=== PATIENT | female | born 1935 | race Caucasian/White ===

== ENCOUNTER 2016-03-23 14:37 | Emergency (ER) | payer MEDICARE, OTHER ==
[~2016-03-23] VITALS: Ht 160 cm; Wt 63.6 kg
[~2016-03-23 14:37] MED LIST: ASCO100089 PO; ASPI-973 PO; AZITHROMYCIN PO; AZU500 PO; CALC-78 PO; CITA20TA11 PO; DOXY100T2 PO; FERR325T39 PO; FURO-129 PO; HYDR200T5 PO; LACT1CAP73 PO; LORA10CA PO; MAGN400C PO; MULT-1018 PO; OMEP40CA36 PO; POLY17PO6 PO; POTA10CA42 PO; PRE20 PO; ROSU10TA24 PO; SYMINH INHALATION; TIOT18CA3 IH; ZIT250 PO
[2016-03-23 14:58] VITALS: BP 155/56; PULSE 89; RESP 18; O2SAT 94
[2016-03-23 16:22] LABS: BASOPHILS % (AUTO) 0.3 % (0-3); EOSINOPHILS % (AUTO) 2.6 % (0-5); Mean Corpuscular Volume 101.2 fL (81-100); NEUTROPHILS % (AUTO) 67.9 % (40-74); Platelet Count 205 bil/L (150-400)
--- NOTE | 2016-03-23 16:44 | DRSVH ---
PROCEDURE: X-RAY CHEST, TWO VIEWS ([id number]) INDICATIONS: SHORTNESS OF BREATH; CHRONIC DISEASE TECHNIQUE: 2 views of the chest were acquired. COMPARISON: [facility], CT, CT CHEST WO CON, 01/27/2016, 11:13. [facility], CR, XR CHEST 1VW (PORTABLE), 01/19/2016, 17:16. FINDINGS: Surgical changes and devices: Cardiac pacer. Lungs and pleura: No pleural effusions or pneumothorax. Diffuse interstitial disease and scarring is again noted and grossly unchanged. No acute consolidation. Nodular opacity in the right midlung nupur ure 1 cm is grossly unchanged please see report from recent CT dated 01/27/16 for further characteriz ation Mediastinum: Mediastinal contours are normal. Heart size is normal. Bones and chest wall: No suspicious bony abnormalities. Soft tissues appear unremarkable. IMPRESSION: No acute consolidation. Grossly unchanged mid right lung nodular opacity as above. Chronic diffuse/in terstitial lung disease. Dictated by: Marek Bond M.D. on 03/23/2016 at 16:42 Approved by: Marek Bond M.D. on 03/23/2016 at 16:42
[2016-03-23 16:54] VITALS: BP 137/46; PULSE 79; RESP 15; O2SAT 94
[2016-03-23 17:16] LABS: TROPONIN T < 0.010 ug/L (0.0-0.011)
--- NOTE | 2016-03-23 18:11 | ED.REPORT ---
HPI-Dyspnea / Wheezing Date of Service Mar 23, 2016 ED Provider: Edgar Brito MD This patient is a 80 year old female with a history of chronic anemia, transfusions, and COPD who presents to the ED complaining of feeling fatigued for the past 1 week. Pt. admits to diarrhea, vision problems, and mild SOB but denies cough, rhinorrhea, fever, chest pain, headaches, vomiting, nausea, abdominal pain, hematuria, or hematochezia. Pt. states that she receives injections in her eyes every 6 weeks for retina issues and since 6 days ago, she has been seeing black spots. She states that the diarrhea occurred for 2 days. The pt is on 2L of oxygen normally at home. Nursing Notes Stated Complaint: SOB,BODY ACHES,WEAK Chief Complaint: Respiratory Distress Nursing Notes Reviewed: Yes Allergies: Coded Allergies: albuterol (Verified Allergy, Severe, 03/11/16) "off the wall" atorvastatin calcium (Verified Allergy, Mild, 03/11/16) pravastatin (Verified Allergy, Mild, 03/11/16) simvastatin (Verified Allergy, Unknown, 03/11/16) Uncoded Allergies: link (Allergy, Mild, 07/29/10) hayfever (Allergy, Mild, 07/29/10) perfume (Allergy, Mild, 07/29/10) sneezing with link perfume and hayfever. Scheduled ([Azithromycin]) 250 MG PO DAILY MON, WED, FRI-3 TIMES WEEKLY Ascorbic Acid (Vitamin C) 1,000 Mg Tab.chew 1,000 MG PO DAILY Aspirin (Aspirin) 81 Mg Tablet 81 MG PO DAILY Azithromycin (Zithromax) 250 Mg Tablet 250 MG PO DAILY Budesonide/Formoterol 160-4.5 mcg Inh (Symbicort 160-4.5 mcg Inh) 120 Puff Inhaler 1 PUFF INHALATION BID Calcium Carbonate/Vitamin D3 (Calcium 500 + Vit D Caplet) 1 Each Tablet 1 EACH PO BID Citalopram (Citalopram) 20 Mg Tablet 30 MG PO DAILY Doxycycline Hyclate (Doxycycline Hyclate) 100 Mg Tablet 100 MG PO BID Ferrous Sulfate (Iron) 325 Mg Tablet 324 TABLET PO BID Furosemide (Lasix) 20 Mg Tablet 20 MG PO DAILY Hydroxychloroquine Sulfate (Hydroxychloroquine Sulfate) 200 Mg Tablet 200 MG PO BID Lactobacillus Combo No.11 (Probiotic) 1 Each Cap.sprink 1 EACH PO DAILY Magnesium Oxide (Magnesium) 400 Mg Capsule 400 MG PO DAILY Multivitamin (Multi Vitamin Daily) 1 Each Tablet 1 EACH PO DAILY Omeprazole (Omeprazole) 40 Mg Capsule.dr 40 MG PO DAILY Polyethylene Glycol 3350 (Miralax) 17 Gm Powd.pack 17 GM PO BID Prednisone (PredniSONE) 20 Mg Tablet 40 MG PO DAILY Sulfasalazine (Sulfasalazine) 500 Mg Tablet 500 MG PO QID Tiotropium [place] (Spiriva) 18 Mcg Cap.w.dev 18 MCG IH AM Scheduled PRN Loratadine (Claritin) 10 Mg Capsule 10 MG PO DAILY PRN PRN allergies Potassium Chloride (Potassium Chloride) 10 Meq Capsule.er 10 MEQ PO DAILY PRN PRN HYPOKALEMIA TAKE WITH FOOD Miscellaneous Medications Rosuvastatin Calcium (Rosuvastatin Calcium) 10 Mg Tablet 10 MG PO General Time Seen by MD: 18:06 Chief Complaint Other (Fatigue) Hx Obtained From: Patient, Spouse Arrived By: Walk-in Sudden in Onset?: No Onset Occurred: 1 week ago Symptom Duration: Since onset Associated with: Denies: Chest pain, Cough, Fever, Nausea, Vomiting Pertinent Negative: Pt denies other symptoms Recent Healthcare: No recent hospitalization, Recent doctor visit Similar Sx Previous: Yes Past Medical History Past Medical History Notes: Dr. Chris Irwin (oncologist) [place] Past Medical History COPD-2 LPM Cannula aortic stenosis s/p bioprosthetic valve osteoarthritis breast cancer s/p bilat mastectomy diverticulitis sp resection GERD Depression Sleep apnea - on C-PAP Hx of GI bleed Hs of anemia, required 4 transfusions in July 2015 Reports: COPD, Hyperlipidemia Reports: Diverticulitis Past Surgical History aortic valve replacement double mastectomy bilateral cateract surgery colon resection rotator cuff surgery Hernia surgery in November of 2014 Pacemaker August 2015 Reports: Appendectomy, Hysterectomy Reports: Pacemaker insertion Smoking History Former Smoker Social History Alcohol Use: "Social" Drug Use: Denies drug use Other Social History: Good social support, , Local resident Ambulatory Status Independent Review of Systems Review of Systems Note: Black spots in vision Basic Review of Systems GI: No abdominal pain, No anorexia, No nausea, No vomiting : No dysuria Hematologic: No bleeding Neurologic: NL mental status Psychiatric: Normal thought content Constitutional: Reports: Fatigue, Denies: Fever Respiratory: Reports: Shortness of breath (Mild), Denies: Non-productive cough Cardiovascular: Denies: Chest pain Allergy / Immune: Denies: Rhinorrhea Complete sys rev & neg: except as marked. GI: Reports: Diarrhea, Denies: Abdominal pain, Hematochezia, Nausea, Vomiting Female: Denies: Dysuria, Hematuria Physical Exam Initial Vital Signs Vital Signs (First) Date Time Temp Pulse Resp B/P Pulse Ox O2 Delivery O2 Flow Rate FiO2 03/23/16 14:58 36.6 89 18 155/56 94 Nasal Cannula 2 Initial VS: Reviewed Head / Eyes: Atraumatic, Normocephalic, PERRL ENT: Mucous membranes moist, Conjunctiva normal, No scleral icterus Skin: Warm, Dry, No cyanosis Neurologic: Alert, Oriented, Nonfocal Psychiatric: Mood/affect normal, Behavior normal, Normal thought content Respiratory / Chest: Atraumatic, Breath sounds NL, Breath sounds = bilat, No respiratory distress Cardiovascular: Heart rate NL, Regular rhythm Heart Sounds / Murmur: Positive: Systolic murmur present.. (upper left sternal border) Abdomen: Atraumatic, Soft, Non-tender, BS normoactive Lower Extremity / Pelvis / MS: Atraumatic, No edema Lower extremity edema Upper Extremity / MS: Atraumatic, Full range of motion Rectum / Perineum: Atraumatic, No gross blood, No discharge Guaiac negative Interpretation & Diagnostics Lab Results Interpretation Result Diagram: 03/23/16 1600 03/23/16 1600 Test 03/23/16 16:00 03/23/16 17:32 White Blood Count 7.0th/mm3 (3.8-10.1) Red Blood Count 3.35mil/mm3 (3.90-5.20) Hemoglobin 10.4g/dL (12.0-15.6) Hematocrit 33.9% (35.0-46.0) Mean Corpuscular Volume 101.2fL (81-100) Mean Corpuscular Hemoglobin 31.0pg (27.0-35.0) Mean Corpuscular Hemoglobin Concent 30.7% (32.0-37.0) Red Cell Distribution Width 14.0% (12.3-15.4) Platelet Count 205bil/L (150-400) Neutrophils (%) (Auto) 67.9% (40-74) Lymphocytes (%) (Auto) 16.2% (14-46) Monocytes (%) (Auto) 13.0% (4-12) Eosinophils (%) (Auto) 2.6% (0-5) Basophils (%) (Auto) 0.3% (0-3) Sodium Level 138mEq/L (134-144) Potassium Level 4.7mEq/L (3.5-5.2) Chloride Level 96mEq/L (97-108) Carbon Dioxide Level 29mmol/L (18-29) Blood Urea Nitrogen 20mg/dL (8-27) Creatinine 0.82mg/dL (0.57-1.00) Estimat Glomerular Filtration Rate 96mL/min (>59) Glucose Level 100mg/dL (60-99) Calcium Level 9.2mg/dL (8.5-10.1) Total Bilirubin 0.2mg/dL (0.0-1.2) Aspartate Amino Transf (AST/SGOT) 26U/L (0-50) Alanine Aminotransferase (ALT/SGPT) 12U/L (0-32) Alkaline Phosphatase 44U/L (25-165) Troponin T < 0.010ug/L (0.0-0.011) Pro-B-Type Natriuretic Peptide 532.7pg/mL (0-738) Total Protein 6.8g/dL (6.4-8.4) Albumin 4.2g/dL (3.4-5.0) Hold Amaya Top Tube Received (Received) Hold Urine Received (Received) X-Ray Chest Interpretation Chest Xray Interpretation: IMPRESSION: No acute consolidation. Grossly unchanged mid right lung nodular opacity as above. Chronic diffuse/interstitial lung disease. Dictated by: Marek Bond M.D. on 03/23/2016 at 16:42 Approved by: Marek Bond M.D. on 03/23/2016 at 16:42 Interpretation / Wet Read by: Interpret - Radiologist Re-Eval/Medical Decision Med Decision/Clinical Course 80-year-old female history of COPD and chronic anemia on iron presenting complaining of weakness 2 weeks. She wanted to come get checked out. Denies any other symptoms. Hemoglobin is 10.4 which is up from last draw of 9. She is guaiac-negative. Her oxygen is 94-95% on 2 L which is consistent with her baseline. She is on home oxygen 2 L. She has denies any shortness of breath. Labs unremarkable except as above. Vital signs stable as above. Chest x-ray no evidence of pneumonia. No symptoms consistent with COPD exacerbation. Symptoms likely due to anemia. Recommend she increase her iron to twice daily dosing with stool softener. Follow-up with primary doctor this week. Return precautions given. Source of Hx: Old records Re-Evaluation/Progress : Time of Eval: 18:06 Patient Status: Condition improved Re-Evaluation/Progress Note: Pt. informed of the plan for discharge during the initial interview. Pt. understands and agrees with plan. All questions have been addressed at this time. Counseled Regarding: Diagnosis, Lab results, Need for follow-up, When/why to return to ED Discharge & Departure Departure Notes Impression: Primary Impression: Anemia Anemia type: iron deficiency Iron deficiency anemia type: unspecified iron deficiency Qualified Code: D50.9 - Iron deficiency anemia, unspecified Disposition: Home Discharge Condition All VS Reviewed: Yes Condition: Stable Patient Instructions: Iron Deficiency Anemia (DC) Additional Instructions: Thank you for entrusting your care with us today. Please take your iron twice a day. Your hemoglobin today was 10.4. Please return to the emergency department for blood in your stool, vomiting blood, shortness of breath, or new or concerning symptoms. Referrals: Meeta Leiva MD (PCP) Scribe Attestation Portions of this note were transcribed by Gama Yanez and Fernanda Rosa. I, Dr. Brito personally performed the history, physical exam and medical decision-making; I reviewed and confirmed the accuracy of the information in the transcribed note. Signed by: Gama Yanez and Gregory Terrell, 2015 and 1932. copies to: Meeta Leiva MD, Ben M MD Mar 23, 2016 18:11 Hien Rosa [Fernanda] Mar 23, 2016 18:30 GAMA YANEZ Mar 23, 2016 18:42
[2016-03-23 18:50] VITALS: BP 142/73; PULSE 78; RESP 18; O2SAT 96
[2016-06-15] MEDS ORDERED: CRIZ250C PO (09:39)
[2016-07-13] MEDS ORDERED: FURO-128 PO (14:57)
[2016-07-13] MEDS ORDERED: CRIZ250C PO (16:05)
[2016-07-13] MEDS ORDERED: BUPR-97 PO (16:40)
== END 2016-03-23 18:52 | disposition home or self-care (01) ==
LOC: SED 14:37
DX: D50.9 Iron deficiency anemia, unspecified (principal); R06.02 Shortness of breath; J44.9 Chronic obstructive pulmonary disease, unspecified; E78.5 Hyperlipidemia, unspecified; K21.9 Gastro-esophageal reflux disease without esophagitis; Z85.3 Personal history of malignant neoplasm of breast; Z87.891 Personal history of nicotine dependence; Z88.8 Allergy status to other drugs, medicaments and biological substances; Z79.82 Long term (current) use of aspirin; Z95.0 Presence of cardiac pacemaker

== ENCOUNTER 2016-06-26 11:25 | Emergency (ER) | payer MEDICARE, OTHER ==
[~2016-06-26] VITALS: Ht 160 cm; Wt 59.1 kg
[~2016-06-26 11:25] MED LIST changes: +CRIZ250C PO; -ZIT250 PO
[2016-06-26 11:31] VITALS: BP 144/38; PULSE 91; RESP 14; O2SAT 97
--- NOTE | 2016-06-26 11:43 | ED.REPORT ---
HPI-General Illness Date of Service Jun 26, 2016 ED Provider: Rosalee Hong MD 80 year old female with a history of COPD, breast cancer status post bilateral mastectomy, and GERD presents to the ER accompanied by her complaining of three days of shortness of breath with upper sternal chest pain. Pain is exacerbated by deep inspiration. She also complains of nausea, decreased appetite, constipation, and weight loss. Last week she was seen for a follow-up ECG after being started on CRIZOTINIB, at which time she was told to stop this medication for several days. Nursing Notes Stated Complaint: SHORTNESS OF BREATH Chief Complaint: Respiratory Complaints Nursing Notes Reviewed: Yes Allergies: Coded Allergies: albuterol (Verified Allergy, Severe, 06/26/16) "off the wall" atorvastatin calcium (Verified Allergy, Mild, 06/26/16) pravastatin (Verified Allergy, Mild, 06/26/16) simvastatin (Verified Allergy, Unknown, 06/26/16) Uncoded Allergies: link (Allergy, Mild, 07/29/10) hayfever (Allergy, Mild, 07/29/10) perfume (Allergy, Mild, 07/29/10) sneezing with link perfume and hayfever. Scheduled ([Azithromycin]) 250 MG PO DAILY MON, WED, FRI-3 TIMES WEEKLY Ascorbic Acid (Vitamin C) 1,000 Mg Tab.chew 1,000 MG PO DAILY Aspirin (Aspirin) 81 Mg Tablet 81 MG PO DAILY Budesonide/Formoterol 160-4.5 mcg Inh (Symbicort 160-4.5 mcg Inh) 120 Puff Inhaler 1 PUFF INHALATION BID Calcium Carbonate/Vitamin D3 (Calcium 500 + Vit D Caplet) 1 Each Tablet 1 EACH PO BID Citalopram (Citalopram) 20 Mg Tablet 30 MG PO DAILY Crizotinib (Xalkori) 250 Mg Capsule 250 MG PO BID Doxycycline Hyclate (Doxycycline Hyclate) 100 Mg Tablet 100 MG PO BID Ferrous Sulfate (Iron) 325 Mg Tablet 324 TABLET PO BID Furosemide (Lasix) 20 Mg Tablet 20 MG PO DAILY Hydroxychloroquine Sulfate (Hydroxychloroquine Sulfate) 200 Mg Tablet 200 MG PO BID Lactobacillus Combo No.11 (Probiotic) 1 Each Cap.sprink 1 EACH PO DAILY Magnesium Oxide (Magnesium) 400 Mg Capsule 400 MG PO DAILY Multivitamin (Multi Vitamin Daily) 1 Each Tablet 1 EACH PO DAILY Omeprazole (Omeprazole) 40 Mg Capsule.dr 40 MG PO DAILY Ondansetron ODT (Ondansetron ODT) 8 Mg Tab.rapdis 8 MG PO TID Polyethylene Glycol 3350 (Miralax) 17 Gm Powd.pack 17 GM PO BID Prednisone (PredniSONE) 20 Mg Tablet 40 MG PO DAILY Sulfasalazine (Sulfasalazine) 500 Mg Tablet 500 MG PO QID Tiotropium [place] (Spiriva) 18 Mcg Cap.w.dev 18 MCG IH AM Scheduled PRN Loratadine (Claritin) 10 Mg Capsule 10 MG PO DAILY PRN PRN allergies Potassium Chloride (Potassium Chloride) 10 Meq Capsule.er 10 MEQ PO DAILY PRN PRN HYPOKALEMIA TAKE WITH FOOD Miscellaneous Medications Rosuvastatin Calcium (Rosuvastatin Calcium) 10 Mg Tablet 10 MG PO General Time Seen by MD: 11:33 Chief Complaint Chest pain, Other (Shortness of Breath) Hx Obtained From: Patient, Spouse Arrived By: Walk-in Sudden in Onset?: No Onset Occurred: 3 days ago Symptom Duration: Since onset Location: : Chest Quality: Painful Severity: Current: Moderate Severity: Maximum: Moderate Associated with: Reports: Nausea Context Related History: Reports COPD, Reports Cancer, Reports GERD Recent Healthcare: Recent doctor visit Similar Sx Previous: No Past Medical History Past Medical History Notes: Dr. Chris Irwin (oncologist) [place] Past Medical History COPD-2 LPM Cannula aortic stenosis s/p bioprosthetic valve osteoarthritis breast cancer s/p bilat mastectomy diverticulitis sp resection GERD Depression Sleep apnea - on C-PAP GI bleed Anemia, required 4 transfusions in July [address] April 2016 indicates likely metastatic lung disease Reports: Hyperlipidemia Reports: Diverticulitis Past Surgical History aortic valve replacement double mastectomy bilateral cateract surgery colon resection rotator cuff surgery Knee Hernia surgery in November of 2014 Pacemaker August 2015 Lung needle biopsy Reports: Appendectomy, Hysterectomy, Tonsillectomy Reports: Pacemaker insertion Smoking History Former Smoker Social History Alcohol Use: "Social" Drug Use: Denies drug use Other Social History: Good social support, , Local resident Ambulatory Status Independent Review of Systems Full Review of Systems Constitutional: Reports: Recent wt loss, Denies: Chills, Fever, Weakness - generalized Respiratory: Reports: Shortness of breath Cardiovascular: Reports: Chest pain GI: Reports: Constipation, Nausea, Denies: Abdominal pain, Vomiting Neurologic: Denies: Headache Complete sys rev & neg: except as marked. Physical Exam Vital Signs Vital Signs Date Time Temp Pulse Resp B/P Pulse Ox O2 Delivery O2 Flow Rate FiO2 06/26/16 13:02 85 21 122/31 96 Nasal Cannula 2 06/26/16 11:31 36.8 91 14 144/38 97 Nasal Cannula 2 Initial VS: Reviewed Head / Eyes: Atraumatic, Normocephalic Neck: Supple, Non-tender, Full range of motion Abdomen / GI: Soft, Non-tender, No guarding, No rebound, No distention Extremities: Vascular intact, Neuro intact, No swelling, No tenderness Skin: Warm, Dry, No cyanosis Neurologic: Alert, Oriented, Nonfocal Psychiatric: Mood/affect normal, Behavior normal, Normal thought content General/Constitutional: Awake, Alert, Well developed Respiratory / Chest: Breath sounds NL, No respiratory distress, No rales, No rhonchi, No wheezing Pacemaker in place. Surgically absent breasts. Cardiovascular: Heart rate NL, Regular rhythm Heart Sounds / Murmur: Positive: Diastolic murmur present. (III/), Systolic murmur present.. (III/) Lower Ext Edema: Positive: Left 1+, Right 2+ Interpretation & Diagnostics Lab Results Interpretation Result Diagram: 06/26/16 1140 06/26/16 1228 Test 06/26/16 11:40 06/26/16 12:28 White Blood Count 8.9th/mm3 (3.8-10.1) Red Blood Count 3.10mil/mm3 (3.90-5.20) Hemoglobin 9.7g/dL (12.0-15.6) Hematocrit 32.2% (35.0-46.0) Mean Corpuscular Volume 103.9fL (81-100) Mean Corpuscular Hemoglobin 31.3pg (27.0-35.0) Mean Corpuscular Hemoglobin Concent 30.1% (32.0-37.0) Red Cell Distribution Width 13.0% (12.3-15.4) Platelet Count 207bil/L (150-400) Neutrophils (%) (Auto) 68.2% (40-74) Lymphocytes (%) (Auto) 14.5% (14-46) Monocytes (%) (Auto) 14.4% (4-12) Eosinophils (%) (Auto) 2.6% (0-5) Basophils (%) (Auto) 0.2% (0-3) Sodium Level 139mEq/L (134-144) Potassium Level 4.3mEq/L (3.5-5.2) Chloride Level 98mEq/L (97-108) Carbon Dioxide Level 30mmol/L (18-29) Blood Urea Nitrogen 19mg/dL (8-27) Creatinine 0.96mg/dL (0.57-1.00) Estimat Glomerular Filtration Rate 80mL/min (>59) Glucose Level 106mg/dL (60-99) Calcium Level 9.1mg/dL (8.5-10.1) Magnesium Level 2.5mg/dL (1.6-2.6) Total Bilirubin 0.3mg/dL (0.0-1.2) Aspartate Amino Transf (AST/SGOT) 32U/L (0-50) Alanine Aminotransferase (ALT/SGPT) 18U/L (0-32) Alkaline Phosphatase 58U/L (25-165) Troponin T < 0.010ug/L (0.0-0.011) Total Protein 6.0g/dL (6.4-8.4) Albumin 3.7g/dL (3.4-5.0) ECG Interpretation ECG Interpretation: Sinus rhythm, rate 87 Probable left atrial enlargement RBBB LVH QTc 508 compared to QTc 490 06/19/2016 Time: 12:01 Interpreted by: ED physician X-Ray Chest Interpretation Chest Xray Interpretation: IMPRESSION: 1. A nodular density in the right mid to lower lung zone, which has slightly increased in density but stable in size. 2. Increased small right pleural effusion. Dictated by: James Palacios M.D. on 06/26/2016 at 12:29 Approved by: James Palacios M.D. on 06/26/2016 at 12:31 View: Portable, 1 view Interpretation / Wet Read by: Interpret - Radiologist Re-Eval/Medical Decision Med Decision/Clinical Course Chronic anemia. Questionable increase to metastatic lung nodule size continued pleural effusion not significantly changed. Suspect that the majority of her symptoms are related to the drug itself rather than any actual progression of disease and there is no evidence of acute pneumonia or other infection. We will treat her nausea and have her follow up with oncology as previously scheduled Source of Hx: Old records Time of Eval: 14:12 Re-Evaluation/Progress Note: Discussed lab and imaging results and plan to discharge. Patient is amenable to the plan. Return precautions given. All other questions addressed. Consultation : Referral / Consult Name: Jose Bess MD Consulted With: On-call physician (Oncology) Call Returned at: 11:59 Counseled Regarding: Diagnosis, Lab results, Need for follow-up, When/why to return to ED Discharge & Departure Primary Impression: Metastatic breast cancer Additional Impressions: Dyspnea Non-cardiac chest pain Disposition: Home Discharge Condition All VS Reviewed: Yes Condition: Stable Additional Instructions: Your workup today is reassuring, I do not believe that there is any immediately dangerous cause for your symptoms at this time. There is question if the nodule in your lung has grown in size, but this is not incredibly obvious based on your x-ray. Your ECG is reassuring. Continue taking the CRIZOTINIB. Tylenol or ibuprofen as needed for pain. Take the prescribed Zofran as directed for nausea. Start with a bland diet, advance as tolerated. Try milkshakes with some added protein powder. Drink plenty of fluids, whatever you are able to tolerate. Follow-up with Dr. Resendez as planned. Return to the ER if you develop any worsening or concerning symptoms. Referrals: Meeta Leiva MD (PCP) Scribe Attestation Portions of this note were transcribed by Vance Redman. I, Dr. Hong, personally performed the history, physical exam and medical decision-making; I reviewed and confirmed the accuracy of the information in the transcribed note. Signed by: Gregory Patino, 06/26/2016 at 14:20 copies to: Meeta Leiva MD, Shawna L MD Jun 26, 2016 11:43 VANCE REDMAN Jun 26, 2016 11:50
[2016-06-26 11:58] LABS: BASOPHILS % (AUTO) 0.2 % (0-3); EOSINOPHILS % (AUTO) 2.6 % (0-5); MONOCYTES % (AUTO) 14.4 % (4-12); Mean Corpuscular Hemoglobin 31.3 pg (27.0-35.0); Mean Corpuscular Volume 103.9 fL (81-100); NEUTROPHILS % (AUTO) 68.2 % (40-74); Platelet Count 207 bil/L (150-400)
--- NOTE | 2016-06-26 12:32 | DRSVH ---
PROCEDURE: X-RAY CHEST ONE VIEW, PORTABLE ([id number]) INDICATIONS: sob, chest discomfort TECHNIQUE: One view of the chest was acquired. COMPARISON: [facility], CR, XR CHEST 1VW (PORTABLE), 01/19/2016, 17:16. FINDINGS: Surgical changes and devices: A cardiac pacemaker is present in expected position. Lungs and pleura: There is a nodular density in the right mid to lower lung zone, unchanged in size but increased in density. There is a small right effusion, which is slightly increased. No pneumothor ax. Right apical opacities are likely scarring. Mediastinum: Mediastinal contours appear normal. Heart size is normal. Bones and chest wall: No suspicious bony lesions. Overlying soft tissues appear unremarkable. IMPRESSION: 1. A nodular density in the right mid to lower lung zone, which has slightly increased in density but stable in size. 2. Increased small right pleural effusion. Dictated by: James Palacios M.D. on 06/26/2016 at 12:29 Approved by: James Palacios M.D. on 06/26/2016 at 12:31
[2016-06-26 13:02] VITALS: BP 122/31; PULSE 85; RESP 21; O2SAT 96
[2016-06-26] MEDS ORDERED: Ondansetron 2 mg/mL 2 mL Inj IVPUSH ONE (13:05)
[2016-06-26] MEDS ORDERED: 0.9% Sodium Chloride 1,000 ML IV ONE (13:05)
[2016-06-26 13:24] LABS: TROPONIN T < 0.010 ug/L (0.0-0.011)
[2016-06-26 13:33] LABS: Magnesium 2.5 mg/dL (1.6-2.6)
[2016-06-26] MEDS ORDERED: ONDA8TAB10 PO (14:35)
[2016-06-26 14:46] VITALS: BP 108/38; PULSE 82; RESP 15; O2SAT 92
[2016-06-26 15:01] VITALS: BP 108/38; PULSE 82; RESP 15; O2SAT 92
[2016-07-13] MEDS ORDERED: FURO-128 PO (14:57)
[2016-07-13] MEDS ORDERED: CRIZ250C PO (16:05)
[2016-07-13] MEDS ORDERED: BUPR-97 PO (16:40)
== END 2016-06-26 15:02 | disposition home or self-care (01) ==
LOC: SED 11:25
DX: C50.919 Malignant neoplasm of unspecified site of unspecified female breast (principal); R06.00 Dyspnea, unspecified; R07.89 Other chest pain; J44.9 Chronic obstructive pulmonary disease, unspecified; K21.9 Gastro-esophageal reflux disease without esophagitis; E78.5 Hyperlipidemia, unspecified; Z95.0 Presence of cardiac pacemaker; Z98.890 Other specified postprocedural states; Z87.891 Personal history of nicotine dependence; Z88.8 Allergy status to other drugs, medicaments and biological substances; Z79.82 Long term (current) use of aspirin; Z99.81 Dependence on supplemental oxygen; Z90.13 Acquired absence of bilateral breasts and nipples
CPT/HCPCS: 71010; 80053; 83735; 84484; 85025; 93005; 96361; 96374; 99285; J2405; J7030

== ENCOUNTER 2016-07-02 11:22 | Inpatient (IN) | payer MEDICARE, OTHER ==
[2016-07-02] VITALS (10 sets, daily range): BP systolic 114–131; BP diastolic 35–54; PULSE 83–96; RESP 18–25; O2SAT 91–99
[~2016-07-02] VITALS: Ht 160 cm; Wt 58.3 kg
[~2016-07-02 11:22] MED LIST changes: +ONDA8TAB10 PO
[2016-07-02 11:54] LABS: BASOPHILS % (AUTO) 0.3 % (0-3); EOSINOPHILS % (AUTO) 1.3 % (0-5); MONOCYTES % (AUTO) 13.3 % (4-12); Mean Corpuscular Hemoglobin 31.3 pg (27.0-35.0); Mean Corpuscular Volume 105.9 fL (81-100); NEUTROPHILS % (AUTO) 77.3 % (40-74); Platelet Count 250 bil/L (150-400)
--- NOTE | 2016-07-02 12:02 | ED.REPORT ---
HPI-General Illness Date of Service Jul 02, 2016 ED Provider: Rosalee Hong MD An 80 year old female with a history of bilateral breast cancer, metastatic to her lung, and COPD presents to the ED complaining SOB, fatigue, and and increasing exertional dyspnea despite her usual 2 L O2 at home. She reports bifrontal headache and complains of drainage that feels like it is draining into her mouth. She reports taking a prolonged nap where she went to bed in the afternoon and slept until 0800 the next day. She reports blurry vision and enough weakness and dyspnea that she is having trouble walking. Per , she has had loss of appetite, and has barely eaten since last ED visit on . She reports not being able to tolerate food going down. The patient was seen at oncology yesterday. Because of prolonged QTC, chemotherapy has been stopped. Nursing Notes Stated Complaint: SOB Chief Complaint: Trauma/Critical Care Nursing Notes Reviewed: Yes Allergies: Coded Allergies: atorvastatin calcium (Verified Allergy, Mild, 06/26/16) pravastatin (Verified Allergy, Mild, 06/26/16) simvastatin (Verified Allergy, Unknown, 06/26/16) albuterol (Verified Adverse Reaction, Severe, Restlessness, jittery, ) "off the wall" Uncoded Allergies: link (Allergy, Mild, 07/29/10) hayfever (Allergy, Mild, 07/29/10) perfume (Allergy, Mild, 07/29/10) sneezing with link perfume and hayfever. Scheduled Ascorbic Acid (Vitamin C) 1,000 Mg Tab.chew 1,000 MG PO DAILY Aspirin (Aspirin) 81 Mg Tablet 81 MG PO DAILY Azithromycin (Zithromax) 250 Mg Tablet 250 MG PO 3xweekly Budesonide/Formoterol 160-4.5 mcg Inh (Symbicort 160-4.5 mcg Inh) 120 Puff Inhaler 1 PUFF INHALATION BID Calcium Carbonate/Vitamin D3 (Calcium 500 + Vit D Caplet) 1 Each Tablet 1 EACH PO BID Citalopram (Citalopram) 20 Mg Tablet 20 MG PO DAILY Clobetasol Propionate (Clobetasol Propionate) 118 Ml Shampoo 1 APPLIC EXT 3xweekly Ferrous Sulfate (Iron) 325 Mg Tablet 324 TABLET PO BID Furosemide (Lasix) 20 Mg Tablet 20 MG PO DAILY Hydroxychloroquine Sulfate (Hydroxychloroquine Sulfate) 200 Mg Tablet 200 MG PO BID Lactobacillus Combo No.11 (Probiotic) 1 Each Cap.sprink 1 EACH PO DAILY Magnesium Oxide (Magnesium) 400 Mg Capsule 400 MG PO DAILY Multivitamin (Multi Vitamin Daily) 1 Each Tablet 1 EACH PO DAILY Omeprazole (Omeprazole) 40 Mg Capsule.dr 40 MG PO DAILY Rosuvastatin Calcium (Rosuvastatin Calcium) 10 Mg Tablet 10 MG PO DAILY Sulfasalazine (Sulfasalazine) 500 Mg Tablet 500 MG PO BID Tiotropium [place] (Spiriva) 18 Mcg Cap.w.dev 18 MCG IH QAM Scheduled PRN Acetaminophen (Acetaminophen) 325 Mg Tablet 650 MG PO Q4H PRN PRN For Pain Albuterol Neb Soln (Albuterol Neb Soln) 2.5 Mg/3 Ml Vial.neb Unknown Dose INHALATION Q4H PRN PRN For Shortness of Breath Ipratropium [place] (Ipratropium [place] Inhalant Solution) 0.2 Mg/1 Ml Solution 0.2 MG IH QID PRN PRN For Shortness of Breath Loratadine (Claritin) 10 Mg Capsule 10 MG PO DAILY PRN PRN allergies Menthol (Icy Hot) 1 Each Adh..patch 1 EACH TP DIRECTED PRN PRN For Pain Ondansetron ODT (Ondansetron ODT) 8 Mg Tab.rapdis 8 MG PO TID PRN PRN For Nausea Polyethylene Glycol 3350 (Miralax) 17 Gm Powd.pack 17 GM PO DAILY PRN PRN For Constipation General Time Seen by MD: 11:56 Chief Complaint Other (Shortness of Breath) Hx Obtained From: Patient, EMS Arrived By: Ambulance Sudden in Onset?: No Onset Occurred: 1 - 4 hours ago Symptom Duration: Since onset Severity: Current: Moderate Severity: Maximum: Moderate Recent Healthcare: Recent doctor visit Similar Sx Previous: No Past Medical History Past Medical History Notes: Dr. Kvng Resendez, oncology Past Medical History COPD-2 LPM Cannula aortic stenosis s/p bioprosthetic valve osteoarthritis breast cancer s/p bilat mastectomy metastatic lesions to Left lung- post radiation metastatic lesions to Righ lung - treament attempts currenly with oral chemo and not being well tolerated diverticulitis sp resection GERD Depression Sleep apnea - on C-PAP GI bleed Anemia, required 4 transfusions in July [address] April 2016 indicates likely metastatic lung disease Has pacemaker Was seen by oncology yesterday. Because of prolonged QTC, the chemotherapy has stopped. Visited ED on 05/26/16, was not tolerating chemotherapy. Reports: Cancer (Metastaic breast cancer to lung. ), Hyperlipidemia Reports: Diverticulitis Past Surgical History aortic valve replacement double mastectomy bilateral cateract surgery colon resection rotator cuff surgery Knee Hernia surgery in November of 2014 Pacemaker August 2015 Lung needle biopsy Reports: Appendectomy, Hysterectomy, Tonsillectomy Reports: Pacemaker insertion Smoking History Never Smoker Social History Alcohol Use: "Social" Drug Use: Denies drug use Other Social History: Good social support, , Local resident Ambulatory Status Independent Review of Systems Difficulty keeping oxygen up. Difficulty walking Drainage into mouth Loss of appetite Full Review of Systems Constitutional: Reports: Fatigue, Denies: Chills, Fever Eyes: Reports: Blurred bilateral Respiratory: Reports: Shortness of breath Neurologic: Reports: Headache Complete sys rev & neg: except as marked. Physical Exam Vital Signs Vital Signs Date Time Temp Pulse Resp B/P Pulse Ox O2 Delivery O2 Flow Rate FiO2 07/02/16 15:18 87 18 131/43 97 Nasal Cannula 4 07/02/16 14:30 86 20 130/38 92 Room Air 07/02/16 14:07 36.8 88 18 130/38 92 Nasal Cannula 4 07/02/16 11:25 36.3 96 25 127/35 99 Nasal Cannula 6 Initial VS: Reviewed General/Constitutional: Awake, Alert Patient is appropriate and is talking. Head / Eyes: Atraumatic, Normocephalic ENT: Atraumatic, Mucous membranes moist Respiratory / Chest: Atraumatic Wheezing / Retractions: Positive: Wheezing moderate (lungs have scattered wheezes) Cardiovascular: Heart rate NL, Regular rhythm Heart Sounds / Murmur: Positive: Murmur present... (3/6 systolic murmur) No edema Abdomen: Soft, No guarding, No rebound Upper Extremities Upper Extremity / MS: No edema Lower Extremity / Pelvis / MS: No edema Skin: Atraumatic, Color NL, Warm, Dry Neurologic: Oriented X3, Speech NL Neurological exam is non-focal. Interpretation & Diagnostics Lab Results Interpretation Result Diagram: 07/02/16 1120 07/02/16 1120 Test 07/02/16 11:20 07/02/16 13:00 White Blood Count 9.4th/mm3 (3.8-10.1) Red Blood Count 3.04mil/mm3 (3.90-5.20) Hemoglobin 9.5g/dL (12.0-15.6) Hematocrit 32.2% (35.0-46.0) Mean Corpuscular Volume 105.9fL (81-100) Mean Corpuscular Hemoglobin 31.3pg (27.0-35.0) Mean Corpuscular Hemoglobin Concent 29.5% (32.0-37.0) Red Cell Distribution Width 13.0% (12.3-15.4) Platelet Count 250bil/L (150-400) Neutrophils (%) (Auto) 77.3% (40-74) Lymphocytes (%) (Auto) 7.7% (14-46) Monocytes (%) (Auto) 13.3% (4-12) Eosinophils (%) (Auto) 1.3% (0-5) Basophils (%) (Auto) 0.3% (0-3) Sodium Level 140mEq/L (134-144) Potassium Level 4.5mEq/L (3.5-5.2) Chloride Level 95mEq/L (97-108) Carbon Dioxide Level 29mmol/L (18-29) Blood Urea Nitrogen 22mg/dL (8-27) Creatinine 0.89mg/dL (0.57-1.00) Estimat Glomerular Filtration Rate 87mL/min (>59) Glucose Level 122mg/dL (60-99) Calcium Level 9.0mg/dL (8.5-10.1) Total Bilirubin 0.3mg/dL (0.0-1.2) Aspartate Amino Transf (AST/SGOT) 45U/L (0-50) Alanine Aminotransferase (ALT/SGPT) 23U/L (0-32) Alkaline Phosphatase 64U/L (25-165) Troponin T 0.018ug/L (0.0-0.011) Pro-B-Type Natriuretic Peptide 1756pg/mL (0-738) Total Protein 6.3g/dL (6.4-8.4) Albumin 3.8g/dL (3.4-5.0) Urine Color Straw (YELLOW) Urine Appearance Hazy (CLEAR,HAZY) Urine pH 5.5 (5.0-8.0) Urine Specific [place] 1.020 (1.003-1.035) Urine Protein Negativemg/dL (NEG,TRACE) Urine Glucose (UA) Negativemg/dL (NEGATIVE) Urine Ketones Negativemg/dL (NEGATIVE) Urine Occult Blood Negative (NEGATIVE) Urine Nitrite Negative (NEGATIVE) Urine Bilirubin Negative (NEGATIVE) Urine Urobilinogen Normalmg/dL (NORMAL) Urine Leukocyte Esterase Negative (NEGATIVE) Urine RBC 0-2/hpf (0-2) Urine WBC 0-5/hpf (0-5) Urine Epithelial Cells Occasional/hpf (NONE-MOD) Urine Crystals None seen (NONE SEEN) Urine Bacteria Few/hpf (NONE-FEW) Urine Hyaline Casts 5/20/lpf (NONE) Urine Granular Casts Occasional (NONE SEEN) Urine Waxy Casts None seen (NONE SEEN) Urine Red Blood Cell Casts None seen (NONE SEEN) Urine White Blood Cell Casts None seen (NONE SEEN) Urine Mucus Present (None Seen) Urine Trichomonas None seen (NONE SEEN) Urine Yeast None (NONE SEEN) Urinalysis Comment None Urine Culture Reflexed Not indicated ECG Interpretation ECG Interpretation: Rate is 95. Sinus rhythm. Probably left atrial enlargement. Right bundle branch block. Similar to 06/30/16. Time: 12:12 Interpreted by: ED physician X-Ray Chest Interpretation Chest Xray Interpretation: IMPRESSION: 1. Increased small right pleural effusion and right basilar airspace opacities suspicious for pneumonia, versus atelectasis. Dictated by: Joe Whitehead M.D. on 07/02/2016 at 12:22 Approved by: Joe Whitehead M.D. on 07/02/2016 at 12:26 Interpretation / Wet Read by: Interpret - Radiologist CT Head Interpretation IMPRESSION: 1. No definite acute intracranial abnormality or discrete mass lesion. 2. Mild chronic white matter small vessel ischemic changes and cerebral volume loss redemonstrated. Dictated by: Joe Whitehead M.D. on 07/02/2016 at 12:47 Approved by: Joe Whitehead M.D. on 07/02/2016 at 12:50 Interpretation / Wet Read by: Interpret - Radiologist CT Chest Interpretation IMPRESSION: 1. Small moderate-sized right-sided pleural effusion with associated atelectasis. This has increased in the interim. 2. Mild groundglass and interstitial thickening at the right lung base may be exaggerated by atelectasis/interstitial edema. However, superimposed pneumonia is difficult to exclude. 3. Mild interval increase in size of the right pulmonary nodules and mediastinal lymph nodes. No definite new nodules are evident. 4. Severe emphysematous changes of the lungs 5. Small hiatal hernia. Dictated by: Tigre Grover M.D. on 07/02/2016 at 13:19 Re-Eval/Medical Decision Med Decision/Clinical Course Known metastatic lung disease recent visit to the emergency department with concerns about side effects from her chemotherapy. Seen in oncology clinic yesterday. Progressive dyspnea. Chest x-ray shows slightly increased right pleural effusion and probable enlargement of right lung mass. Possibility of pneumonia is entertained however her white count is not elevated and she does not complain of significantly productive cough or fever. Today her BNP is slightly elevated and her troponin is slightly elevated as well. Possibility of a non-STEMI is entertained her EKG is unchanged from previously. The QTc is down to 499. Long-term care and plans are unclear at this point. She is DO NOT RESUSCITATE. May benefit from palliative care consult. We will get a chest CT today to clarify the status of her metastatic cancer to help with discussion regarding goals of care. Will be admitted at this time with a diagnosis of non-STEMI congestive heart failure metastatic lung cancer will hold on antibiotics at this point as I do not have a clinical indication for pneumonia. 14:50 CT scan results do suggest progression of her metastatic lung disease in the interval 2 months since her last scan. Interstitial volume suggests more fluid overload. We will continue to monitor for pneumonia but again doubt that is a diagnosis currently. We will need to trend troponins. Time of Eval: 13:54 Patient Status: Condition improved Re-Evaluation/Progress Note: Rechecked patient. Shared test results and explained reasoning for ordering CT. Explained plan for possible hospital admission. Time of Eval: 15:25 Patient Status: Condition improved Re-Evaluation/Progress Note: Rechecked patient who is comftorable. Her stats are in the upper 90's on 4 liter. Discussed findings and plan for admission. Clarified code status, patient is definately DNR or DNI with aggressive treatment up to that point. Consultation : Referral / Consult Name: Nayan Resendez MD Consulted With: Hospitalist Call Returned at: 15:10 Waterworks Supervisor: Accepts admit Note: Discussed patient case with Dr. Resendez who accepts patient admit. Counseled Regarding: Diagnosis, Lab results, Need for follow-up, Need for admission Discharge & Departure Primary Impression: Metastatic breast cancer Additional Impressions: CHF (congestive heart failure) Congestive heart failure type: unspecified congestive heart failure type Congestive heart failure chronicity: unspecified congestive heart failure chronicity Qualified Code: I50.9 - Heart failure, unspecified COPD with acute exacerbation Non-STEMI (non-ST elevated myocardial infarction) Disposition: ADMITTED TO HOSPITAL Discharge Condition All VS Reviewed: Yes Condition: Stable Referrals: Meeta Leiva MD (PCP) Leeibtimothy Attestation Portions of this note were transcribed by Donato Arechiga. I, Dr. Hong personally performed the history, physical exam and medical decision-making; I reviewed and confirmed the accuracy of the information in the transcribed note. Signed by: Gregory Bautista, 07/02/2016, 1537. copies to: Meeta Leiva MD, Shawna L MD Jul 02, 2016 12:02 Donato Arechiga Jul 02, 2016 12:09
[2016-07-02 12:05] LABS: TROPONIN T 0.018 ug/L (0.0-0.011)
[2016-07-02] MEDS ORDERED: 0.9% Sodium Chloride 1,000 ML IV ONE (12:10)
--- NOTE | 2016-07-02 12:27 | DRSVH ---
PROCEDURE: X-RAY CHEST ONE VIEW, PORTABLE ([id number]) INDICATIONS: SOB TECHNIQUE: One view of the chest was acquired. COMPARISON: [facility], CR, XR CHEST 2VW, 03/23/2016, 15:50. [facility], CT, CT CHEST WO CON, 05/05/2016, 11:35. [facility], CR, XR CHEST 1VW (PORTABLE), 06/26/2016, 11:53. FINDINGS: Surgical changes and devices: Left chest wall dual-lead pacemaker appears stable in position. Lungs and pleura: There is a small right pleural effusion which appears slightly increased from the p rior study. There are also increased patchy airspace opacities in the right lung base suggestive of consolidation, versus atelectasis. A peripheral nodular opacity is also again noted. Mediastinum: Mediastinal contours appear unchanged. Heart size is normal. Bones and chest wall: No suspicious bony lesions. Overlying soft tissues appear unremarkable. IMPRESSION: 1. Increased small right pleural effusion and right basilar airspace opacities suspicious for pneumo soraya, versus atelectasis. Dictated by: Joe Whitehead M.D. on 07/02/2016 at 12:22 Approved by: Joe Whitehead M.D. on 07/02/2016 at 12:26
--- NOTE | 2016-07-02 12:52 | DRSVH ---
PROCEDURE: CT BRAIN WITHOUT CONTRAST ([id number]) INDICATIONS: known met lung CA, new headache and weakness TECHNIQUE: Noncontrast 4.5 mm thick angled axial sections acquired from the foramen magnum to the vertex, with c oronal reformats. COMPARISON: [facility], MR, MR BRAIN W&WO CON, 04/05/2015, 13:36. FINDINGS: Image quality: Excellent. CSF spaces: Basal cisterns are patent. No extra-axial fluid collections. The ventricles are symmet rach in size and shape. There is mild cerebral volume loss, with resultant ventricular and sulcal pro minence. Brain: No intracranial hemorrhage, definite mass, or mass effect. Evaluation for mass lesions is li mited in the absence of intravenous contrast. There are subcortical, periventricular and deep white m atter hypodensities consistent with mild chronic small vessel ischemic changes. There is intracrania l internal carotid artery atherosclerosis. Skull and face: Calvarium and visualized facial bones appear intact, without suspicious lesions. Sinuses: Visualized sinuses and mastoids are clear. IMPRESSION: 1. No definite acute intracranial abnormality or discrete mass lesion. 2. Mild chronic white matter small vessel ischemic changes and cerebral volume loss redemonstrated. Dictated by: Joe Whitehead M.D. on 07/02/2016 at 12:47 Approved by: Joe Whitehead M.D. on 07/02/2016 at 12:50
[2016-07-02 13:31] LABS: APPEARANCE,URINE HAZY (CLEAR,HAZY); COLOR,URINE STRAW (YELLOW); OCCULT BLOOD,URINE NEGATIVE (NEGATIVE); PH,URINE 5.5 (5.0-8.0); UROBILINOGEN,URINE NORMAL (NORMAL)
--- NOTE | 2016-07-02 14:29 | DRSVH ---
PROCEDURE: CT CHEST WITHOUT CONTRAST ([id number]) INDICATIONS: metastatic lung disease TECHNIQUE: Noncontrast 5 mm thick sections acquired from the pulmonary apices to the posterior costophrenic angl es. 7 mm thick coronal and sagittal MIP reformats were then acquired. For radiation dose reduction, the following was used: automated exposure control, adjustment of mA and/or kV according to patient size. COMPARISON: [facility], CT, CT CHEST WO CON, 05/05/2016, 11:35. [facility], CT, CT CHEST W CON, 07/10/2015, 8:43. [facility], CT, CHEST W/O CONTRAST, 03/20/2013, 12:3 6. [facility], CT, CHEST ANGIO-PE, 10/08/2011, 4:08. FINDINGS: Image quality: Diagnostic. Lungs and pleura: There is a moderate-sized right-sided pleural effusion with associated bibasilar at electasis, which has increased in the interim. A trace left-sided pleural effusion may be present. No lobar consolidation or pneumothorax is identified. Severe centrilobular emphysematous changes are identified diffusely throughout the lungs bilaterally, similar to prior studies. Mild developing gr oundglass attenuation and interstitial prominence within the right lower lobe is noted. Multiple spiculated nodules within the right lung are identified, which all have slightly increased i n size by approximately 1-2 mm in diameter since the previous study. No definite new pulmonary nodul es are present within either lung. Mediastinum: The heart is normal in size without a pericardial effusion. Calcifications of the aorti c valve are present. Coronary artery atherosclerosis is present. There is aortic atherosclerosis. The main pulmonary arterial trunk is not enlarged. There is no mediastinal mass. Multiple moderate sized mediastinal lymph nodes are identified. The largest is located within the posterior mediastinu m adjacent to the mid thoracic aorta, measuring up to approximately 2.4 x 2.1 cm (image 30, series 2) , previously measuring 2.3 x 1.6 cm. Additional right hilar lymph nodes also appear to have increase d in size; however, not well delineated on this exam given the degree of right basilar atelectasis/co nsolidation. There is a small hiatal hernia. Bones and chest wall: No suspicious bony lesions. Advanced multilevel degenerative changes of the s pine are present. No vertebral body compression fractures. No axillary or supraclavicular adenopath y by size criteria. Thyroid gland is not adequately evaluated. Abdomen: The included portions of the upper abdomen are similar to the prior study. No definite uppe r abdominal lymphadenopathy is appreciated. IMPRESSION: 1. Small moderate-sized right-sided pleural effusion with associated atelectasis. This has increase d in the interim. 2. Mild groundglass and interstitial thickening at the right lung base may be exaggerated by atelect asis/interstitial edema. However, superimposed pneumonia is difficult to exclude. 3. Mild interval increase in size of the right pulmonary nodules and mediastinal lymph nodes. No de finite new nodules are evident. 4. Severe emphysematous changes of the lungs 5. Small hiatal hernia. Dictated by: Tigre Grover M.D. on 07/02/2016 at 13:19 Approved by: Tigre Grover M.D. on 07/02/2016 at 13:28
[2016-07-02] MEDS ORDERED: MethylprednisoLONE Sodium Succinate 62.5 mg/mL 2 mL Inj IVPUSH ONE (14:55)
[2016-07-02] MEDS ORDERED: Furosemide 10 mg/mL 4 mL Inj IVPUSH ONE (14:55)
[2016-07-02] MEDS ORDERED: Ondansetron 2 mg/mL 2 mL Inj IVPUSH PRN (15:40)
[2016-07-02] MEDS ORDERED: Alum-Mag Hydrox-Simeth 30 mL Suspension PO PRN (15:40)
[2016-07-02] MEDS ORDERED: ONDA8TAB10 PO (15:52)
[2016-07-02] MEDS ORDERED: CLOB118S3 EXT (15:52)
[2016-07-02] MEDS ORDERED: ZIT250 PO (15:56)
[2016-07-02] MEDS ORDERED: POLY17PO6 PO (16:00)
[2016-07-02] MEDS ORDERED: IPRA0.2S51 IH (16:00)
[2016-07-02] MEDS ORDERED: ALBU2.5V4 INHALATION (16:07)
[2016-07-02] MEDS ORDERED: ACET325T51 PO (16:14)
[2016-07-02] MEDS ORDERED: MENT1ADH TP (16:14)
--- NOTE | 2016-07-02 16:18 | NUR ---
Admit nurse note Admission assessment mostly completed in the ER based on pt. and report. Med history obtained based on pt. list. PT. was d/c'd from [facility] today due to side effects "they think that's what is causing her problem." reports that pt. has been very poor appetite and intake since starting Xalkori. Pt. reports being usually independent. Allergies verified, sticker to be placed by primary RN. states she takes albuterol at home but has tolerated it better "when it's mixed with something. I will bring in the name from home." to bring in CPAP and advance directives as well. Report given to Valerio who will start VERO protocol and fall precautions.
--- NOTE | 2016-07-02 16:42 | PCM.HPMED ---
Subjective Date of Service Jul 02, 2016 Primary Provider: Admitting Physician: Nayan Resendez MD Primary Care Physician: Meeta Leiva MD Attending Physician: Nayan Resendez MD History of Present Illness: Chief Complaint: HISTORY was OBTAINED FROM PATIENT / MEDITECH NOTES History of present illness: 80-year-old female with metastatic lung cancer, frontal headache, vision changes, difficulting walking, mild sore throat intermittent, leg swelling right greater than left, presented to ER due to ongoing hypoxia at home. No prior thrush. no yeast infections. no [place] hx. no recent pneumonia. CHF associated leg swelling tends to be right. no regular cough, no phelgm production. no sick contacts. no blood clots before. IN ER, O2 4-6L, initially w/ NS thought to be dehydrated, then CT chest consistent w/ pl effusions, s/p 40 lasix w/ > 1L UOP. Last seen by Oncologist Dr Kvng Resendez yesterday 07/01/16 - recurrent metastatic lung cancer started Xalkori on 06/03/2016 but due to associated fatigue and loss of appetite, edema, SOB, prolonged Qt, oncologist recommended to stop Xalkori, increase lasix, w/ follow up in 1 week. Review of Systems - none of the following - F/C/ dizziness / cp / acid reflux / abdominal pain/n/v/diarrhea / bleeding/bruising change in voiding / yeast infections / rash Ambulates by self FAMILY HX: Lung cancer and breast cancer in sister. Mother with history of cirrhosis and hepatitis. SOCIAL HX:social EtOH, distant smoker MEDICATIONS: Medications Scheduled ([Azithromycin]) 250 MG PO DAILY MON, WED, FRI-3 TIMES WEEKLY Ascorbic Acid (Vitamin C) 1,000 Mg Tab.chew 1,000 MG PO DAILY Aspirin (Aspirin) 81 Mg Tablet 81 MG PO DAILY Budesonide/Formoterol 160-4.5 mcg Inh (Symbicort 160-4.5 mcg Inh) 120 Puff Inhaler 1 PUFF INHALATION BID Calcium Carbonate/Vitamin D3 (Calcium 500 + Vit D Caplet) 1 Each Tablet 1 EACH PO BID Citalopram (Citalopram) 20 Mg Tablet 30 MG PO DAILY Crizotinib (Xalkori) 250 Mg Capsule 250 MG PO BID Doxycycline Hyclate (Doxycycline Hyclate) 100 Mg Tablet 100 MG PO BID Ferrous Sulfate (Iron) 325 Mg Tablet 324 TABLET PO BID Furosemide (Lasix) 20 Mg Tablet 20 MG PO DAILY Hydroxychloroquine Sulfate (Hydroxychloroquine Sulfate) 200 Mg Tablet 200 MG PO BID Lactobacillus Combo No.11 (Probiotic) 1 Each Cap.sprink 1 EACH PO DAILY Magnesium Oxide (Magnesium) 400 Mg Capsule 400 MG PO DAILY Multivitamin (Multi Vitamin Daily) 1 Each Tablet 1 EACH PO DAILY Omeprazole (Omeprazole) 40 Mg Capsule.dr 40 MG PO DAILY Ondansetron ODT (Ondansetron ODT) 8 Mg Tab.rapdis 8 MG PO TID Polyethylene Glycol 3350 (Miralax) 17 Gm Powd.pack 17 GM PO BID Prednisone (PredniSONE) 20 Mg Tablet 40 MG PO DAILY Sulfasalazine (Sulfasalazine) 500 Mg Tablet 500 MG PO QID Tiotropium [place] (Spiriva) 18 Mcg Cap.w.dev 18 MCG IH AM Scheduled PRN Loratadine (Claritin) 10 Mg Capsule 10 MG PO DAILY PRN PRN allergies Potassium Chloride (Potassium Chloride) 10 Meq Capsule.er 10 MEQ PO DAILY PRN PRN HYPOKALEMIA TAKE WITH FOOD Rosuvastatin Calcium (Rosuvastatin Calcium) 10 Mg Tablet 10 MG PO PAST MEDICAL/SURGICAL HISTORY: pulm nodules / ROS1 translocation metastatic Recurrent right-sided lung cancer ( 2013 stage 1, moderately differentiated adenocarcinoma, immunostain CK7 positive , TTF-1 positive, and napsin 7 positive). Diagnosis clinical given the steady but slow increase in size of her multiple pulmonary nodules - not a biopsy candidate currently s/p RTX 2013, Emphysema 2L home continuous O2. Rheumatoid arthritis. Breast cancer diagnosed in 1983, status post bilateral mastectomy and 5yr adjuvant tamoxifen in 1994. HFpEF (EF 65% 06/2015), aortic valve stenosis s/p bioprosthetic valve 2012, pacer 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 s/p pill endoscopies, multiple EGDs PFTs from 05/2015: FVC of 1.29L or 52% predicted, FEV1 of 0.47L or 25% predicted, (++)sig PETAL CUTTER, RV of 201%, TLC of 128%, and DLCO of 15% predicted Diverticulitis s/p resection 1999 GERD Depression Sleep apnea - on C-PAP tonsillectomy, appendectomy, aortic valve balloon surgery, hemicolectomy, double mastectomy, various orthopedic surgeries, back pain arthritis Exam on admission: 3L NC, now changed to oximask due to O2 sat 88% while talking during exam NAD A and O x 3 mood affect WNL NC/AT / No icterus / No injected eyes / EOMI PERRL / No pharyngeal lesions/ No oral lesions / hearing intact / no thrush Supple neck CTAB equal chest rise diminished bilateral / no accessory muscle use / speaks in full sentences / no RRW RRR S1 S2 / no MRG / 2+ radial pulses Soft nt nd + BS no hepatosplenomegaly Lower extremities - No edema No cyanosis No ecchymosis No rash / No jaundice ZAMORA Symmetrical facies STUDIES: qtc SR90 RBBB-unchanged 499 trop 0.18 BNP 1758 (baseline 400-500s) LFT normal Cr 089 at baseline IMAGING: PROCEDURE: CT CHEST WITHOUT CONTRAST ([id number]) INDICATIONS: metastatic lung disease TECHNIQUE: Noncontrast 5 mm thick sections acquired from the pulmonary apices to the posterior costophrenic angles. 7 mm thick coronal and sagittal MIP reformats were then acquired. For radiation dose reduction, the following was used: automated exposure control, adjustment of mA and/or kV according to patient size. COMPARISON: [facility], CT, CT CHEST WO CON, 05/05/2016, 11:35. [facility], CT, CT CHEST W CON, 07/10/2015, 8:43. [facility], CT, CHEST W/O CONTRAST, 03/20/2013, 12:36. [facility], CT , CHEST ANGIO-PE, 10/08/2011, 4:08. FINDINGS: Image quality: Diagnostic. Lungs and pleura: There is a moderate-sized right-sided pleural effusion with associated bibasilar atelectasis, which has increased in the interim. A trace left-sided pleural effusion may be present. No lobar consolidation or pneumothorax is identified. Severe centrilobular emphysematous changes are identified diffusely throughout the lungs bilaterally, similar to prior studies. Mild developing groundglass attenuation and interstitial prominence within the right lower lobe is noted. Multiple spiculated nodules within the right lung are identified, which all have slightly increased in size by approximately 1-2 mm in diameter since the previous study. No definite new pulmonary nodules are present within either lung. Mediastinum: The heart is normal in size without a pericardial effusion. Calcifications of the aortic valve are present. Coronary artery atherosclerosis is present. There is aortic atherosclerosis. The main pulmonary arterial trunk is not enlarged. There is no mediastinal mass. Multiple moderate sized mediastinal lymph nodes are identified. The largest is located within the posterior mediastinum adjacent to the mid thoracic aorta, measuring up to approximately 2.4 x 2.1 cm (image 30, series 2), previously measuring 2.3 x 1.6 cm. Additional right hilar lymph nodes also appear to have increased in size; however, not well delineated on this exam given the degree of right basilar atelectasis/consolidation. There is a small hiatal hernia. Bones and chest wall: No suspicious bony lesions. Advanced multilevel degenerative changes of the spine are present. No vertebral body compression fractures. No axillary or supraclavicular adenopathy by size criteria. Thyroid gland is not adequately evaluated. Abdomen: The included portions of the upper abdomen are similar to the prior study. No definite upper abdominal lymphadenopathy is appreciated. IMPRESSION: 1. Small moderate-sized right-sided pleural effusion with associated atelectasis. This has increased in the interim. 2. Mild groundglass and interstitial thickening at the right lung base may be exaggerated by atelectasis/interstitial edema. However, superimposed pneumonia is difficult to exclude. 3. Mild interval increase in size of the right pulmonary nodules and mediastinal lymph nodes. No definite new nodules are evident. 4. Severe emphysematous changes of the lungs 5. Small hiatal hernia. PROCEDURE: CT BRAIN WITHOUT CONTRAST ([id number]) INDICATIONS: known met lung CA, new headache and weakness TECHNIQUE: Noncontrast 4.5 mm thick angled axial sections acquired from the foramen magnum to the vertex, with coronal reformats. COMPARISON: [facility], MR, MR BRAIN W&WO CON, 04/05/2015, 13:36. FINDINGS: Image quality: Excellent. CSF spaces: Basal cisterns are patent. No extra-axial fluid collections. The ventricles are symmetric in size and shape. There is mild cerebral volume loss , with resultant ventricular and sulcal prominence. Brain: No intracranial hemorrhage, definite mass, or mass effect. Evaluation for mass lesions is limited in the absence of intravenous contrast. There are subcortical, periventricular and deep white matter hypodensities consistent with mild chronic small vessel ischemic changes. There is intracranial internal carotid artery atherosclerosis. Skull and face: Calvarium and visualized facial bones appear intact, without suspicious lesions. Sinuses: Visualized sinuses and mastoids are clear. IMPRESSION: 1. No definite acute intracranial abnormality or discrete mass lesion. 2. Mild chronic white matter small vessel ischemic changes and cerebral volume loss redemonstrated. Active issues and reason for admission Acute on chronic hypoxic respiratory distress, contributory acute CHF exacerbation, longstanding COPD, recent medication. --levalbuterol/ipratropium s/p solumedrol in ER x 1 - no wheeze, continue inhaled home steroid, --diurese, monitor electrolyes --already on azithromycin per oncology, consider sputum cx/throat swab but no symptoms, questionable CT finding "cannot rule out pneumonia", pending UA --consider CT- PE tomorrow if ongoing hypoxia --home CPAP elevated trop --serial, likely due to CHF exacerbation trop leak --serial trop --pending echo Prolonged QtC, due to recent oncology medication, monitor --confounding azithromycin Chronic issues known prior to admission, present on admission pulm nodules / ROS1 translocation metastatic Recurrent right-sided lung cancer ( 2013 stage 1, moderately differentiated adenocarcinoma, immunostain CK7 positive , TTF-1 positive, and napsin 7 positive). Diagnosis clinical given the steady but slow increase in size of her multiple pulmonary nodules - not a biopsy candidate currently s/p RTX 2013, Emphysema 2L home continuous O2. Rheumatoid arthritis. Breast cancer diagnosed in 1983, status post bilateral mastectomy and 5yr adjuvant tamoxifen in 1994. HFpEF (EF 65% 06/2015), aortic valve stenosis s/p bioprosthetic valve 2012, pacer 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 s/p pill endoscopies, multiple EGDs GERD Depression Sleep apnea --continue all home meds/vitamines, except potassium Diet regular DVT prophylaxis lovenox scd ambulate Code DNR Assessment and plan were discussed with patient Allergies Coded Allergies: atorvastatin calcium (Verified Allergy, Mild, 06/26/16) pravastatin (Verified Allergy, Mild, 06/26/16) simvastatin (Verified Allergy, Unknown, 06/26/16) albuterol (Verified Adverse Reaction, Severe, Restlessness, jittery, ) "off the wall" Uncoded Allergies: link (Allergy, Mild, 07/29/10) hayfever (Allergy, Mild, 07/29/10) perfume (Allergy, Mild, 07/29/10) sneezing with link perfume and hayfever. PMH Social History Hx Alcohol Use: Yes Hx Substance Use: No Hx Tobacco Use: Yes (25 pack year Hx, quit 20 years ago. ) Smoking Status: Never Smoker Exam Vital Signs Vital Sign - Last Date Time Temp Pulse Resp B/P Pulse Ox O2 Delivery O2 Flow Rate FiO2 07/02/16 16:18 36.7 84 18 130/54 91 Nasal Cannula 4.00 Lab and Diagnostics Result Diagram: 07/02/16 1120 07/02/16 1120 Nayan Resendez MD Jul 02, 2016 16:37 Nayan Resendez MD Jul 02, 2016 16:37
[2016-07-02] MEDS ORDERED: Levalbuterol 1.25 mg/0.5mL Inhalation Solution NEB ONE (17:20)
--- NOTE | 2016-07-02 19:11 | NUR ---
Admit to [facility] Pt. admitted to [facility] at 1615 in stable condition. On 4 L NC. Denies chest pain, N/V, or pain. c/o mild SOB. Vitals show oxygen saturation of 87-91, so I put her on an oxy mask at 6 L. now saturating at 95%. Lung sounds decreased throughout. Pt. oriented to call light and falls policy. MD came in around 1700 to meet with pt. RT notified of 1730 neb treatment. came later with CPAP. Pt. able to ambulate with extension tubing to bathroom, with mild dyspnea. Standby assist for safety.
[2016-07-02] MEDS: Fluticasone-Salmererol 250-50 Inhaler INHALATION SCH (20:49)
[2016-07-02] MEDS: Hydroxychloroqine 200 mg Tablet PO SCH (20:51)
[2016-07-02] MEDS: Sulfasalzine 500 mg Tablet PO SCH (20:53)
[2016-07-02] MEDS: Ipratropium 0.02% 0.5 mg/2.5 mL Inhalation Solution NEB SCH (21:22)
[2016-07-03] VITALS (12 sets, daily range): BP systolic 101–117; BP diastolic 38–56; PULSE 74–92; RESP 16–20; O2SAT 90–99
[2016-07-03] MEDS: Ipratropium 0.02% 0.5 mg/2.5 mL Inhalation Solution NEB SCH ×6 (00:38→20:40)
[2016-07-03] MEDS ORDERED: LORazepam 0.5 mg Tablet PO ONE (01:05)
--- NOTE | 2016-07-03 03:30 | NUR ---
O2 Sat's on 6L oxymask sat'ing in 92-94% range, switched to cpap around 23:00 on pressure setting 5 with 2L O2 flow. Titrated up to 3.5L then 5L only desat'ing when reaching deep sleep. Notified RT, face apparatus does not appear to be leaking however patient wakes up to cpox alarm so I haven't been able to see what's happening with desaturation. Possibly position changes loosen cpap causing drop in O2. Patient's hand remain warm to touch where cpox sensor connects. Finally settled on 7L+CPAP @ 03:15, will continue to monitor and maintain O2 levels.
[2016-07-03] MEDS ORDERED: Furosemide 10 mg/mL 4 mL Inj IVPUSH SCH (08:30)
[2016-07-03] MEDS: Pantoprazole 20 mg ER24 Tablet PO SCH (09:23)
[2016-07-03] MEDS: Levalbuterol 1.25 mg/0.5mL Inhalation Solution NEB SCH (09:29)
[2016-07-03] MEDS: Fluticasone-Salmererol 250-50 Inhaler INHALATION SCH ×2 (10:36→20:55)
[2016-07-03] MEDS: Sulfasalzine 500 mg Tablet PO SCH ×2 (10:36→20:56)
[2016-07-03] MEDS: Hydroxychloroqine 200 mg Tablet PO SCH ×2 (10:37→20:56)
--- NOTE | 2016-07-03 12:40 | PCM.PNMED ---
Subjective Date of Service Jul 03, 2016 Exam Vital Signs Vital Sign - Last Date Time Temp Pulse Resp B/P Pulse Ox O2 Delivery O2 Flow Rate FiO2 07/03/16 09:55 36.4 86 16 117/43 99 OxyMask 6.00 Intake and Output 07/02/16 07/02/16 07/03/16 Cumulative From/Thru 15:00 23:00 07:00 07/02/16 15:17 - 07/03/16 06:35 Intake Total 600 ml 300 ml 900 ml Output Total 400 ml 600 ml 1000 ml Balance 200 ml -300 ml -100 ml Intake Oral 100 ml 300 ml 400 ml IV Total 500 ml 500 ml Output Urine Total 400 ml 600 ml 1000 ml # Voids 1 1 # Bowel Movements 0 0 Lab and Diagnostics o/n admission, comfortably reading news paper 7+L O2 but w/ cold finger, actual 97%O2sat w/ talking improved leg swelling right, output 1L + wt 60kg Exam on admission: 3L NC, now changed to oximask due to O2 sat 88% while talking during exam NAD A and O x 3 mood affect WNL NC/AT / No icterus / No injected eyes / EOMI PERRL / No pharyngeal lesions/ No oral lesions / hearing intact / no thrush Supple neck CTAB equal chest rise diminished bilateral / no accessory muscle use / speaks in full sentences / no RRW RRR S1 S2 / no MRG / 2+ radial pulses Soft nt nd + BS no hepatosplenomegaly Lower extremities - No edema No cyanosis No ecchymosis No rash / No jaundice ZAMORA Symmetrical facies STUDIES: qtc SR90 RBBB-unchanged 499 trop 0.18 BNP 1758 (baseline 400-500s) LFT normal Cr 089 at baseline IMAGING: PROCEDURE: CT CHEST WITHOUT CONTRAST ([id number]) INDICATIONS: metastatic lung disease TECHNIQUE: Noncontrast 5 mm thick sections acquired from the pulmonary apices to the posterior costophrenic angles. 7 mm thick coronal and sagittal MIP reformats were then acquired. For radiation dose reduction, the following was used: automated exposure control, adjustment of mA and/or kV according to patient size. COMPARISON: [facility], CT, CT CHEST WO CON, 05/05/2016, 11:35. [facility], CT, CT CHEST W CON, 07/10/2015, 8:43. [facility], CT, CHEST W/O CONTRAST, 03/20/2013, 12:36. [facility], CT , CHEST ANGIO-PE, 10/08/2011, 4:08. FINDINGS: Image quality: Diagnostic. Lungs and pleura: There is a moderate-sized right-sided pleural effusion with associated bibasilar atelectasis, which has increased in the interim. A trace left-sided pleural effusion may be present. No lobar consolidation or pneumothorax is identified. Severe centrilobular emphysematous changes are identified diffusely throughout the lungs bilaterally, similar to prior studies. Mild developing groundglass attenuation and interstitial prominence within the right lower lobe is noted. Multiple spiculated nodules within the right lung are identified, which all have slightly increased in size by approximately 1-2 mm in diameter since the previous study. No definite new pulmonary nodules are present within either lung. Mediastinum: The heart is normal in size without a pericardial effusion. Calcifications of the aortic valve are present. Coronary artery atherosclerosis is present. There is aortic atherosclerosis. The main pulmonary arterial trunk is not enlarged. There is no mediastinal mass. Multiple moderate sized mediastinal lymph nodes are identified. The largest is located within the posterior mediastinum adjacent to the mid thoracic aorta, measuring up to approximately 2.4 x 2.1 cm (image 30, series 2), previously measuring 2.3 x 1.6 cm. Additional right hilar lymph nodes also appear to have increased in size; however, not well delineated on this exam given the degree of right basilar atelectasis/consolidation. There is a small hiatal hernia. Bones and chest wall: No suspicious bony lesions. Advanced multilevel degenerative changes of the spine are present. No vertebral body compression fractures. No axillary or supraclavicular adenopathy by size criteria. Thyroid gland is not adequately evaluated. Abdomen: The included portions of the upper abdomen are similar to the prior study. No definite upper abdominal lymphadenopathy is appreciated. IMPRESSION: 1. Small moderate-sized right-sided pleural effusion with associated atelectasis. This has increased in the interim. 2. Mild groundglass and interstitial thickening at the right lung base may be exaggerated by atelectasis/interstitial edema. However, superimposed pneumonia is difficult to exclude. 3. Mild interval increase in size of the right pulmonary nodules and mediastinal lymph nodes. No definite new nodules are evident. 4. Severe emphysematous changes of the lungs 5. Small hiatal hernia. PROCEDURE: CT BRAIN WITHOUT CONTRAST ([id number]) INDICATIONS: known met lung CA, new headache and weakness TECHNIQUE: Noncontrast 4.5 mm thick angled axial sections acquired from the foramen magnum to the vertex, with coronal reformats. COMPARISON: [facility], MR, MR BRAIN W&WO CON, 04/05/2015, 13:36. FINDINGS: Image quality: Excellent. CSF spaces: Basal cisterns are patent. No extra-axial fluid collections. The ventricles are symmetric in size and shape. There is mild cerebral volume loss , with resultant ventricular and sulcal prominence. Brain: No intracranial hemorrhage, definite mass, or mass effect. Evaluation for mass lesions is limited in the absence of intravenous contrast. There are subcortical, periventricular and deep white matter hypodensities consistent with mild chronic small vessel ischemic changes. There is intracranial internal carotid artery atherosclerosis. Skull and face: Calvarium and visualized facial bones appear intact, without suspicious lesions. Sinuses: Visualized sinuses and mastoids are clear. IMPRESSION: 1. No definite acute intracranial abnormality or discrete mass lesion. 2. Mild chronic white matter small vessel ischemic changes and cerebral volume loss redemonstrated. Result Diagram: 07/02/16 1120 07/02/16 1942 Assessment & Plan Active issues and reason for admission Acute on chronic hypoxic respiratory distress, contributory acute CHF exacerbation, longstanding COPD, improving hypoxia --levalbuterol/ipratropium s/p solumedrol in ER x 1 - no wheeze, continue inhaled home steroid, --diurese, monitor electrolyes ONGOING --already on azithromycin per oncology, consider sputum cx/throat swab but no symptoms, questionable CT finding "cannot rule out pneumonia", pending UA --consider CT- PE tomorrow if ongoing hypoxia, but improving --home CPAP --cxr pending elevated trop --serial, likely due to CHF exacerbation trop leak --serial trop --pending echo Prolonged QtC, due to recent oncology medication, monitor --confounding azithromycin Chronic issues known prior to admission, present on admission pulm nodules / ROS1 translocation metastatic Recurrent right-sided lung cancer ( 2014 stage 1, moderately differentiated adenocarcinoma, immunostain CK7 positive , TTF-1 positive, and napsin 7 positive). Diagnosis clinical given the steady but slow increase in size of her multiple pulmonary nodules - not a biopsy candidate currently s/p RTX 2013, Emphysema 2L home continuous O2. Rheumatoid arthritis. Breast cancer diagnosed in 1983, status post bilateral mastectomy and 5yr adjuvant tamoxifen in 1994. HFpEF (EF 65% 06/2015), aortic valve stenosis s/p bioprosthetic valve 2012, pacer 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 s/p pill endoscopies, multiple EGDs GERD Depression Sleep apnea --continue all home meds/vitamines, except potassium Diet regular DVT prophylaxis lovenox scd ambulate Code DNR Assessment and plan were discussed with patient - home tomorrow w/ adjusted laxis dose, appt for success coach - they will call Nayan Resendez MD Jul 03, 2016 12:14
[2016-07-03 12:52] LABS: Magnesium 2.2 mg/dL (1.6-2.6)
[2016-07-03] MEDS: Polyethylene Glycol (PEG) 17 Gm Powder PO PRN (16:29)
--- NOTE | 2016-07-03 17:23 | NUR ---
Respiratory Patient continued to require O2. Currently on 6LPM oxy mask. Does use NC when eating. CPOX in use at all times. Denies cough. States that she does not feel SOB at any time frame as well. Continue frequent monitoring.
[2016-07-04] VITALS (12 sets, daily range): BP systolic 118–128; BP diastolic 44–52; PULSE 79–94; RESP 16–18; O2SAT 90–98
[2016-07-04] MEDS: Ipratropium 0.02% 0.5 mg/2.5 mL Inhalation Solution NEB SCH ×6 (01:05→20:24)
[2016-07-04 06:06] LABS: TROPONIN T 0.022 ug/L (0.0-0.011)
--- NOTE | 2016-07-04 06:15 | NUR ---
Anxiety/Respiratory Patient experiencing low level anxiety due to being in hospital and CA. Requested Tylenol at HS mainly for the anxiety and relaxation as stated by the patient. Patient was able to rest most of night. Using 4.5L with CPAP - sats at 94-96%
[2016-07-04 06:17] LABS: Magnesium 2.2 mg/dL (1.6-2.6)
[2016-07-04] MEDS: Levalbuterol 1.25 mg/0.5mL Inhalation Solution NEB SCH ×4 (07:44→20:24)
--- NOTE | 2016-07-04 08:50 | NUR ---
Pt off floor for XRay around 0850.
--- NOTE | 2016-07-04 09:23 | NUR ---
ROSSI signed ROBSON Lawrence
--- NOTE | 2016-07-04 09:25 | NUR ---
Social Work: Initial Assessment Data: Pt is an 80 y/o female admitted for CHF metastatic lung cancer, acute COPD. Pt's PCP is Dr Leiva, pt's insurance is Medicare with [employer] supp. EMR reviewed. Readmit score is 4, high. CHIP CRUSHER OPERATOR met with pt at bedside, role explained. Pt states that she lives in [place] in a single story home with her where she uses no DME and has O2 through [place]. Pt states she does not drive, has no hx of HH or SNF, no TLC or VA benefits and is not a caregiver. Pt has AD/DPOA, CHIP CRUSHER OPERATOR requested a copy for the hospital. CHIP CRUSHER OPERATOR offered HH for RN, pt declined at this time. No further d/c planning needs anticipated. CHIP CRUSHER OPERATOR will continue to follow if needs arise. Assessment: Pt who is independent at baseline. Plan: Pt will d/c home via POV when medically stable. No further d/c planning needs anticipated. CHIP CRUSHER OPERATOR will continue to follow if needs arise. ROBSON Lawrence Addendum: 07/04/16 at 0928 by FIFI SAMS Amended: Links added.
--- NOTE | 2016-07-04 09:54 | DRSVH ---
PROCEDURE: X-RAY CHEST, TWO VIEWS ([id number]) INDICATIONS: ongoing hypoxia TECHNIQUE: 2 views of the chest were acquired. COMPARISON: [facility], CR, XR CHEST 1VW (PORTABLE), 07/02/2016, 12:00. [facility], CR, XR CHEST 1VW (PORTABLE), 06/26/2016, 11:53. FINDINGS: Surgical changes and devices: Pacemaking device with dual chamber leads normal. Lungs and pleura: No pleural effusions or pneumothorax. Lungs are abnormal with pulmonary hyperexpa nsion consistent with COPD and mild interval worsening of pneumonia at the right lung base. Slight p ulmonary edema likely superimposed A small right-sided subpulmonic pleural effusion is again noted i n that area, perhaps slightly increased from 07/02/16. Mediastinum: Mediastinal contours are normal. Heart size is normal. Bones and chest wall: No suspicious bony abnormalities. Soft tissues appear unremarkable. IMPRESSION: COPD, right lower lobe pneumonia, small subpulmonic right pleural effusion. Cardiac pace making device and leads appear normal. A small degree of pulmonary edema likely superimposed on the COPD pattern. Dictated by: Abhay Milton M.D. on 07/04/2016 at 9:49 Approved by: Abhay Milton M.D. on 07/04/2016 at 9:52
[2016-07-04] MEDS: Fluticasone-Salmererol 250-50 Inhaler INHALATION SCH ×2 (10:10→20:16)
[2016-07-04] MEDS: Pantoprazole 20 mg ER24 Tablet PO SCH (10:10)
[2016-07-04] MEDS: Sulfasalzine 500 mg Tablet PO SCH ×2 (10:11→20:21)
[2016-07-04] MEDS: Hydroxychloroqine 200 mg Tablet PO SCH ×2 (10:11→20:19)
[2016-07-04] MEDS: Polyethylene Glycol (PEG) 17 Gm Powder PO PRN (12:57)
--- NOTE | 2016-07-04 15:20 | PCM.PNMED ---
Subjective Date of Service Jul 04, 2016 Exam Vital Signs Vital Sign - Last Date Time Temp Pulse Resp B/P Pulse Ox O2 Delivery O2 Flow Rate FiO2 07/04/16 13:36 36.8 94 18 123/48 91 OxyMask 3.00 Intake and Output 07/03/16 07/03/16 07/04/16 Cumulative From/Thru 15:00 23:00 07:00 07/02/16 15:17 - 07/04/16 06:48 Intake Total 900 ml 350 ml 2150 ml Output Total 700 ml 400 ml 2100 ml Balance 200 ml -50 ml 50 ml Intake Oral 900 ml 350 ml 1650 ml IV Total 0 ml 500 ml Output Urine Total 700 ml 400 ml 2100 ml # Voids 2 3 # Bowel Movements 0 0 Lab and Diagnostics Result Diagram: 07/02/16 1120 07/04/16 0510 Assessment & Plan 07/03- admission, comfortably reading news paper, 7+L O2 but w/ cold finger, actual 97%O2sat w/ talking, improved leg swelling right with lasix o/n started productive coughing, nebs are helpful for air hunger, desat w/ ambulation, had choked on food, chronic intermittent dysphagia, RLL pna on CXR output 1L + wt 59-60kg Exam on admission: 2L NC, desats w/ ambulation NAD A and O x 3 mood affect WNL NC/AT / EOMI / No pharyngeal lesions/ No oral lesions / hearing intact / no thrush Supple neck diminished breath sounds bilateral, equal chest rise diminished bilateral / no accessory muscle use / speaks in full sentences / no RRW RRR S1 S2 / no MRG / 2+ radial pulses Soft nt nd + BS no hepatosplenomegaly Lower extremities - resolved edema ZAMORA Symmetrical facies STUDIES: qtc SR90 RBBB-unchanged 499 trop 0.18 - 0.22 BNP 1758 (baseline 400-500s) Active issues and reason for admission Acute on chronic hypoxic respiratory distress, contributory acute CHF exacerbation/moderate R pl effusion, longstanding COPD, initially improving hypoxia with diuersis, then hypoxia w/ CXR consistent w/ RLL pneumonia and dysphagia hx and new productive cough . --increase levalbuterol frequency / continue ipratropium, s/p solumedrol in ER x 1 - no wheeze, continue inhaled home steroid --dc diurese, hold lasix --already on prophylactic azithromycin per oncology,pending sputum cx , neg resp viral, pending procalcitonin, SENIOR CORPORATE RECRUITER swallow eval --start doxy/rocephine, dc azithro --consider CT- PE tomorrow if ongoing hypoxia, --home CPAP elevated trop --serial, likely due to CHF exacerbation trop leak --serial trop --pending echo Prolonged QtC, due to recent oncology medication, monitor --dc zofran and azithromycin Chronic issues known prior to admission, present on admission pulm nodules / ROS1 translocation metastatic Recurrent right-sided lung cancer ( 2013 stage 1, moderately differentiated adenocarcinoma, immunostain CK7 positive , TTF-1 positive, and napsin 7 positive). Diagnosis clinical given the steady but slow increase in size of her multiple pulmonary nodules - not a biopsy candidate currently s/p RTX 2013, Emphysema 2L home continuous O2. Rheumatoid arthritis. Breast cancer diagnosed in 1983, status post bilateral mastectomy and 5yr adjuvant tamoxifen in 1994. HFpEF (EF 65% 06/2015), aortic valve stenosis s/p bioprosthetic valve 2012, pacer 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 s/p pill endoscopies, multiple EGDs GERD Depression Sleep apnea --continue all home meds/vitamines, except potassium Diet regular DVT prophylaxis lovenox scd ambulate Code DNR Assessment and plan were discussed with patient - home tomorrow w/ adjusted laxis dose, appt for bar captain - they will call patient is aware of hospice and palliative services, [employer] Mechanical Devices: Intermittant Pneumatic CD Nayan Resendez MD Jul 04, 2016 14:10
[2016-07-04] MEDS: cefTRIAXone Inj 1,000 MG in Dextrose 5% Minibag Plus 50 ML IV SCH (15:29)
[2016-07-04] MEDS: Doxycycline Inj 100 MG in Dextrose 5% Minibag Plus 100 ML IV SCH (16:12)
--- NOTE | 2016-07-04 17:52 | NUR ---
O2 Needs Pt on Oxymask with 6L O2 in AM, during night uses personal CPAP with 4.5L O2 bleed in. During day shift pt O2 was titrated down to 3L and stabilized around 92% SpO2. Pt tends to breath out of mouth, does not tolerate NC very well. Denies SOB at rest and had no SOB episodes during ambulation. Continuing to monitor SpO2 with CPOX. May need to adjust as necessary.
--- NOTE | 2016-07-04 22:16 | NUR ---
oxygen requirement cpap with 3 liter bleed. sats 88% increased to 4 liter bleed, for sats>90% patient resting quietly. no dyspnea. Addendum: 07/05/16 at 0259 by WILLA SRIVASTAVA RN tolerating her cpap well. 4 liters bleed. cont pulse ox at bedside. sats 92% no signs of dyspnea or decreased satruation.
[2016-07-05] VITALS (16 sets, daily range): BP systolic 123–154; BP diastolic 44–54; PULSE 77–100; RESP 16–20; O2SAT 89–99
[2016-07-05] MEDS: Ipratropium 0.02% 0.5 mg/2.5 mL Inhalation Solution NEB SCH ×6 (00:33→20:34)
[2016-07-05] MEDS: Levalbuterol 1.25 mg/0.5mL Inhalation Solution NEB SCH ×4 (03:52→16:05)
[2016-07-05 05:20] LABS: Mean Corpuscular Hemoglobin 30.4 pg (27.0-35.0); Mean Corpuscular Volume 106.4 fL (81-100)
[2016-07-05 06:16] LABS: Magnesium 2.2 mg/dL (1.6-2.6)
[2016-07-05 06:17] LABS: TROPONIN T 0.018 ug/L (0.0-0.011)
[2016-07-05] MEDS: Sulfasalzine 500 mg Tablet PO SCH ×2 (09:00→20:43)
[2016-07-05] MEDS: Fluticasone-Salmererol 250-50 Inhaler INHALATION SCH ×2 (09:00→20:44)
[2016-07-05] MEDS: Pantoprazole 20 mg ER24 Tablet PO SCH (09:01)
[2016-07-05] MEDS: Hydroxychloroqine 200 mg Tablet PO SCH ×2 (09:01→20:43)
--- NOTE | 2016-07-05 09:30 | PCM.PNMED ---
Subjective Date of Service Jul 05, 2016 Exam Vital Signs Vital Sign - Last Date Time Temp Pulse Resp B/P Pulse Ox O2 Delivery O2 Flow Rate FiO2 07/05/16 08:42 86 20 90 OxyMask 4.00 07/05/16 05:21 36.8 123/45 Intake and Output 07/04/16 07/04/16 07/05/16 Cumulative From/Thru 15:00 23:00 07:00 07/02/16 15:17 - 07/05/16 06:57 Intake Total 1436 ml 650 ml 4236 ml Output Total 550 ml 2650 ml Balance 886 ml 650 ml 1586 ml Intake Oral 1436 ml 650 ml 3736 ml IV Total 500 ml Output Urine Total 550 ml 2650 ml # Voids 2 5 # Bowel Movements 1 1 Lab and Diagnostics Result Diagram: 07/05/16 0455 07/05/16 0455 Assessment & Plan 07/03 o/n- admission, comfortably reading news paper, 7+L O2 but w/ cold finger, actual 97%O2sat w/ talking, improved leg swelling right with lasix 07/04 o/n- started productive coughing, nebs are helpful, desat w/ ambulation, had choked on food, chronic intermittent dysphagia, RLL pna on CXR o/n - 4L O2 cpap bleed in, PROFESSIONAL EMPLOYER CONSULTANT at bedside, still feels better than from admission, still desat w/ ambulation, no more productive cough, no difference w / neb treatment Exam on admission: wt 59-60kg 2-4L NC, desats w/ ambulation NAD A and O x 3 mood affect WNL NC/AT / EOMI / No pharyngeal lesions/ No oral lesions / hearing intact / no thrush Supple neck IMPROVING diminished breath sounds bilateral, equal chest rise diminished bilateral / no accessory muscle use / speaks in full sentences / wheeze on LEFT RRR S1 S2 / no MRG / 2+ radial pulses Soft nt nd + BS no hepatosplenomegaly Lower extremities - resolved edema ZAMORA Symmetrical facies STUDIES: qtc SR90 RBBB-unchanged 499 trop 0.18 - 0.22 BNP 1758 (baseline 400-500s) Active issues and reason for admission Acute on chronic hypoxic respiratory distress, 2L home O2/COPD/CPAP/recurrent right lung cancer, treating for acute CHF exacerbation/moderate R pl effusion/ chronic right greater than left leg edema w/ initially improving hypoxia with diuersis, then due to ongoing hypoxia, treating for RLL pneumonia/dysphagia hx/ new productive cough resolved, clinically improved. worse than baseline HYPOXIA due to CHF/PNA. POA --increased home levalbuterol frequency / continue ipratropium, s/p solumedrol in ER x 1 - mild wheeze, continue inhaled home steroid -- pending sputum cx, neg resp viral, positive procalcitonin, pending PROFESSIONAL EMPLOYER CONSULTANT swallow eval, started 07/04 doxy/rocephine, dc home prophylactic azithro --pending right leg u/s, consider CT- PE if ongoing hypoxia --s/p diurese, held for 2 days, resume home lasix wednesday elevated trop, trended downward. POA --likely due to CHF exacerbation trop leak --HFpEF-EF 65% 06/2015, aortic valve stenosis s/p bioprosthetic valve 2012, pacer Known prolonged QtC, POA --off recent oncology medication w/ GI upset per oncologist --dcd zofran and azithromycin Chronic issues known prior to admission, present on admission pulm nodules / ROS1 translocation metastatic Recurrent right-sided lung cancer ( 2013 stage 1, s/p RTX moderately differentiated adenocarcinoma, immunostain CK7 positive, TTF-1 positive, and napsin 7 positive). Diagnosis clinically given the steady but slow increase in size of her multiple pulmonary nodules - not a biopsy candidate currently per her oncologist Emphysema 2L home continuous O2. Rheumatoid arthritis. Breast cancer diagnosed in 1983, status post bilateral mastectomy and 5yr adjuvant tamoxifen in 1994. 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
[2016-07-05] MEDS: cefTRIAXone Inj 1,000 MG in Dextrose 5% Minibag Plus 50 ML IV SCH (13:41)
--- NOTE | 2016-07-05 13:58 | DRSVH ---
PROCEDURE: US VEINOUS LEG DUPLEX UNILATERAL, RIGHT INDICATIONS: R>L edema TECHNIQUE: Real-time imaging, as well as color and pulse Doppler interrogation, were performed of the lower extr emity deep veins from the inguinal ligament to the popliteal fossa. COMPARISON: None. FINDINGS: The deep veins are normally compressible, and free of intraluminal thrombus. Color and pu lse Doppler demonstrate normal phasic intraluminal flow. There is normal augmentation response to di stal compression maneuver. IMPRESSION: No evidence of deep vein thrombosis involving the right lower extremity. Dictated by: Francine Morales MD, PhD on 07/05/2016 at 13:56 Approved by: Francine Morales MD, PhD on 07/05/2016 at 13:57
[2016-07-05] MEDS: Doxycycline Inj 100 MG in Dextrose 5% Minibag Plus 100 ML IV SCH (14:53)
--- NOTE | 2016-07-05 16:19 | NUR ---
Shift Pt A&O x3, pleasant and cooperative with care. Nebs q4 hours, pt remains on 4L O2, sats 90's with desaturation with activity. Family members present and active with care plan. Pt denies pain, N/V/D. Call light at bedside.
[2016-07-05] MEDS: Levalbuterol 0.63 mg/3 mL Inhalation Solution NEB SCH (20:30)
--- NOTE | 2016-07-05 20:30 | DRSVH ---
PROCEDURE: CT ANGIO CHEST PULMONARY EMBOLISM ([id number]) INDICATIONS: hypoxia ongoing TECHNIQUE: After the administration of intravenous contrast, 2 mm thick sections acquired from the pulmonary api re to the posterior costophrenic angles. 3-dimensional maximum intensity projection (MIP) coronal a nd sagittal reformats were then acquired through the thorax. For radiation dose reduction, the follo wing was used: automated exposure control, adjustment of mA and/or kV according to patient size. COMPARISON: [facility], CR, XR CHEST 2VW, 07/04/2016, 8:23. [facility], CT, CT CHEST WO CON, 07/02/2016, 13:57. [facility], CT, CT ANGIO CHEST PE, 10/12/2015, 19:15. [facility], CT, CT CHEST W CON, 07/10/2015, 8:43. [facility], CT, CT ANGIO C HEST PE, 06/13/2015, 21:50. [facility], CT, CT ANGIO CHEST PE, 02/25/2015, 11:14. [facility], CT, CHEST W/O CONTRAST, 01/12/2014, 10:53. [facility], CT, CHEST W/O C ONTRAST, 03/20/2013, 12:36. [facility], CT, CHEST ANGIO-PE, 09/04/2012, 17:36. [facility], CT, CHEST ANGIO-PE, 10/08/2011, 4:08. FINDINGS: Image quality: Excellent. Pulmonary arteries: Pulmonary arteries are normal in size, and demonstrate no intraluminal filling d efects to suggest central pulmonary embolism. Lungs and pleura: The patchy consolidation in the right lung base is consistent with pneumonia stabl e compared to plain film radiograph obtained for slightly 04/2016. Right lower lobe nodules have incr eased in size compared to . Small right-sided pleural effusion is noted. Emphysematous granados ges noted in the lungs bilaterally. Central and peripheral airways are patent. Mediastinum: Heart size is enlarged without pericardial effusion. Heart is mildly enlarged. Atheros clerotic calcifications noted in the aorta, great vessels and the coronary vasculature. Left chest w all cardiac pacer is noted. Patient is status post aortic valve replacement. No mediastinal or hilar adenopathy. Thoracic aorta is normal in caliber and enhancement. Small hiatal hernia is noted. Bones and chest wall: No suspicious bony lesions. Ribs and thoracic spine appear intact throughout. No axillary or supraclavicular adenopathy. Abdomen: Visualized upper abdominal solid organs appear normal in the early arterial phase of enhanc ement. IMPRESSION: 1. No pulmonary embolus. 2. Patchy consolidation in the right lung base suspicious for pneumonia. Recommend followup imaging to resolution to exclude underlying neoplastic process. 3. Nodular opacities in the right lower lobe have increased in size compared to 10/02/15 are suspicio us for neoplastic process. 4. Small right-sided pleural effusion. 5. Atherosclerosis including the coronary vasculature. 6. Bilateral lung emphysematous disease. Dictated by: Francine Morales MD, PhD on 07/05/2016 at 20:19 Approved by: Francine Morales MD, PhD on 07/05/2016 at 20:29
[2016-07-06] VITALS (14 sets, daily range): BP systolic 104–132; BP diastolic 45–57; PULSE 79–97; RESP 16–21; O2SAT 88–95
[2016-07-06] MEDS: Ipratropium 0.02% 0.5 mg/2.5 mL Inhalation Solution NEB SCH ×6 (00:12→20:20)
[2016-07-06] MEDS: Levalbuterol 0.63 mg/3 mL Inhalation Solution NEB SCH ×6 (00:13→20:20)
--- NOTE | 2016-07-06 06:45 | NUR ---
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 RN observed O2 sats decrease to 82% as the lowest on 3.5 L while pt was asleep. pt reported "I am able to get to sleep and then my mouth falls open and it starts beeping again". RN requested a chin strap from RT. pt tolerated chin strap during the night, O2 sats maintained above 92% while asleep with strap in place, pt verbalized effectiveness of chin strap. using call light to make needs known, placed within reach. hourly rounding in effect.
--- NOTE | 2016-07-06 09:05 | NUR ---
ROSSI ROSSI signed
[2016-07-06 09:46] LABS: BASOPHILS % (AUTO) 0.3 % (0-3); EOSINOPHILS % (AUTO) 3.7 % (0-5); MONOCYTES % (AUTO) 17.3 % (4-12); Mean Corpuscular Volume 104.3 fL (81-100); NEUTROPHILS % (AUTO) 59.1 % (40-74); Platelet Count 237 bil/L (150-400)
[2016-07-06] MEDS: Hydroxychloroqine 200 mg Tablet PO SCH ×2 (09:47→21:17)
[2016-07-06] MEDS: Pantoprazole 20 mg ER24 Tablet PO SCH (09:48)
[2016-07-06] MEDS: Sulfasalzine 500 mg Tablet PO SCH ×2 (09:49→21:17)
[2016-07-06] MEDS: Fluticasone-Salmererol 250-50 Inhaler INHALATION SCH ×2 (09:50→21:17)
[2016-07-06] MEDS: Polyethylene Glycol (PEG) 17 Gm Powder PO PRN (09:55)
[2016-07-06 10:06] LABS: Magnesium 2.5 mg/dL (1.6-2.6)
--- NOTE | 2016-07-06 15:34 | DRSVH ---
PROCEDURE: X-RAY BARIUM SWALLOW WITH FOOD & VIDEOGRAPHY ([id number]) INDICATIONS: dysphagia TECHNIQUE: Examination was conducted in conjunction with speech pathology per standard protocol. In the lateral projection, filming was performed of the patient swallowing. AP projection filming may also be performed with patient swallowing. COMPARISON: None. FINDINGS: Function: The oral preparatory phase appears normal, with proper containment. The subsequent oral pr opulsive phase, pharyngeal phase, and esophageal phase of swallowing also appear normal with all prof fered substances. No laryngotracheal penetration or aspiration. No pathologic vallecular pooling. The attending physician was personally present in the room during the examination. Morphology: No cricopharyngeal bar is identified. No cervical esophageal webs. No Zenker's diverti culum. No strictures. Prominent cricopharyngeal depression. IMPRESSION: 1. Prominent cricopharyngeal depression otherwise no laryngeal penetration or tracheobronchial aspira tion. Dictated by: Ludin Brice [facility] Interpreted: Abhay Milton MD on 07/06/2016 at 15:33 Transcribed by: ANTHONY on 07/06/2016 at 15:34 Approved by: Abhay Milton M.D. on 07/06/2016 at 17:10
[2016-07-06] MEDS: Piperacillin-Tazo 3.375 Gm Inj 3.375 GM in Dextrose 5% Minibag Plus 50 ML IV SCH (16:56)
--- NOTE | 2016-07-06 23:24 | PCM.PNMED ---
Subjective Date of Service Jul 06, 2016 Subjective Patient remains in good spirits despite the condition that she is in. She has no new complaints. She is breathing better. She has no cough no fever no increased shortness of breath. Exam Vital Signs Vital Sign - Last Date Time Temp Pulse Resp B/P Pulse Ox O2 Delivery O2 Flow Rate FiO2 07/06/16 20:46 37.1 91 18 104/54 91 OxyMask 3.00 Intake and Output 07/05/16 07/05/16 07/06/16 Cumulative From/Thru 15:00 23:00 07:00 07/02/16 15:17 - 07/06/16 06:44 Intake Total 1160 ml 400 ml 5796 ml Output Total 375 ml 350 ml 3375 ml Balance 785 ml 50 ml 2421 ml Intake Oral 1000 ml 400 ml 5136 ml IV Total 160 ml 660 ml Output Urine Total 375 ml 350 ml 3375 ml # Voids 5 # Bowel Movements 0 1 Exam General: Patient is in no apparent distress. She is sitting up on the side of the bed. HEENT: Head is atraumatic and normocephalic. Eyes: Pupils are equally round and reactive to light and accommodation. Extraocular muscles are intact. Sclera are white, anicteric. Subconjunctival mucosa is pink. Ears and nose are unremarkable. Oropharynx: There is no mucosal lesions, there is no thrush, there is no pharyngitis. Neck: Is supple, there are no nodes, or masses or tenderness. Chest: There is decreased breath sounds bilaterally with a few bibasilar crackles right greater than left Heart: Rate, rhythm is regular. There is a grade 2/6 systolic ejection murmur heard best at the left sternal border. There is no rub or gallop. Abdomen: Good bowel sounds are present. Abdomen is soft, nontender, no organomegaly or masses were appreciated. Extremities: Are symmetrical and well perfused. There is no edema, there is no cellulitis, no rash. Neurologic: There are no focal neurological deficits. Cranial nerves II through XII are intact. There are no sensory or motor deficits. Psychiatric: Patients mood is calm and shows no sign of agitation. Patient remains in good spirits despite her current condition. Genital: Deferred Rectal: Deferred Lab and Diagnostics Result Diagram: 07/06/16 0935 07/06/16 0935 Microbiology Sputum is unremarkable Respiratory virus PCR study is negative Strep pneumoniae urinary antigen is negative. X-Rays, CTs and MRIs PROCEDURE: X-RAY BARIUM SWALLOW WITH FOOD & VIDEOGRAPHY ([id number]) INDICATIONS: dysphagia TECHNIQUE: Examination was conducted in conjunction with speech pathology per standard protocol. In the lateral projection, filming was performed of the patient swallowing. AP projection filming may also be performed with patient swallowing. COMPARISON: None. FINDINGS: Function: The oral preparatory phase appears normal, with proper containment. The subsequent oral propulsive phase, pharyngeal phase, and esophageal phase of swallowing also appear normal with all proffered substances. No laryngotracheal penetration or aspiration. No pathologic vallecular pooling. The attending physician was personally present in the room during the examination. Morphology: No cricopharyngeal bar is identified. No cervical esophageal webs. No Zenker's diverticulum. No strictures. Prominent cricopharyngeal depression. IMPRESSION: 1. Prominent cricopharyngeal depression otherwise no laryngeal penetration or tracheobronchial aspiration. Dictated by: Ludin Brice RR Interpreted: Abhay Milton MD on 07/06/2016 at 15 :33 Transcribed by: ANTHONY on 07/06/2016 at 15:34 Approved by: Abhay Milton M.D. on 07/06/2016 at 17:10 PROCEDURE: CT ANGIO CHEST PULMONARY EMBOLISM ([id number]) INDICATIONS: hypoxia ongoing TECHNIQUE: After the administration of intravenous contrast, 2 mm thick sections acquired from the pulmonary apices to the posterior costophrenic angles. 3-dimensional maximum intensity projection (MIP) coronal and sagittal reformats were then acquired through the thorax. For radiation dose reduction, the following was used: automated exposure control, adjustment of mA and/or kV according to patient size. COMPARISON: [facility], CR, XR CHEST 2VW, 07/04/2016, 8:23. [facility], CT, CT CHEST WO CON, 07/02/2016, 13:57. [facility] , CT, CT ANGIO CHEST PE, 10/12/2015, 19:15. [facility], CT, CT CHEST W CON, 07/10/2015, 8:43. [facility], CT, CT ANGIO CHEST PE, , 21:50. [facility], CT, CT ANGIO CHEST PE, 02/25/2015, 11: 14. [facility], CT, CHEST W/O CONTRAST, 01/12/2014, 10:53. [facility], CT, CHEST W/O CONTRAST, 03/20/2013, 12:36. [facility], CT, CHEST ANGIO-PE, 09/04/2012, 17:36. [facility], CT, CHEST ANGIO-PE, 10/08/2011, 4:08. FINDINGS: Image quality: Excellent. Pulmonary arteries: Pulmonary arteries are normal in size, and demonstrate no intraluminal filling defects to suggest central pulmonary embolism. Lungs and pleura: The patchy consolidation in the right lung base is consistent with pneumonia stable compared to plain film radiograph obtained for slightly 04/2016. Right lower lobe nodules have increased in size compared to . Small right-sided pleural effusion is noted. Emphysematous changes noted in the lungs bilaterally. Central and peripheral airways are patent. Mediastinum: Heart size is enlarged without pericardial effusion. Heart is mildly enlarged. Atherosclerotic calcifications noted in the aorta, great vessels and the coronary vasculature. Left chest wall cardiac pacer is noted. Patient is status post aortic valve replacement. No mediastinal or hilar adenopathy. Thoracic aorta is normal in caliber and enhancement. Small hiatal hernia is noted. Bones and chest wall: No suspicious bony lesions. Ribs and thoracic spine appear intact throughout. No axillary or supraclavicular adenopathy. Abdomen: Visualized upper abdominal solid organs appear normal in the early arterial phase of enhancement. IMPRESSION: 1. No pulmonary embolus. 2. Patchy consolidation in the right lung base suspicious for pneumonia. Recommend followup imaging to resolution to exclude underlying neoplastic process. 3. Nodular opacities in the right lower lobe have increased in size compared to 10/02/15 are suspicious for neoplastic process. 4. Small right-sided pleural effusion. 5. Atherosclerosis including the coronary vasculature. 6. Bilateral lung emphysematous disease. Dictated by: Francine Morales MD, PhD on 07/05/2016 at 20:19 Approved by: Francine Morales MD, PhD on 07/05/2016 at 20:29 Assessment & Plan An 80 year old female with a history of bilateral breast cancer, metastatic to her lung, and COPD presents to the ED complaining SOB, fatigue, and and increasing exertional dyspnea despite her usual 2 L O2 at home. She reports bifrontal headache and complains of drainage that feels like it is draining into her mouth. She reports taking a prolonged nap where she went to bed in the afternoon and slept until 0800 the next day. She reports blurry vision and enough weakness and dyspnea that she is having trouble walking. Per , she has had loss of appetite, and has barely eaten since last ED visit on . She reports not being able to tolerate food going down. The patient was seen at oncology yesterday. Because of prolonged QTC, chemotherapy has been stopped. Patient was admitted to the hospital service for further evaluation and treatment. # Acute on chronic hypoxic respiratory distress, 2L home O2/COPD/CPAP/recurrent right lung cancer, treating for acute CHF exacerbation/moderate R pl effusion/ chronic right greater than left leg edema w/ initially improving hypoxia with diuersis, then due to ongoing hypoxia, treating for RLL pneumonia/dysphagia hx/ new productive cough resolved, clinically improved. worse than baseline HYPOXIA due to CHF/PNA. POA suspect secondary to aspiration pneumonia as patient was developing difficulty swallowing and the new chemotherapy drug "Alkuri" --increased home levalbuterol frequency / continue ipratropium, s/p solumedrol in ER x 1 - mild wheeze, continue inhaled home steroid -- pending sputum cx, neg resp viral, positive procalcitonin, pending FENDER FINISHER swallow eval, started 07/04 doxy/rocephine, we will change antibiotics to Zosyn on 07/06/2016. -- The right leg u/s was negative for DVT --s/p diurese, held for 2 days, resume home lasix elevated trop, trended downward. POA --likely due to CHF exacerbation trop leak --HFpEF-EF 65% 06/2015, aortic valve stenosis s/p bioprosthetic valve 2012, pacer Known prolonged QtC, POA --off recent oncology medication w/ GI upset per oncologist --dcd zofran and azithromycin Chronic issues known prior to admission, present on admission pulm nodules / ROS1 translocation metastatic Recurrent right-sided lung cancer ( 2013 stage 1, s/p RTX moderately differentiated adenocarcinoma, immunostain CK7 positive, TTF-1 positive, and napsin 7 positive). Diagnosis clinically given the steady but slow increase in size of her multiple pulmonary nodules - not a biopsy candidate currently per her oncologist Emphysema 2L home continuous O2. Rheumatoid arthritis. Breast cancer diagnosed in 1983, status post bilateral mastectomy and 5yr adjuvant tamoxifen in 1994. 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 s/p pill endoscopies, multiple EGDs // GERD Depression Sleep apnea CPAP w/ 2L O2 bleedin --continue all home meds/vitamins Diet regular DVT prophylaxis lovenox scd ambulate Code DNR Assessment and plan were discussed with patient - home when acute hypoxia resolved, likely wednesday, pending appt for bevel polisher - they will call patient is aware of hospice and palliative services and does not want them at this time., Pain Evaluation: Adequate Pain Control GI Prophylaxis: Proton Pump Inhibitor VTE Prophylaxis: Sub-Q Enoxaparin VTE Mechanical Devices: Intermittant Pneumatic CD Resuscitation Status: DNR/DNI:Do Not Resuscitate/Intubate Bakari Chan MD Jul 06, 2016 23:23
[2016-07-07] VITALS (9 sets, daily range): BP systolic 101–148; BP diastolic 43–56; PULSE 67–98; RESP 16–18; O2SAT 90–98
[2016-07-07] MEDS: Piperacillin-Tazo 3.375 Gm Inj 3.375 GM in Dextrose 5% Minibag Plus 50 ML IV SCH ×3 (00:04→17:43)
[2016-07-07] MEDS: Levalbuterol 0.63 mg/3 mL Inhalation Solution NEB SCH ×3 (00:30→07:25)
[2016-07-07] MEDS: Ipratropium 0.02% 0.5 mg/2.5 mL Inhalation Solution NEB SCH ×6 (00:30→20:36)
--- NOTE | 2016-07-07 05:19 | NUR ---
NOC activity Pt denies chest pain. Reports mild SOB. Still running on 3LPM Nasal canula and saturating on 90's. Breathing Tx administered by RT as scheduled. Pt's o2 saturation could desaturate to 70's with activity. No nausea or abd discomfort reported. Complains of mild headache. Administered PRN Tylenol. HS meds and IV ABx administered as scheduled. Hourly rounding in effect.
[2016-07-07 06:08] LABS: BASOPHILS % (AUTO) 0.4 % (0-3); EOSINOPHILS % (AUTO) 4.3 % (0-5); MONOCYTES % (AUTO) 19.2 % (4-12); Mean Corpuscular Hemoglobin 30.9 pg (27.0-35.0); Mean Corpuscular Volume 104.2 fL (81-100); NEUTROPHILS % (AUTO) 60.8 % (40-74); Platelet Count 213 bil/L (150-400)
[2016-07-07 06:26] LABS: Magnesium 2.3 mg/dL (1.6-2.6)
[2016-07-07] MEDS: Hydroxychloroqine 200 mg Tablet PO SCH ×2 (08:16→20:57)
[2016-07-07] MEDS: Sulfasalzine 500 mg Tablet PO SCH ×2 (08:16→20:57)
[2016-07-07] MEDS: Pantoprazole 20 mg ER24 Tablet PO SCH (08:16)
[2016-07-07] MEDS: Fluticasone-Salmererol 250-50 Inhaler INHALATION SCH ×2 (08:22→20:57)
[2016-07-07] MEDS ORDERED: Levalbuterol 1.25 mg/0.5mL Inhalation Solution NEB SCH ×2 (08:30→12:30)
--- NOTE | 2016-07-07 10:28 | DRSVH ---
PROCEDURE: X-RAY CHEST, TWO VIEWS ([id number]) INDICATIONS: FOLLOW UP FOR PNEUMONIA/PULMONARY NODULES TECHNIQUE: Two views of the chest were acquired. COMPARISON: [facility], CR, XR CHEST 2VW, 07/04/2016, 8:23. [facility], CT, CT ANGIO CHEST PE, 07/05/2016, 19:58. FINDINGS: Surgical changes and devices: Stable positioning of dual chamber left cardiac pacemaker. Lungs and pleura: Small to moderate right pleural effusion with consolidation involving the right carlton ng base. Interstitium is prominent. No pneumothorax. Emphysematous changes redemonstrated. Mediastinum: Mediastinal contours are normal. Heart size is normal. Bones and chest wall: No suspicious bony abnormalities. Soft tissues appear unremarkable. IMPRESSION: 1. Small to moderate right pleural effusion and right basilar consolidation likely related to pneumon ia but neoplastic process cannot be excluded. Continued radiographic followup recommended. Dictated by: Ludin RIVERA Interpreted: Francine Morales MD on 07/07/2016 at 10:09 Transcribed by: NIRALI on 07/07/2016 at 13:27 Approved by: Francine Morales MD, PhD on 07/07/2016 at 11:28
[2016-07-07] MEDS ORDERED: Albuterol 1.25 mg/3 mL Inhalation Solution ONE (11:20)
[2016-07-07] MEDS ORDERED: Albuterol 2.5 mg/3 mL Inhalation Solution NEB SCH (12:30)
--- NOTE | 2016-07-07 14:05 | NUR ---
Social Work: Readiness for discharge Data: Pt is on day 5 of hospitalization for CHF metastic lung cancer, acute COPD. EMR reviewed. Pt discussed in morning rounds and will possibly discharge later today or tomorrow. Pt is on home O2 through Mode 2 liters at baseline. ordered PT evaluation, currently pending. Pt to discharge home via family in POV when medically ready. SW will follow PT evaluation recommendations and follow up re: discharge needs Assessment: Pt who is independent at baseline. Plan: Pt will d/c home via POV when medically stable. 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 SW will continue to follow ROBSON Storm
--- NOTE | 2016-07-07 15:39 | NUR ---
TRILOGY/PT/DISCHARGE PLANS P-Patient to receive Trilogy machine. Discharge plan needs coordination with who has medical appointment tomorrow. PT has not evaluated patient but patient able to get up and use bathroom independently. I-Antibiotic given, made aware of Trilogy and discharge concerns. E-Will continue to monitor and follow plan of care.
[2016-07-07] MEDS: Levalbuterol 1.25 mg/0.5mL Inhalation Solution NEB SCH ×2 (16:52→20:36)
--- NOTE | 2016-07-07 22:54 | PCM.PNMED ---
Subjective Date of Service Jul 07, 2016 Subjective The patient feels very tired today and a little bit worse than yesterday. She states that when she gets up to go to the bathroom she is exhausted by the time she gets back to the bed. She has no other new complaints. Exam Vital Signs Vital Sign - Last Date Time Temp Pulse Resp B/P Pulse Ox O2 Delivery O2 Flow Rate FiO2 07/07/16 20:36 86 18 93 OxyMask 3.00 07/07/16 20:29 36.9 101/43 Intake and Output 07/06/16 07/06/16 07/07/16 Cumulative From/Thru 15:00 23:00 07:00 07/02/16 15:17 - 07/07/16 06:15 Intake Total 1120 ml 1303 ml 8219 ml Output Total 650 ml 200 ml 4225 ml Balance 470 ml 1103 ml 3994 ml Intake Oral 1120 ml 1200 ml 7456 ml IV Total 103 ml 763 ml Output Urine Total 650 ml 200 ml 4225 ml # Voids 2 7 # Bowel Movements 0 1 Exam General: Patient is in no apparent distress. She is sitting up on the side of the bed. Skin: Slightly pale HEENT: Head is atraumatic and normocephalic. Eyes: Pupils are equally round and reactive to light and accommodation. Extraocular muscles are intact. Sclera are white, anicteric. Subconjunctival mucosa is pale. Ears and nose are unremarkable. Oropharynx: There is no mucosal lesions, there is no thrush, there is no pharyngitis. Neck: Is supple, there are no nodes, or masses or tenderness. Chest: There is decreased breath sounds bilaterally, right greater than left, with a few bibasilar crackles, right greater than left. Heart: Rate, rhythm is regular. There is a grade 2/6 systolic ejection murmur heard best at the left sternal border. There is no rub or gallop. Abdomen: Good bowel sounds are present. Abdomen is soft, nontender, no organomegaly or masses were appreciated. Extremities: Are symmetrical and well perfused. There is no edema, there is no cellulitis, no rash. Neurologic: There are no focal neurological deficits. Cranial nerves II through XII are intact. There are no sensory or motor deficits. Psychiatric: Patients mood is calm and shows no sign of agitation. Patient remains in good spirits despite her current condition. Genital: Deferred Rectal: Deferred Lab and Diagnostics Result Diagram: 07/07/16 0545 07/07/16544 Microbiology Sputum is unremarkable Respiratory virus PCR study is negative Strep pneumoniae urinary antigen is negative. X-Rays, CTs and MRIs PROCEDURE: X-RAY BARIUM SWALLOW WITH FOOD & VIDEOGRAPHY ([id number]) INDICATIONS: dysphagia TECHNIQUE: Examination was conducted in conjunction with speech pathology per standard protocol. In the lateral projection, filming was performed of the patient swallowing. AP projection filming may also be performed with patient swallowing. COMPARISON: None. FINDINGS: Function: The oral preparatory phase appears normal, with proper containment. The subsequent oral propulsive phase, pharyngeal phase, and esophageal phase of swallowing also appear normal with all proffered substances. No laryngotracheal penetration or aspiration. No pathologic vallecular pooling. The attending physician was personally present in the room during the examination. Morphology: No cricopharyngeal bar is identified. No cervical esophageal webs. No Zenker's diverticulum. No strictures. Prominent cricopharyngeal depression. IMPRESSION: 1. Prominent cricopharyngeal depression otherwise no laryngeal penetration or tracheobronchial aspiration. Dictated by: Ludin Brice RR Interpreted: Abhay Milton MD on 07/06/2016 at 15 :33 Transcribed by: ANTHONY on 07/06/2016 at 15:34 Approved by: Abhay Milton M.D. on 07/06/2016 at 17:10 PROCEDURE: CT ANGIO CHEST PULMONARY EMBOLISM ([id number]) INDICATIONS: hypoxia ongoing TECHNIQUE: After the administration of intravenous contrast, 2 mm thick sections acquired from the pulmonary apices to the posterior costophrenic angles. 3-dimensional maximum intensity projection (MIP) coronal and sagittal reformats were then acquired through the thorax. For radiation dose reduction, the following was used: automated exposure control, adjustment of mA and/or kV according to patient size. COMPARISON: [facility], CR, XR CHEST 2VW, 07/04/2016, 8:23. [facility], CT, CT CHEST WO CON, 07/02/2016, 13:57. [facility] , CT, CT ANGIO CHEST PE, 10/12/2015, 19:15. [facility], CT, CT CHEST W CON, 07/10/2015, 8:43. [facility], CT, CT ANGIO CHEST PE, , 21:50. [facility], CT, CT ANGIO CHEST PE, 02/25/2015, 11: 14. [facility], CT, CHEST W/O CONTRAST, 01/12/2014, 10:53. [facility], CT, CHEST W/O CONTRAST, 03/20/2013, 12:36. [facility], CT, CHEST ANGIO-PE, 09/04/2012, 17:36. [facility], CT, CHEST ANGIO-PE, 10/08/2011, 4:08. FINDINGS: Image quality: Excellent. Pulmonary arteries: Pulmonary arteries are normal in size, and demonstrate no intraluminal filling defects to suggest central pulmonary embolism. Lungs and pleura: The patchy consolidation in the right lung base is consistent with pneumonia stable compared to plain film radiograph obtained for slightly 04/2016. Right lower lobe nodules have increased in size compared to . Small right-sided pleural effusion is noted. Emphysematous changes noted in the lungs bilaterally. Central and peripheral airways are patent. Mediastinum: Heart size is enlarged without pericardial effusion. Heart is mildly enlarged. Atherosclerotic calcifications noted in the aorta, great vessels and the coronary vasculature. Left chest wall cardiac pacer is noted. Patient is status post aortic valve replacement. No mediastinal or hilar adenopathy. Thoracic aorta is normal in caliber and enhancement. Small hiatal hernia is noted. Bones and chest wall: No suspicious bony lesions. Ribs and thoracic spine appear intact throughout. No axillary or supraclavicular adenopathy. Abdomen: Visualized upper abdominal solid organs appear normal in the early arterial phase of enhancement. IMPRESSION: 1. No pulmonary embolus. 2. Patchy consolidation in the right lung base suspicious for pneumonia. Recommend followup imaging to resolution to exclude underlying neoplastic process. 3. Nodular opacities in the right lower lobe have increased in size compared to 10/02/15 are suspicious for neoplastic process. 4. Small right-sided pleural effusion. 5. Atherosclerosis including the coronary vasculature. 6. Bilateral lung emphysematous disease. Dictated by: Francine Morales MD, PhD on 07/05/2016 at 20:19 Approved by: Francine Morales MD, PhD on 07/05/2016 at 20:29 Assessment & Plan The patient is an 80 year old white female with a history of bilateral breast cancer, metastatic to her lung, and COPD who presents to the ED complaining SOB , fatigue, and and increasing exertional dyspnea despite her usual 2 L O2 at home. She reports bifrontal headache and complains of drainage that feels like it is draining into her mouth. She reports taking a prolonged nap where she went to bed in the afternoon and slept until 0800 the next day. She reports blurry vision and enough weakness and dyspnea that she is having trouble walking. Per , she has had loss of appetite, and has barely eaten since last ED visit on 06/26/16. She reports not being able to tolerate food going down. The patient was seen at oncology yesterday. Because of prolonged QTC, chemotherapy has been stopped. Patient was admitted to the hospital service for further evaluation and treatment. # Acute on chronic hypoxic respiratory failure - Patient requires nocturnal and daytime volume ventilation. BiPAP is insufficient due to severity of her condition. COPD is the primary cause of her chronic respiratory failure. - Patient is on 2L home O2/COPD/CPAP/recurrent right lung cancer. - Also treating for acute CHF exacerbation/moderate R pl effusion/chronic right greater than left leg edema w/ initially improving hypoxia with diuersis - And then due to ongoing hypoxia, treating for RLL pneumonia/dysphagia hx/new productive cough resolved, clinically improved. worse than baseline HYPOXIA due to CHF/PNA. 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 - Patient was started on 07/04 doxy/rocephine, we changed antibiotics to Zosyn on 07/06/2016. -- The right leg u/s was negative for DVT. However, there is increased swelling of the right lower extremity again today. -- Patient is s/p diurese, held for 2 days, resume home lasix # Anemia - Etiology uncertain - Patient may require blood transfusion which will help her edema/anasarca and her oxygenation. # Patient has elevated trop, trended downward. 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 Diagnosis clinically given the steady but slow increase in size of her multiple pulmonary nodules - not a biopsy candidate currently per her oncologist # Emphysema on 2L home continuous O2. # Rheumatoid arthritis. On Plaquenil # Breast cancer diagnosed in 1983, status post bilateral mastectomy and 5yr adjuvant tamoxifen in 1994. # Chronic anemia secondary to AVM s/p pill endoscopies, multiple EGDs // GERD # Depression # Sleep apnea - On CPAP w/ 2L O2 bleedin -- We will continue all home meds/vitamins Diet regular DVT prophylaxis lovenox scd ambulate Code DNR Assessment and plan were discussed with patient - home when patient more stable. Patient may require a blood transfusion patient is aware of hospice and palliative services and does not want them at this time., Pain Evaluation: Adequate Pain Control GI Prophylaxis: Proton Pump Inhibitor VTE Prophylaxis: Sub-Q Enoxaparin VTE Mechanical Devices: Intermittant Pneumatic CD Resuscitation Status: DNR/DNI:Do Not Resuscitate/Intubate Bakari Chan MD Jul 07, 2016 22:54
[2016-07-08] VITALS (15 sets, daily range): BP systolic 119–176; BP diastolic 50–56; PULSE 76–95; RESP 18–20; O2SAT 90–97
[2016-07-08] MEDS: Ipratropium 0.02% 0.5 mg/2.5 mL Inhalation Solution NEB SCH ×6 (01:02→22:18)
[2016-07-08] MEDS: Levalbuterol 1.25 mg/0.5mL Inhalation Solution NEB SCH ×5 (01:03→22:18)
[2016-07-08] MEDS: Piperacillin-Tazo 3.375 Gm Inj 3.375 GM in Dextrose 5% Minibag Plus 50 ML IV SCH ×3 (01:08→16:38)
--- NOTE | 2016-07-08 06:34 | NUR ---
respiratory SBA to the BR; gait steady and still has slight SOB with exertion. pt desated to low 80s with activity and every time she's not wearing her oxymask. Sats in low 90s on 4L O2 when resting in bed. 4L O2 bleeding into her CPAP when sleeping, maintaining sats in low to mid 90s.
[2016-07-08 06:58] LABS: BASOPHILS % (AUTO) 0.3 % (0-3); EOSINOPHILS % (AUTO) 4.9 % (0-5); MONOCYTES % (AUTO) 19.4 % (4-12); Mean Corpuscular Volume 105.2 fL (81-100); NEUTROPHILS % (AUTO) 62.1 % (40-74); Platelet Count 221 bil/L (150-400)
[2016-07-08 07:19] LABS: Magnesium 2.6 mg/dL (1.6-2.6)
[2016-07-08] MEDS ORDERED: Furosemide 10 mg/mL 2 mL Inj IV ONE ×2 (08:25)
[2016-07-08] MEDS: Fluticasone-Salmererol 250-50 Inhaler INHALATION SCH ×2 (08:58→20:25)
[2016-07-08] MEDS: Hydroxychloroqine 200 mg Tablet PO SCH ×2 (09:00→20:25)
[2016-07-08] MEDS: Sulfasalzine 500 mg Tablet PO SCH ×2 (09:00→20:25)
[2016-07-08] MEDS: Pantoprazole 20 mg ER24 Tablet PO SCH (09:00)
[2016-07-08 09:04] LABS: Unsaturated Iron Binding 228.7 ug/dL
--- NOTE | 2016-07-08 09:11 | NUR ---
xray Pt departed unit in on 6L for chest xray.
--- NOTE | 2016-07-08 09:19 | NUR ---
returned Pt returned to room. current sats 94% on 6L per respiratory. call light at bedside.
--- NOTE | 2016-07-08 10:48 | PCM.CONPAL ---
Date of Service Jul 08, 2016 Date of Hospital Admission: Jul 02, 2016 at 15:37 Date of Palliative Consult: Jul 08, 2016 Requesting Provider: Bakari Chan MD Reason Palliative Care Consult: Goals of Care Discussion Reason for Consultation Palliative Care received verbal order from Dr Chan 07/08/16 to assist with goals of care. Patient is an 80 year old woman with , metastatic to her lung, CHF and COPD. She was admitted 07/02/16 and has been receiving care for acute on chronic hypoxic respiratory failure. Patient discussed in a.m. discharge rounds , and per Dr Chan, Dr Resendez has indicated there is no further treatment to help patient. It is unclear if this has been communicated to the patient and her family. Patient lives at home with her . Adolfo Haider () [phone], Adriana (daughter) [phone] Palliative Care to follow, however, we will discuss pt with Oncologist Dr. Resendez before proceeding with goals of care discussion and planning. Hospital Unit @time of consult: Medical/Pediatric Care (room 3012) Palliative Care Recommendation Summary of palliative recommendations: -Symptom management (Pain/other): per Attending Dr. Chan -DPOA/Advanced Directives/POLST: 1. Code status: DNR/DNI 2. Family has POA for financial/estate planning, but accepted HCPOA paperwork from Dr. Landers today. We talked extensively about need for HC POA, and suggested that they choose one or both of their two adult children. 3. Discussed Hospice at length and pt and her are not ready for "either palliation of sx or for hospice yet." -Family/emotional support: excellent from , son and daughter. Patient Goals: 1. Patient wants to be told the truth about his/her illness, even if it is unpleasant. 2. Patient would like to be told prognosis when it can be predicted, to better guide treatment decisions. 3. Patient plans to re-start one pill a day of her immunotherapy (Xalkori/ crizotinib) under Dr. Resendez's direction, but not until she sees him in follow-up appt next WedJuly 15. 4. Pt and now better understand what hospice is and how they might help later on, when pt is ready for this. Palliative Care Team will now sign off case as pt's goals are clear, code status remains same and symptoms are resolving under hospitalist management. Thank you for the consult to see this delightful lady! Problems: Resuscitation Status Resuscitation Status: DNR/DNI:Do Not Resuscitate/Intubate POLST Updates/Changes Previous POLST?: No POLST Review Outcome: No Change . Advanced Care Planning Address: Durable Power of Motion Picture Photographer Symptom management: Dyspnea Pt History History of Present Illness Mrs. Haider is an 80-year-old female with recurrent metastatic lung cancer, frontal headache, vision changes, difficulty walking, mild sore throat, leg swelling right greater than left, who presented to ER due to ongoing hypoxia at home. CHF associated leg swelling tends to be right. no regular cough, no phlegm production. no sick contacts. no blood clots before. Her lung cancer is managed by oncologist Dr Kvng Resendez and she was last seen in his office on 07/01/16. She was started on Xalkori on 06/03/2016 but this was held due to associated fatigue and loss of appetite, edema, SOB, prolonged Qt, with plan to increase lasix and follow up in 1 week. Review of Systems: Uses CPAP at home. No prior thrush. no yeast infections. no FL hx. no recent pneumonia. CHF associated leg swelling tends to be right. no regular cough, no phelgm production. no sick contacts. no blood clots before. None of the following - F/C/ dizziness / cp / acid reflux / abdominal pain/n/v/ diarrhea / bleeding/bruising change in voiding / yeast infections / rash Hospital Course: admitted 07/02 for further workup and treatment of pleural effusions. Functional Baseline: Ambulates by self, does all self-care. does groceries and light cleaning and drives for her. 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 Right-sided stage I lung cancer diagnosed on May 24, 2013, from a CT- guided core needle biopsy identifying moderately differentiated adenocarcinoma, immunostain CK7 positive, TTF-1 positive, and napsin 7 positive. Clinical staging workup at that time included a CT of the chest dated March 20, 2013, reporting a right perihilar spiculated nodule measuring 21 mm. A PET-CT scan on April 07, 2013, reporting a right hilar nodule with an SUV of 3.6, and a right lower lobe consolidation with an SUV of 3. The patient underwent definitive treatment with SBRT and has been in surveillance since. However, given the steady but slow increase in size of her multiple pulmonary nodules - she is not a biopsy candidate currently s/p RTX 2013, 2. COPD and emphysema diagnosed approximately 12 years ago, on 24-hour supplemental O2. 3. Rheumatoid arthritis. 4. Breast cancer originally diagnosed in 1983, again diagnosed on the contralateral breast in 1989. She is status post bilateral mastectomy and completed five years of tamoxifen in 1994. She was never been exposed to adjuvant chemotherapy. 5. HFpEF (EF 65% 06/2015), aortic valve stenosis s/p bioprosthetic valve 2012, pacer 6. Chronic anemia secondary to AVM s/p pill endoscopies, multiple EGDs 7. 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 Diverticulitis s/p resection 1999 9. GERD 10. Depression 11.Sleep apnea - on C-PAP PAST SURGICAL HISTORY: Significant for hysterectomy in 1972; mastectomy initially in 1983, and contralateral breast in 1989; aortic valve balloon surgery, later aortic valve replacement with a bovine valve in 2012. 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 Had a remote history of tobacco use, one pack per day for 25 years, quit in 1994. Has one drink a night. 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 She has a sister diagnosed with lung cancer at age 69 and a maternal grandmother diagnosed with breast cancer at the age of 77. Mother with history of cirrhosis and hepatitis. Allergy Allergies Reviewed: Yes Medications Current Medications: Current Medications Piperacillin Sod/ Tazobactam Sod/ Dextrose/Water 50 ml @ 12.5 mls/hr Q8 IV Last administered on 07/08/16t 08:46; Admin Dose 12.5 MLS/HR; Start 07/06/16 at 16:30 Levalbuterol 1.25 mg Q4 NEB; Start 07/07/16 at 08:30; Stop 07/07/16 at 10:29; Status DC Albuterol 1.25 mg Q4 NEB; Start 07/07/16 at 12:30; Stop 07/07/16 at 12:30; Status DC Levalbuterol 1.25 mg Q4 NEB; Start 07/07/16 at 12:30; Stop 07/07/16 at 14:40; Status DC Levalbuterol 1.25 mg Q4 NEB Last administered on 07/08/16t 01:03; Admin Dose 1.25 MG; Start 07/07/16 at 16:30 Scheduled Ascorbic Acid (Vitamin C) 1,000 Mg Tab.chew 1,000 MG PO DAILY Aspirin (Aspirin) 81 Mg Tablet 81 MG PO DAILY Azithromycin (Zithromax) 250 Mg Tablet 250 MG PO 3xweekly Budesonide/Formoterol 160-4.5 mcg Inh (Symbicort 160-4.5 mcg Inh) 120 Puff Inhaler 1 PUFF INHALATION BID Calcium Carbonate/Vitamin D3 (Calcium 500 + Vit D Caplet) 1 Each Tablet 1 EACH PO BID Citalopram (Citalopram) 20 Mg Tablet 20 MG PO DAILY Clobetasol Propionate (Clobetasol Propionate) 118 Ml Shampoo 1 APPLIC EXT 3xweekly Ferrous Sulfate (Iron) 325 Mg Tablet 324 TABLET PO BID Furosemide (Lasix) 20 Mg Tablet 20 MG PO DAILY Hydroxychloroquine Sulfate (Hydroxychloroquine Sulfate) 200 Mg Tablet 200 MG PO BID Lactobacillus Combo No.11 (Probiotic) 1 Each Cap.sprink 1 EACH PO DAILY Magnesium Oxide (Magnesium) 400 Mg Capsule 400 MG PO DAILY Multivitamin (Multi Vitamin Daily) 1 Each Tablet 1 EACH PO DAILY Omeprazole (Omeprazole) 40 Mg Capsule.dr 40 MG PO DAILY Rosuvastatin Calcium (Rosuvastatin Calcium) 10 Mg Tablet 10 MG PO DAILY Sulfasalazine (Sulfasalazine) 500 Mg Tablet 500 MG PO BID Tiotropium Ophir (Spiriva) 18 Mcg Cap.w.dev 18 MCG IH QAM Scheduled PRN Acetaminophen (Acetaminophen) 325 Mg Tablet 650 MG PO Q4H PRN PRN For Pain Albuterol Neb Soln (Albuterol Neb Soln) 2.5 Mg/3 Ml Vial.neb Unknown Dose INHALATION Q4H PRN PRN For Shortness of Breath Ipratropium Ophir (Ipratropium Ophir Inhalant Solution) 0.2 Mg/1 Ml Solution 0.2 MG IH QID PRN PRN For Shortness of Breath Loratadine (Claritin) 10 Mg Capsule 10 MG PO DAILY PRN PRN allergies Menthol (Icy Hot) 1 Each Adh..patch 1 EACH TP DIRECTED PRN PRN For Pain Ondansetron ODT (Ondansetron ODT) 8 Mg Tab.rapdis 8 MG PO TID PRN PRN For Nausea Polyethylene Glycol 3350 (Miralax) 17 Gm Powd.pack 17 GM PO DAILY PRN PRN For Constipation Objective Findings Exam Vital Sign - Last Date Time Temp Pulse Resp B/P Pulse Ox O2 Delivery O2 Flow Rate FiO2 07/08/16 09:46 76 18 92 OxyMask 4.00 07/08/16 05:28 36.9 119/51 Intake and Output 07/07/16 07/07/16 07/08/16 Cumulative From/Thru 15:00 23:00 07:00 07/02/16 15:17 - 07/08/16 06:55 Intake Total 980 ml 491 ml 9690 ml Output Total 300 ml 500 ml 5025 ml Balance 680 ml -9 ml 4665 ml Intake Oral 920 ml 250 ml 8626 ml IV Total 60 ml 241 ml 1064 ml Output Urine Total 300 ml 500 ml 5025 ml # Voids 7 # Bowel Movements 1 Objective Currently on CPAP at 4LPM General: NAD A and O x 3 mood affect WNL HEENT: NC/AT / No icterus / No injected eyes / EOMI PERRL / No pharyngeal lesions/ No oral lesions / hearing intact / no thrush Neck: Supple LUNGS: CTAB equal chest rise diminished bilateral / no accessory muscle use / speaks in full sentences / no RRW Heart: RRR S1 S2 / no MRG / 2+ radial pulses Abdomen: Soft nt nd + BS no hepatosplenomegaly Extremities: Lower extremities - No edema No cyanosis No ecchymosis Skin:No rash / No jaundice Musculoskeletal: ZAMORA 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 X-Rays, CTs and MRIs PROCEDURE: X-RAY BARIUM SWALLOW WITH FOOD & VIDEOGRAPHY (07/06) INDICATIONS: dysphagia TECHNIQUE: Examination was conducted in conjunction with speech pathology per standard protocol. In the lateral projection, filming was performed of the patient swallowing. AP projection filming may also be performed with patient swallowing. FINDINGS: Function: The oral preparatory phase appears normal, with proper containment. The subsequent oral propulsive phase, pharyngeal phase, and esophageal phase of swallowing also appear normal with all proffered substances. No laryngotracheal penetration or aspiration. No pathologic vallecular pooling. The attending physician was personally present in the room during the examination. Morphology: No cricopharyngeal bar is identified. No cervical esophageal webs. No Zenker's diverticulum. No strictures. Prominent cricopharyngeal depression. IMPRESSION: 1. Prominent cricopharyngeal depression otherwise no laryngeal penetration or tracheobronchial aspiration. Dictated by: Ludin Brice RR Interpreted: Abhay Milton MD on 07/06/2016 at 15 :33 PROCEDURE: CT ANGIO CHEST PULMONARY EMBOLISM (07/05) Pulmonary arteries: Pulmonary arteries are normal in size, and demonstrate no intraluminal filling defects to suggest central pulmonary embolism. Lungs and pleura: The patchy consolidation in the right lung base is consistent with pneumonia stable compared to plain film radiograph obtained for slightly 04/2016. Right lower lobe nodules have increased in size compared to . Small right-sided pleural effusion is noted. Emphysematous changes noted in the lungs bilaterally. Central and peripheral airways are patent. Mediastinum: Heart size is enlarged without pericardial effusion. Heart is mildly enlarged. Atherosclerotic calcifications noted in the aorta, great vessels and the coronary vasculature. Left chest wall cardiac pacer is noted. Patient is status post aortic valve replacement. No mediastinal or hilar adenopathy. Thoracic aorta is normal in caliber and enhancement. Small hiatal hernia is noted. Bones and chest wall: No suspicious bony lesions. Ribs and thoracic spine appear intact throughout. No axillary or supraclavicular adenopathy. Abdomen: Visualized upper abdominal solid organs appear normal in the early arterial phase of enhancement. IMPRESSION: 1. No pulmonary embolus. 2. Patchy consolidation in the right lung base suspicious for pneumonia. Recommend followup imaging to resolution to exclude underlying neoplastic process. 3. Nodular opacities in the right lower lobe have increased in size compared to 10/02/15 are suspicious for neoplastic process. 4. Small right-sided pleural effusion. 5. Atherosclerosis including the coronary vasculature. 6. Bilateral lung emphysematous disease. Dictated by: Francine Morales MD, PhD on 07/05/2016 at 20:19 PROCEDURE: CT CHEST WITHOUT CONTRAST INDICATIONS: metastatic lung disease Lungs and pleura: There is a moderate-sized right-sided pleural effusion with associated bibasilar atelectasis, which has increased in the interim. A trace left-sided pleural effusion may be present. No lobar consolidation or pneumothorax is identified. Severe centrilobular emphysematous changes are identified diffusely throughout the lungs bilaterally, similar to prior studies. Mild developing groundglass attenuation and interstitial prominence within the right lower lobe is noted. Multiple spiculated nodules within the right lung are identified, which all have slightly increased in size by approximately 1-2 mm in diameter since the previous study. No definite new pulmonary nodules are present within either lung. Mediastinum: The heart is normal in size without a pericardial effusion. Calcifications of the aortic valve are present. Coronary artery atherosclerosis is present. There is aortic atherosclerosis. The main pulmonary arterial trunk is not enlarged. There is no mediastinal mass. Multiple moderate sized mediastinal lymph nodes are identified. The largest is located within the posterior mediastinum adjacent to the mid thoracic aorta, measuring up to approximately 2.4 x 2.1 cm (image 30, series 2), previously measuring 2.3 x 1.6 cm. Additional right hilar lymph nodes also appear to have increased in size; however, not well delineated on this exam given the degree of right basilar atelectasis/consolidation. There is a small hiatal hernia. Bones and chest wall: No suspicious bony lesions. Advanced multilevel degenerative changes of the spine are present. No vertebral body compression fractures. No axillary or supraclavicular adenopathy by size criteria. Thyroid gland is not adequately evaluated. Abdomen: The included portions of the upper abdomen are similar to the prior study. No definite upper abdominal lymphadenopathy is appreciated. IMPRESSION: 1. Small moderate-sized right-sided pleural effusion with associated atelectasis. This has increased in the interim. 2. Mild groundglass and interstitial thickening at the right lung base may be exaggerated by atelectasis/interstitial edema. However, superimposed pneumonia is difficult to exclude. 3. Mild interval increase in size of the right pulmonary nodules and mediastinal lymph nodes. No definite new nodules are evident. 4. Severe emphysematous changes of the lungs 5. Small hiatal hernia. PROCEDURE: CT BRAIN WITHOUT CONTRAST -- INDICATIONS: known met lung CA, new headache and weakness CSF spaces: Basal cisterns are patent. No extra-axial fluid collections. The ventricles are symmetric in size and shape. There is mild cerebral volume loss , with resultant ventricular and sulcal prominence. Brain: No intracranial hemorrhage, definite mass, or mass effect. Evaluation for mass lesions is limited in the absence of intravenous contrast. There are subcortical, periventricular and deep white matter hypodensities consistent with mild chronic small vessel ischemic changes. There is intracranial internal carotid artery atherosclerosis. Skull and face: Calvarium and visualized facial bones appear intact, without suspicious lesions. Sinuses: Visualized sinuses and mastoids are clear. IMPRESSION: 1. No definite acute intracranial abnormality or discrete mass lesion. 2. Mild chronic white matter small vessel ischemic changes and cerebral volume loss redemonstrated. . Lab/Diagnostics Time spent Total time 70 minutes; >50% face to face with patient and/or family, providing counselling regarding plans and recommendations, and in care coordination with his/her medical teams. I also spent an additional 30 minutes counseling for advanced care planning with the patient/the patients family/the surrogate decision maker. Kina Landers MD Jul 08, 2016 10:47
--- NOTE | 2016-07-08 12:32 | NUR ---
Palliative Care Palliative Care received verbal order from Dr Chan 07/08/16 to assist with goals of care. Patient is an 80 year old woman with hx of bilateral breast cancer, metastatic to her lung, CHF and COPD. She was admitted 07/02/16 and has been receiving care for acute on chronic hypoxic respiratory failure. Patient discussed in a.m. discharge rounds, and per Dr Chan, Dr Resendez has indicated there is no further treatment to help patient. It is unclear if this has been communicated to the patient and her family. Patient lives at home with her . Adolfo Haider () [phone], Adriana (daughter) [phone] Palliative Care to follow, however, we will discuss pt with Oncology before proceeding with goals of care discussion and planning. Mendy Cueto
--- NOTE | 2016-07-08 13:13 | DRSVH ---
PROCEDURE: X-RAY CHEST, TWO VIEWS ([id number]) INDICATIONS: Follow up fo pneumonia with right pleural effusion TECHNIQUE: 2 views of the chest were acquired. COMPARISON: [facility], CR, XR CHEST 2VW, 07/07/2016, 7:40. FINDINGS: Surgical changes and devices: Stable positioning of dual chamber left cardiac pacemaker. Lungs and pleura: Small to moderate right pleural effusion with consolidation involving the right carlton ng base redemonstrated. Interstitium is prominent. No pneumothorax. Emphysematous changes redemons trated. Mediastinum: Mediastinal contours are normal. Heart size is normal. Bones and chest wall: No suspicious bony abnormalities. Soft tissues appear unremarkable. IMPRESSION: 1. Small to moderate right pleural effusion and right basilar consolidation redemonstrated not signif icantly changed from prior examination. Follow-up is recommended to resolution. Dictated by: Ludin Brice [facility] Interpreted: Francine Morales MD on 07/08/2016 at 13:12 Transcribed by: ALFONSO on 07/08/2016 at 13:13 Approved by: Francine Morales MD, PhD on 07/08/2016 at 14:24
--- NOTE | 2016-07-08 16:58 | NUR ---
SW - Continued Discharge planning SW received note from Palliative Care re: pt requesting a list of continuing care facilities in the area. SW to follow up with pt tomorrow. ROBSON Storm
--- NOTE | 2016-07-08 18:33 | NUR ---
Shift Pt on 3L NC, with remaining de-saturation with exertion, denies SOB, denies CP, denies N/V/D. Pt calm and cooperative all shift. Was given stool softener which has resulted in multiple BM's today. BM x 6, now becoming loose/diarrhea. at bedside. Call light within reach.
--- NOTE | 2016-07-08 23:31 | PCM.PNMED ---
Subjective Date of Service Jul 08, 2016 Subjective Patient was feeling very weak this morning prior to blood transfusion. However , after her blood transfusion she was feeling a little bit better. She has no new complaints. Exam Vital Signs Vital Sign - Last Date Time Temp Pulse Resp B/P Pulse Ox O2 Delivery O2 Flow Rate FiO2 07/08/16 22:18 85 20 97 Nasal Cannula 3.00 07/08/16 20:15 36.8 176/51 Intake and Output 07/07/16 07/07/16 07/08/16 Cumulative From/Thru 15:00 23:00 07:00 07/02/16 15:17 - 07/08/16 06:55 Intake Total 980 ml 491 ml 9690 ml Output Total 300 ml 500 ml 5025 ml Balance 680 ml -9 ml 4665 ml Intake Oral 920 ml 250 ml 8626 ml IV Total 60 ml 241 ml 1064 ml Output Urine Total 300 ml 500 ml 5025 ml # Voids 7 # Bowel Movements 1 Exam General: Patient is in no apparent distress. She is sitting up on the side of the bed. Skin: Slightly pale HEENT: Head is atraumatic and normocephalic. Eyes: Pupils are equally round and reactive to light and accommodation. Extraocular muscles are intact. Sclera are white, anicteric. Subconjunctival mucosa is pale. Ears and nose are unremarkable. Oropharynx: There is no mucosal lesions, there is no thrush, there is no pharyngitis. Neck: Is supple, there are no nodes, or masses or tenderness. Chest: There is decreased breath sounds bilaterally, right greater than left, with a few bibasilar crackles, right greater than left. Heart: Rate, rhythm is regular. There is a grade 2/6 systolic ejection murmur heard best at the left sternal border. There is no rub or gallop. Abdomen: Good bowel sounds are present. Abdomen is soft, nontender, no organomegaly or masses were appreciated. Extremities: Are symmetrical and well perfused. There is edema of the right lower extremity greater than the left as before. There is no cellulitis and no rash. Neurologic: There are no focal neurological deficits. Cranial nerves II through XII are intact. There are no sensory or motor deficits. Psychiatric: Patients mood is calm and shows no sign of agitation. Patient remains in good spirits despite her current condition. Genital: Deferred Rectal: Deferred Lab and Diagnostics Result Diagram: 07/08/1661907/08/16619 Microbiology Sputum is unremarkable Respiratory virus PCR study is negative Strep pneumoniae urinary antigen is negative. X-Rays, CTs and MRIs PROCEDURE: X-RAY BARIUM SWALLOW WITH FOOD & VIDEOGRAPHY ([id number]) INDICATIONS: dysphagia TECHNIQUE: Examination was conducted in conjunction with speech pathology per standard protocol. In the lateral projection, filming was performed of the patient swallowing. AP projection filming may also be performed with patient swallowing. COMPARISON: None. FINDINGS: Function: The oral preparatory phase appears normal, with proper containment. The subsequent oral propulsive phase, pharyngeal phase, and esophageal phase of swallowing also appear normal with all proffered substances. No laryngotracheal penetration or aspiration. No pathologic vallecular pooling. The attending physician was personally present in the room during the examination. Morphology: No cricopharyngeal bar is identified. No cervical esophageal webs. No Zenker's diverticulum. No strictures. Prominent cricopharyngeal depression. IMPRESSION: 1. Prominent cricopharyngeal depression otherwise no laryngeal penetration or tracheobronchial aspiration. Dictated by: Ludin Brice RR Interpreted: Abhay Milton MD on 07/06/2016 at 15 :33 Transcribed by: ANTHONY on 07/06/2016 at 15:34 Approved by: Abhay Milton M.D. on 07/06/2016 at 17:10 PROCEDURE: CT ANGIO CHEST PULMONARY EMBOLISM ([id number]) INDICATIONS: hypoxia ongoing TECHNIQUE: After the administration of intravenous contrast, 2 mm thick sections acquired from the pulmonary apices to the posterior costophrenic angles. 3-dimensional maximum intensity projection (MIP) coronal and sagittal reformats were then acquired through the thorax. For radiation dose reduction, the following was used: automated exposure control, adjustment of mA and/or kV according to patient size. COMPARISON: [facility], CR, XR CHEST 2VW, 07/04/2016, 8:23. [facility], CT, CT CHEST WO CON, 07/02/2016, 13:57. [facility] , CT, CT ANGIO CHEST PE, 10/12/2015, 19:15. [facility], CT, CT CHEST W CON, 07/10/2015, 8:43. [facility], CT, CT ANGIO CHEST PE, , 21:50. [facility], CT, CT ANGIO CHEST PE, 02/25/2015, 11: 14. [facility], CT, CHEST W/O CONTRAST, 01/12/2014, 10:53. [facility], CT, CHEST W/O CONTRAST, 03/20/2013, 12:36. [facility], CT, CHEST ANGIO-PE, 09/04/2012, 17:36. [facility], CT, CHEST ANGIO-PE, 10/08/2011, 4:08. FINDINGS: Image quality: Excellent. Pulmonary arteries: Pulmonary arteries are normal in size, and demonstrate no intraluminal filling defects to suggest central pulmonary embolism. Lungs and pleura: The patchy consolidation in the right lung base is consistent with pneumonia stable compared to plain film radiograph obtained for slightly 04/2016. Right lower lobe nodules have increased in size compared to . Small right-sided pleural effusion is noted. Emphysematous changes noted in the lungs bilaterally. Central and peripheral airways are patent. Mediastinum: Heart size is enlarged without pericardial effusion. Heart is mildly enlarged. Atherosclerotic calcifications noted in the aorta, great vessels and the coronary vasculature. Left chest wall cardiac pacer is noted. Patient is status post aortic valve replacement. No mediastinal or hilar adenopathy. Thoracic aorta is normal in caliber and enhancement. Small hiatal hernia is noted. Bones and chest wall: No suspicious bony lesions. Ribs and thoracic spine appear intact throughout. No axillary or supraclavicular adenopathy. Abdomen: Visualized upper abdominal solid organs appear normal in the early arterial phase of enhancement. IMPRESSION: 1. No pulmonary embolus. 2. Patchy consolidation in the right lung base suspicious for pneumonia. Recommend followup imaging to resolution to exclude underlying neoplastic process. 3. Nodular opacities in the right lower lobe have increased in size compared to 10/02/15 are suspicious for neoplastic process. 4. Small right-sided pleural effusion. 5. Atherosclerosis including the coronary vasculature. 6. Bilateral lung emphysematous disease. Dictated by: Francine Morales MD, PhD on 07/05/2016 at 20:19 Approved by: Francine Morales MD, PhD on 07/05/2016 at 20:29 Assessment & Plan The patient is an 80 year old white female with a history of bilateral breast cancer, metastatic to her lung, and COPD who presents to the ED complaining SOB , fatigue, and and increasing exertional dyspnea despite her usual 2 L O2 at home. She reports bifrontal headache and complains of drainage that feels like it is draining into her mouth. She reports taking a prolonged nap where she went to bed in the afternoon and slept until 0800 the next day. She reports blurry vision and enough weakness and dyspnea that she is having trouble walking. Per , she has had loss of appetite, and has barely eaten since last ED visit on 06/26/16. She reports not being able to tolerate food going down. The patient was seen at oncology yesterday. Because of prolonged QTC, chemotherapy has been stopped. Patient was admitted to the hospital service for further evaluation and treatment. # Acute on chronic respiratory failure - Patient requires nocturnal and daytime volume ventilation. BiPAP is insufficient due to severity of her condition. COPD is the primary cause of her chronic respiratory failure. - Patient is on 2L home O2/COPD/CPAP/recurrent right lung cancer. - Also treating for acute CHF exacerbation/moderate R pl effusion/chronic right greater than left leg edema w/ initially improving hypoxia with diuersis. Will increase Lasix to 40 mg by mouth daily as suggested by Dr. Resendez who came to visit patient today. - And then due to ongoing hypoxia, treating for RLL pneumonia/dysphagia hx/new productive cough resolved, clinically improved. worse than baseline HYPOXIA due to CHF/PNA. POA suspect secondary to aspiration pneumonia as patient was developing difficulty swallowing and the new chemotherapy drug "Alkuri" -- Patient has increased home levalbuterol frequency / continue ipratropium, s/ p solumedrol in ER x 1 - mild wheeze, continue inhaled home steroid -- We have checked the following: sputum cx positive for normal evan, neg resp viral, positive procalcitonin, [employer] swallow eval indicates that there is no aspiration at present time. - Patient was started on 07/04 doxy/rocephine, we changed antibiotics to Zosyn on 07/06/2016. -- The right leg u/s was negative for DVT. However, there is increased swelling of the right lower extremity again today. Patient was given Lasix twice today once after each unit of packed red blood cells transfused and will increase Lasix to 40 mg by mouth daily starting in a.m. -- Patient is s/p diurese, held for 2 days, resume home lasix and the increased dose to 40 mg by mouth daily # Anemia - Etiology uncertain - Patient to receive 2 units of packed red blood cells today. - We will check iron and B12 folate studies also check ferritin and reticulocyte count. 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 However she has required several blood transfusions in the past for this condition. Her stools are positive for blood however she is also on iron. # Patient has elevated trop, trended downward. 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 Diagnosis clinically given the steady but slow increase in size of her multiple pulmonary nodules - not a biopsy candidate currently per her oncologist Dr. Resendez. I discussed this with Dr. Resendez again today. # Emphysema on 2L home continuous O2. # Rheumatoid arthritis. On Plaquenil # Breast cancer diagnosed in 1983, status post bilateral mastectomy and 5yr adjuvant tamoxifen in 1994. 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 patient is aware of hospice and palliative services and does not want them at this time., Palliative care was consulted and the patient and the patient's are not interested in hospice care at this time and would like to try to continue some chemotherapy as an outpatient once he see Dr. Resendez next week. Pain Evaluation: Adequate Pain Control GI Prophylaxis: Proton Pump Inhibitor VTE Prophylaxis: Sub-Q Enoxaparin VTE Mechanical Devices: Intermittant Pneumatic CD Resuscitation Status: DNR/DNI:Do Not Resuscitate/Intubate Bakari Chan MD Jul 08, 2016 23:31
[2016-07-09] VITALS (8 sets, daily range): BP systolic 144–163; BP diastolic 53–59; PULSE 74–96; RESP 18–26; O2SAT 85–95
--- NOTE | 2016-07-09 | CONS ---
[address] [address] CONSULTATION REPORT PATIENT: ALEXA CALLEJAS : 1935 MR#: [id number] ADMIT: 07/02/2016 JOB ID: [id number] DATE OF SERVICE: 07/08/2016 SUBJECTIVE: The patient is being seen today per hospital rounds. She carries a diagnosis of progressive locally advanced lung cancer with a ROS translocation. The patient was last seen in our clinic on July 01, 2016, at which time she had her front-line crizotinib at 250 mg b.i.d. started on June 03, 2016, discontinued on July 01, 2016, secondary to a prolonged QTc interval of 490. The patient was noted to have increase of shortness or breath with minimal activity and bilateral lower extremity edema. No signs of infection or chest pains were noted. At that time, it was felt that the crizotinib had resulted in increased fluid retention/edema and she was subsequently her Lasix increased from 20 to 40 mg daily with a followup in one weeks' time. Unfortunately, patient's symptoms progressed over the ensuing 24 hours to the point where she was admitted to [facility] on July 02, 2016. Vital signs on admission reporting a blood pressure 108/38, pulse of 82, respiratory rate 15, temperature 36.7, and she was satting at 92% on 2 L of O2 via nasal cannula (at baseline). Admitting laboratory data reporting an elevated white cell count of 11, hemoglobin 9.4, hematocrit 31, platelet count 242. Kidney function at 1.09, sodium 137, potassium 4.3, calcium 8.8. The patient had an admitting CT of the chest dated July 02, 2016, without contrast compared to May 05, 2016, scan. This reported increase in right pleural effusion with bibasilar atelectasis in the right lower lobe, mild developing ground-glass attenuation suggestive of an interstitial pneumonia, in the right lung multiple spiculated nodules which are increased by 1-2 mm and in the mediastinum moderate-sized lymph nodes, the target lesion in the mid thoracic increasing from a previous size of 23 x 16 mm up to 24 x 21 mm. Finally, the right hilar lymph node had also increased in size. CT of the brain on July 02, 2016, was negative for DOCK WORKER involvement. Reassuringly, the patient's nasopharyngeal culture was all negative for viral panel dated July 03, 2016. Procalcitonin at 0.12 on July 05, 2016. Troponin T was noted to be 0.018. Xbt-H-zvtzbaircbz peptide was 1756. The patient has subsequently been undergoing more aggressive diuresis over the past 24-48 hours and also started a blood transfusion on July 08, 2016, as her hemoglobin was noted to be at 7.8. Clinically, she is comfortable today on exam. She does have 4 L non-rebreather mask on and states that if she moves she does notice a drop in her SaO2, but no real change in her baseline breathing is noted. Since being in the hospital she denies any fevers, chills, productive or worsening of cough. She is in no pain. PAST MEDICAL HISTORY: Significant for: 1. Progressive right-sided lung cancer. Diagnosis based on clinical grounds given the steady but slow increased size in her multiple pulmonary nodules which were originally detected back on February 25, 2015. a. Please see my clinic note on July 01, 2016, under the [facility] for further details. 2. Right-sided stage I lung cancer diagnosed on May 24, 2013, from a core needle biopsy. Status post SBRT. 3. COPD/emphysema diagnosed over 12 years ago, on continuous supplemental O2. 4. Rheumatoid arthritis. 5. Breast cancer diagnosed in 1983, status post bilateral mastectomy. Completing five years of tamoxifen in 1994. PHYSICAL EXAMINATION: Vital signs today showing a weight of 59.9 kg, which is down 2 kg from her admitting weight of 61.9 kg. Blood pressure 131/43, temperature 36.9, pulse 82, respiratory rate is 20, and she is satting 92% on 4 L oxygen mask. She is A and O x3. In good spirits overall. Affect is appropriate. COR: RRR. Lungs: Clear to auscultation bilaterally from anterior auscultation. Abdomen: Nondistended. Lower extremities with slight edema. LABORATORY DATA: From July 08, 2016, showing a white cell count of 6.3, hemoglobin 7.8, platelet count of 221. Sodium 140, potassium 4.2, serum creatinine 0.72, magnesium 2.2. Procalcitonin 0.12. ASSESSMENT AND PLAN: The patient is a very pleasant 80-year-old female with progressive lung cancer, intolerable to standard crizotinib dosing of 250 mg b.i.d. after approximate four weeks of therapy causing a prolongation of her QTc interval. The patient presents more acutely with fluid retention and likely congestive heart failure exacerbation. The patient is currently being managed with diuresis and recently blood transfusion. Discussion with the patient regarding her lung cancer issues were reviewed with the patient. Specifically, we discussed options moving forward after the hospital stay, which would include no further treatment and moving into hospice versus resuming crizotinib but at a 250 mg daily dosing. The patient understands that there are likely associated risks with crizotinib, even at a lower dose, which could include fluid retention, as well as arrhythmias. She is not a candidate for chemotherapy given her performance status and her multiple comorbidities. The patient will continue with her current care with the hospitalist and palliative services. She has a followup with me in one weeks' time, at which point she will likely make a decision in terms of hospice versus further treatment. She had no further questions.
[2016-07-09] MEDS: Levalbuterol 1.25 mg/0.5mL Inhalation Solution NEB SCH ×6 (00:30→16:10)
[2016-07-09] MEDS: Piperacillin-Tazo 3.375 Gm Inj 3.375 GM in Dextrose 5% Minibag Plus 50 ML IV SCH ×3 (00:40→16:33)
[2016-07-09] MEDS: Ipratropium 0.02% 0.5 mg/2.5 mL Inhalation Solution NEB SCH ×5 (01:58→16:10)
[2016-07-09 05:50] LABS: BASOPHILS % (AUTO) 0.3 % (0-3); EOSINOPHILS % (AUTO) 5.5 % (0-5); MONOCYTES % (AUTO) 21.4 % (4-12); Mean Corpuscular Volume 98.9 fL (81-100); NEUTROPHILS % (AUTO) 56.1 % (40-74); Platelet Count 240 bil/L (150-400)
--- NOTE | 2016-07-09 06:19 | NUR ---
Diarrhea/O2 sat Pt stating had 6 diarrhea stools, requesting immodium. MD jordan, Immodium given per MD orders. Titrating pt's O2 to keep Oxygen sat in range 88-92%. O2 3.5 to 4.5L NC. Pt on bipap while sleeping with O2 bled in. Pt desating when up to bathroom, increased O2 to 5L when up ambulating. No c/o dyspnea this shift.
[2016-07-09 07:13] LABS: Vitamin B12 1061 pg/mL (211-946)
[2016-07-09] MEDS: Fluticasone-Salmererol 250-50 Inhaler INHALATION SCH (08:25)
[2016-07-09] MEDS: Pantoprazole 20 mg ER24 Tablet PO SCH (08:25)
[2016-07-09] MEDS: Sulfasalzine 500 mg Tablet PO SCH (08:25)
[2016-07-09] MEDS: Hydroxychloroqine 200 mg Tablet PO SCH (08:25)
--- NOTE | 2016-07-09 13:36 | NUR ---
[facility] signed
--- NOTE | 2016-07-09 13:37 | NUR ---
Social Work: Continued Discharge Planning Engineer Systems met with patient and patient's spouse at bedside to discuss discharge planning, and the patient states that she does not want HH when discharged home. Patient and patient's spouse stated that they will call the patient's PCP if the get home and decide that they want HH. SW will continue to follow. Queenie Wood, JESENIA, ACM
--- NOTE | 2016-07-09 14:13 | NUR ---
NUTRITION ASSESSMENT: ASSESS: 80YO F admit with acute on chronic respiratory failure on home oxygen. Palliative consulted re metastatic lung CA, with pt electing to pursue chemo therapy, refuses hospice. PMHX: COPD,CHF,anemia, breast CA s/p bilateral mastectomy, diverticulitis, GERD,sleep apnea DIET: General. PO 50-100% LABS: Alb 3.8 MEDS: Reviewed GI:1 BM 07/09, c/o diarrhea 07/08 WEIGHT: 58.3kg, Admit wt:60.0kg BMI: 22.8 EST.NEEDS: CANCER/COPD (30-35kcal/kg;1.2-1.5g/kg pro) Kcal: 3729-0476 Pro: 70-90g NUTRITION DIAGNOSIS: (1) Increased energy/protein needs related to increased demand for nutrients as evidenced by COPD/Cancer. INTERVENTION: (1) No intervention at this time, pt eating well. MONITOR/EVALUATE: PO intake, diet tolerance. F/U per low risk.
--- NOTE | 2016-07-09 16:44 | PCM.DIMED ---
Discharge Instructions Date of Service Jul 09, 2016 Dates of Hospitalization Jul 02, 2016 at 15:37 Discharge Diagnosis Discharge Diagnosis Lung Cancer with Pneumonia Diet Heart Healthy Activity No restrictions (The patient may return to usual activities gradually as tolerated.) Call your provider Fever or Chills, Shortness of breath, Bleeding, Chest pain, Vomitting, Excessive diarrhea, Weakness (unilateral) Patient Instructions Follow-up Provider: Meeta Leiva MD Follow-up with PCP in: 2 weeks Provider: Obdulio Resendez DO Follow-up in: 1 week (WednesdayJuly 13 at 10:30am) Mid-level Provider (F9): Mary Florentino MD Follow-up with Mid-level in: 1 week (As scheduled) Bakari Chan MD Jul 09, 2016 16:44
[2016-07-09] MEDS ORDERED: AMOX-363 PO (16:48)
[2016-07-09] MEDS ORDERED: LEVA1.2523 NEB (16:48)
--- NOTE | 2016-07-09 18:09 | NUR ---
Discharge Patient discharge done by executive director of nursing with the supervision of RN. Patient given discharge orders. Patient given medication list with written times when next dose is due. Patient given informational packet on new medications and disease process. Patient IV removed fully intact and asymptomatic. Follow up information given and discussed. Patient in room at time of discharge. Patient assisted to main entrance by executive director of nursing.
--- NOTE | 2016-07-10 01:09 | PCM.DC.MED ---
Discharge Summary Date of Service Jul 09, 2016 Dates of Hospitalization Date of Hospital Admission Jul 02, 2016 at 15:37 Date of Discharge: Jul 10, 2016 Providers: Admitting Physician: Nayan Resendez MD Primary Care Physician: Meeta Leiva MD Attending Physician: Nayan Resendez MD Diagnosis at Time of Discharge Diagnosis at Time of Discharge Lung Cancer with Pneumonia Procedures XRay, CTs & MRIs PROCEDURE: X-RAY BARIUM SWALLOW WITH FOOD & VIDEOGRAPHY ([id number]) INDICATIONS: dysphagia TECHNIQUE: Examination was conducted in conjunction with speech pathology per standard protocol. In the lateral projection, filming was performed of the patient swallowing. AP projection filming may also be performed with patient swallowing. COMPARISON: None. FINDINGS: Function: The oral preparatory phase appears normal, with proper containment. The subsequent oral propulsive phase, pharyngeal phase, and esophageal phase of swallowing also appear normal with all proffered substances. No laryngotracheal penetration or aspiration. No pathologic vallecular pooling. The attending physician was personally present in the room during the examination. Morphology: No cricopharyngeal bar is identified. No cervical esophageal webs. No Zenker's diverticulum. No strictures. Prominent cricopharyngeal depression. IMPRESSION: 1. Prominent cricopharyngeal depression otherwise no laryngeal penetration or tracheobronchial aspiration. Dictated by: Ludin Brice [facility] Interpreted: Abhay Milton MD on 07/06/2016 at 15 :33 Transcribed by: ANTHONY on 07/06/2016 at 15:34 Approved by: Abhay Milton M.D. on 07/06/2016 at 17:10 PROCEDURE: CT ANGIO CHEST PULMONARY EMBOLISM ([id number]) INDICATIONS: hypoxia ongoing TECHNIQUE: After the administration of intravenous contrast, 2 mm thick sections acquired from the pulmonary apices to the posterior costophrenic angles. 3-dimensional maximum intensity projection (MIP) coronal and sagittal reformats were then acquired through the thorax. For radiation dose reduction, the following was used: automated exposure control, adjustment of mA and/or kV according to patient size. COMPARISON: [facility], CR, XR CHEST 2VW, 07/04/2016, 8:23. [facility], CT, CT CHEST WO CON, 07/02/2016, 13:57. [facility] , CT, CT ANGIO CHEST PE, 10/12/2015, 19:15. [facility], CT, CT CHEST W CON, 07/10/2015, 8:43. [facility], CT, CT ANGIO CHEST PE, , 21:50. [facility], CT, CT ANGIO CHEST PE, 02/25/2015, 11: 14. [facility], CT, CHEST W/O CONTRAST, 01/12/2014, 10:53. [facility], CT, CHEST W/O CONTRAST, 03/20/2013, 12:36. [facility], CT, CHEST ANGIO-PE, 09/04/2012, 17:36. [facility], CT, CHEST ANGIO-PE, 10/08/2011, 4:08. FINDINGS: Image quality: Excellent. Pulmonary arteries: Pulmonary arteries are normal in size, and demonstrate no intraluminal filling defects to suggest central pulmonary embolism. Lungs and pleura: The patchy consolidation in the right lung base is consistent with pneumonia stable compared to plain film radiograph obtained for slightly 04/2016. Right lower lobe nodules have increased in size compared to . Small right-sided pleural effusion is noted. Emphysematous changes noted in the lungs bilaterally. Central and peripheral airways are patent. Mediastinum: Heart size is enlarged without pericardial effusion. Heart is mildly enlarged. Atherosclerotic calcifications noted in the aorta, great vessels and the coronary vasculature. Left chest wall cardiac pacer is noted. Patient is status post aortic valve replacement. No mediastinal or hilar adenopathy. Thoracic aorta is normal in caliber and enhancement. Small hiatal hernia is noted. Bones and chest wall: No suspicious bony lesions. Ribs and thoracic spine appear intact throughout. No axillary or supraclavicular adenopathy. Abdomen: Visualized upper abdominal solid organs appear normal in the early arterial phase of enhancement. IMPRESSION: 1. No pulmonary embolus. 2. Patchy consolidation in the right lung base suspicious for pneumonia. Recommend followup imaging to resolution to exclude underlying neoplastic process. 3. Nodular opacities in the right lower lobe have increased in size compared to 10/02/15 are suspicious for neoplastic process. 4. Small right-sided pleural effusion. 5. Atherosclerosis including the coronary vasculature. 6. Bilateral lung emphysematous disease. Dictated by: Francine Morales MD, PhD on 07/05/2016 at 20:19 Approved by: Francine Morales MD, PhD on 07/05/2016 at 20:29 Brief History Mrs. Haider is an 80-year-old female with recurrent metastatic lung cancer, frontal headache, vision changes, difficulty walking, mild sore throat, leg swelling right greater than left, who presented to ER due to ongoing hypoxia at home. CHF associated leg swelling tends to be right. no regular cough, no phlegm production. no sick contacts. no blood clots before. Her lung cancer is managed by oncologist Dr Kvng Resendez and she was last seen in his office on 07/01/16. She was started on Xalkori on 06/03/2016 but this was held due to associated fatigue and loss of appetite, edema, SOB, prolonged Qt, with plan to increase lasix and follow up in 1 week. Review of Systems: Uses CPAP at home. No prior thrush. no yeast infections. no VT hx. no recent pneumonia. CHF associated leg swelling tends to be right. no regular cough, no phelgm production. no sick contacts. no blood clots before. None of the following - F/C/ dizziness / cp / acid reflux / abdominal pain/n/v/ diarrhea / bleeding/bruising change in voiding / yeast infections / rash Hospital Course: admitted 07/02 for further workup and treatment of pleural effusions. Functional Baseline: Ambulates by self, does all self-care. does groceries and light cleaning and drives for her. 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 She reports bifrontal headache and complains of drainage that feels like it is draining into her mouth. She reports taking a prolonged nap where she went to bed in the afternoon and slept until 0800 the next day. She reports blurry vision and enough weakness and dyspnea that she is having trouble walking. Per , she has had loss of appetite, and has barely eaten since last ED visit on 06/26/16. She reports not being able to tolerate food going down. The patient was seen at oncology yesterday. Because of prolonged QTC, chemotherapy has been stopped. Patient was admitted to the hospital service for further evaluation and treatment. # Acute on chronic respiratory failure - Patient requires nocturnal and daytime volume ventilation. BiPAP is insufficient due to severity of her condition. COPD is the primary cause of her chronic respiratory failure. - Patient is on 2L home O2/COPD/CPAP/recurrent right lung cancer. - Also treating for acute CHF exacerbation/moderate R pl effusion/chronic right greater than left leg edema w/ initially improving hypoxia with diuersis. Will increase Lasix to 40 mg by mouth daily as suggested by Dr. Resendez who came to visit patient today. - And then due to ongoing hypoxia, treating for RLL pneumonia/dysphagia hx/new productive cough resolved, clinically improved. worse than baseline HYPOXIA due to CHF/PNA. POA suspect secondary to aspiration pneumonia as patient was developing difficulty swallowing and the new chemotherapy drug "Alkuri" -- Patient has increased home levalbuterol frequency / continue ipratropium, s/ p solumedrol in ER x 1 - mild wheeze, continue inhaled home steroid -- We have checked the following: sputum cx positive for normal evan, neg resp viral, positive procalcitonin, DELIVERY CONSULTANT swallow eval indicates that there is no aspiration at present time. - Patient was started on 07/04 doxy/rocephine, we changed antibiotics to Zosyn on 07/06/2016. -- The right leg u/s was negative for DVT. However, there is increased swelling of the right lower extremity again today. Patient was given Lasix twice today once after each unit of packed red blood cells transfused and will increase Lasix to 40 mg by mouth daily starting in a.m. -- Patient is s/p diurese, held for 2 days, resume home lasix and the increased dose to 40 mg by mouth daily # Anemia - Etiology uncertain - Patient to receive 2 units of packed red blood cells today. - We will check iron and B12 folate studies also check ferritin and reticulocyte count. 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 However she has required several blood transfusions in the past for this condition. Her stools are positive for blood however she is also on iron. # Patient has elevated trop, trended downward. 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 Diagnosis clinically given the steady but slow increase in size of her multiple pulmonary nodules - not a biopsy candidate currently per her oncologist Dr. Resendez. I discussed this with Dr. Resendez again today. # Emphysema on 2L home continuous O2. # Rheumatoid arthritis. On Plaquenil # Breast cancer diagnosed in 1983, status post bilateral mastectomy and 5yr adjuvant tamoxifen in 1994. 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 patient is aware of hospice and palliative services and does not want them at this time., Palliative care was consulted and the patient and the patient's are not interested in hospice care at this time and would like to try to continue some chemotherapy as an outpatient once he see Dr. Resendez next week. Exam Vital Signs (Last) Date Time Temp Pulse Resp B/P Pulse Ox O2 Delivery O2 Flow Rate FiO2 07/09/16 16:40 Supplement Oxygen CPAP/BIPAP 07/09/16 16:31 36.9 74 20 144/55 92 4.00 Exam General: Patient is in no apparent distress. She is sitting up on the side of the bed. HEENT: Head is atraumatic and normocephalic. Eyes: Pupils are equally round and reactive to light and accommodation. Extraocular muscles are intact. Sclera are white, anicteric. Subconjunctival mucosa is pale. Ears and nose are unremarkable. Oropharynx: There is no mucosal lesions, there is no thrush, there is no pharyngitis. Neck: Is supple, there are no nodes, or masses or tenderness. Chest: The breath sounds are much clearer today. There is still overall diminished breath sounds due to COPD. Heart: Rate, rhythm is regular. There is a grade 2/6 systolic ejection murmur heard best at the left sternal border. There is no rub or gallop. Abdomen: Good bowel sounds are present. Abdomen is soft, nontender, no organomegaly or masses were appreciated. Extremities: Are symmetrical and well perfused. There is decreased edema which is still greater on the right lower extremity than it is on the left lower extremity. There is no cellulitis, no rash. Neurologic: There are no focal neurological deficits. Cranial nerves II through XII are intact. There are no sensory or motor deficits. Psychiatric: Patients mood is calm and shows no sign of agitation. Patient remains in good spirits despite her current condition. Genital: Deferred Rectal: Deferred Test 07/02/16 11:20 07/02/16 13:00 07/05/16 04:55 07/08/16 06:20 Pro-B-Type Natriuretic Peptide 1756pg/mL (0-738) Urine Color Straw (YELLOW) Urine Appearance Hazy (CLEAR,HAZY) Urine pH 5.5 (5.0-8.0) Urine Specific Lucas 1.020 (1.003-1.035) Urine Protein Negativemg/dL (NEG,TRACE) Urine Glucose (UA) Negativemg/dL (NEGATIVE) Urine Ketones Negativemg/dL (NEGATIVE) Urine Occult Blood Negative (NEGATIVE) Urine Nitrite Negative (NEGATIVE) Urine Bilirubin Negative (NEGATIVE) Urine Urobilinogen Normalmg/dL (NORMAL) Urine Leukocyte Esterase Negative (NEGATIVE) Urine RBC 0-2/hpf (0-2) Urine WBC 0-5/hpf (0-5) Urine Epithelial Cells Occasional/hpf (NONE-MOD) Urine Crystals None seen (NONE SEEN) Urine Bacteria Few/hpf (NONE-FEW) Urine Hyaline Casts 5/20/lpf (NONE) Urine Granular Casts Occasional (NONE SEEN) Urine Waxy Casts None seen (NONE SEEN) Urine Red Blood Cell Casts None seen (NONE SEEN) Urine White Blood Cell Casts None seen (NONE SEEN) Urine Mucus Present (None Seen) Urine Trichomonas None seen (NONE SEEN) Urine Yeast None (NONE SEEN) Urinalysis Comment None Urine Culture Reflexed Not indicated Troponin T 0.018ug/L (0.0-0.011) Procalcitonin 0.12ng/mL (0.00-0.08) Reticulocyte Count,Calculated 3.4% (0.6-2.6) Magnesium Level 2.6mg/dL (1.6-2.6) Iron Level 22ug/dL (35-150) Total Iron Binding Capacity 251ug/dL (250-450) Percent Iron Saturation 9%sat (15-50) Unsaturated Iron Binding 228.7ug/dL Ferritin 37ng/mL (13-150) Vitamin B12 Level 1061pg/mL (211-946) Folate > 19.9ng/mL (>3.0) Test 07/09/16 05:35 White Blood Count 6.5th/mm3 (3.8-10.1) Red Blood Count 3.52mil/mm3 (3.90-5.20) Hemoglobin 10.9g/dL (12.0-15.6) Hematocrit 34.8% (35.0-46.0) Mean Corpuscular Volume 98.9fL (81-100) Mean Corpuscular Hemoglobin 31.0pg (27.0-35.0) Mean Corpuscular Hemoglobin Concent 31.3% (32.0-37.0) Red Cell Distribution Width 15.0% (12.3-15.4) Platelet Count 240bil/L (150-400) Neutrophils (%) (Auto) 56.1% (40-74) Lymphocytes (%) (Auto) 16.4% (14-46) Monocytes (%) (Auto) 21.4% (4-12) Eosinophils (%) (Auto) 5.5% (0-5) Basophils (%) (Auto) 0.3% (0-3) Sodium Level 139mEq/L (134-144) Potassium Level 4.0mEq/L (3.5-5.2) Chloride Level 95mEq/L (97-108) Carbon Dioxide Level 31mmol/L (18-29) Blood Urea Nitrogen 13mg/dL (8-27) Creatinine 0.87mg/dL (0.57-1.00) Estimat Glomerular Filtration Rate 89mL/min (>59) Glucose Level 90mg/dL (60-99) Calcium Level 8.9mg/dL (8.5-10.1) Total Bilirubin 0.4mg/dL (0.0-1.2) Aspartate Amino Transf (AST/SGOT) 40U/L (0-50) Alanine Aminotransferase (ALT/SGPT) 23U/L (0-32) Alkaline Phosphatase 56U/L (25-165) Total Protein 5.7g/dL (6.4-8.4) Albumin 3.8g/dL (3.4-5.0) Microbiology Results Sputum is unremarkable Respiratory virus PCR study is negative Strep pneumoniae urinary antigen is negative. Discharge Medications Discharge Medications Amoxicillin/Clav K 500-125 mg (Augmentin 500-125 mg) 1 Each Tablet 1 TABLET PO BID Prescribed by: TANYA CHAN MD Ascorbic Acid (Vitamin C) 1,000 Mg Tab.chew 1,000 MG PO DAILY (Reported) Aspirin (Aspirin) 81 Mg Tablet 81 MG PO DAILY (Reported) Azithromycin (Zithromax) 250 Mg Tablet 250 MG PO 3xweekly (Reported) Budesonide/Formoterol 160-4.5 mcg Inh (Symbicort 160-4.5 mcg Inh) 120 Puff Inhaler 1 PUFF INHALATION BID (Reported) Calcium Carbonate/Vitamin D3 (Calcium 500 + Vit D Caplet) 1 Each Tablet 1 EACH PO BID (Reported) Citalopram (Citalopram) 20 Mg Tablet 20 MG PO DAILY (Reported) Clobetasol Propionate (Clobetasol Propionate) 118 Ml Shampoo 1 APPLIC EXT 3xweekly (Reported) Ferrous Sulfate (Iron) 325 Mg Tablet 324 TABLET PO BID (Reported) Furosemide (Lasix) 20 Mg Tablet 20 MG PO DAILY (Reported) Hydroxychloroquine Sulfate (Hydroxychloroquine Sulfate) 200 Mg Tablet 200 MG PO BID (Reported) Lactobacillus Combo No.11 (Probiotic) 1 Each Cap.sprink 1 EACH PO DAILY ( Reported) Levalbuterol HCl (Xopenex Concentrate) 1.25 Mg/0.5 Ml Vial.neb 1.25 MG NEB Q4 Prescribed by: TANYA CHAN MD Magnesium Oxide (Magnesium) 400 Mg Capsule 400 MG PO DAILY (Reported) Multivitamin (Multi Vitamin Daily) 1 Each Tablet 1 EACH PO DAILY (Reported) Omeprazole (Omeprazole) 40 Mg Capsule.dr 40 MG PO DAILY (Reported) Rosuvastatin Calcium (Rosuvastatin Calcium) 10 Mg Tablet 10 MG PO DAILY ( Reported) Sulfasalazine (Sulfasalazine) 500 Mg Tablet 500 MG PO BID (Reported) Tiotropium [place] (Spiriva) 18 Mcg Cap.w.dev 18 MCG IH QAM (Reported) As needed Acetaminophen (Acetaminophen) 325 Mg Tablet 650 MG PO Q4H PRN PRN For Pain ( Reported) Albuterol Neb Soln (Albuterol Neb Soln) 2.5 Mg/3 Ml Vial.neb Unknown Dose INHALATION Q4H PRN PRN For Shortness of Breath (Reported) Ipratropium [place] (Ipratropium [place] Inhalant Solution) 0.2 Mg/1 Ml Solution 0.2 MG IH QID PRN PRN For Shortness of Breath (Reported) Loratadine (Claritin) 10 Mg Capsule 10 MG PO DAILY PRN PRN allergies (Reported) Menthol (Icy Hot) 1 Each Adh..patch 1 EACH TP DIRECTED PRN PRN For Pain ( Reported) Ondansetron ODT (Ondansetron ODT) 8 Mg Tab.rapdis 8 MG PO TID PRN PRN For Nausea (Reported) Polyethylene Glycol 3350 (Miralax) 17 Gm Powd.pack 17 GM PO DAILY PRN PRN For Constipation (Reported) Followup Plan Disposition: Patient is being discharged home with her . Discharge Diet: Heart Healthy Discharge Activity: No restrictions (The patient may return to usual activities gradually as tolerated.) Follow-up Provider: Meeta Leiva MD Follow-up with PCP in: 2 weeks Provider: Obdulio Resendez DO Follow-up in: 1 week (WednesdayJuly 13 at 10:30am) Mid-level Provider: Mary Florentino MD Follow-up with Mid-level in: 1 week (As scheduled) Time spent Time spent on discharging this patient was greater than 35 minutes, over half of which was involved in counseling and coordination of care. Bakari Chan MD Jul 10, 2016 01:09
[2016-07-13] MEDS ORDERED: FURO-128 PO (14:57)
[2016-07-13] MEDS ORDERED: CRIZ250C PO (16:05)
[2016-07-13] MEDS ORDERED: BUPR-97 PO (16:40)
--- NOTE | 2016-07-20 08:42 | NUR ---
Palliative care note D/A: PC to conduct follow up phone call for PC consult on previous admit. Pt had dc'ed home without services as she had declined HH services. Pt currently admitted for respiratory failure and is currently using Trilogy. P: No further need for PC follow post end of June 2016 consult. Machelle SHAH, CCM
== END 2016-07-09 18:08 | disposition home or self-care (01) | DRG 291 ==
LOC: SED 11:22 → EDBD 11:22 → MPC 15:37
PROVIDERS: ADMIT Urology; ATTEND Urology
PROC: 5A09557 Assistance with Respiratory Ventilation, Greater than 96 Consecutive Hours, Continuous Positive Airway Pressure (ICD-10-PCS; principal; 2016-07-03)
PROC: 30233N1 Transfusion of Nonautologous Red Blood Cells into Peripheral Vein, Percutaneous Approach (ICD-10-PCS; 2016-07-08)
DX: I50.33 Acute on chronic diastolic (congestive) heart failure (principal); J69.0 Pneumonitis due to inhalation of food and vomit; J96.21 Acute and chronic respiratory failure with hypoxia; C78.00 Secondary malignant neoplasm of unspecified lung; M19.90 Unspecified osteoarthritis, unspecified site; K21.9 Gastro-esophageal reflux disease without esophagitis; M06.9 Rheumatoid arthritis, unspecified; E78.5 Hyperlipidemia, unspecified; G47.33 Obstructive sleep apnea (adult) (pediatric); M46.90 Unspecified inflammatory spondylopathy, site unspecified; D63.8 Anemia in other chronic diseases classified elsewhere; Z66 Do not resuscitate; J43.9 Emphysema, unspecified; Z95.0 Presence of cardiac pacemaker; Z99.81 Dependence on supplemental oxygen; Z79.82 Long term (current) use of aspirin; Z79.51 Long term (current) use of inhaled steroids; Z85.3 Personal history of malignant neoplasm of breast; Z95.2 Presence of prosthetic heart valve

== ENCOUNTER 2016-07-18 09:49 | Inpatient (IN) | payer MEDICARE, OTHER ==
[~2016-07-18] VITALS: Ht 160 cm; Wt 54.3 kg
[2016-07-18] VITALS (9 sets, daily range): BP systolic 127–158; BP diastolic 35–64; PULSE 82–108; RESP 17–21; O2SAT 87–97
[~2016-07-18 09:49] MED LIST changes: +ACET325T51 PO; +ALBU2.5V4 INHALATION; -AZITHROMYCIN PO; +BUPR-97 PO; -CITA20TA11 PO; +CLOB118S3 EXT; -DOXY100T2 PO; +FURO-128 PO; -FURO-129 PO; +IPRA0.2S51 IH; +LEVA1.2523 NEB; +MENT1ADH TP; -POTA10CA42 PO; -PRE20 PO; -SYMINH INHALATION
--- NOTE | 2016-07-18 10:04 | ED.REPORT ---
HPI-Dyspnea / Wheezing Date of Service July 18, 2016 ED Provider: Trell Diego DO Pt is an 80 y.o. 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 Pt is typically on 2L of home O2 and states he had to turn it up to 3L in the middle of the night because her O2 sat' s were dropping into the 70's. Upon awakening this morning the pt was complaining of SOB and they could not increase her O2 sats through their own intervention. Pt reports clear productive cough. She denies chest pain and recent weight gain. Pt was recently admitted (07/02-07/10) for pneumonia and CHF exacerbation. Pt recently (07/10) had her Lasix increased to 40. Nursing Notes Stated Complaint: SHORTNESS OF BREATH Chief Complaint: Respiratory Complaints Nursing Notes Reviewed: Yes Allergies: Coded Allergies: atorvastatin calcium (Verified Allergy, Mild, 06/26/16) pravastatin (Verified Allergy, Mild, 06/26/16) simvastatin (Verified Allergy, Unknown, 06/26/16) albuterol (Verified Adverse Reaction, Severe, Restlessness, jittery, ) "off the wall" Uncoded Allergies: diaz (Allergy, Mild, 07/29/10) hayfever (Allergy, Mild, 07/29/10) perfume (Allergy, Mild, 07/29/10) sneezing with diaz perfume and hayfever. Scheduled Ascorbic Acid (Vitamin C) 1,000 Mg Tab.chew 1,000 MG PO DAILY Aspirin (Aspirin) 81 Mg Tablet 81 MG PO DAILY Budesonide/Formoterol 160-4.5 mcg Inh (Symbicort 160-4.5 mcg Inh) 120 Puff Inhaler 1 PUFF INHALATION BID Calcium Carbonate/Vitamin D3 (Calcium 500 + Vit D Caplet) 1 Each Tablet 1 EACH PO BID Clobetasol Propionate (Clobetasol Propionate) 118 Ml Shampoo 1 APPLIC EXT 3xweekly Crizotinib (Xalkori) 250 Mg Capsule 250 MG PO BID Furosemide (Lasix) 40 Mg Tablet 40 MG PO DAILY Furosemide (Furosemide) 40 Mg Tablet 40 MG PO BID Hydroxychloroquine Sulfate (Hydroxychloroquine Sulfate) 200 Mg Tablet 200 MG PO BID Lactobacillus Combo No.11 (Probiotic) 1 Each Cap.sprink 1 EACH PO DAILY Levalbuterol HCl (Xopenex) 1.25 Mg/3 Ml Vial.neb 1.25 MG IH BID Magnesium Oxide (Magnesium) 400 Mg Capsule 400 MG PO DAILY Multivitamin (Multi Vitamin Daily) 1 Each Tablet 1 EACH PO DAILY Omeprazole (Omeprazole) 40 Mg Capsule.dr 40 MG PO DAILY Rosuvastatin Calcium (Rosuvastatin Calcium) 10 Mg Tablet 10 MG PO DAILY Sulfasalazine (Sulfasalazine) 500 Mg Tablet 500 MG PO BID Tiotropium Auberry (Spiriva) 18 Mcg Cap.w.dev 18 MCG IH QAM Scheduled PRN Acetaminophen (Acetaminophen) 325 Mg Tablet 650 MG PO Q4H PRN PRN For Pain Ipratropium Auberry (Ipratropium Auberry Inhalant Solution) 0.2 Mg/1 Ml Solution 0.2 MG IH QID PRN PRN For Shortness of Breath Loratadine (Claritin) 10 Mg Capsule 10 MG PO DAILY PRN PRN allergies Menthol (Icy Hot) 1 Each Adh..patch 1 EACH TP DIRECTED PRN PRN For Pain Polyethylene Glycol 3350 (Miralax) 17 Gm Powd.pack 17 GM PO DAILY PRN PRN For Constipation General Time Seen by MD: 09:55 Chief Complaint Shortness of breath Hx Obtained From: Patient Arrived By: Ambulance Sudden in Onset?: Yes Past Medical History Past Medical History Notes: Dr. Kvng Resendez, oncology Past Medical History COPD-2 LPM Cannula aortic stenosis s/p bioprosthetic valve osteoarthritis breast cancer s/p bilat mastectomy metastatic lesions to Left lung- post radiation metastatic lesions to Righ lung - treament attempts currenly with oral chemo and not being well tolerated diverticulitis sp resection GERD Depression Sleep apnea - on C-PAP GI bleed Anemia, required 4 transfusions in July [address] April 2016 indicates likely metastatic lung disease Has pacemaker Was seen by oncology yesterday. Because of prolonged QTC, the chemotherapy has stopped. Visited ED on 05/26/16, was not tolerating chemotherapy. Reports: Cancer, Hyperlipidemia Reports: Diverticulitis Past Surgical History aortic valve replacement double mastectomy bilateral cateract surgery colon resection rotator cuff surgery Knee Hernia surgery in November of 2014 Pacemaker August 2015 Lung needle biopsy Reports: Appendectomy, Hysterectomy, Tonsillectomy Reports: Pacemaker insertion Smoking History Never Smoker Social History Alcohol Use: "Social" Drug Use: Denies drug use Other Social History: Good social support, , Local resident Ambulatory Status Independent Review of Systems Constitutional: Denies: Chills, Fever Respiratory: Reports: Prod cough, clear, Shortness of breath Cardiovascular: Denies: Chest pain Complete sys rev & neg: except as marked. Endocrine: Denies: Weight gain Physical Exam Initial Vital Signs Vital Signs (First) Date Time Temp Pulse Resp B/P Pulse Ox O2 Delivery O2 Flow Rate FiO2 07/18/16 10:05 36.9 100 17 158/37 94 Nasal Cannula 4 Initial VS: Reviewed Head / Eyes: Atraumatic, Normocephalic Extremities: Vascular intact, Neuro intact Skin: Warm, Dry, No cyanosis Neurologic: Alert, Oriented, Nonfocal Psychiatric: Mood/affect normal, Behavior normal, Normal thought content General/Constitutional: Awake, Alert, Well appearing, Well developed, Well hydrated, Well nourished, Not toxic appearing Neck: Atraumatic Diminished Breath Sounds: Positive: Decreased bilateral Rales / Rhonchi: Positive: Rales bilateral bases Tightness of chest Cardiovascular: Heart rate NL, Regular rhythm, Heart sounds NL, Peripheral circulation NL Heart Rate / Rhythm: Positive: Tachycardia (borderline) No lower extremity edema Abdomen: Atraumatic, Soft, Non-tender, No distention Interpretation & Diagnostics Lab Results Interpretation Result Diagram: 07/19/16 0625 07/19/16 0625 Test 07/18/16 10:05 07/18/16 11:34 Prothrombin Time 10.1sec (8.1-12.5) Prothromb Time International Ratio 0.95ratio D-Dimer 3.15mg/L FEU (<0.50) Troponin T 0.010ug/L (0.0-0.011) Pro-B-Type Natriuretic Peptide 680.3pg/mL (0-738) Urine Color Yellow (YELLOW) Urine Appearance Clear (CLEAR,HAZY) Urine pH 5.0 (5.0-8.0) Urine Specific Wyatt 1.026 (1.003-1.035) Urine Protein Tracemg/dL (NEG,TRACE) Urine Glucose (UA) Negativemg/dL (NEGATIVE) Urine Ketones 15mg/dL (NEGATIVE) Urine Occult Blood Negative (NEGATIVE) Urine Nitrite Negative (NEGATIVE) Urine Bilirubin Negative (NEGATIVE) Urine Urobilinogen Normalmg/dL (NORMAL) Urine Leukocyte Esterase Trace (NEGATIVE) Urine RBC 0-2/hpf (0-2) Urine WBC 6-10/hpf (0-5) Urine Epithelial Cells Moderate/hpf (NONE-MOD) Urine Crystals None seen (NONE SEEN) Urine Bacteria None/hpf (NONE-FEW) Urine Hyaline Casts None/lpf (NONE) Urine Granular Casts Rare (NONE SEEN) Urine Waxy Casts None seen (NONE SEEN) Urine Red Blood Cell Casts None seen (NONE SEEN) Urine White Blood Cell Casts None seen (NONE SEEN) Urine Mucus None seen (None Seen) Urine Trichomonas None seen (NONE SEEN) Urine Yeast None (NONE SEEN) Urinalysis Comment None Urine Culture Reflexed Indicated Urine Legionella pneumophilia Ag Negative (Negative) ECG Interpretation ECG Interpretation: Left atrial enlargement RBBB Left AV block Unchanged from 07/02/16 Time: 10:17 Interpreted by: ED physician Normal ECG Interpretation: Normal rate (97), Normal sinus rhythm, No change from prior ECGs X-Ray Chest Interpretation Chest Xray Interpretation: IMPRESSION: 1. Patchy right basilar radiopacities and probable pleural effusion versus pulmonary pleural scarring. Given the chronicity of these findings (not present in March,), these findings likely represent pulmonary infection and effusion. However, underlying neoplasm cannot be excluded and continued surveillance is recommended. Dictated by: Carola Guzmán M.D. on 07/18/2016 at 10:43 Approved by: Carola Guzmán M.D. on 07/18/2016 at 10:46 Re-Eval/Medical Decision Med Decision/Clinical Course 80-year-old female with a history of lung cancer, CHF, and oxygen-dependent COPD presents with worsening hypoxia and shortness of breath. She was recently admitted for the same and treated with antibiotics. She was also treated for CHF and had her Lasix increased from 20 mg to 40 mg daily. Today there is evidence of a recurrent pneumonia based off the x-ray findings, and elevated pro -calcitonin. I treated her for hospital associated pneumonia with vancomycin, Levaquin, and Zosyn in the ER. I also considered pulmonary embolus as a cause for her shortness of breath and hypoxia and ordered a d-dimer which returned elevated. I reviewed her hospitalization records from the last visit and found that she did receive a CT angiogram of the chest for pulmonary embolus chest 2 weeks ago which was negative. Given her complex pulmonary history, recurrent hospitalizations and failing health I discussed with her and her that it would be helpful to get palliative care and/or hospice involved and they agreed. She is admitted for further workup and treatment of her respiratory failure Source of Hx: Old records Re-Evaluation/Progress : Time of Eval: 11:55 Re-Evaluation/Progress Note: Pt rechecked. Pt feels improved after breathing treatment. Discussed lab results and need for admit. Consultation : Referral / Consult Name: Lo Melton MD Consulted With: Hospitalist Call Returned at: 12:31 Communications Tower Technician: Accepts admit Note: Discussed pt conditon. Dr. Melton accepts admit. Counseled Regarding: Diagnosis, Lab results, Need for admission Discharge & Departure Impression: Primary Impression: Acute on chronic respiratory failure with hypoxia Additional Impression: Hospital-acquired pneumonia Disposition: ADMITTED TO HOSPITAL Discharge Condition All VS Reviewed: Yes Condition: Improved Referrals: Meeta Leiva MD (PCP) Sc[employer] Attestation Portions of this note were transcribed by Eric Diaz. I, Dr. Diego personally performed the history, physical exam and medical decision-making; I reviewed and confirmed the accuracy of the information in the transcribed note. Signed by: Gregory Garay, 07/18/16 and 1304 copies to: Meeta Leiva MD, Gary R DO July 18, 2016 10:04 ERIC DIAZ July 18, 2016 10:41 None/hpf (NONE-FEW) Urine Hyaline Casts None/lpf (NONE) Urine Granular Casts Rare (NONE SEEN) Urine Waxy Casts None seen (NONE SEEN) Urine Red Blood Cell Casts None seen (NONE SEEN) Urine White Blood Cell Casts None seen (NONE SEEN) Urine Mucus None seen (None Seen) Urine Trichomonas None seen (NONE SEEN) Urine Yeast None (NONE SEEN) Urinalysis Comment None Urine Culture Reflexed Indicated ECG Interpretation ECG Interpretation: Left atrial enlargement RBBB Left AV block Unchanged from 07/02/16 Time: 10:17 Interpreted by: ED physician Normal ECG Interpretation: Normal rate (97), Normal sinus rhythm, No change from prior ECGs X-Ray Chest Interpretation Chest Xray Interpretation: IMPRESSION: 1. Patchy right basilar radiopacities and probable pleural effusion versus pulmonary pleural scarring. Given the chronicity of these findings (not present in March,), these findings likely represent pulmonary infection and effusion. However, underlying neoplasm cannot be excluded and continued surveillance is recommended. Dictated by: Carola Guzmán M.D. on 07/18/2016 at 10:43 Approved by: Carola Guzmán M.D. on 07/18/2016 at 10:46 Re-Eval/Medical Decision Source of Hx: Old records Re-Evaluation/Progress : Time of Eval: 11:55 Re-Evaluation/Progress Note: Pt rechecked. Pt feels improved after breathing treatment. Discussed lab results and need for admit. Consultation : Referral / Consult Name: Lo Melton MD Consulted With: Hospitalist Call Returned at: 12:31 Communications Tower Technician: Accepts admit Note: Discussed pt conditon. Dr. Melton accepts admit. Counseled Regarding: Diagnosis, Lab results, Need for admission Discharge & Departure Impression: Primary Impression: Acute on chronic respiratory failure with hypoxia Additional Impression: Hospital-acquired pneumonia Disposition: ADMITTED TO HOSPITAL Discharge Condition All VS Reviewed: Yes Condition: Improved Referrals: Meeta Leiva MD (PCP) Leeibtimothy Attestation Portions of this note were transcribed by Eric Diaz. I, Dr. Diego personally performed the history, physical exam and medical decision-making; I reviewed and confirmed the accuracy of the information in the transcribed note. Signed by: Gregory Garay, 07/18/16 and 1304 copies to: Meeta Leiva MD, Gary R DO July 18, 2016 10:04 ERIC DIAZ July 18, 2016 10:41
[2016-07-18 10:16] LABS: EOSINOPHILS % (AUTO) 2.8 % (0-5); MONOCYTES % (AUTO) 14.5 % (4-12); Mean Corpuscular Hemoglobin 31.1 pg (27.0-35.0); NEUTROPHILS % (AUTO) 68.8 % (40-74); Platelet Count 247 bil/L (150-400)
[2016-07-18] MEDS ORDERED: Levalbuterol 1.25 mg/0.5mL Inhalation Solution NEB ONE (10:25)
[2016-07-18 10:30] LABS: D-Dimer 3.15 mg/L FEU (<0.50); INR 0.95 ratio
[2016-07-18 10:44] LABS: TROPONIN T 0.01 ug/L (0.0-0.011)
--- NOTE | 2016-07-18 10:47 | DRSVH ---
PROCEDURE: X-RAY CHEST, TWO VIEWS ([id number]) INDICATIONS: SHORTNESS OF BREATH TECHNIQUE: 2 views of the chest were acquired. COMPARISON: [facility], CR, XR CHEST 2VW, 03/23/2016, 15:50. [facility], CR, XR CHEST 1VW (PORTABLE), 07/02/2016, 12:00. [facility], CR, XR CHEST 1VW (PORTABLE), 08/2015, 17:16. [facility], CR, XR CHEST 2VW, 07/08/2016, 9:13. FINDINGS: Surgical changes and devices: Dual-lead cardiac pacer is unchanged. Lungs and pleura: Patchy pulmonary opacities are redemonstrated at the right lung base similar in ext ent to the study dated 07/08/16. As before, there is a small right pleural effusion versus pleural sca rring. Emphysematous changes are present throughout both lungs. Mediastinum: Mediastinal contours are normal. Heart size is normal. Patient is status post valvular replacement. Bones and chest wall: No suspicious bony abnormalities. Soft tissues appear unremarkable. IMPRESSION: 1. Patchy right basilar radiopacities and probable pleural effusion versus pulmonary pleural scarring . Given the chronicity of these findings (not present in March,), these findings likely repres ent pulmonary infection and effusion. However, underlying neoplasm cannot be excluded and continued s urveillance is recommended. Dictated by: Caroal Guzmán M.D. on 07/18/2016 at 10:43 Approved by: Carola Guzmán M.D. on 07/18/2016 at 10:46
[2016-07-18 10:55] LABS: Magnesium 2.2 mg/dL (1.6-2.6)
[2016-07-18] MEDS ORDERED: levoFLOXacin Inj 750 MG in IV Premix 1 EACH IV ONE (12:20)
[2016-07-18] MEDS ORDERED: Piperacillin-Tazo 3.375 Gm Inj 3.375 GM in Dextrose 5% Minibag Plus 50 ML IV ONE (12:20)
[2016-07-18] MEDS ORDERED: Vancomycin Inj 1,000 MG in IV Premix 1 EACH IV ONE (12:30)
[2016-07-18] MEDS ORDERED: Ondansetron 2 mg/mL 2 mL Inj IVPUSH PRN (12:30)
[2016-07-18] MEDS ORDERED: 0.9% Sodium Chloride 100 ML ONE (12:43)
[2016-07-18 12:44] LABS: APPEARANCE,URINE CLEAR (CLEAR,HAZY); COLOR,URINE YELLOW (YELLOW); OCCULT BLOOD,URINE NEGATIVE (NEGATIVE); UROBILINOGEN,URINE NORMAL (NORMAL)
--- NOTE | 2016-07-18 12:48 | PCM.HPMED ---
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 Pt was recently hospitalized 07/02-, with recurrent respiratory failure, found to have new right pleural effusion, pt was treated diuretics, abx for possible PNA. COPD exacerabation. There was discussion about hospice with palliative care, pt/ family was not interested in hospice but remained code status DNR/DNI. Patient was followed by on 07/15, 3days prior to adm, plan was to continue Triology, possible thoracentesis, based on repeat Xray although it wouldnt likely change the managment per (though t effusion was more from ADHF). pt stated that she started taking Crizotinib daily, rather than bid for past 5days per [facility] recommendation. pt didn't feel particularly different until last night, pt felt more SOB with minimal exertion, chest pressure. pt had more white, large amount of white sputum starting yesterday, more cough. denied fever , chills. This AM, when pt went to bathroom, SpO2 dropped low 70%s, pt was severely dyspneic, decided to come to hospital. Of note, pt was d/aurora on Triology from last hospitalization using on and off as various masks didn't fit in, pt also tried to use it last night but very uncomfortable. Pt didn't increase use of Xopnex or other inhalers, used Symbicort regularly bid. compliant to increased dose of lasix from 20 to 40mg since last hospitalization , feels her wt is down, dry. RLE swelling is gone. denied diarrhea, burning urine, runny nose, sore throat, sick contacts, ED VS 158/37, 100, 17, 94% on 4liters NC.When seen in ED, pt noted to have thick yellowish sputum with intermittent coughing spells, didn't look toxic, no labored breathing, no accessory muscle use. labs showed unremarkable WBC, baseline renal function, PCT0.11, UA-large epithelial cells, D-Dimer3.15. CXR showed persistent patch infiltrate, Rt pleural effusion in similar size from previous hospitalization. had lenghty discussion with patient and family, would like to continue current tx, confirmed DNR/DNI, was consulted Review of Systems: Pertinent positives as noted in history of present illness. All other systems were reviewed and are negative Allergies Coded Allergies: atorvastatin calcium (Verified Allergy, Mild, 06/26/16) pravastatin (Verified Allergy, Mild, 06/26/16) simvastatin (Verified Allergy, Unknown, 06/26/16) albuterol (Verified Adverse Reaction, Severe, Restlessness, jittery, ) "off the wall" Uncoded Allergies: link (Allergy, Mild, 07/29/10) hayfever (Allergy, Mild, 07/29/10) perfume (Allergy, Mild, 07/29/10) sneezing with link perfume and hayfever. Home Medications Eleni Haider. [id number] 1935 07/15/2016 03:00 PM Page: 03/19 MEDICATIONS Medication Dose Sig Description Comments aspirin, buffered 81 mg tablet 81 mg take 1 tablet daily . citalopram 20 mg tablet 20 mg take 1 tablet (20MG) by oral route every day for mood ' Claritin 10 mg tablet 10 mg take 1 tablet (10MG) by oral route every day as needed . clobetasol 0.05 % shampoo 0.05 % apply by topical route every day a thin layer to dry scalp Leave in place 15 min. then lather and rinse. Crestor 10 mg tablet 10 mg take 1 tablet by ORAL route every day in the evening Culturelle 10 billion cell capsule 10 billion cell unsure of dosage 1 tablet daily ferrous gluconate 324 mg (38 mg iron) tablet 324 mg (38 mg iron) take 1 tablet by oral route once daily Lasix Oral Tablet 20 MG 20 mg TAKE 1 TABLET BY MOUTH ONCE DAILY -MAY TAKE EXTRA TABLET IF WEIGHT IS 3LBS ABOVE BASELINE 142 . Vitamin C 1000 Mg 1 tablet by mouth daily . hydroxychloroquine 200 mg tablet 200 mg TAKE ONE TABLET BY MOUTH IN THE MORNING & EVENING lorazepam 0.5 mg tablet 0.5 mg take 0.5 tablet (0.25MG) by ORAL route once daily as needed magnesium 200 mg tablet 200 mg 400mg daily Miralax 17 gr am/dose oral powder 17 gram/dose take (17G) by oral route every day mixed with 8 oz. water, juice, soda, coffee or tea multivitamin capsule 1 tablet daily omeprazole 40 mg capsule,delayed release 40 mg TAKE ONE CAPSULE BY MOUTH ONE TIME DAILY BEFORE A MEAL for acid reflux. . Os-David 500 + D3 500 mg (1,250 mg)-600 unit tablet 500 mg calcium (1,250 mg)-600 unit take 1 tablet by ORAL route twice everyday . Oxygen 2 lit er Nasal 2 liter -everyday Spiriva with HandiHaler 18 mcg & inhalation Caps 18 mcg inhale 1 capsule (18MCG ) by INHALATION route every day sulfasalazine 500 mg tablet 500 mg Take 1 tablet 2 times daily Symbicort 160 mcg-4.5 mcg/actuation HFA aerosol inhaler 160 mcg-4.5 mcg/ actuation inhale 2 puff by inhalation route 2 times every day in the morning and evening Xalkori 250 mg capsule 250 mg take 1 capsule by oral route 2 times every day Xopenex HFA 45 mcg/actuation aerosol inhaler 45 mcg/actuation inhale 2 puff ( 90MCG) by INHALATION route every 6 hours as needed PMH PAST MEDICAL/SURGICAL HISTORY: pulm nodules / ROS1 translocation metastatic Recurrent right-sided lung cancer ( 2014 stage 1, moderately differentiated adenocarcinoma, immunostain CK7 positive , TTF-1 positive, and napsin 7 positive). Diagnosis clinical given the steady but slow increase in size of her multiple pulmonary nodules - not a biopsy candidate currently s/p RTX 2013, Emphysema 2L home continuous O2. Rheumatoid arthritis. Breast cancer diagnosed in 1983, status post bilateral mastectomy and 5yr adjuvant tamoxifen in 1994. 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 Mother with history of cirrhosis and hepatitis. SOCIAL HX:social EtOH, distant smoker Social History Hx Alcohol Use: Yes (1/day) Hx Substance Use: No Hx Tobacco Use: Yes (25 pack year Hx, quit 20 years ago. ) Smoking Status: Never Smoker Exam Vital Signs Vital Sign - Last Date Time Temp Pulse Resp B/P Pulse Ox O2 Delivery O2 Flow Rate FiO2 07/18/16 10:49 97 20 97 Nasal Cannula 3 07/18/16 10:05 36.9 158/37 Exam Early female, pleasant, mildly distressed due to cough, no labored breathing/ accessory muscle use NAD, comfortably laying down on the bed no JVD, MMM, no LAD RRR, nl s1, s2 no mrg decreased BS on RLF up to mid half, coarse crackles, no wheezing. CTA on Lt lung field except base S,ND,NT,normoactive BS+ warm, no edema, pulses 2/2 Lab and Diagnostics Result Diagram: 07/18/16 1005 07/18/16 1005 X-Rays, CTs and MRIs PROCEDURE: X-RAY CHEST, TWO VIEWS ([id number]) INDICATIONS: SHORTNESS OF BREATH TECHNIQUE: 2 views of the chest were acquired. COMPARISON: [facility], CR, XR CHEST 2VW, 03/23/2016, 15:50. [facility], CR, XR CHEST 1VW (PORTABLE), 07/02/2016, 12:00. [facility], CR, XR CHEST 1VW (PORTABLE), 01/19/2016, 17:16. [facility], CR, XR CHEST 2VW, 07/08/2016, 9:13. FINDINGS: Surgical changes and devices: Dual-lead cardiac pacer is unchanged. Lungs and pleura: Patchy pulmonary opacities are redemonstrated at the right lung base similar in extent to the study dated 07/08/16. As before, there is a small right pleural effusion versus pleural scarring. Emphysematous changes are present throughout both lungs. Mediastinum: Mediastinal contours are normal. Heart size is normal. Patient is status post valvular replacement. Bones and chest wall: No suspicious bony abnormalities. Soft tissues appear unremarkable. IMPRESSION: 1. Patchy right basilar radiopacities and probable pleural effusion versus pulmonary pleural scarring. Given the chronicity of these findings (not present in March,), these findings likely represent pulmonary infection and effusion. However, underlying neoplasm cannot be excluded and continued surveillance is recommended. Dictated by: Carola Guzmán M.D. on 07/18/2016 at 10:43 Approved by: Carola Guzmán M.D. on 07/18/2016 at 10:46 Assessment & Plan acute, active acute on chronic respiratory failure, hypoxia, POA, probable worsening advanced COPD, HCAP, worsening Rt pleural effusion, likely malignant or parapneumonic, possible PE given cancer,hospitalization, unlikely fluid overload based on exam , pt has been compliant to diuretics. -appreciate input, possible thoracentesis, pt is amenable to, risks /benefits briefly discussed. -O2 supplement goal 88-92%, -awaits sputum CX. resp PCR, -high risks of MRSA, resistant strep pneumo, pseudomonas, will start vancomycin , zosyn, -continue Symbicort, Xopenex/atrovent q6h prn, Spiriva stopped given possible interaction with cirotinib per , defer to reuse Oncology, Pulmonary descretion. 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 Diagnosis clinically given the steady but slow increase in size of her multiple pulmonary nodules - not a biopsy candidate currently per her oncologist Dr. Resendez. -pleural cytology could potentially help dx as well, -appreciate oncology input -hold Kalkori for now #advanced COPD FEV1 15%, on home O2 2liters, titrate O2 as above, continue home neb tx as above, hold off on steroid. chronic, stable #chronic HFpEF EF 65% 06/2015, aortic valve stenosis s/p bioprosthetic valve 2012 , pacer, will continue home diuretics, pt seems euvolemic # Anemia, Etiology uncertain, s/p 2units transfusion in last hospitalization, continue iron. #hx of prolonged QtC,get baseline EKG, avoid QT prolonging drugs-quinolone, zofran. # Rheumatoid arthritis. On Plaquenil # Breast cancer diagnosed in 1983, status post bilateralmastectomy and 5yr adjuvant tamoxifen in 1994. # Chronic anemia secondary to AVM s/p pill endoscopies, multiple EGDs // GERD # Depression # Sleep apnea, continue CPAP as needed dispo:Patient will be admitted with inpatient status with expectation of inpatient therapy for more than 2 midnights diet:regular dvt ppx:HSQ DNR/DNI confirmed with patient/family. pt stated that if her condition becomes worse to the point that she cannot survive with Ventilators/CPR, she wouldn't want heroic measures. Explained that given her advanced airway dz, if that happens, more likely long-term ventilating tx, which pt cleared stated that she doesn't want. patient wishes to continue her tx including her lung CA, doesn't want to loose her care from various specialists. Time spent 65 minutes Lo Melton MD July 18, 2016 12:48
[2016-07-18] MEDS ORDERED: SYMINH INHALATION (13:08)
[2016-07-18] MEDS ORDERED: LEVA1.253 IH (13:08)
[2016-07-18] MEDS: Piperacillin-Tazo 3.375 Gm Inj 3.375 GM in Dextrose 5% Minibag Plus 50 ML IV SCH ×2 (13:50→18:38)
[2016-07-18] MEDS: Vancomycin Dose per Pharmacist XX SCH (13:50)
[2016-07-18] MEDS ORDERED: FURO40TA4 PO (13:52)
--- NOTE | 2016-07-18 14:06 | NUR ---
Admission [place] [facility] [place] No complains of pain, or chest discomfrt/pressure. Pt reports is feeling very SOB, 5 L O2 via NC, very dry, somewhat non productive cough. A/Ox3, cooperative with care, spouse at bedside. Oriented to , call light, and visiting hours. Call light with in reach, will continue to monitor.
[2016-07-18] MEDS ORDERED: Polyethylene Glycol (PEG) 17 Gm Powder PO PRN (14:10)
[2016-07-18] MEDS ORDERED: MENTHOL TP PRN (14:10)
--- NOTE | 2016-07-18 15:43 | PCM.PHAPRO ---
Progress SOB Patient receiving vancomycin per pharmacy. Based on patient characteristic patient will receive 750 q 24 hour. Next trough on 07/21 @1100 Pharmacy will continue to follow. Kurt Stuart Pharm.D July 18, 2016 15:43
[2016-07-18] MEDS: Levalbuterol 1.25 mg/0.5mL Inhalation Solution NEB PRN (16:33)
[2016-07-18] MEDS: Ipratropium 0.02% 0.5 mg/2.5 mL Inhalation Solution NEB PRN (16:34)
--- NOTE | 2016-07-18 19:59 | CONS ---
[address] [address] CONSULTATION REPORT PATIENT: ALEXA CALLEJAS : 1935 MR#: [id number] ADMIT: 07/18/2016 JOB ID: [id number] PULMONARY CONSULTATION: DATE OF SERVICE: 07/18/2016 REQUESTING PHYSICIAN: Lo Melton MD REASON FOR CONSULTATION: Pleural effusion. HISTORY OF PRESENT ILLNESS: The patient is an 80-year-old, female with a very complicated medical history excellently summarized by Dr. Melton's admitting note. Her pulmonary history dates back a number of years. She has had severe COPD. Initially wore CPAP. Recently switched to a Trilogy unit. However, she has had tremendous problems with the unit and wears it minimally if at all. Did quite well with the CPAP setup. She gets very little time on the Trilogy due to intolerance with the mask leaking too much and feeling somewhat claustrophobic. Over the past two or three days, she has noticed increasing shortness of breath and increasing cough and sputum production. Sputum initially whitish now being a little bit green. No headache. No fever, chills or sweats. No pleuritic pain. Having some slight chest tightness but only when she coughs. No sore throat. No diarrhea, rash or arthralgias. Because of the increasing shortness of breath, which reached somewhat of a crescendo this morning, she presented to the hospital. She was here just last week being admitted on July 02, discharged on July 09 for lung cancer complicated by pneumonia. She was discharged on Augmentin for pneumonia. The patient also has severe COPD. Has been taking various medications but due to interactions the situation has changed somewhat. She is unable to tolerate albuterol due to tremor and tachyarrhythmias. Does quite well on levalbuterol. Was on Spiriva but that was stopped due to interactions with her Xalkori. Currently for her pulmonary status, she is taking Symbicort, Xopenex HFA 45 mcg via MDI, and supplemental oxygen 2 L a minute. However, her exercise tolerance is quite poor. She even notes dyspnea while eating and therefore her caloric intake has been marginal due to the dyspnea provoked by eating. Smoking history: The patient smoked one pack a day for 25 years, quitting about 20 years ago. 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 PAST MEDICAL HISTORY: 1. Breast cancer in 1983, status post bilateral mastectomy. 2. Multiple pulmonary nodules in 2013 diagnosed as moderately differentiated adenocarcinoma, though increasing size is of great concern but not a biopsy candidate. She did receive radiation therapy in 2014. 3. Rheumatoid arthritis. 4. Status post aortic valve replacement via transthoracic approach in 2012. Subsequently pacemaker placed for syncopal episodes. Also suffers from chronic anemia and has had blood transfusions in the past. Past PFTs showed an FEV1 of 0.47 L which is 25% of predicted and a DLCO of 15% of predicted. Total lung capacity mildly elevated 128% of predicted and residual volume markedly increased at 201% of predicted. Hobbies currently none that expose her to dust, fumes, or solvents. Did have some exposures in the past. Spends her time for the most part, at home with her . ALLERGIES: Intolerance to ALBUTEROL. Also other allergies include: 1. ATORVASTATIN. 2. PRAVASTATIN. 3. SIMVASTATIN. Multiple environmental allergens which often cause significant rhinitis. MEDICATIONS: Home medications noted including: Aspirin, citalopram, Claritin, Crestor, Culturelle, ferrous gluconate, Lasix, vitamin C, hydroxychloroquine, lorazepam, magnesium, MiraLAX, multivitamin, omeprazole, Os-David 500 with vitamin D, Spiriva though that has been held recently, sulfasalazine, Symbicort, Xalkori, and Xopenex inhaler. REVIEW OF SYSTEMS: No particular problems with headaches. No sore throat. Poor appetite. No abdominal pain. No nausea, vomiting, diarrhea, constipation, black stool or blood in her stool. Did have one episode of difficulty initiating urine stream but that has only happened on one occasion. No dysuria. No blood in the urine. Has had swelling of her right lower extremity intermittently; never of both lower extremities. OBJECTIVE: Temperature 36.8. Pulse 82. Respiratory rate 18. Blood pressure 138/61. O2 sat on Oxymask is running in the low 90s. General appearance: Thin, vibrant, female sitting upright in bed in no acute distress. Carrying on a conversation easily. However, she does get dyspneic utilizing pursed lip breathing with conversations or laughing. Eyes: Conjunctivae pink and moist. No scleral icterus. Pupils about 3-4 mm and reactive. Nose: Unable to visualize. Throat: Good oral hygiene. Uvula jerry in the midline. Oropharynx was normal in appearance. Lymph nodes are not palpable. Thyroid not palpable. Chest: Hyper-resonant to percussion. Some dullness at the right base. Diminished breath sounds at the right base. Slightly diminished at the left base. Overall a slight diminution of breath sounds with slight bronchial quality. Amaro sign positive. Heart: Regular rhythm. Heart tones normal. Rate 2-3/6 systolic murmur along the right sternal border consistent with aortic valve replacement. Abdomen soft. Nondistended. Nontender. No masses palpable. Bowel tones present. Extremities: No clubbing, cyanosis. No pretibial edema. DIAGNOSTIC STUDIES: Chest x-ray of July 18, 2016, shows patchy pulmonary opacities especially in the right lower lung field. Small right pleural effusion possibly with a component of pleural scarring. Emphysematous changes in both lungs with hyperinflation and flattening of the diaphragms. The radio-opacities were not present in March 2016, and although neoplasm cannot be excluded the findings more likely represent an inflammatory process. LABORATORY DATA: White count of 9600 with 68 polymorphonuclears, 12 lymphs, 14 monocytes, 3 eosinophils. Hemoglobin 11. Platelet count 247,000. Sodium 141, potassium 4.2, chloride 96, CO2 is 31, BUN 23, creatinine 0.7. Calcium 9.4 with albumin of 3.9, magnesium 2.2. Total bilirubin normal at 0.3. Transaminases and alkaline phosphatase normal. Troponin T is 0.01. ProBNP is 680. INR is 0.95. ASSESSMENT: 1. Pleural effusion. The extent of pleural effusion is small to moderate at worse. It has not changed in a month since last film of June 2016. I think at this point we need to evaluate risk versus benefit. She has severe obstructive airways disease. Effusion may be complicated by previous radiation therapy and has some degree of loculation as well as some representation that this is scarring. Will get an ultrasound study to see how easy it will be to tap and what her risk for thoracentesis is. Combined with benefit will make a decision regarding whether to proceed or not. May not be able to get the ultrasound until Wednesday but that is I think okay as it will give us time to talk to her Pulmonary and Oncology providers and help with the decision making aspect. 2. Intolerance to Trilogy. Will have the bring in the Trilogy unit. It sounds like part of it is an ill-fitting mask. I will have Respiratory Therapy evaluate the situation and see if we can improve her tolerance of the Trilogy. She has a CPAP backup that she has used up until recently. Might employ that unit. Alternatively she is doing reasonably well with the Oxymask given that her exertion is virtually nil. 3. Chronic obstructive pulmonary disease, severe. Will continue her medications as she is taking them. Will have to discuss her chemotherapy in the face of Spiriva interdiction and decide where we need to go with that. In addition, she is having difficulty eating because of the dyspnea and she might benefit from small frequent meals. 4. Possible infection. This sounds more like an exacerbation of chronic obstructive pulmonary disease with increased phlegm and increased purulence and increasing shortness of breath. She has recently used Augmentin and been hospitalized. Would like to stay away from the beta lactams maybe utilizing Levaquin. Will have to watch her QT interval to make sure we do not run into problems with her panoply and numerous interactions. I think it would be warranted to come up with a better plan than just empiric antibiotics for these folks as she has so many comorbidities and drug interactions that everything becomes a bit more complicated. Therefore will obtain urine studies, sputum studies and viral PCR panel for respiratory viruses. PLAN: 1. Small frequent meals. 2. to bring in the Trilogy and will have RT work with the patient vis-a-vis Trilogy CPAP. 3. Ultrasound to evaluate tap ability of pleural effusion and that evaluation of the risk benefit ratio for thoracentesis if it is felt it could be accomplished. 4. Sputum for Gram stain, C and S. 5. Nasopharyngeal swab for respiratory viral panel by PCR. 6. Urine for Legionella and pneumococcal antigen. Thank you so much, Dr. Melton, for asking to see this most delightful but ill individual. Will follow her respiratory status closely along with you and evaluate for the risk benefit ratio for thoracentesis.
[2016-07-18] MEDS: Hydroxychloroqine 200 mg Tablet PO SCH (20:06)
[2016-07-18] MEDS: Fluticasone-Salmererol 250-50 Inhaler INHALATION SCH (20:06)
[2016-07-18] MEDS: Sulfasalzine 500 mg Tablet PO SCH (20:06)
[2016-07-18] MEDS: Calcium Carbonate (Oyster Shell) 500 mg Tablet PO SCH (20:06)
[2016-07-19] VITALS (11 sets, daily range): BP systolic 114–148; BP diastolic 47–64; PULSE 82–94; RESP 17–20; O2SAT 86–98
[2016-07-19] MEDS: Piperacillin-Tazo 3.375 Gm Inj 3.375 GM in Dextrose 5% Minibag Plus 50 ML IV SCH ×3 (00:50→17:20)
[2016-07-19] MEDS: Pantoprazole 40 mg ER24 Tablet PO SCH (06:36)
[2016-07-19 06:52] LABS: BASOPHILS % (AUTO) 0.4 % (0-3); EOSINOPHILS % (AUTO) 3.2 % (0-5); MONOCYTES % (AUTO) 17.7 % (4-12); Mean Corpuscular Hemoglobin 30.8 pg (27.0-35.0); Mean Corpuscular Volume 103.1 fL (81-100); NEUTROPHILS % (AUTO) 64.7 % (40-74); Platelet Count 219 bil/L (150-400)
[2016-07-19 07:13] LABS: Magnesium 2.4 mg/dL (1.6-2.6); Phosphorus 4.3 mg/dL (2.5-4.9)
[2016-07-19] MEDS: Ipratropium 0.02% 0.5 mg/2.5 mL Inhalation Solution NEB PRN ×2 (08:10→14:39)
[2016-07-19] MEDS: Levalbuterol 1.25 mg/0.5mL Inhalation Solution NEB PRN ×2 (08:10→14:39)
[2016-07-19] MEDS: Vancomycin Dose per Pharmacist XX SCH (08:30)
[2016-07-19] MEDS ORDERED: Vancomycin Dose per Pharmacist XX SCH (08:30)
[2016-07-19] MEDS: Fluticasone-Salmererol 250-50 Inhaler INHALATION SCH ×2 (08:41→20:22)
[2016-07-19] MEDS: Sulfasalzine 500 mg Tablet PO SCH ×2 (08:42→20:22)
[2016-07-19] MEDS: Multivit-Miner-Folic Acid-Iron Tablet PO SCH (08:43)
[2016-07-19] MEDS: Calcium Carbonate (Oyster Shell) 500 mg Tablet PO SCH ×2 (08:44→20:22)
[2016-07-19] MEDS: Ascorbic Acid 500 mg Tablet PO SCH (08:44)
[2016-07-19] MEDS: Hydroxychloroqine 200 mg Tablet PO SCH ×2 (08:45→20:22)
--- NOTE | 2016-07-19 10:12 | NUR ---
Evaluation completed/discharge to nsg Please go to "Notes" then click on "Assessments and Notes" (bottom left corner of screen). Then select appropriate discipline tab on top of screen. approp to be up with nsg with SBA; no further PT
--- NOTE | 2016-07-19 11:15 | NUR ---
[facility] Transfer/Droplet Precaution Received patient via wheelchair, accompanied by Carolina RUBIO from [facility], patient appears to be comfortable. Denies any SOB or any discomfort on arrival. On continues O2 therapy via NC. Patient oriented to room and unit. On 1 Person standby assist for safety. IVF patent and infusing well. Laboratory staff relayed result that patient was positive for Human Metapneumovirus, patient placed on "Droplet Precaution". Patient and made aware, will continue monitor.
--- NOTE | 2016-07-19 11:18 | NUR ---
Transfer Pt transferred to [facility] rm 250, No complains of increased pain or SOB. 2.5 L O2 via NC. A/Ox3, spouse at bedside. Report called to Mylene RUBIO Medications hand carried and transferred to on coming RN.
[2016-07-19] MEDS: Vancomycin Inj 750 MG in 0.9% Sodium Chloride 250 ML IV SCH (12:18)
--- NOTE | 2016-07-19 14:16 | DRSVH ---
PROCEDURE: US CHEST/PLEURAL SONOGRAM INDICATIONS: Pleural effusion. Pls eval for thoracentesis risk COMPARISON: None. FINDINGS: A small right pleural effusion is present. No left pleural effusion. IMPRESSION: Small right pleural effusion. Dictated by: Reji Torres M.D. on 07/19/2016 at 14:14 Approved by: Reji Torres M.D. on 07/19/2016 at 14:14
--- NOTE | 2016-07-19 15:18 | PCM.PNMED ---
Subjective Date of Service July 19, 2016 Subjective pt feels unchanged, mildly better, still coughing, Exam Vital Signs Vital Sign - Last Date Time Temp Pulse Resp B/P Pulse Ox O2 Delivery O2 Flow Rate FiO2 07/19/16 14:44 86 18 98 OxyMask 3.00 07/19/16 13:30 36.6 147/54 Intake and Output 07/18/16 07/18/16 07/19/16 Cumulative From/Thru 15:00 23:00 07:00 07/18/16 10:05 - 07/19/16 06:04 Intake Total 200 ml 300 ml 500 ml Output Total 550 ml 550 ml Balance 200 ml -250 ml -50 ml Intake Oral 300 ml 300 ml IV Total 200 ml 200 ml Output Urine Total 550 ml 550 ml Exam Early female, pleasant, mildly distressed due to cough, no labored breathing/ accessory muscle use NAD, comfortably laying down on the bed no JVD, MMM, no LAD RRR, nl s1, s2 no mrg decreased BS on RLF up to mid half, coarse crackles, no wheezing. CTA on Lt lung field except base S,ND,NT,normoactive BS+ warm, no edema, pulses 2/2 IVs and Medications Medications Reviewed: Medications were reviewed in detail Lab and Diagnostics Result Diagram: 07/19/1662407/19/16624 X-Rays, CTs and MRIs PROCEDURE: X-RAY CHEST, TWO VIEWS ([id number]) INDICATIONS: SHORTNESS OF BREATH TECHNIQUE: 2 views of the chest were acquired. COMPARISON: [facility], CR, XR CHEST 2VW, 03/23/2016, 15:50. [facility], CR, XR CHEST 1VW (PORTABLE), 07/02/2016, 12:00. [facility], CR, XR CHEST 1VW (PORTABLE), 01/19/2016, 17:16. [facility], CR, XR CHEST 2VW, 07/08/2016, 9:13. FINDINGS: Surgical changes and devices: Dual-lead cardiac pacer is unchanged. Lungs and pleura: Patchy pulmonary opacities are redemonstrated at the right lung base similar in extent to the study dated 07/08/16. As before, there is a small right pleural effusion versus pleural scarring. Emphysematous changes are present throughout both lungs. Mediastinum: Mediastinal contours are normal. Heart size is normal. Patient is status post valvular replacement. Bones and chest wall: No suspicious bony abnormalities. Soft tissues appear unremarkable. IMPRESSION: 1. Patchy right basilar radiopacities and probable pleural effusion versus pulmonary pleural scarring. Given the chronicity of these findings (not present in March,), these findings likely represent pulmonary infection and effusion. However, underlying neoplasm cannot be excluded and continued surveillance is recommended. Dictated by: Carola Guzmán M.D. on 07/18/2016 at 10:43 Approved by: Carola Guzmán M.D. on 07/18/2016 at 10:46 Assessment & Plan acute, active acute on chronic respiratory failure, hypoxia, POA, probable worsening advanced COPD with viral PNA-hMPV+, HCAP, worsening Rt pleural effusion, likely malignant or parapneumonic, possible PE given cancer,hospitalization, unlikely fluid overload based on exam, pt has been compliant to diuretics. -appreciate input, possible thoracentesis, pt is amenable to, risks /benefits briefly discussed. -O2 supplement goal 88-92%, -awaits sputum CX -high risks of MRSA, resistant strep pneumo, pseudomonas, continue vancomycin, zosyn, -continue Symbicort, Xopenex/atrovent q6h prn, Spiriva stopped given possible interaction with cirotinib per , defer to reuse Oncology, Pulmonary descretion. 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 Diagnosis clinically given the steady but slow increase in size of her multiple pulmonary nodules - not a biopsy candidate currently per her oncologist Dr. Resendez. -appreciate Oncology input -pleural cytology could potentially help dx as well, -appreciate oncology input -hold Kalkori for now #advanced COPD FEV1 15%, on home O2 2liters, titrate O2 as above, continue home neb tx as above, hold off on steroid. chronic, stable #chronic HFpEF EF 65% 06/2015, aortic valve stenosis s/p bioprosthetic valve 2012 , pacer, will continue home diuretics, pt seems euvolemic # Anemia, Etiology uncertain, s/p 2units transfusion in last hospitalization, continue iron. #hx of prolonged QtC,get baseline EKG, avoid QT prolonging drugs-quinolone, zofran. # Rheumatoid arthritis. On Plaquenil # Breast cancer diagnosed in 1983, status post bilateralmastectomy and 5yr adjuvant tamoxifen in 1994. # Chronic anemia secondary to AVM s/p pill endoscopies, multiple EGDs // GERD # Depression # Sleep apnea, continue CPAP as needed dispo:likely 2-3more days, home diet:regular dvt ppx:HSQ DNR/DNI confirmed with patient/family. details in adm h/p Time spent 35min Lo Melton MD July 19, 2016 15:18
--- NOTE | 2016-07-19 19:11 | PROG NOTE ---
[address] [address] PROGRESS NOTE PATIENT: ALEXA CALLEJAS : 1935 MR#: [id number] ADMIT: 07/18/2016 JOB ID: [id number] DATE: 07/19/2016 PROBLEMS: 1. Right pleural effusion. 2. COPD, severe. 3. Status post breast cancer. 4. Multiple pulmonary nodules diagnosed as moderately differentiated carcinoma of the lung. 5. Status post aortic valve replacement. 6. Status post pacemaker placement. 7. Chronic anemia. SUBJECTIVE: Breathing reasonably well. Not having much problem. Minimal cough. Essentially no phlegm though she feels there is phlegm down there. I had a difficult time with masks. For CPAP machine, she wears pillows but unable to utilize a nasal or orofacial mask. She requires a chin strap with the nasal mask and is claustrophobic with the orofacial mask with the trilogy. Worked with the trilogy a little bit. Problems encountered. PHYSICAL EXAMINATION: Temp 36.6. The pulse high 80s. Respiratory rate 18 to 20. Blood pressure 147/54. O2 sat on 3 L of oxygen by OxyMask is 97% to 98%. General appearance: No acute distress. Wearing OxyMask. Sitting upright in bed. Doing a little better with the appetite with small frequent meals consisting of crackers, some fruit, applesauce. Awake, alert, speaking easily. Chest: Fairly good breath sounds on the left. Maybe somewhat diminished. Moderately diminished breath sounds on the right with rather leathery pulmonary adventitial sounds on the right. Breath sounds are more diminished at the right base. Heart: Regular rhythm. Heart tones normal. Abdomen is soft and nontender. LABORATORY STUDIES: White cell count is 5400 with a normal differential. Hemoglobin 9.8, platelet count 219,000. Sodium 144, potassium 4.7, chloride 102, CO2 is 34, BUN 24, creatinine 0.7. Calcium is 9.2 with an albumin of 3.5. Phosphorus normal at 4.3, magnesium normal at 2.4, total bilirubin, transaminases and alkaline phos normal. Procalcitonin essentially normal at 0.12 and stable. Urine for Legionella antigen is negative. Sputum Gram stain shows no polys, a few mixed evan. Respiratory viral panel via PCR positive for metapneumovirus. Ultrasound of chest shows a small right pleural effusion. ASSESSMENT: 1. Trilogy going rather poorly. She is oxygenating quite well with the OxyMask. Will ascertain the reason for the trilogy. May need to change her to pillows to see if we can ventilate her that way. Otherwise, she is oxygenating reasonably well. 2. Small right pleural effusion. Not sure it is able to be tapped safely. Will discuss with Radiology. Also discussed the entire case with her crime scene photographer and her oncologist. 3. Lung cancer. Chemotherapeutic agent being held as apparently not on formulary. Will need to discuss this with Oncology. PLAN: 1. Review ultrasound with Radiology. 2. Discuss problems with her various caretakers. 3. Continue work on trilogy and determine what this patient's needs are and what works best for her.
[2016-07-20] VITALS (8 sets, daily range): BP systolic 136–158; BP diastolic 51–71; PULSE 75–95; RESP 17–20; O2SAT 92–98
[2016-07-20] MEDS: Piperacillin-Tazo 3.375 Gm Inj 3.375 GM in Dextrose 5% Minibag Plus 50 ML IV SCH ×3 (00:23→19:50)
[2016-07-20] MEDS: Pantoprazole 40 mg ER24 Tablet PO SCH (05:35)
--- NOTE | 2016-07-20 05:52 | NUR ---
Shift Note assumed pt care at 1900, pt used trilogy machine for total of 7hrs tonight, alternate with facemask at 4l.min, sats stable at 98-94%, qhrly checks done throughout night.
[2016-07-20 07:00] LABS: BASOPHILS % (AUTO) 0.6 % (0-3); EOSINOPHILS % (AUTO) 3.5 % (0-5); Mean Corpuscular Hemoglobin 30.4 pg (27.0-35.0); NEUTROPHILS % (AUTO) 65.5 % (40-74); Platelet Count 204 bil/L (150-400)
[2016-07-20 07:37] LABS: Magnesium 2.1 mg/dL (1.6-2.6); Phosphorus 4.2 mg/dL (2.5-4.9)
[2016-07-20] MEDS: Fluticasone-Salmererol 250-50 Inhaler INHALATION SCH ×2 (08:57→19:50)
[2016-07-20] MEDS: Multivit-Miner-Folic Acid-Iron Tablet PO SCH (08:59)
[2016-07-20] MEDS: Calcium Carbonate (Oyster Shell) 500 mg Tablet PO SCH ×2 (08:59→19:54)
[2016-07-20] MEDS: Ascorbic Acid 500 mg Tablet PO SCH (09:00)
[2016-07-20] MEDS: Sulfasalzine 500 mg Tablet PO SCH ×2 (09:01→19:50)
[2016-07-20] MEDS: Hydroxychloroqine 200 mg Tablet PO SCH ×2 (09:01→19:50)
--- NOTE | 2016-07-20 11:09 | NUR ---
Social Work: Initial Assessment Data & Assessment: EMR reviewed. See Initial Assessment. Patient is a 80 y/o female that admitted for acute chronic respiratory failure and pneumonia per H&P. SW met with patient and patient's spouse at bedside to discuss discharge planning needs, SW role reviewed and discharge planning discussed. Patient has Medicare and [employer] insurance. Patient's PCP is Dr. Meeta Leiva. Patient has no LTC or VA benefits. Patient HERMINIO is her spouse Adolfo [phone]. Patient reports having an Advance Directive/DPOA and provided SW with a draft that has not been notarized. SW placed un-notarized helicopter mechanic on patient's chart. SW requested a copy of the final Advance Directive/DPOA. Patient has a re-admit score of 4 high risk. Patient lives at home with her spouse in a single story home where she is independent at baseline. Patient does not drive and depends on her spouse for transportation. Patient has O2 at home from [facility] and patient is independent with ambulation, but has a walker if it is needed. Patient has no HH or SNF history. Patient and patient's spouse requested to meet with Palliative. SW notified patient's attending physician and it will be ordered. SW wrote contact information an the patient's white board. SW will continue to follow patient for discharge planning needs. Plan: Patient and patient's spouse will speak with Palliative and discuss goals of care. SW will continue to follow and assist patient with discharge planning needs. Loc Wood LMSW, [place] Addendum: 07/20/16 at 1124 by LOC SAMS Amended: Links added.
[2016-07-20] MEDS: guaiFENesin 600 mg ER12 Tablet PO SCH ×2 (12:50→19:54)
--- NOTE | 2016-07-20 12:50 | NUR ---
Palliative Care Palliative Care received order from Dr Sawant 07/20/16 to assist with goals of care. Patient is an 80 year old woman with severe COPD, chronic respiratory failure with hypoxia, severe aortic stenosis and recurrent adenocarcinoma of the right lung. She was readmitted 07/18/16. Patient was just at [facility] 07/02-07/09/16 and was seen by Palliative Care during that admission. Patient lives at home with . Adolfo Haider () [phone], Adriana (daughter) [phone] Palliative Care to follow. Mendy Cueto
[2016-07-20] MEDS: Clobetasol Prop 0.05% 15 Gm Ointment TOPICAL SCH (14:16)
--- NOTE | 2016-07-20 14:34 | NUR ---
Palliative Care Informational Visit 07/20/16 13:30 This travel writer went to see pt. and her , Adolfo, who had requested information about outpatient Palliative Care services. Pt. and expressed they are 'exploring our options' for ongoing care support needs related to pt.'s multiple medical issues. Pt. and live in their own home, which they describe as 'too big for us, but it's a nice place.' Adolfo and pt. both expressed interest in moving to an Assisted Living facility at some point as they like the idea of having care support available as their needs change. Pt. and were told that a Palliative Care provider could likely see them for outpatient palliative care support, with the goal of addressing ongoing symptom management issues. Pt. and understand they would need to come to these appts and that Palliative Care services are not provided at their home. This travel writer talked with them about options for in-home care support such as private pay Home Health services or the possibility of Hospice care if pt.'s prognosis met hospice eligibility. This travel writer suggested that pt. and visit some of the local [facility] to learn more about the amenities of each facility and they agreed they want to explore this more in the coming weeks. Per Adolfo, selling their home seems like it would be a good idea if pt.'s care needs continue to increase, or if his own needs change. This travel writer also talked with pt. and about accepting offers of support from their friends. They are involved with a local restorationist as well as a [employer] group and shared that friends from these communities have offered to help but they have been reluctant to 'burden them'. This travel writer encouraged them to accept offers of support as often times friends really do want to be involved with care needs. Pt. and agree this is true and told this travel writer they would 'try to let them (friends) help more.' Philoemna Cason, [place], [facility] Palliative Care Services
[2016-07-20] MEDS: Vancomycin Inj 750 MG in 0.9% Sodium Chloride 250 ML IV SCH (15:23)
--- NOTE | 2016-07-20 15:55 | NUR ---
NUTRITION CONSULT: ASSESS: 80YO F admit with pleural effusion,acute on chronic respiratory failure, consult received re evaluation for small frequent meals. Pt seen at bedside with Oxymask, struggling to maintain adequate kcal intake with breathing issues/early fatigue with eating. PMHX: Lung CA,chemo therapy, aortic valve preplacement, pacemaker,COPD,rheumatoid arthritis DIET: General. PO 25-100% LABS: Alb 3.3, BUn 18 MEDS: Reviewed GI: No BM WEIGHT: 54.3kg BMI: 21.2 SKIN: 19 EST.NEEDS: Cancer/COPD (30-35kcal/kg;1.2-1.5g/kg pro) Kcal: 4212-2897 Pro: 65-81g NUTRITION DIAGNOSIS: (1) Inadequate oral intake related to fatigue with eating/COPD as evidenced by po bites, consult per MD (2) Increased energy/protein needs related to increased demand for nutrients as evidenced by COPD/ Cancer. INTERVENTION: (1) Spoke with pt at length at bedside to discuss maximizing kcal intake with small high kcal/protein meals. Pt willing to try magic cup jose j, does not like glucerna or ice cream. (2) Magic cup added on meal tray. Small portions. MONITOR/EVALUATE: PO intake, diet tolerance, labs. F/U per moderate risk.
--- NOTE | 2016-07-20 18:36 | PROG NOTE ---
[address] [address] PROGRESS NOTE PATIENT: ALEXA CALLEJAS : 1935 MR#: [id number] ADMIT: 07/18/2016 JOB ID: [id number] DATE: 07/20/2016 The patient is being seen today per hospital rounds. She carries a diagnosis of progressive [id number] lung cancer with ROS-1 translocation. Events over the past 48 hours are noted. The patient was last seen in our clinic on July 14, 2016 at which time she started her crizotinib at 250 mg daily. Her Lasix was also maintained at a 40 mg daily dose and her weight was watched on a daily basis as she has a history of fluid retention on this medication. The patient states that she was doing well until approximately July 18, 2016 four days later when she started to develop shortness of breath with minimal activity including eating. In addition, she developed a deep cough with difficulty getting up sputum. She was subsequently seen at the ER at [facility] on July 18, 2016. Baseline vital signs reporting a weight of 54.55 (on July 13, 2016 weight was 58.2). Admitting temperature is 36.9, pulse 100, respiratory rate 17, blood pressure 158/37, she is satting at 94% on 4 L of supplemental oxygen. LABORATORY DATA: On admission, showing a white cell count of 9.6, hemoglobin 11, platelet count of 247. Sodium 141, potassium 4.2, serum creatinine 0.79, AST 41, ALT 25, alk phos 61. Beta natriuretic peptide was normal at 680. Procalcitonin was at 0.11. Chest x-ray dated July 18, 2016 reporting a small right pleural effusion versus pleural scarring, emphysematous changes through both lungs, patchy pulmonary opacities similar compared to July 08, 2016. The patient was subsequently admitted for a potential of hypoxia secondary to pneumonia. Nasopharyngeal viral panel was positive for metapneumovirus on July 19, 2016. The remainder of the viral panel was negative. She has had also MRSA from nasal swab negative by PCR. The patient was subsequently started on an empiric Levofloxacin, piperacillin and vancomycin. Clinically, since being in the hospital, she has seen some improvement in her symptoms, specifically she is now able to cough up some of the sputum. states that her breathing has been slightly improved. She denies any new symptoms such as fevers or chills. She is in no significant pain. PAST MEDICAL HISTORY: Significant for: 1. Metastatic progressive, cib-[id number] lung cancer, positive for ROS-1 translocation. Initial diagnosis of her lung cancer made in February 25, 2015/ details are outlined in my clinic note dated July 01, 2016 under the [facility]. The patient had been on a trial of first-line therapy with crizotinib at 250 mg b.i.d. between the periods of June 03, 2016 through June 15, 2016. This resulted in fluid retention with weight increasing by approximately 1 kg between June 03 through July 01, 2016 with visible lower extremity edema and increasing shortness of breath. The patient did require hospital stay during this period of time. Her pro beta natriuretic peptide dated July 02, 2016 was markedly elevated at 1756. The patient was subsequently diuresed aggressively in the hospital and discharged without complications. The patient resumed crizotinib on July 14, 2015, but at 250 mg daily, with an increase in her daily Lasix of 40 mg from 20 mg baseline. Up to her hospital admission on July 18, 2016 she had no increase in her weight. 2. COPD, emphysema diagnosed 12 years ago. 3. Rheumatoid arthritis. 4. Breast cancer diagnosed in 1983. PHYSICAL EXAMINATION: Vital signs today showing a blood pressure of 158/53, temperature 36, pulse 94, respiratory rate 20. She is saturating at 95% on 3 L. Of note, she has had no temperature spikes since her admission. She is A and O x3. In good spirits overall. Sitting up in bed, conversant, does not appear septic. LABORATORY DATA: Laboratory data from July 20, 2016 showing a white cell count of 5.2, hemoglobin 9.2, platelet count of 204. Sodium 141, potassium 4.2, serum creatinine 0.73, calcium 8.9, AST 37, ALT 21, alk phos 53. Pro calcitonin level at 0.11. Additional imaging studies include an ultrasound of the chest dated July 19, 2016 which reports "a small right pleural effusion." ASSESSMENT/PLAN: The patient is a very pleasant, 80-year-old female admitted to [facility] on July 18, 2016 for increasing shortness of breath and cough. Recent workup is consistent with a viral pneumonia with human metapneumovirus detected on PCR from a nasopharyngeal swab dated July 19, 2016 as part of her viral PCR panel. The patient is clinically stable to slowly improving. Her shortness of breath and cough are unlikely due to fluid retention or congestive heart failure given the stable weight, small pleural effusion which was unchanged compared to June and the normal beta natriuretic peptide. Recommendations regardless are to stay off of her crizotinib until she completely recovers from her metapneumovirus pneumonia. Follow up in our clinic should be in two weeks' time at which point consideration of resuming her crizotinib at 250 mg daily will be decided upon. Finally, the patient was interested in palliative care outpatient services which would be appropriate. She is not interested in hospice at this time.
--- NOTE | 2016-07-20 19:33 | PCM.PNMED ---
Subjective Date of Service July 20, 2016 Subjective Patient was seen and examined at bedside today. Patient denies any chest pain, nausea, vomiting, diarrhea. Patient complains of chest pain and cough Overnight events: None known Exam Vital Signs Vital Sign - Last Date Time Temp Pulse Resp B/P Pulse Ox O2 Delivery O2 Flow Rate FiO2 07/20/16 15:29 36.9 94 20 158/53 95 OxyMask 3.00 Intake and Output 07/19/16 07/19/16 07/20/16 Cumulative From/Thru 15:00 23:00 07:00 07/18/16 10:05 - 07/20/16 05:09 Intake Total 1030 ml 460 ml 1990 ml Output Total 650 ml 480 ml 1680 ml Balance 380 ml -20 ml 310 ml Intake Oral 470 ml 400 ml 1170 ml IV Total 560 ml 60 ml 820 ml Output Urine Total 650 ml 480 ml 1680 ml Exam Physical Exam: GEN: Patient was awake, alert, responding appropriately to questions HEENT: Pupils equal round and reactive to light, extraocular eye muscles intact , Neck soft supple, trachea midline, nomocephalic/atraumatic CV: +S1/S2, regular rate and rhythm, systolic murmurs auscultated Respiratory: Decreased breath sounds, positive rhonchi GI: +bowel sounds x4, soft, compressible, nontender to palpation EXT: no clubbing, cyanosis, edema Neuro: Cranial nerves II-XII grossly intact Psych: mood and affect were appropriate IVs and Medications Medications Reviewed: Medications were reviewed in detail Lab and Diagnostics Result Diagram: 07/20/1662407/20/16 06 X-Rays, CTs and MRIs PROCEDURE: X-RAY CHEST, TWO VIEWS ([id number]) INDICATIONS: SHORTNESS OF BREATH TECHNIQUE: 2 views of the chest were acquired. COMPARISON: [facility], CR, XR CHEST 2VW, 03/23/2016, 15:50. [facility], CR, XR CHEST 1VW (PORTABLE), 07/02/2016, 12:00. [facility], CR, XR CHEST 1VW (PORTABLE), 01/19/2016, 17:16. [facility], CR, XR CHEST 2VW, 07/08/2016, 9:13. FINDINGS: Surgical changes and devices: Dual-lead cardiac pacer is unchanged. Lungs and pleura: Patchy pulmonary opacities are redemonstrated at the right lung base similar in extent to the study dated 07/08/16. As before, there is a small right pleural effusion versus pleural scarring. Emphysematous changes are present throughout both lungs. Mediastinum: Mediastinal contours are normal. Heart size is normal. Patient is status post valvular replacement. Bones and chest wall: No suspicious bony abnormalities. Soft tissues appear unremarkable. IMPRESSION: 1. Patchy right basilar radiopacities and probable pleural effusion versus pulmonary pleural scarring. Given the chronicity of these findings (not present in March,), these findings likely represent pulmonary infection and effusion. However, underlying neoplasm cannot be excluded and continued surveillance is recommended. Dictated by: Carola Guzmán M.D. on 07/18/2016 at 10:43 Approved by: Carola uGzmán M.D. on 07/18/2016 at 10:46 Assessment & Plan 80-year-old female with acute on chronic respiratory failure Acute on chronic respiratory failure, hypoxia secondary to advanced COPD -Positive viral pneumonia -Positive Human metapneumovirus -Worsening pleural effusion -Possible PE secondary to cancer -Follow up with Dr. Oro in as the patient may need to have a possible thoracentesis -High risk of strep pneumo, pseudomonas, continue vancomycin and Zosyn -Continue Symbicort, Xopenex/Atrovent every 6 when necessary -Spiriva has been discontinued by Dr. Resendez (oncology) due to interaction with cirotinib Recurrent adenocarcinoma of the lung with ROS 1 mutation on Crizotinib.(2013 stage 1, s/p RTX moderately differentiated adenocarcinoma, immunostain CK7 positive, TTF-1 positive, and napsin 7 positive) -Not a biopsy candidate per Dr. Resendez -Appreciate oncology input Advanced COPD FEV1 15%, -Continue home O2 2liters, titrate O2 90% or above -Continue home nebulizer treatments -Hold on steroids at this time chronic, stable #chronic HFpEF EF 65% 06/2015, aortic valve stenosis s/p bioprosthetic valve 2012 , pacer, will continue home diuretics, pt seems euvolemic # Anemia, Etiology uncertain, s/p 2units transfusion in last hospitalization, continue iron. #hx of prolonged QtC,get baseline EKG, avoid QT prolonging drugs-quinolone, zofran. # Rheumatoid arthritis. On Plaquenil # Breast cancer diagnosed in 1983, status post bilateralmastectomy and 5yr adjuvant tamoxifen in 1994. # Chronic anemia secondary to AVM s/p pill endoscopies, multiple EGDs // GERD # Depression # Sleep apnea, continue CPAP as needed diet:regular dvt ppx:HSQ DNR/DNI confirmed with patient/family. details in adm h/p Disposition: Patient is currently progressing well at this time still questionable as to whether or not the patient is going to have a thoracentesis. The patient seems to be progressing well and may not need it at this time. Patient has been diagnosed with human metapneumovirus. [employer] Mechanical Devices: Intermittant Pneumatic CD Mayra Sawant DO July 20, 2016 19:33
[2016-07-20] MEDS: Ipratropium 0.02% 0.5 mg/2.5 mL Inhalation Solution NEB PRN (20:01)
[2016-07-21] VITALS (11 sets, daily range): BP systolic 138–159; BP diastolic 45–69; PULSE 83–103; RESP 18–22; O2SAT 90–94
[2016-07-21] MEDS: Piperacillin-Tazo 3.375 Gm Inj 3.375 GM in Dextrose 5% Minibag Plus 50 ML IV SCH ×3 (01:15→17:16)
[2016-07-21] MEDS: Pantoprazole 40 mg ER24 Tablet PO SCH (06:14)
--- NOTE | 2016-07-21 06:33 | NUR ---
Activity Pt used trilogy and oxymask at 3L throughout the night. sats 91-94. Pt states "still getting used to the trilogy." Pt denied any SOB even with some ambulation to BSC.
--- NOTE | 2016-07-21 06:39 | PCM.PHAPRO ---
Progress Date of Service: July 21, 2016 SOB Vancomycin Management per Pharmacy: Vancomycin discontinued due to MRSA neg nasal screen, pt afebrile, BP/HR stable. Ok per Dr. Au and will communicate with day team. Thank You, Lexi Doshi, Pharm D. Lexi Doshi July 21, 2016 06:39
[2016-07-21 06:52] LABS: Mean Corpuscular Hemoglobin 30.2 pg (27.0-35.0); Mean Corpuscular Volume 103.1 fL (81-100)
[2016-07-21] MEDS: Fluticasone-Salmererol 250-50 Inhaler INHALATION SCH ×2 (08:24→20:02)
[2016-07-21] MEDS: Ascorbic Acid 500 mg Tablet PO SCH (08:24)
[2016-07-21] MEDS: Sulfasalzine 500 mg Tablet PO SCH ×2 (08:25→20:04)
[2016-07-21] MEDS: Calcium Carbonate (Oyster Shell) 500 mg Tablet PO SCH ×2 (08:27→20:04)
[2016-07-21] MEDS: Hydroxychloroqine 200 mg Tablet PO SCH ×2 (08:27→20:04)
[2016-07-21] MEDS: Multivit-Miner-Folic Acid-Iron Tablet PO SCH (08:28)
[2016-07-21] MEDS: guaiFENesin 600 mg ER12 Tablet PO SCH ×2 (08:28→20:04)
[2016-07-21] MEDS ORDERED: Vancomycin Serum Trough XX ONE (10:00)
[2016-07-21] MEDS: Ipratropium 0.02% 0.5 mg/2.5 mL Inhalation Solution NEB PRN ×3 (10:13→20:44)
[2016-07-21] MEDS: Levalbuterol 1.25 mg/0.5mL Inhalation Solution NEB PRN ×2 (10:13→17:46)
--- NOTE | 2016-07-21 10:43 | NUR ---
Palliative Care Order received from Dr Sawant 07/20/16. Dr Landers discussed case with Dr Sawant today. It was decided that it is not necessary for a Palliative Care MD to see patient during this admission. Patient may be followed by Outpatient Palliative Care instead. Mendy Cueto
--- NOTE | 2016-07-21 11:27 | NUR ---
Social Work-readiness for discharge: data:EMR Reviewed. Pt is on day 3 of hospitalization for acute chronic resp failure per H&P. Pt is not medically stable anticipate 1-2 more days. PT has seen pt and cleared pt for home no needs. Pt uses home O2 through [place] at baseline. 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 Pt and to follow up with palliative care and do outpt services. R/O HH services. SW will continue to follow. Assessment:Pt who is has supportive spouse. Plan:Anticipate pt to discharge home when medically stable. PT has cleared pt for home and resources have been provided for caregiving and OSITO for future planning. R/O HH services. SW will continue to follow. ROBSON Becerra
--- NOTE | 2016-07-21 12:48 | NUR ---
Palliative Care [employer]OCOA BEAN ROASTER HELPER Note07/21/1710:30AM This web content writer met with pt. and to provide them with contact information for outpatient Palliative Care services. Pt. shared she is hoping to DC home tomorrow. Pt. and both express interest in having support from Palliative Care to assist with symptom management needs related to pt.'s cancer and other health issues. Pt. and told this web content writer that Dr. Resendez will use a new chemotherapy treatment in the coming weeks and they are optimistic that this treatment will help prevent the cancer from progressing. Pt. and noted that they understand pt.'s cancer cannot be cured, but they want to pursue treatment that will help slow the progression of her disease. This web content writer also gave pt. and the Senior Resources guidebook as they are exploring both in-home support options and Assisted Living facilities. This web content writer let pt. and know that Palliative Care will reach out to her other care providers to coordinate the referral to outpatient Palliative Care services. Philomena Cason, COCOA BEAN ROASTER HELPER, [facility] Palliative Care Services
--- NOTE | 2016-07-21 14:43 | NUR ---
O2/Pain The pt has been between the oxymask at 3L and NC at 4L throughout the day - keeping sats in the low 90's. The pt is not reporting SOB at rest, but does report mild SOB with exertion. The pt is reporting back pain secondary to the bed - tylenol effective for management.
--- NOTE | 2016-07-21 17:55 | PCM.PNMED ---
Subjective Date of Service July 21, 2016 Subjective Patient was seen and examined at bedside today. Patient denies any chest pain, shortness of breath, nausea, vomiting, diarrhea. Overnight events: None Exam Vital Signs Vital Sign - Last Date Time Temp Pulse Resp B/P Pulse Ox O2 Delivery O2 Flow Rate FiO2 07/21/16 17:19 36.8 98 20 139/69 91 OxyMask 3.00 Intake and Output 07/20/16 07/20/16 07/21/16 Cumulative From/Thru 15:00 23:00 07:00 07/18/16 10:05 - 07/21/16 06:26 Intake Total 1464 ml 494 ml 3948 ml Output Total 1500 ml 375 ml 3555 ml Balance -36 ml 119 ml 393 ml Intake Oral 1126 ml 350 ml 2646 ml IV Total 338 ml 144 ml 1302 ml Output Urine Total 1500 ml 375 ml 3555 ml # Bowel Movements 1 0 1 Exam Physical Exam: GEN: Patient was awake, alert, responding appropriately to questions HEENT: Pupils equal round and reactive to light, extraocular eye muscles intact , Neck soft supple, trachea midline, nomocephalic/atraumatic CV: +S1/S2, regular rate and rhythm, no murmurs auscultated Respiratory: CTAB, no wheezes, rales, rhonchi GI: +bowel sounds x4, soft, compressible, nontender to palpation EXT: no clubbing, cyanosis, edema Neuro: Cranial nerves II-XII grossly intact Psych: mood and affect were appropriate IVs and Medications Medications Reviewed: Medications were reviewed in detail Lab and Diagnostics Result Diagram: 07/21/1633 07/21/16 0633 X-Rays, CTs and MRIs PROCEDURE: X-RAY CHEST, TWO VIEWS ([id number]) INDICATIONS: SHORTNESS OF BREATH TECHNIQUE: 2 views of the chest were acquired. COMPARISON: [facility], CR, XR CHEST 2VW, 03/23/2016, 15:50. [facility], CR, XR CHEST 1VW (PORTABLE), 07/02/2016, 12:00. [facility], CR, XR CHEST 1VW (PORTABLE), 01/19/2016, 17:16. [facility], CR, XR CHEST 2VW, 07/08/2016, 9:13. FINDINGS: Surgical changes and devices: Dual-lead cardiac pacer is unchanged. Lungs and pleura: Patchy pulmonary opacities are redemonstrated at the right lung base similar in extent to the study dated 07/08/16. As before, there is a small right pleural effusion versus pleural scarring. Emphysematous changes are present throughout both lungs. Mediastinum: Mediastinal contours are normal. Heart size is normal. Patient is status post valvular replacement. Bones and chest wall: No suspicious bony abnormalities. Soft tissues appear unremarkable. IMPRESSION: 1. Patchy right basilar radiopacities and probable pleural effusion versus pulmonary pleural scarring. Given the chronicity of these findings (not present in March,), these findings likely represent pulmonary infection and effusion. However, underlying neoplasm cannot be excluded and continued surveillance is recommended. Dictated by: Carola Guzmán M.D. on 07/18/2016 at 10:43 Approved by: Carola Guzmán M.D. on 07/18/2016 at 10:46 Assessment & Plan 80-year-old female with acute on chronic respiratory failure Acute on chronic respiratory failure, hypoxia secondary to advanced COPD -Positive viral pneumonia -Positive Human metapneumovirus -Worsening pleural effusion -Possible PE secondary to cancer -Follow up with Dr. Oro in as the patient may need to have a possible thoracentesis -High risk of strep pneumo, pseudomonas, continue vancomycin and Zosyn -Continue Symbicort, Xopenex/Atrovent every 6 when necessary -Spiriva has been discontinued by Dr. 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 Resendez -Appreciate oncology input Advanced COPD FEV1 15%, -Continue home O2 2liters, titrate O2 90% or above -Continue home nebulizer treatments -Hold on steroids at this time chronic, stable #chronic HFpEF EF 65% 06/2015, aortic valve stenosis s/p bioprosthetic valve 2012 , pacer, will continue home diuretics, pt seems euvolemic # Anemia, Etiology uncertain, s/p 2units transfusion in last hospitalization, continue iron. #hx of prolonged QtC,get baseline EKG, avoid QT prolonging drugs-quinolone, zofran. # Rheumatoid arthritis. On Plaquenil # Breast cancer diagnosed in 1983, status post bilateralmastectomy and 5yr adjuvant tamoxifen in 1994. # Chronic anemia secondary to AVM s/p pill endoscopies, multiple EGDs // GERD # Depression # Sleep apnea, continue CPAP as needed diet:regular dvt ppx:HSQ DNR/DNI confirmed with patient/family. details in adm h/p Disposition: The patient seems to be progressing well at this time. The patient has recently spoke with Dr. Vega and feels that the patient will not need a thoracentesis at this time and I agree with this assessment. We will obtain a chest x-ray and reevaluate the patient for further fluid assessment. If the patient continues to do well she should be able to be discharged home in the next 1 or 2 days. [employer] Mechanical Devices: Intermittant Pneumatic CD Mayra Sawant DO July 21, 2016 17:55
[2016-07-22] VITALS (7 sets, daily range): BP systolic 139–154; BP diastolic 45–57; PULSE 86–104; RESP 16–21; O2SAT 90–93
[2016-07-22] MEDS: Piperacillin-Tazo 3.375 Gm Inj 3.375 GM in Dextrose 5% Minibag Plus 50 ML IV SCH ×2 (01:01→09:54)
--- NOTE | 2016-07-22 02:00 | NUR ---
Trilogy Pt complaining of how the of Trilogy mask fits. Pt has opted for oxymask at 4L due to patient becoming anxious with trilogy. RT called to come by when available to adjust mask for patient.
[2016-07-22] MEDS: Pantoprazole 40 mg ER24 Tablet PO SCH (05:36)
[2016-07-22 07:32] LABS: Mean Corpuscular Hemoglobin 30.5 pg (27.0-35.0); Mean Corpuscular Volume 103.3 fL (81-100)
--- NOTE | 2016-07-22 08:38 | DRSVH ---
PROCEDURE: X-RAY CHEST ONE VIEW ([id number]) INDICATIONS: sob TECHNIQUE: One view of the chest was acquired. COMPARISON: [facility], US, US CHEST PLEURAL, 07/19/2016, 12:52. [facility], CR, XR CHEST 2VW, 07/18/2016, 10:16. [facility], CR, XR CHEST 1VW, 12/04/2014, 5:45. FINDINGS: Surgical changes and devices: Stable positioning of dual chamber left cardiac pacemaker. Lungs and pleura: No pleural effusions or pneumothorax. Persistent small right pleural effusion and mid/basilar air space opacity not significantly changed. Mediastinum: Mediastinal contours appear normal. Heart size is normal. Bones and chest wall: No suspicious bony lesions. Overlying soft tissues appear unremarkable. IMPRESSION: Small right pleural effusion and mid/basilar patchy air space opacity consistent with com pressive atelectasis versus a pneumonia or neoplasm. Continued radiographic surveillance to resolutio n is recommended. Dictated by: Ludin RIVERA Interpreted: Maryjo De Leon MD on 07/22/2016 at 8:35 Transcribed by: SEFERINO on 07/22/2016 at 8:37 Approved by: Maryjo De Leon M.D. on 07/22/2016 at 17:41
[2016-07-22] MEDS: Ipratropium 0.02% 0.5 mg/2.5 mL Inhalation Solution NEB PRN (09:01)
[2016-07-22] MEDS: Fluticasone-Salmererol 250-50 Inhaler INHALATION SCH (09:53)
[2016-07-22] MEDS: Ascorbic Acid 500 mg Tablet PO SCH (09:54)
[2016-07-22] MEDS: guaiFENesin 600 mg ER12 Tablet PO SCH (09:55)
[2016-07-22] MEDS: Sulfasalzine 500 mg Tablet PO SCH (09:56)
[2016-07-22] MEDS: Calcium Carbonate (Oyster Shell) 500 mg Tablet PO SCH (09:56)
[2016-07-22] MEDS: Hydroxychloroqine 200 mg Tablet PO SCH (09:58)
[2016-07-22] MEDS: Multivit-Miner-Folic Acid-Iron Tablet PO SCH (09:58)
--- NOTE | 2016-07-22 11:28 | NUR ---
Social Work-readiness for discharge: Data:EMR reviewed. Pt is on day 4 of hospitalization for acute on chronic Resp failure per H&P. Pt is not medically stable anticipate 1-2 more days. PT has seen pt and cleared pt for home. SW met with pt and at bedside to discuss discharge planning, SW role explained. SW discussed HH services, pt is homebound. Pt and both agreeable, HH choice list provided. Pt and have no agency preference. SW referred to rotating calendar and made referral to [facility] for RN and PT, access given. SW also discussed terminal worker planning, private pay caregivers and assisted living, senior resource guidebook has been provided. F2F in folder. SW will continue to follow. Assessment:Pt who would benefit from HH. Plan:Pt to discharge home when medically stable via POV. Referral made to [facility] for RN and PT. Senior Resource guidebook has been given. F2F in folder. SW will continue to follow. ROBSON Becerra
--- NOTE | 2016-07-22 11:30 | NUR ---
choice list provided. ROBSON Becerra
[2016-07-22] MEDS ORDERED: AMOX-366 PO (13:41)
[2016-07-22] MEDS ORDERED: GUAI600T86 PO (13:41)
--- NOTE | 2016-07-22 13:45 | PCM.DIMED ---
Discharge Instructions Date of Service July 22, 2016 Dates of Hospitalization July 18, 2016 at 13:21 Discharge Diagnosis Discharge Diagnosis Acute on chronic respiratory failure with hypoxia secondary to advanced COPD and Human Metapneumovirus Recurrent adenocarcinoma of the lungs Diet No restrictions Activity No restrictions Call your provider Fever or Chills, Shortness of breath, Vomitting, Weakness (unilateral) Patient Instructions Please follow-up with your primary care physician to have a repeat chest x-ray in the next 1-2 weeks to follow-up to ensure that the pleural effusion has resolved and not worsened Follow-up plan #1 follow-up with primary care #2 follow-up with palliative care Follow-up Provider: Meeta Leiva MD Follow-up with PCP in: 1 week (if an appointment has not been able to call to schedule an appointment) Provider: Diane Sabillon MD Follow-up in: 2 weeks (if an appointment has not been made please call to schedule an appointment for outpatient palliative care consult) Mayra Sawant DO July 22, 2016 13:45
[2016-07-22] MEDS ORDERED: AZIT500T PO (13:47)
--- NOTE | 2016-07-22 13:50 | PCM.DC.MED ---
Discharge Summary Date of Service July 22, 2016 Dates of Hospitalization Date of Hospital Admission July 18, 2016 at 13:21 Date of Discharge: July 22, 2016 Providers: Admitting Physician: Lo Melton MD Primary Care Physician: Meeta Leiva MD Attending Physician: Lo Melton MD Diagnosis at Time of Discharge Diagnosis at Time of Discharge Acute on chronic respiratory failure with hypoxia secondary to advanced COPD and Human Metapneumovirus Recurrent adenocarcinoma of the lungs Procedures XRay, CTs & MRIs PROCEDURE: X-RAY CHEST, TWO VIEWS ([id number]) INDICATIONS: SHORTNESS OF BREATH TECHNIQUE: 2 views of the chest were acquired. COMPARISON: [facility], CR, XR CHEST 2VW, 03/23/2016, 15:50. [facility], CR, XR CHEST 1VW (PORTABLE), 07/02/2016, 12:00. [facility], CR, XR CHEST 1VW (PORTABLE), 01/19/2016, 17:16. [facility], CR, XR CHEST 2VW, 07/08/2016, 9:13. FINDINGS: Surgical changes and devices: Dual-lead cardiac pacer is unchanged. Lungs and pleura: Patchy pulmonary opacities are redemonstrated at the right lung base similar in extent to the study dated 07/08/16. As before, there is a small right pleural effusion versus pleural scarring. Emphysematous changes are present throughout both lungs. Mediastinum: Mediastinal contours are normal. Heart size is normal. Patient is status post valvular replacement. Bones and chest wall: No suspicious bony abnormalities. Soft tissues appear unremarkable. IMPRESSION: 1. Patchy right basilar radiopacities and probable pleural effusion versus pulmonary pleural scarring. Given the chronicity of these findings (not present in March,), these findings likely represent pulmonary infection and effusion. However, underlying neoplasm cannot be excluded and continued surveillance is recommended. Dictated by: Carola Guzmán M.D. on 07/18/2016 at 10:43 Approved by: Carola Guzmán M.D. 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 Pt was recently hospitalized 07/02-, with recurrent respiratory failure, found to have new right pleural effusion, pt was treated diuretics, abx for possible PNA. COPD exacerabation. There was discussion about hospice with palliative care, pt/ family was not interested in hospice but remained code status DNR/DNI. Patient was followed by on 07/15, 3days prior to adm, plan was to continue Triology, possible thoracentesis, based on repeat Xray although it wouldnt likely change the managment per (though t effusion was more from ADHF). pt stated that she started taking Crizotinib daily, rather than bid for past 5days per [facility] recommendation. pt didn't feel particularly different until last night, pt felt more SOB with minimal exertion, chest pressure. pt had more white, large amount of white sputum starting yesterday, more cough. denied fever , chills. This AM, when pt went to bathroom, SpO2 dropped low 70%s, pt was severely dyspneic, decided to come to hospital. Of note, pt was d/aurora on Triology from last hospitalization using on and off as various masks didn't fit in, pt also tried to use it last night but very uncomfortable. Pt didn't increase use of Xopnex or other inhalers, used Symbicort regularly bid. compliant to increased dose of lasix from 20 to 40mg since last hospitalization , feels her wt is down, dry. RLE swelling is gone. denied diarrhea, burning urine, runny nose, sore throat, sick contacts, ED VS 158/37, 100, 17, 94% on 4liters NC.When seen in ED, pt noted to have thick yellowish sputum with intermittent coughing spells, didn't look toxic, no labored breathing, no accessory muscle use. labs showed unremarkable WBC, baseline renal function, PCT0.11, UA-large epithelial cells, D-Dimer3.15. CXR showed persistent patch infiltrate, Rt pleural effusion in similar size from previous hospitalization. had lenghty discussion with patient and family, would like to continue current tx, confirmed DNR/DNI, was consulted Hospital Course 80-year-old female with acute on chronic respiratory failure Patient was admitted for acute on chronic respiratory failure with hypoxia. When patient was admitted it seemed to be secondary to a pleural effusion however the pleural effusion has remained stable and the patient has improved significantly. This, the patient was positive for human metapneumovirus and this is most likely the cause of the patient's acute on chronic respiratory failure. The patient has been instructed to follow-up with her PCP for follow- up chest x-ray within the next 1-2 weeks to ensure the pleural effusion has not worsened. While admitted the patient stated that she wanted to have a palliative care consult. Palliative care has been by to see the patient and scheduled an outpatient consultation. Patient is being discharged home in stable condition with a 5 day course of azithromycin to help with inflammation of the lungs. See below for full hospital course: Acute on chronic respiratory failure, hypoxia secondary to advanced COPD -Positive viral pneumonia -Positive Human metapneumovirus -Worsening pleural effusion -Possible PE secondary to cancer -Follow up with Dr. Oro in as the patient may need to have a possible thoracentesis -High risk of strep pneumo, pseudomonas, continue vancomycin and Zosyn -Continue Symbicort, Xopenex/Atrovent every 6 when necessary -Spiriva has been discontinued by Dr. Resendez (oncology) due to interaction with cirotinib -Chest x-ray Recurrent adenocarcinoma of the lung with ROS 1 mutation on Crizotinib.(2013 stage 1, s/p RTX moderately differentiated adenocarcinoma, immunostain CK7 positive, TTF-1 positive, and napsin 7 positive) -Not a biopsy candidate per Dr. Resendez -Appreciate oncology input Advanced COPD FEV1 15%, -Continue home O2 2liters, titrate O2 90% or above -Continue home nebulizer treatments -Hold on steroids at this time chronic, stable #chronic HFpEF EF 65% 06/2015, aortic valve stenosis s/p bioprosthetic valve 2012 , pacer, will continue home diuretics, pt seems euvolemic # Anemia, Etiology uncertain, s/p 2units transfusion in last hospitalization, continue iron. #hx of prolonged QtC,get baseline EKG, avoid QT prolonging drugs-quinolone, zofran. # Rheumatoid arthritis. On Plaquenil # Breast cancer diagnosed in 1983, status post bilateralmastectomy and 5yr adjuvant tamoxifen in 1994. # Chronic anemia secondary to AVM s/p pill endoscopies, multiple EGDs // GERD # Depression # Sleep apnea, continue CPAP as needed diet:regular dvt ppx:HSQ DNR/DNI confirmed with patient/family. details in adm h/p Disposition: The patient seems to be progressing well at this time. The patient has recently spoke with Dr. Vega and feels that the patient will not need a thoracentesis at this time and I agree with this assessment. We will obtain a chest x-ray and reevaluate the patient for further fluid assessment. If the patient continues to do well she should be able to be discharged home in the next 1 or 2 days. Exam Vital Signs (Last) Date Time Temp Pulse Resp B/P Pulse Ox O2 Delivery O2 Flow Rate FiO2 07/22/16 13:42 36.7 104 17 144/51 90 OxyMask 4.00 Exam Physical Exam: GEN: Patient was awake, alert, responding appropriately to questions HEENT: Pupils equal round and reactive to light, extraocular eye muscles intact , Neck soft supple, trachea midline, nomocephalic/atraumatic CV: +S1/S2, regular rate and rhythm, systolic murmur auscultated Respiratory: CTAB, no wheezes, rales, rhonchi GI: +bowel sounds x4, soft, compressible, nontender to palpation EXT: no clubbing, cyanosis, edema Neuro: Cranial nerves II-XII grossly intact Psych: mood and affect were appropriate Test 07/18/16 10:05 07/18/16 11:34 07/20/16 06:25 07/21/16 06:33 Prothrombin Time 10.1sec (8.1-12.5) Prothromb Time International Ratio 0.95ratio D-Dimer 3.15mg/L FEU (<0.50) Troponin T 0.010ug/L (0.0-0.011) Pro-B-Type Natriuretic Peptide 680.3pg/mL (0-738) Urine Color Yellow (YELLOW) Urine Appearance Clear (CLEAR,HAZY) Urine pH 5.0 (5.0-8.0) Urine Specific [place] 1.026 (1.003-1.035) Urine Protein Tracemg/dL (NEG,TRACE) Urine Glucose (UA) Negativemg/dL (NEGATIVE) Urine Ketones 15mg/dL (NEGATIVE) Urine Occult Blood Negative (NEGATIVE) Urine Nitrite Negative (NEGATIVE) Urine Bilirubin Negative (NEGATIVE) Urine Urobilinogen Normalmg/dL (NORMAL) Urine Leukocyte Esterase Trace (NEGATIVE) Urine RBC 0-2/hpf (0-2) Urine WBC 6-10/hpf (0-5) Urine Epithelial Cells Moderate/hpf (NONE-MOD) Urine Crystals None seen (NONE SEEN) Urine Bacteria None/hpf (NONE-FEW) Urine Hyaline Casts None/lpf (NONE) Urine Granular Casts Rare (NONE SEEN) Urine Waxy Casts None seen (NONE SEEN) Urine Red Blood Cell Casts None seen (NONE SEEN) Urine White Blood Cell Casts None seen (NONE SEEN) Urine Mucus None seen (None Seen) Urine Trichomonas None seen (NONE SEEN) Urine Yeast None (NONE SEEN) Urinalysis Comment None Urine Culture Reflexed Indicated Urine Legionella pneumophilia Ag Negative (Negative) Neutrophils (%) (Auto) 65.5% (40-74) Lymphocytes (%) (Auto) 13.2% (14-46) Monocytes (%) (Auto) 17.0% (4-12) Eosinophils (%) (Auto) 3.5% (0-5) Basophils (%) (Auto) 0.6% (0-3) Phosphorus Level 4.2mg/dL (2.5-4.9) Magnesium Level 2.1mg/dL (1.6-2.6) Total Bilirubin 0.3mg/dL (0.0-1.2) Aspartate Amino Transf (AST/SGOT) 35U/L (0-50) Alanine Aminotransferase (ALT/SGPT) 20U/L (0-32) Alkaline Phosphatase 55U/L (25-165) Total Protein 5.7g/dL (6.4-8.4) Albumin 3.4g/dL (3.4-5.0) Test 07/22/16 07:15 White Blood Count 5.6th/mm3 (3.8-10.1) Red Blood Count 2.72mil/mm3 (3.90-5.20) Hemoglobin 8.3g/dL (12.0-15.6) Hematocrit 28.1% (35.0-46.0) Mean Corpuscular Volume 103.3fL (81-100) Mean Corpuscular Hemoglobin 30.5pg (27.0-35.0) Mean Corpuscular Hemoglobin Concent 29.5% (32.0-37.0) Red Cell Distribution Width 13.5% (12.3-15.4) Platelet Count 213bil/L (150-400) Sodium Level 143mEq/L (134-144) Potassium Level 3.9mEq/L (3.5-5.2) Chloride Level 96mEq/L (97-108) Carbon Dioxide Level 41mmol/L (18-29) Blood Urea Nitrogen 17mg/dL (8-27) Creatinine 0.78mg/dL (0.57-1.00) Estimat Glomerular Filtration Rate 101mL/min (>59) Glucose Level 103mg/dL (60-99) Calcium Level 9.0mg/dL (8.5-10.1) Procalcitonin 0.14ng/mL (0.00-0.08) Discharge Medications Discharge Medications Ascorbic Acid (Vitamin C) 1,000 Mg Tab.chew 1,000 MG PO DAILY (Reported) Aspirin (Aspirin) 81 Mg Tablet 81 MG PO DAILY (Reported) Azithromycin (Zithromax) 500 Mg Tablet 500 MG PO DAILY Prescribed by: AMY JONES DO Budesonide/Formoterol 160-4.5 mcg Inh (Symbicort 160-4.5 mcg Inh) 120 Puff Inhaler 1 PUFF INHALATION BID (Reported) Calcium Carbonate/Vitamin D3 (Calcium 500 + Vit D Caplet) 1 Each Tablet 1 EACH PO BID (Reported) Clobetasol Propionate (Clobetasol Propionate) 118 Ml Shampoo 1 APPLIC EXT 3xweekly (Reported) Crizotinib (Xalkori) 250 Mg Capsule 250 MG PO BID (Reported) Furosemide (Lasix) 40 Mg Tablet 40 MG PO DAILY (Reported) Furosemide (Furosemide) 40 Mg Tablet 40 MG PO BID (Reported) Hydroxychloroquine Sulfate (Hydroxychloroquine Sulfate) 200 Mg Tablet 200 MG PO BID (Reported) Lactobacillus Combo No.11 (Probiotic) 1 Each Cap.sprink 1 EACH PO DAILY ( Reported) Levalbuterol HCl (Xopenex) 1.25 Mg/3 Ml Vial.neb 1.25 MG IH BID (Reported) Magnesium Oxide (Magnesium) 400 Mg Capsule 400 MG PO DAILY (Reported) Multivitamin (Multi Vitamin Daily) 1 Each Tablet 1 EACH PO DAILY (Reported) Omeprazole (Omeprazole) 40 Mg Capsule.dr 40 MG PO DAILY (Reported) Rosuvastatin Calcium (Rosuvastatin Calcium) 10 Mg Tablet 10 MG PO DAILY ( Reported) Sulfasalazine (Sulfasalazine) 500 Mg Tablet 500 MG PO BID (Reported) Tiotropium [place] (Spiriva) 18 Mcg Cap.w.dev 18 MCG IH QAM (Reported) As needed Acetaminophen (Acetaminophen) 325 Mg Tablet 650 MG PO Q4H PRN PRN For Pain ( Reported) Guaifenesin (Guaifenesin ER) 600 Mg Tab.er.12h 1,200 MG PO Q12 PRN PRN For Congestion Prescribed by: AMY JONES DO Ipratropium [place] (Ipratropium [place] Inhalant Solution) 0.2 Mg/1 Ml Solution 0.2 MG IH QID PRN PRN For Shortness of Breath (Reported) Loratadine (Claritin) 10 Mg Capsule 10 MG PO DAILY PRN PRN allergies (Reported) Menthol (Icy Hot) 1 Each Adh..patch 1 EACH TP DIRECTED PRN PRN For Pain ( Reported) Polyethylene Glycol 3350 (Miralax) 17 Gm Powd.pack 17 GM PO DAILY PRN PRN For Constipation (Reported) Followup Plan Follow-up plan #1 follow-up with primary care #2 follow-up with palliative care Discharge Diet: No restrictions Discharge Activity: No restrictions Patient Instructions Please follow-up with your primary care physician to have a repeat chest x-ray in the next 1-2 weeks to follow-up to ensure that the pleural effusion has resolved and not worsened Follow-up Provider: Meeta Leiva MD Follow-up with PCP in: 1 week (if an appointment has not been able to call to schedule an appointment) Provider: Diane Sabillon MD Follow-up in: 2 weeks (if an appointment has not been made please call to schedule an appointment for outpatient palliative care consult) Time spent Greater than 35 minutes copies to: Meeta Leiva MD, Precious L DO July 22, 2016 13:50
--- NOTE | 2016-07-22 14:05 | NUR ---
Social Work-discharge: Data:EMR Reviewed. Pt is on day 4 of hospitalization for acute on chronic resp failure per H&P. Pt is medically stable for discharge. PT has cleared pt for home. [facility] care planning has been discussed and resources have been provided. MARYCARMEN informed Madhu Evangelista Chin with [facility] for discharge and provided him with F2F and orders for RN,Pt, and [employer]. Pt and updated and agreeable to plan. Pt to continue on home o2. All updated and agreeable to plan. Assessment:Pt who would benefit from HH. Plan:Pt to discharge home today via POV. F2F and orders provided to Madhu with [facility] for RN,PT, and [employer].All updated and agreeable to plan. ROBSON Becerra
[2016-07-22] MEDS: Clobetasol Prop 0.05% 15 Gm Ointment TOPICAL SCH (14:16)
--- NOTE | 2016-07-22 15:58 | NUR ---
STUDENT NURSE NOTE - PATIENT DISCHARGE Patient was given discharge paperwork and instructions regarding new medications and follow-up appointment at 1530. Paperwork and instructions were discussed with patient and her , and they were given the opportunity to ask any questions about information. Patient's IV was removed intact, and she was removed from cardiac monitoring as well. Patient had all personal affects and property upon leaving the hospital. She was still receiving 4L O2 per nasal cannula. Pt was taken to private vehicle in a wheelchair, and went home with her and daughter.
== END 2016-07-22 15:45 | disposition home health service (06) | DRG 189 ==
LOC: SED 09:49 → EDBD 09:49 → MPC 13:21 → MOC 07-19 11:16
PROVIDERS: ADMIT Internal Medicine; ATTEND Internal Medicine
DX: J96.21 Acute and chronic respiratory failure with hypoxia (principal); J12.3 Human metapneumovirus pneumonia; C78.01 Secondary malignant neoplasm of right lung; J90 Pleural effusion, not elsewhere classified; J44.9 Chronic obstructive pulmonary disease, unspecified; Z99.81 Dependence on supplemental oxygen; Z85.3 Personal history of malignant neoplasm of breast; K21.9 Gastro-esophageal reflux disease without esophagitis; G47.33 Obstructive sleep apnea (adult) (pediatric); D64.9 Anemia, unspecified

== ENCOUNTER 2016-08-11 14:07 | Inpatient (IN) | payer MEDICARE, OTHER ==
[2016-08-11] VITALS (10 sets, daily range): BP systolic 121–147; BP diastolic 33–61; PULSE 75–104; RESP 18–24; O2SAT 75–97
[~2016-08-11] VITALS: Ht 160 cm; Wt 54.2 kg
[~2016-08-11 14:07] MED LIST changes: -ALBU2.5V4 INHALATION; +AZIT500T PO; -BUPR-97 PO; -FERR325T39 PO; +GUAI600T86 PO; -LEVA1.2523 NEB; +LEVA1.253 IH; -ONDA8TAB10 PO; +SYMINH INHALATION
[2016-08-11] MEDS ORDERED: MethylprednisoLONE Sodium Succinate 62.5 mg/mL 2 mL Inj IVPUSH ONE (14:35)
[2016-08-11] MEDS ORDERED: Levalbuterol 1.25 mg/0.5mL Inhalation Solution NEB ONE ×2 (14:35→16:20)
--- NOTE | 2016-08-11 15:10 | ED.REPORT ---
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 The pt reports using Xopenex en route which seemed to mildly improve her sx. She is on 3L nasal cannula at home. She denies fever, chest pain and productive cough. The pt was seen at the ED 4 weeks ago and was admitted for pneumonia. At the time she had severe productive cough and raspy voice which has not completely resolved. She also complains of back pain since her admission , worsening for a week. She associates her SOB with the back pain as taking a deep breath exacerbates the pain. She has been using icy hot and Tylenol for pain with little relief. She was prescribed Methadone but states she started acting "wacko" and was slurring her words while on it for a day. She stopped taking it a week ago.She is able to tolerate Oxycodone. The pt also states that "all this started when I started to take those cancer pills. I couldn't tolerate it." The pt states an X-ray of her back was taken approximately a week ago and no metastatic disease was found. The pt takes Aspirin. As previously, the patient is DNR/DNI Nursing Notes Stated Complaint: SHORTNESS OF BREATH Chief Complaint: Respiratory Distress Nursing Notes Reviewed: Yes Allergies: Coded Allergies: atorvastatin calcium (Verified Allergy, Mild, 06/26/16) pravastatin (Verified Allergy, Mild, 06/26/16) simvastatin (Verified Allergy, Unknown, 06/26/16) albuterol (Verified Adverse Reaction, Severe, Restlessness, jittery, ) "off the wall" Uncoded Allergies: link (Allergy, Mild, 07/29/10) hayfever (Allergy, Mild, 07/29/10) perfume (Allergy, Mild, 07/29/10) sneezing with link perfume and hayfever. Scheduled Ascorbic Acid (Vitamin C) 1,000 Mg Tab.chew 1,000 MG PO QAM Aspirin (Aspirin) 81 Mg Tablet 81 MG PO QAM Azithromycin (Zithromax) 250 Mg Tablet 250 MG PO THREE TIMES WEEKLY Budesonide/Formoterol 160-4.5 mcg Inh (Symbicort 160-4.5 mcg Inh) 120 Puff Inhaler 1 PUFF INHALATION BID Calcium Carbonate/Vitamin D3 (Calcium 500 + Vit D Caplet) 1 Each Tablet 1 EACH PO BIDWM Citalopram (Citalopram) 20 Mg Tablet 20 MG PO QAM Clobetasol Propionate (Clobetasol Propionate) 118 Ml Shampoo 1 APPLIC EXT 3xweekly Crizotinib (Xalkori) 250 Mg Capsule 250 MG PO BID NOT TAKING Ferrous Gluconate (Ferrous Gluconate) 324 Mg Tablet 324 MG PO BIDWM Furosemide (Lasix) 40 Mg Tablet 20 MG PO BIDWM Hydroxychloroquine Sulfate (Hydroxychloroquine Sulfate) 200 Mg Tablet 200 MG PO BID Lactobacillus Combo No.11 (Probiotic) 1 Each Cap.sprink 1 EACH PO QAM Levalbuterol HCl (Xopenex) 1.25 Mg/3 Ml Vial.neb 1.25 MG IH BID Magnesium Oxide (Magnesium) 400 Mg Capsule 400 MG PO DAILY Multivitamin (Multi Vitamin Daily) 1 Each Tablet 1 EACH PO DAILY Omeprazole (Omeprazole) 40 Mg Capsule.dr 40 MG PO QAM Rosuvastatin Calcium (Rosuvastatin Calcium) 10 Mg Tablet 10 MG PO HS Sulfasalazine (Sulfasalazine) 500 Mg Tablet 500 MG PO BID Tiotropium Fisher (Spiriva) 18 Mcg Cap.w.dev 18 MCG IH QAM Scheduled PRN Acetaminophen (Acetaminophen) 325 Mg Tablet 650 MG PO Q4H PRN PRN For Pain Guaifenesin (Guaifenesin ER) 600 Mg Tab.er.12h 1,200 MG PO Q12 PRN PRN For Congestion Ipratropium Fisher (Ipratropium Fisher Inhalant Solution) 0.2 Mg/1 Ml Solution 0.2 MG IH QID PRN PRN For Shortness of Breath Loratadine (Claritin) 10 Mg Capsule 10 MG PO DAILY PRN PRN allergies Menthol (Icy Hot) 1 Each Adh..patch 1 EACH TP DIRECTED PRN PRN For Pain Polyethylene Glycol 3350 (Miralax) 17 Gm Powd.pack 17 GM PO DAILY PRN PRN For Constipation General Time Seen by MD: 15:01 Chief Complaint Shortness of breath Hx Obtained From: Patient Arrived By: Ambulance Sudden in Onset?: No Onset Occurred: 1 week ago Symptom Duration: Since onset Quality: Painful Radiation: : Does not radiate Severity: Current: Moderate Severity: Maximum: Moderate Recent Healthcare: Recent doctor visit, Recent hospitalization Similar Sx Previous: Yes Past Medical History Past Medical History Notes: Dr. Kvng Resendez, oncology PCP is Dr. Leiva Past Medical History COPD-2 LPM Cannula aortic stenosis s/p bioprosthetic valve osteoarthritis breast cancer s/p bilat mastectomy metastatic lesions to Left lung- post radiation metastatic lesions to Righ lung - treament attempts currenly with oral chemo and not being well tolerated diverticulitis sp resection GERD Depression Sleep apnea - on C-PAP GI bleed Anemia, required 4 transfusions in July [address] April 2016 indicates likely metastatic lung disease Has pacemaker Visited ED on 05/26/16, was not tolerating chemotherapy. Reports: Cancer, Hyperlipidemia Reports: Diverticulitis Past Surgical History aortic valve replacement double mastectomy bilateral cateract surgery colon resection rotator cuff surgery Knee Hernia surgery in November of 2014 Pacemaker August 2015 Lung needle biopsy Reports: Appendectomy, Hysterectomy, Tonsillectomy Reports: Pacemaker insertion Smoking History Never Smoker Social History Alcohol Use: "Social" Drug Use: Denies drug use Other Social History: Good social support, , Local resident Ambulatory Status Independent Review of Systems Constitutional: Denies: Fever Respiratory: Reports: Shortness of breath, Denies: Prod cough, clear, Prod cough, yellow Cardiovascular: Denies: Chest pain Musculoskeletal: Reports: Back pain Complete sys rev & neg: except as marked. Physical Exam Initial Vital Signs Vital Signs (First) Date Time Temp Pulse Resp B/P Pulse Ox O2 Delivery O2 Flow Rate FiO2 08/11/16 14:24 36.8 75 18 147/33 75 Nasal Cannula 3 Initial VS: Reviewed Head / Eyes: Atraumatic, Normocephalic Extremities: Vascular intact, Neuro intact, No swelling, No tenderness Skin: Warm, Dry, No cyanosis Neurologic: Alert, Oriented, Nonfocal General/Constitutional: Awake, Alert, Cooperative Neck: Atraumatic, Full range of motion Respiratory / Chest: Breath sounds = bilat, No wheezing Poor air movement. Scattered crackles. Cardiovascular: Heart rate NL, Regular rhythm Heart Sounds / Murmur: Positive: Murmur present... (III/, lower right sternal border) Pacemaker implant Back: Atraumatic Lower to midthoracic spine tenderness. Interpretation & Diagnostics Lab Results Interpretation Result Diagram: 08/11/16 1540 08/11/16 1540 Test 08/11/16 15:40 08/11/16 15:43 White Blood Count 6.3th/mm3 (3.8-10.1) Red Blood Count 2.79mil/mm3 (3.90-5.20) Hemoglobin 8.7g/dL (12.0-15.6) Hematocrit 29.6% (35.0-46.0) Mean Corpuscular Volume 106.1fL (81-100) Mean Corpuscular Hemoglobin 31.2pg (27.0-35.0) Mean Corpuscular Hemoglobin Concent 29.4% (32.0-37.0) Red Cell Distribution Width 14.8% (12.3-15.4) Platelet Count 194bil/L (150-400) Neutrophils (%) (Auto) 70.0% (40-74) Lymphocytes (%) (Auto) 11.5% (14-46) Monocytes (%) (Auto) 16.3% (4-12) Eosinophils (%) (Auto) 1.7% (0-5) Basophils (%) (Auto) 0.3% (0-3) Sodium Level 139mEq/L (134-144) Potassium Level 4.5mEq/L (3.5-5.2) Chloride Level 94mEq/L (97-108) Carbon Dioxide Level 34mmol/L (18-29) Blood Urea Nitrogen 21mg/dL (8-27) Creatinine 0.71mg/dL (0.57-1.00) Estimat Glomerular Filtration Rate 113mL/min (>59) Glucose Level 101mg/dL (60-99) Calcium Level 9.1mg/dL (8.5-10.1) Total Bilirubin 0.2mg/dL (0.0-1.2) Aspartate Amino Transf (AST/SGOT) 60U/L (0-50) Alanine Aminotransferase (ALT/SGPT) 43U/L (0-32) Alkaline Phosphatase 98U/L (25-165) Troponin T 0.038ug/L (0.0-0.011) Pro-B-Type Natriuretic Peptide 4308pg/mL (0-738) Total Protein 6.3g/dL (6.4-8.4) Albumin 3.4g/dL (3.4-5.0) Hold Amaya Top Tube Received (Received) Urine Color Yellow (YELLOW) Urine Appearance Clear (CLEAR,HAZY) Urine pH 6.0 (5.0-8.0) Urine Specific [place] 1.010 (1.003-1.035) Urine Protein Negativemg/dL (NEG,TRACE) Urine Glucose (UA) Negativemg/dL (NEGATIVE) Urine Ketones Negativemg/dL (NEGATIVE) Urine Occult Blood Negative (NEGATIVE) Urine Nitrite Negative (NEGATIVE) Urine Bilirubin Negative (NEGATIVE) Urine Urobilinogen Normalmg/dL (NORMAL) Urine Leukocyte Esterase Negative (NEGATIVE) Urine RBC 0-2/hpf (0-2) Urine WBC 0-5/hpf (0-5) Urine Epithelial Cells Few/hpf (NONE-MOD) Urine Crystals None seen (NONE SEEN) Urine Bacteria Few/hpf (NONE-FEW) Urine Hyaline Casts None/lpf (NONE) Urine Granular Casts None seen (NONE SEEN) Urine Waxy Casts None seen (NONE SEEN) Urine Red Blood Cell Casts None seen (NONE SEEN) Urine White Blood Cell Casts None seen (NONE SEEN) Urine Mucus None seen (None Seen) Urine Trichomonas None seen (NONE SEEN) Urine Yeast None (NONE SEEN) Urinalysis Comment None Urine Culture Reflexed Not indicated Lab Results Interpretation: Troponin = 0.038. The pt has normal troponin earlier this month, 07/18/16. Pro-BNP in june was 1700 ECG Interpretation ECG Interpretation: Normal sinus rhtyhm. Rate 85. Probable left atrial enlargement. Nonspecific IVCD with LAD Age indeterminate anterolateral infarct. Time: 14:43 Interpreted by: ED physician X-Ray Chest Interpretation Chest Xray Interpretation: IMPRESSION: With reference to prior plain film imaging from 07/27/16 there has been interval worsening of bibasilar pneumonia greater on the right than the left with an increased degree of subpulmonic right pleural effusion. However, this is unchanged from recent CT scanning. Dictated by: Abhay Milton M.D. on 08/11/2016 at 16:29 Approved by: Abhay Milton M.D. on 08/11/2016 at 16:31 View: Portable, 1 view Interpretation / Wet Read by: Interpret - Radiologist Re-Eval/Medical Decision Med Decision/Clinical Course 78-year-old female with a complex medical history and severe lung disease. Presents with dyspnea and worsening hypoxemia. She does not have a primary complaint of chest pain but does endorse some tightness. There is very little air movement and this did not seem to change of bronchodilators. She had been given Xopenex and Atrovent. She also appeared to be quite dyspneic and complained considerably of her back pain which she said made it hurt to breathe. There are no acute changes on her ECG however she had an elevated troponin and I note that earlier this month her troponin was normal. It was difficult initially to keep her oxygen saturations above the mid 80s on a nasal cannula. Placement of a facemask and treatment of her pain with oxycodone 5 mg seem to improve the situation greatly. She had been on methadone 2.5 mg at bedtime but did not tolerate it. I discussed goals of care given her significant irreversible disease; the patient is interested in hospitalization for further evaluation and management of potential heart disease. She will be admitted to the hospitalist service. Pain-free and with much less dyspnea on admission. Source of Hx: Old records Re-Evaluation/Progress #1: Time of Eval: 16:10 Patient Status: Mild relief Re-Evaluation/Progress Note: Rechecked pt. She states the breathing treatment has not helped significantly. Re-Evaluation/Progress #2: Time of Eval: 17:10 Patient Status: Condition improved Re-Evaluation/Progress Note: Rechecked pt. The pt reports she feels better after the painkiller. She also reports improvement in breathing. Discussed lab results, diagnosis and plan to admit. The pt understands and agrees with the plan. All questions answered. Consultation : Referral / Consult Name: Anthony Koch MD Consulted With: Hospitalist Call Returned at: 19:12 Supervisor [employer]: Will see patient, Agrees with eval, Agrees with plan, Accepts admit Counseled Regarding: Diagnosis, Lab results, Need for admission Discharge & Departure Impression: Primary Impression: Non-ST elevated myocardial infarction Disposition: ADMITTED TO HOSPITAL Discharge Condition All VS Reviewed: Yes Referrals: Meeta Leiva MD (PCP) Scribe Attestation Portions of this note were transcribed by Kervin Carrasco. I, , personally performed the history, physical exam and medical decision-making;I reviewed and confirmed the accuracy of the information in the transcribed note. Signed by Gregory Langley. 08/11/16 19:12 copies to: Meeta Leiva MD, Donald L MD August 11, 2016 15:10 Kervin Carrasco August 11, 2016 15:26
[2016-08-11] MEDS ORDERED: Ipratropium 0.02% 0.5 mg/2.5 mL Inhalation Solution NEB ONE ×2 (15:25→16:20)
[2016-08-11 15:51] LABS: BASOPHILS % (AUTO) 0.3 % (0-3); EOSINOPHILS % (AUTO) 1.7 % (0-5); MONOCYTES % (AUTO) 16.3 % (4-12); Mean Corpuscular Hemoglobin 31.2 pg (27.0-35.0); Mean Corpuscular Volume 106.1 fL (81-100); Platelet Count 194 bil/L (150-400)
[2016-08-11 16:10] LABS: APPEARANCE,URINE CLEAR (CLEAR,HAZY); COLOR,URINE YELLOW (YELLOW); OCCULT BLOOD,URINE NEGATIVE (NEGATIVE); UROBILINOGEN,URINE NORMAL (NORMAL)
[2016-08-11] MEDS ORDERED: oxyCODONE-Acetamin 5-325 mg Tablet PO ONE (16:20)
--- NOTE | 2016-08-11 16:33 | DRSVH ---
PROCEDURE: X-RAY CHEST ONE VIEW, PORTABLE ([id number]) INDICATIONS: HYPOXIA TECHNIQUE: One view of the chest was acquired. COMPARISON: [facility], CT, CT CHEST WO CON, 08/05/2016, 15:28. [facility], CR, XR CHEST 2VW, 07/27/2016, 17:41. [facility], CR, XR CHEST 1VW, 07/21/2016, 18:10. FINDINGS: Surgical changes and devices: Pacemaking device and leads appear normal. Lungs and pleura: No pleural effusions or pneumothorax. Lungs are abnormal with a bibasilar pneumon ia pattern greater on the right than the left, with associated mild to moderate subpulmonic right eff usion. Mediastinum: Mediastinal contours appear normal. Heart size is normal. Bones and chest wall: No suspicious bony lesions. Overlying soft tissues appear unremarkable. IMPRESSION: With reference to prior plain film imaging from 07/27/16 there has been interval worsening of bibasilar pneumonia greater on the right than the left with an increased degree of subpulmonic ri ght pleural effusion. However, this is unchanged from recent CT scanning. Dictated by: Abhay Milton M.D. on 08/11/2016 at 16:29 Approved by: Abhay Milton M.D. on 08/11/2016 at 16:31
[2016-08-11 16:42] LABS: TROPONIN T 0.038 ug/L (0.0-0.011)
[2016-08-11] MEDS ORDERED: ZIT250 PO (18:16)
[2016-08-11] MEDS ORDERED: CITA20TA11 PO (18:23)
[2016-08-11] MEDS ORDERED: FERR324T5 PO (18:23)
[2016-08-11] MEDS ORDERED: Ondansetron 2 mg/mL 2 mL Inj IVPUSH PRN (19:30)
[2016-08-11] MEDS ORDERED: Alum-Mag Hydrox-Simeth 30 mL Suspension PO PRN (19:30)
[2016-08-11] MEDS ORDERED: Polyethylene Glycol (PEG) 17 Gm Powder PO PRN (19:30)
--- NOTE | 2016-08-11 19:39 | PCM.HPMED ---
Subjective Date of Service August 11, 2016 Primary Provider: Admitting Physician: Anthony Koch MD Primary Care Physician: Meeta Leiva MD Attending Physician: Anthony Kohc MD Chief Complaint: Shortness of breath History of Present Illness: Mrs. 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 She has had 2 recent hospital admissions the first from 07/02/2016 to 07/10/2016 when she was admitted for SOB, fatigue and increasing exertional dypsnea. During this hospital stay she required nocturnal and daytime volume ventilation as BiPAP was insufficient. She was discharged with Trilogy. The second recent admission from to 07/22/2016 again for acute on chronic respiratory failure. She was found to be positive for human metapneumovirus which was deemed to be the cause of her chronic respiratory failure. During this time she had a productive cough which gradually decreased in severity after discharge and while she still reports a cough she states has not been productive 2 weeks. She presents to the ED today secondary to the shortness of breath 4 days. She states that at night she will use her Trilogy machine with good effect sleeping through the night without incidence, however upon waking she will become short of breath with increased exertional dyspnea, and generalized fatigue even while on supplemental O2 at home until about mid morning when her shortness of breath will mostly resolved. She states she has not had much of an appetite and has not been wanting to drink water over the last week. Of note over the last 2-3 days a home health nurse instructed her to significantly increase the amount of water she is been consuming which has coincided with her increased shortness of breath. She denies fevers, chest pain, productive cough but states she does have chronic back pain which has worsened over the last month. She was recently prescribed methadone but her who also is present during the time of interview states that she became "wacko" was slurring her words acting as if she was inebriated thus she discontinued this medication. She is able to tolerate oxycodone which seems to alleviate her back pain for the most part. A comprehensive review of systems was conducted with the patient and found to be negative except as above in the history of present illness. In ED CXR showed been interval worsening of bibasilar pneumonia greater on the right than the left with an increased degree of subpulmonic right pleural effusion. However, this is unchanged from recent CT scanning. Lab work was remarkable for H&H 8.7/29.6, elevated troponin at 0.038, and saturation levels in the mid 90s on 6 L oxygen mask. Pt was given nebulizer treatment and IV steroids with effect. Review of Systems: Pertinent positives as noted in HPI. All other systems were reviewed and are negative Allergies Coded Allergies: atorvastatin calcium (Verified Allergy, Mild, 06/26/16) pravastatin (Verified Allergy, Mild, 06/26/16) simvastatin (Verified Allergy, Unknown, 06/26/16) albuterol (Verified Adverse Reaction, Severe, Restlessness, jittery, ) "off the wall" Uncoded Allergies: link (Allergy, Mild, 07/29/10) hayfever (Allergy, Mild, 07/29/10) perfume (Allergy, Mild, 07/29/10) sneezing with link perfume and hayfever. Home Medications . Ascorbic Acid (Vitamin C) 1,000 Mg Tab.chew 1,000 MG PO QAM Aspirin (Aspirin) 81 Mg Tablet 81 MG PO QAM Azithromycin (Zithromax) 250 Mg Tablet 250 MG PO THREE TIMES WEEKLY Budesonide/Formoterol 160-4.5 mcg Inh (Symbicort 160-4.5 mcg Inh) 120 Puff Inhaler 1 PUFF INHALATION BID Calcium Carbonate/Vitamin D3 (Calcium 500 + Vit D Caplet) 1 Each Tablet 1 EACH PO BIDWM Citalopram (Citalopram) 20 Mg Tablet 20 MG PO QAM Clobetasol Propionate (Clobetasol Propionate) 118 Ml Shampoo 1 APPLIC EXT 3xweekly Crizotinib (Xalkori) 250 Mg Capsule 250 MG PO BID NOT TAKING Ferrous Gluconate (Ferrous Gluconate) 324 Mg Tablet 324 MG PO BIDWM Furosemide (Lasix) 40 Mg Tablet 20 MG PO BIDWM Hydroxychloroquine Sulfate (Hydroxychloroquine Sulfate) 200 Mg Tablet 200 MG PO BID Lactobacillus Combo No.11 (Probiotic) 1 Each Cap.sprink 1 EACH PO QAM Levalbuterol HCl (Xopenex) 1.25 Mg/3 Ml Vial.neb 1.25 MG IH BID Magnesium Oxide (Magnesium) 400 Mg Capsule 400 MG PO DAILY Multivitamin (Multi Vitamin Daily) 1 Each Tablet 1 EACH PO DAILY Omeprazole (Omeprazole) 40 Mg Capsule.dr 40 MG PO QAM Rosuvastatin Calcium (Rosuvastatin Calcium) 10 Mg Tablet 10 MG PO HS Sulfasalazine (Sulfasalazine) 500 Mg Tablet 500 MG PO BID Tiotropium [place] (Spiriva) 18 Mcg Cap.w.dev 18 MCG IH QAM PMH . COPD-2 LPM Cannula aortic stenosis s/p bioprosthetic valve osteoarthritis breast cancer s/p bilat mastectomy metastatic lesions to Left lung- post radiation metastatic lesions to Righ lung - treament attempts currenly with oral chemo and not being well tolerated diverticulitis sp resection GERD Depression Sleep apnea - on C-PAP GI bleed Anemia, required 4 transfusions in July [address] April 2016 indicates likely metastatic lung disease Has pacemaker Visited ED on 05/26/16, was not tolerating chemotherapy. Reports: Cancer, Hyperlipidemia Reports: Diverticulitis Surgical History . aortic valve replacement double mastectomy bilateral cateract surgery colon resection rotator cuff surgery Knee Hernia surgery in November of 2014 Pacemaker August 2015 Lung needle biopsy Reports: Appendectomy, Hysterectomy, Tonsillectomy Reports: Pacemaker insertion Family History Lung cancer and breast cancer in sister. Mother with history of cirrhosis and hepatitis. Social History Hx Alcohol Use: Yes (1/day) Hx Substance Use: No Hx Tobacco Use: Yes (25 pack year Hx, quit 20 years ago. ) Smoking Status: Never Smoker Exam Vital Signs Vital Sign - Last Date Time Temp Pulse Resp B/P Pulse Ox O2 Delivery O2 Flow Rate FiO2 08/11/16 18:24 92 22 121/36 93 Venturi Mask 6 08/11/16 14:24 36.8 Exam General: Sitting up in hospital bed, in no acute distress, well-developed, well- nourished, appropriately interactive HEENT: Normocephalic, atraumatic. External ears without defect. Pupils equal, round, and reactive to light and accommodation. Anicteric sclerae, moist conjunctivae, and no lid lag. Oropharynx free of erythema and cobble stoning with moist mucosa. Neck: Supple with full range of motion. No jugular venous distension. No bruits. No lymphadenopathy or thyromegaly. Cardiovascular: Regular rate and rhythm with a blowing systolic murmur, no rubs , or gallops appreciated. Pacemaker implant in place left anterior chest wall Pulmonary: Clear to auscultation bilaterally with no crackles, wheezes, or rhonchi. Normal respiratory effort, poor air movement with no use of accessory muscles. Abdomen: Soft nontender palpation 4 quadrants, Bowel tones present, nondistended. Extremities: No clubbing, cyanosis, edema, or lymphadenopathy appreciated. Skin: Normal temperature, turgor, and texture; no rash, ulcers, or subcutaneous nodules appreciated. Neurological: Cranial nerves grossly intact. Psychiatric: Normal mood and affect. Alert and oriented to person, place, and time. Lab and Diagnostics Result Diagram: 08/11/16 1540 08/11/16 1540 X-Rays, CTs and MRIs . X-RAY CHEST ONE VIEW, PORTABLE IMPRESSION: With reference to prior plain film imaging from 07/27/16 there has been interval worsening of bibasilar pneumonia greater on the right than the left with an increased degree of subpulmonic right pleural effusion. However, this is unchanged from recent CT scanning. Dictated by: Abhay Milton M.D. on 08/11/2016 at 16:29 Assessment & Plan Mrs. 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 Acute on Chronic respiratory failure, in the setting of lung cancer, present on admission. Ongoing - Possible he secondary to COPD exacerbation, pneumonia, CHF exacerbation - Patient saturating high 90s on 6 L oxygen mask, decreased to 4 L with saturations maintained in the low 90s - Steroids given in ED - Recent history of viral pneumonia - CXR shows worsening bibasilar pneumonia with increased degree of subpulmonic right pleural effusion, unchanged from recent CT scan - Utilize home Trilogy while at Hospital - Respiratory therapy following patient - Respiratory PCR pending - Pro calcitonin pending - Consider ABGs if mentation declines Elevated troponin. Present on admission. Ongoing - EKG showed Normal sinus rhtyhm. Rate 85. Probable left atrial enlargement. Nonspecific IVCD with LAD Age indeterminate anterolateral infarct. No significant changes from EKG done 07/18/2016 - No clinical signs of OK - Patient and unsure if they would desire a cardiac catheterization if necessary - Initial trop 0.038, Continue to monitor - Telemetry COPD, chronic, present on admission. Ongoing - FEV1 15% - Continue supplemental O2 maintaining saturations 88-92% - Continue home Trilogy overnight - Continue nebulizer treatments when necessary - Held home Azithro three times weekly, day team to restart as unsure of last dose. Congestive heart failure, Diastolic dysfunction. Present on admission. Ongoing - Continue home furosemide - Monitor I's and O's Rheumatoid arthritis. Chronic. Present on admission. Ongoing - Continue sulfasalazine - Continue hydroxychloroquine Anemia. Chronic Present on admission. Ongoing - H&H on admit 8.7/29.6 - Required 2 units transfusion previous hospital admission - History of GI bleed secondary to AVM - Stool guaiac pending - Continue home ferrous gluconate - Repeat CBC pending Elevated liver enzymes. Acute. Present on admission. Ongoing - Hold home rosuvastatin - Hold home Tylenol - Continue to monitor Chronic back pain - Continue oxycodone - Old home Tylenol secondary to elevated liver enzymes GERD. Present on admission. Ongoing - Continue home omeprazole Depression. Present on admission. Ongoing - Continue home citalopram Sleep apnea. Present on admission. 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 Resendez - Not tolerating chemotherapy - Followed by oncology Breast cancer, diagnosed 1983. Present admission. Stable -Status post bilateral mastectomy Hyperlipidemia - Hold home rosuvastatin Patient Status: Patient was admitted under inpatient status with expected length of stay greater than two midnights due to severity of presenting symptoms , risk of adverse event, and complexity of treatment plan. GI prophylaxis: Continue home omeprazole DVT prophylaxis: SCDs secondary to anemia of unknown origin CODE STATUS: DNR/DNI, confirmed with patient GI Prophylaxis: Proton Pump Inhibitor VTE Prophylaxis: SCDs Resuscitation Status: DNR/DNI:Do Not Resuscitate/Intubate Attending Statement The patient was seen and examined together with Dr. Garcia on 08/11 and I agree with the history, exam and plan as outlined in the note above. JACKLYN GARCIA DO August 11, 2016 19:39 Anthony Koch MD August 11, 2016 22:22
[2016-08-11] MEDS ORDERED: Tiotropium 18mcg/Cap 5 Capsule Inhaler Kit INHALATION PRN (21:10)
[2016-08-11 21:44] LABS: Mean Corpuscular Hemoglobin 31.2 pg (27.0-35.0); Mean Corpuscular Volume 106.1 fL (81-100)
[2016-08-11] MEDS: Hydroxychloroqine 200 mg Tablet PO SCH (22:02)
[2016-08-11] MEDS: Levalbuterol 1.25 mg/0.5mL Inhalation Solution NEB SCH (22:15)
[2016-08-11 22:37] LABS: Magnesium 2.1 mg/dL (1.6-2.6); TROPONIN T 0.028 ug/L (0.0-0.011)
[2016-08-12] VITALS (9 sets, daily range): BP systolic 121–141; BP diastolic 40–49; PULSE 50–98; RESP 18–20; O2SAT 84–98
[2016-08-12] MEDS: Pantoprazole 40 mg ER24 Tablet PO SCH (06:11)
[2016-08-12 06:18] LABS: BASOPHILS % (AUTO) 0 % (0-3); EOSINOPHILS % (AUTO) 0 % (0-5); MONOCYTES % (AUTO) 18.7 % (4-12); Mean Corpuscular Hemoglobin 31.1 pg (27.0-35.0); Mean Corpuscular Volume 105.7 fL (81-100); NEUTROPHILS % (AUTO) 74.8 % (40-74); Platelet Count 191 bil/L (150-400)
[2016-08-12 06:40] LABS: TROPONIN T 0.028 ug/L (0.0-0.011)
[2016-08-12 06:51] LABS: Magnesium 2.2 mg/dL (1.6-2.6)
[2016-08-12] MEDS: Levalbuterol 1.25 mg/0.5mL Inhalation Solution NEB SCH ×2 (07:35→19:31)
[2016-08-12] MEDS: Ipratropium 0.02% 0.5 mg/2.5 mL Inhalation Solution NEB PRN (07:35)
[2016-08-12] MEDS: Fluticasone-Salmererol 250-50 Inhaler INHALATION SCH ×2 (08:52→20:34)
[2016-08-12] MEDS: Hydroxychloroqine 200 mg Tablet PO SCH ×2 (08:54→20:34)
[2016-08-12] MEDS: Sulfasalzine 500 mg Tablet PO SCH ×2 (08:54→16:41)
--- NOTE | 2016-08-12 13:08 | PCM.CONPAL ---
Date of Service August 12, 2016 Date of Hospital Admission: August 11, 2016 at 19:18 Date of Palliative Consult: August 12, 2016 Requesting Provider: Mitchell Delgado Reason Palliative Care Consult: Pain, Other Symptoms, Goals of Care Discussion Hospital Unit @time of consult: Medical/Pediatric Care Palliative Care Recommendation Summary of palliative recommendations: -Symptom management (Pain/other) Dyspnea- multicomponent. On chronic home O2 and now on Tilogy at home. Adjustments by RT underway Pain- etiology unclear. Will try tid oxycodone and PRN Q3 Hr PRN CHF diastolic. Chronic anemia- gradually progressing. Consider transfusion if get worse Lung CA- await Dr. Resendez's input COPD and VERO- RT to manipulate it -DPOA/Advanced Directives/POLST--completed DNR/DNI last admit -Family/emotional support-very devoted and competent and help from their children Dr. Resendez's office notified of admit. oxycodone 5 mg TID and Q 3 H PRN will give 40 mg of furosemide this afternoon then resume the 40 mg daily Reassess with above. Additional Medical Diagnoses with primary management by Hospitalist team include : Problems: Resuscitation Status Resuscitation Status: DNR/DNI:Do Not Resuscitate/Intubate POLST Updates/Changes Previous POLST?: Yes Artificially Admin Nutrition: No Artifical Nutrition by Tube POLST Discussed with: Health Care Agent (DPOA[facility]) POLST Review Outcome: No Change . Pain: Moderate Symptom management: Depression, Anxiety, Pain Pt History History of Present Illness Mrs. 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 She has had 2 recent hospital admissions the first from 07/02/2016 to 07/10/2016 when she was admitted for SOB, fatigue and increasing exertional dypsnea. During this hospital stay she required nocturnal and daytime volume ventilation as BiPAP was insufficient. She was discharged with Trilogy. The second recent admission from to 07/22/2016 again for acute on chronic respiratory failure. She was found to be positive for human metapneumovirus which was deemed to be the cause of her chronic respiratory failure. During this time she had a productive cough which gradually decreased in severity after discharge and while she still reports a cough she states has not been productive 2 weeks. She presents to the ED today secondary to the shortness of breath 4 days. She states that at night she will use her Trilogy machine with good effect sleeping through the night without incidence, however upon waking she will become short of breath with increased exertional dyspnea, and generalized fatigue even while on supplemental O2 at home until about mid morning when her shortness of breath will mostly resolved. She states she has not had much of an appetite and has not been wanting to drink water over the last week. Of note over the last 2-3 days a home health nurse instructed her to significantly increase the amount of water she is been consuming which has coincided with her increased shortness of breath. She denies fevers, chest pain, productive cough but states she does have chronic back pain which has worsened over the last month. She was recently prescribed methadone but her who also is present during the time of interview states that she became "wacko" was slurring her words acting as if she was inebriated thus she discontinued this medication. She is able to tolerate oxycodone which seems to alleviate her back pain for the most part. A comprehensive review of systems was conducted with the patient and found to be negative except as above in the history of present illness. In ED CXR showed been interval worsening of bibasilar pneumonia greater on the right than the left with an increased degree of subpulmonic right pleural effusion. However, this is unchanged from recent CT scanning. Lab work was remarkable for H&H 8.7/29.6, elevated troponin at 0.038, and saturation levels in the mid 90s on 6 L oxygen mask. Pt was given nebulizer treatment and IV steroids with effect. PALLIATIVE CONSULTATION ONCOLOGIST DR. Kvng RESENDEZ [employer] CONSULTANT DR. ARMENTA REQUESTING PROVIDER- DR. DELGADO PCP Dr. Leiva 80 yo exsmoking ( d/[place] 1994) female with hx of nonsmall cell carcinoma of her R lung first dx 2013 with increasing ds with increasing nodule size. She has a long hx of very severe COPD/emphysema and known ASVD, hx TAVR and a distant hx of breast CA rafat. She has hx CHF with preserved EF.. She was recently hospitalized for respiratory failure due to viral process. She has been back home with [employer] but had progressive deterioration at home. She had increasing SOB as above-having to sit and rest after walking 10-20 ft. She is trying to tolerate her Trilogy but finds it difficult -it is relatively new. She finds she awakens from sleep in the AM after using it and she feels exhausted for at least 1 hour. She is taking minimal PO intake with anorexia and fatigue.She has lost >20# over the last 6 months. She has gained about 6 # over the last 2 weeks. She thought she was getting to be more anemic but was too weak to come in for her blood draw so her brought her to the ER. She has developed diffuse thoracic back pain that she blames on her recent attempt at chemotx with Dr. Resendez. She tried Crizotinib and was hospitalized in a few weeks, tried 1/2 the dose and again hospitalized. She is convinced the medication was the cause. she has not restarted it. She has an appt with Dr. Resendez next wednesday. Trial of methadone 2.5 mg at HS caused slurred speech and rumminess but she slept well that night. She never took another tab. She was given oxycodone 5 mg last gianluca in ER and she thinks that helped significantly in her pain. She has hx of chronic LBP but since starting the chemo/or the recurrence of her malignancy - she has developed diffuse thoracic pain. This has some pleuritic component.It is helped with use of Icy-hot.She has been having urinary urgency and frequency but not much volume. She has significant orthopnea and some edema. Past Medical History Significant PMH Noted: Past Medical History COPD-2 LPM Cannula aortic stenosis s/p bioprosthetic valve osteoarthritis breast cancer s/p bilat mastectomy in and metastatic lesions to Left lung- post radiation metastatic lesions to Right lung - diverticulitis sp resection GERD Depression Sleep apnea - on Trilogy GI bleed Anemia, required 4 transfusions in July 2015 Visited ED on 05/26/16, was not tolerating chemotherapy. 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 Social Support: son Dipti and daughter Adriana Living Situation: lives with her of 62 yrs--Adolfo Palliative Performance Scale PPS Ambulation: Reduced PPS Activity: Unable to do any work PPS Self-Care: Occasional assistance necessary PPS Intake: Normal or reduced PPS Conscious Level: Full Performance Scale: 70% Allergy Allergies Reviewed: Yes Medications Current Medications: Current Medications Al Hydrox/Mg Hydrox/Simethicone 30 ml Q6H PRN PO; Start 08/11/16 at 19:30 Ondansetron HCl 4 to 8 mg Q4H PRN IVPUSH; Start 08/11/16 at 19:30; Stop at 22:09; Status DC Senna 17.2 mg BID PRN PO; Start 08/11/16 at 19:30; Stop 08/12/16 at 12:45; Status DC Polyethylene Glycol 17 gm DAILY PRN PO; Start 08/11/16 at 19:30 Salmeterol Xinafoate/ Fluticasone 1 puff BID INHALATION Last administered on 08:52; Admin Dose 1 PUFF; Start 08/12/16 at 08:30 Citalopram Hydrobromide 20 mg DAILY PO Last administered on 08/12/16 08:54; Admin Dose 20 MG; Start 08/12/16 at 08:30 Furosemide 20 mg BIDWM PO Last administered on 08/12/16 08:54; Admin Dose 20 MG ; Start 08/12/16 at 08:00 Hydroxychloroquine Sulfate 200 mg BID PO Last administered on 08/12/16 08:54; Admin Dose 200 MG; Start 08/11/16 at 22:02 Ipratropium [place] 0.2 mg QID PRN NEB Last administered on 08/12/16 07:35; Admin Dose 0.2 MG; Start 08/11/16 at 21:10 Sulfasalazine 500 mg BIDWM PO Last administered on 08/12/16 08:54; Admin Dose 500 MG; Start 08/12/16 at 08:00 Tiotropium [place] 18 mcg DAILY PRN INHALATION; Start 08/11/16 at 21:10 Ferrous Gluconate 324 mg BIDWM PO Last administered on 08/12/16 08:53; Admin Dose 324 MG; Start 08/12/16 at 08:00 Levalbuterol 1.25 mg BID NEB Last administered on 08/12/16 07:35; Admin Dose 1.25 MG; Start 08/11/16 at 22:15 Pantoprazole 40 mg 0630 PO Last administered on 08/12/16 06:11; Admin Dose 40 MG; Start 08/12/16 at 06:30 Oxycodone HCl 5 mg Q4H PRN PO; Start 08/11/16 at 21:25; Stop 08/12/16 at 14:00 Oxycodone HCl 5 mg Q8 PO; Start 08/12/16 at 14:00; Status UNV Senna 17.2 mg BID PO; Start 08/12/16 at 20:30; Status UNV Oxycodone HCl 5 mg Q3H PRN PO; Start 08/12/16 at 12:40; Status UNV Scheduled Ascorbic Acid (Vitamin C) 1,000 Mg Tab.chew 1,000 MG PO QAM Aspirin (Aspirin) 81 Mg Tablet 81 MG PO QAM Azithromycin (Zithromax) 250 Mg Tablet 250 MG PO THREE TIMES WEEKLY Budesonide/Formoterol 160-4.5 mcg Inh (Symbicort 160-4.5 mcg Inh) 120 Puff Inhaler 1 PUFF INHALATION BID Calcium Carbonate/Vitamin D3 (Calcium 500 + Vit D Caplet) 1 Each Tablet 1 EACH PO BIDWM Citalopram (Citalopram) 20 Mg Tablet 20 MG PO QAM Clobetasol Propionate (Clobetasol Propionate) 118 Ml Shampoo 1 APPLIC EXT 3xweekly Crizotinib (Xalkori) 250 Mg Capsule 250 MG PO BID NOT TAKING Ferrous Gluconate (Ferrous Gluconate) 324 Mg Tablet 324 MG PO BIDWM Furosemide (Lasix) 40 Mg Tablet 20 MG PO BIDWM Hydroxychloroquine Sulfate (Hydroxychloroquine Sulfate) 200 Mg Tablet 200 MG PO BID Lactobacillus Combo No.11 (Probiotic) 1 Each Cap.sprink 1 EACH PO QAM Levalbuterol HCl (Xopenex) 1.25 Mg/3 Ml Vial.neb 1.25 MG IH BID Magnesium Oxide (Magnesium) 400 Mg Capsule 400 MG PO DAILY Multivitamin (Multi Vitamin Daily) 1 Each Tablet 1 EACH PO DAILY Omeprazole (Omeprazole) 40 Mg Capsule.dr 40 MG PO QAM Rosuvastatin Calcium (Rosuvastatin Calcium) 10 Mg Tablet 10 MG PO HS Sulfasalazine (Sulfasalazine) 500 Mg Tablet 500 MG PO BID Tiotropium [place] (Spiriva) 18 Mcg Cap.w.dev 18 MCG IH QAM Scheduled PRN Acetaminophen (Acetaminophen) 325 Mg Tablet 650 MG PO Q4H PRN PRN For Pain Guaifenesin (Guaifenesin ER) 600 Mg Tab.er.12h 1,200 MG PO Q12 PRN PRN For Congestion Ipratropium [place] (Ipratropium [place] Inhalant Solution) 0.2 Mg/1 Ml Solution 0.2 MG IH QID PRN PRN For Shortness of Breath Loratadine (Claritin) 10 Mg Capsule 10 MG PO DAILY PRN PRN allergies Menthol (Icy Hot) 1 Each Adh..patch 1 EACH TP DIRECTED PRN PRN For Pain Polyethylene Glycol 3350 (Miralax) 17 Gm Powd.pack 17 GM PO DAILY PRN PRN For Constipation Objective Findings Exam Vital Sign - Last Date Time Temp Pulse Resp B/P Pulse Ox O2 Delivery O2 Flow Rate FiO2 08/12/16 09:25 94 08/12/16 09:24 36.6 18 129/42 95 OxyMask 4.00 Intake and Output 08/11/16 08/11/16 08/12/16 Cumulative From/Thru 15:00 23:00 07:00 08/11/16 14:24 - 08/12/16 05:39 # Voids 1 1 Objective on O2 by mask- was at 4L now 2L General: Alert/Oriented x3 HEENT: PERRLA, EOMI, Scleral Anicteric, Mucous Membr Moist/[place] Heart: Regular Rate/Rhythm Lungs: Diminished Neuro: Speech (speaks in short sentences due to dyspnea), Cranial Nerve 3-12 Intact Extremities: Edema (1+) Lab/Diagnostics Lab and Imaging results reviewed in detail in EMR. normal WBC, Hgb 8.2 CT reviewed with pt and - some interval increase in size of nodules and effusion and rafat infiltrates Patient/Family Conference Members Present Family Members Present at bedside Medical Team Members Present? [facility] [place]Goals of Care Discussion FAMILY UNDERSTANDING OF DISEASE: Reviewed severity of ds- lung ds, cardiac with evidence of CHF with increased BNP>4000 and now lung CA Cannot r/o increasing obstructive process in lungs. Unclear as to cause of back pain- ? referred from pulm process vs osteoporosis/OA vs pneumonia. Doubt it is cardiac in cause based on it's duration and constancy Reviewed potential for further progression of ds. has sense docs seem to be indicating that his is dying. Reviewed the above but also that we need Dr. Resendez's input as to her potential for response to treatment. DISEASE PROGRESSION/EVIDENCE OF DECLINE: Now up for hours in AM feeling can barely breath, unable to tolerate minimal activity etc SYMPTOM BURDEN: significant. She and her identify that how she is now is not QOL so unless improvement--will consider hospice. GOALS: improvement to be able to eat and read paper/ books and work on computer. Time spent Total time [ ] minutes; >50% face to face with patient and/or family, providing counselling regarding plans and recommendations, and in care coordination with his/her medical teams. I also spent an additional [ ] minutes counseling for advanced care planning with the patient/the patients family/the surrogate decision maker. Diane Sabillon MD August 12, 2016 13:08
--- NOTE | 2016-08-12 16:43 | PCM.PNMED ---
Subjective Date of Service August 12, 2016 Subjective Says SOB still not any better than yesterday. Denies any other new issues/ complaints Exam Vital Signs Vital Sign - Last Date Time Temp Pulse Resp B/P Pulse Ox O2 Delivery O2 Flow Rate FiO2 08/12/16 13:55 36.7 90 18 122/40 96 OxyMask 4.00 Intake and Output 08/11/16 08/11/16 08/12/16 Cumulative From/Thru 15:00 23:00 07:00 08/11/16 14:24 - 08/12/16 05:39 # Voids 1 1 General: Alert, Oriented X3, Cooperative, No Acute Distress Eyes: PERRLA, EOMI, Scleral Anicteric Nose: Mucous Membr Moist/[place] Mouth: Mucous Membr Moist/[place] Neck: Supple Chest & Lungs: Chest Wall Normal, Clear to auscultation & percussion Cardiovascular: Regular Rate/Rhythm Abdomen: Non-tender, Non-distended, Normoactive bowel tones, Soft Extremities: No cyanosis/clubbing/edma bilat Neurological: Grossly Neurologically Intact, Normal Speech IVs and Medications Medications Reviewed: Medications were reviewed in detail Lab and Diagnostics Result Diagram: 08/12/16 0600 08/12/16 0600 X-Rays, CTs and MRIs . X-RAY CHEST ONE VIEW, PORTABLE IMPRESSION: With reference to prior plain film imaging from 07/27/16 there has been interval worsening of bibasilar pneumonia greater on the right than the left with an increased degree of subpulmonic right pleural effusion. However, this is unchanged from recent CT scanning. Dictated by: Abhay Milton M.D. 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 # Acute on chronic hypoxic respiratory failure, in the setting of lung cancer, present on admission. Ongoing - Possible secondary to COPD exacerbation, pneumonia, CHF exacerbation - Steroids given in ED - CXR shows worsening bibasilar pneumonia with increased degree of subpulmonic right pleural effusion, unchanged from recent CT scan - Utilize home Trilogy while at Hospital - Respiratory therapy following patient - Respiratory PCR negative - Pro calcitonin negative - No Abx for now unless spike fever or increased WBC # Elevated troponin. Present on admission. improving - EKG showed Normal sinus rhythm. - No chest pain - Patient and unsure if they would desire a cardiac catheterization if necessary - Telemetry - Consider Echo pending further clarification of goals of care # COPD, chronic, present on admission. Ongoing - Continue supplemental O2 maintaining saturations 88-92% - Continue home Trilogy overnight - Continue nebulizer treatments when necessary - Continue home Azithro three times weekly # Chronic congestive heart failure, Diastolic dysfunction. Present on admission. Ongoing - Continue home furosemide - Monitor I's and O's # Rheumatoid arthritis. Chronic. Present on admission. Ongoing - Continue sulfasalazine - Continue hydroxychloroquine # Anemia. Chronic Present on admission. Ongoing - Required 2 units transfusion previous hospital admission - History of GI bleed secondary to AVM - Continue home ferrous gluconate - Repeat CBC # Elevated liver enzymes. Acute. Present on admission. Improved - Hold home Rosuvastatin - Continue to monitor # Chronic back pain - Continue oxycodone - IV Morphine prn # GERD. Present on admission. Ongoing - Continue home omeprazole # Depression. Present on admission. Ongoing - Continue home citalopram # Sleep apnea. Present on admission. 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 Resendez) in the past # Breast cancer, diagnosed 1983. Present admission. Stable -Status post bilateral mastectomy # Hyperlipidemia - Hold home rosuvastatin for now # Goals of care - Palliative care consulted. Will followup with recommendations Dispo: 1-2 days GI Prophylaxis: Proton Pump Inhibitor VTE Prophylaxis: SCDs Resuscitation Status: DNR/DNI:Do Not Resuscitate/Intubate Mitchell Strickland August 12, 2016 16:43 Resuscitation Status: DNR/DNI:Do Not Resuscitate/Intubate Mitchell Strickland August 12, 2016 16:43
--- NOTE | 2016-08-12 19:59 | PCM.ADCARE ---
Advance Care Planning Note Purpose of Encounter: goals of care Parties in Attendance: patient and her Decisional Capacity: decisional Subjective: continued SOB Objective: General: Alert, Oriented X3, Cooperative, No Acute Distress Eyes: PERRLA, EOMI, Scleral Anicteric Nose: Mucous Membr Moist/[place] Mouth: Mucous Membr Moist/[place] Neck: Supple Chest & Lungs: Chest Wall Normal, Clear to auscultation & percussion Cardiovascular: Regular Rate/Rhythm Abdomen: Non-tender, Non-distended, Normoactive bowel tones, Soft Extremities: No cyanosis/clubbing/edma bilat Neurological: Grossly Neurologically Intact, Normal Speech Goals of Care Determinations: patient hopes to be able to go back to her home and says still continues to enjoy life even thought she knows her prognosis is guarded. She [place] to avoid [place] [facility] if possible. Plan: Continue with current care with hope of improving symptoms so can go back home CODE STATUS: DNR/DNI Time Spent Adv.Care Plannin min Mitchell Strickland August 12, 2016 19:59
[2016-08-13] VITALS (10 sets, daily range): BP systolic 91–144; BP diastolic 38–56; PULSE 82–129; RESP 20; O2SAT 88–97
[2016-08-13 06:35] LABS: BASOPHILS % (AUTO) 0.3 % (0-3); EOSINOPHILS % (AUTO) 1.3 % (0-5); MONOCYTES % (AUTO) 18.6 % (4-12); Mean Corpuscular Hemoglobin 30.6 pg (27.0-35.0); Mean Corpuscular Volume 106.8 fL (81-100); NEUTROPHILS % (AUTO) 69.8 % (40-74); Platelet Count 216 bil/L (150-400)
[2016-08-13 06:48] LABS: INR 0.97 ratio
[2016-08-13] MEDS: Levalbuterol 1.25 mg/0.5mL Inhalation Solution NEB SCH (07:39)
[2016-08-13] MEDS: Ipratropium 0.02% 0.5 mg/2.5 mL Inhalation Solution NEB PRN (07:40)
[2016-08-13] MEDS: Fluticasone-Salmererol 250-50 Inhaler INHALATION SCH ×2 (08:17→20:07)
[2016-08-13] MEDS: Sulfasalzine 500 mg Tablet PO SCH ×2 (08:18→16:46)
[2016-08-13] MEDS: Pantoprazole 40 mg ER24 Tablet PO SCH (08:18)
[2016-08-13] MEDS: Hydroxychloroqine 200 mg Tablet PO SCH ×2 (08:18→20:11)
[2016-08-13] MEDS: Lidocaine Topical 5% Patch TOPICAL SCH ×2 (11:01→11:04)
[2016-08-13] MEDS: Tiotropium 18mcg/Cap 5 Capsule Inhaler Kit INHALATION SCH (11:01)
--- NOTE | 2016-08-13 17:07 | PCM.PNMED ---
Subjective Date of Service Aug 13, 2016 Subjective Patient feels still very weak breathing is improving but not up to baseline. No chest pain, no nausea or vomiting. Exam Vital Signs Vital Sign - Last Date Time Temp Pulse Resp B/P Pulse Ox O2 Delivery O2 Flow Rate FiO2 08/13/16 14:07 36.7 124 20 91/38 94 trilogy 3.00 Intake and Output 08/12/16 08/12/16 08/13/16 Cumulative From/Thru 15:00 23:00 07:00 08/11/16 14:24 - 08/13/16 05:38 Intake Total 100 ml 1336 ml 200 ml 1636 ml Output Total 120 ml 750 ml 550 ml 1420 ml Balance -20 ml 586 ml -350 ml 216 ml Intake Oral 100 ml 1336 ml 200 ml 1636 ml Output Urine Total 120 ml 750 ml 550 ml 1420 ml # Voids 1 2 # Bowel Movements 0 0 Exam Gen.- A+ O 3 no apparent distress. Frail elderly female sitting up in bed using her Trilogy BiPAP mask and switching to oxygen Eyes- open conjunctiva clear, pupils equal nonicteric ENT- ears normal, nose normal Neck- supple/trach midline CVS- RRR no murmur or gallop Lungs CTA, not really moving much air GI- NABS/NT soft Musc- moving 4 no obvious deformity Neuro- cranial nerves II through XII intact to gross examination, nonfocal Skin- warm and dry, no rashes/lesions/wounds noted Psych- pleasant and appropriate, Lab and Diagnostics Result Diagram: 08/13/16 0615 08/13/16 0615 X-Rays, CTs and MRIs . X-RAY CHEST ONE VIEW, PORTABLE IMPRESSION: With reference to prior plain film imaging from 07/27/16 there has been interval worsening of bibasilar pneumonia greater on the right than the left with an increased degree of subpulmonic right pleural effusion. However, this is unchanged from recent CT scanning. Dictated by: Abhay iMlton M.D. 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 She is found to be a poor candidate for chemotherapy and has not tolerated crizotinib at 250 mg daily which was a lesser dose of the last option line chemotherapy. This point in time there are no other options and palliative care should be the goal. 08/13 on admit this medically complex patient for the first time. I am going to try and optimize her from a cardiopulmonary standpoint as per Dr. Resendez's direction. To that end I am going to treat pneumonia/COPD exacerbation with Levaquin/Solu-Medrol and bronchodilators and continue to gently diurese her as CHF is a known side effect of the chemotherapeutic agent that she was started on. Goal is to try and optimize her overall condition and recommend palliative/ hospice care I have discussed that with Dr. Resendez on the phone today 08/13. If there is a significant enough pleural effusion to tap there is no contraindication to this. # Acute on chronic hypoxic respiratory failure, in the setting of lung cancer, present on admission. Ongoing - Possible secondary to COPD exacerbation, pneumonia, CHF exacerbation - CXR shows worsening bibasilar pneumonia with increased degree of subpulmonic right pleural effusion, unchanged from recent CT scan - Utilize home Trilogy while at Hospital - Respiratory therapy following patient - Respiratory PCR negative - Pro calcitonin negative #COPD/pneumonia-- Starting Levaquin/Solu-Medrol/bronchodilators while she is awake. 08/13 -Mucinex and Acapella valve 08/13 - Continue supplemental O2 maintaining saturations 88-92% - Continue home Trilogy overnight - Continue nebulizer treatments when necessary - Continue home Azithro three times weekly # Chronic congestive heart failure, Diastolic dysfunction. Present on admission. Ongoing - Continue home furosemide - Monitor I's and O's # Elevated troponin. Present on admission. improving, continue to be 0.28 slightly positive range I am not going to continue to follow these given the overall clinical picture of end-of-life/comfort care. - EKG showed Normal sinus rhythm. - No chest pain - Patient and unsure if they would desire a cardiac catheterization if necessary - Telemetry - Consider Echo pending further clarification of goals of care # Rheumatoid arthritis. Chronic. Present on admission. Ongoing - Continue sulfasalazine - Continue hydroxychloroquine # Anemia. Chronic Present on admission. Ongoing - Required 2 units transfusion previous hospital admission - History of GI bleed secondary to AVM - Continue home ferrous gluconate - Repeat CBC # Elevated liver enzymes. Acute. Present on admission. Improved - Hold home Rosuvastatin - Continue to monitor # Chronic back pain - Continue oxycodone - IV Morphine prn # GERD. Present on admission. Ongoing - Continue home omeprazole # Depression. Present on admission. Ongoing - Continue home citalopram # Sleep apnea. Present on admission. 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 Resendez) in the past # Breast cancer, diagnosed 1983. Present admission. Stable -Status post bilateral mastectomy # Hyperlipidemia - Hold home rosuvastatin for now # Goals of care - Palliative care consulted. Will followup with recommendations Dispo: 1-2 days GI Prophylaxis: Proton Pump Inhibitor VTE Prophylaxis: SCDs Resuscitation Status: DNR/DNI:Do Not Resuscitate/Intubate Dakota Choi MD Aug 13, 2016 17:07
[2016-08-13] MEDS: MethylprednisoLONE Sodium Succinate 40 mg/mL Inj IVPUSH SCH ×2 (17:30→18:43)
[2016-08-13] MEDS: levoFLOXacin 750 mg Tablet PO SCH (18:44)
[2016-08-13] MEDS ORDERED: Levalbuterol 1.25 mg/0.5mL Inhalation Solution NEB PRN (20:00)
[2016-08-13] MEDS: guaiFENesin 600 mg ER12 Tablet PO SCH (20:08)
[2016-08-13] MEDS ORDERED: Albuterol 2.5 mg/3 mL Inhalation Solution NEB SCH (20:30)
[2016-08-13] MEDS ORDERED: Levalbuterol 1.25 mg/0.5mL Inhalation Solution NEB SCH (20:30)
--- NOTE | 2016-08-13 22:43 | PCM.PALLBR ---
Palliative Care Recommendation Summary of palliative recommendations: 08/13/16 Dyspnea-Severe lung ds now with addn of lung CA. Pt hopes she can get home in time to see Dr. Resendez OP next wednesday to decide if txmt possible. Pt and define this is not QOL and hope for some improvement. Left msg with Dr. Florentino re challenges with Trilogy. Pain-finds oxycodone quite helpful and lasts for some time. Will try lidoderm patch. Etiology of pain remains unclear. She does have significant kyphosis. -Symptom management (Pain/other) Dyspnea- multicomponent. On chronic home O2 and now on Tilogy at home. Adjustments by RT underway Pain- etiology unclear. Will try tid oxycodone and PRN Q3 Hr PRN CHF diastolic. Chronic anemia- gradually progressing. Consider transfusion if get worse Lung CA- await Dr. Resendez's input COPD and VERO- RT to manipulate it -DPOA/Advanced Directives/POLST--completed DNR/DNI last admit -Family/emotional support-very devoted and competent and help from their children Dr. Resendez's office notified of admit. oxycodone 5 mg TID and Q 3 H PRN will give 40 mg of furosemide this afternoon then resume the 40 mg daily Reassess with above. Additional Medical Diagnoses with primary management by Hospitalist team include : Problems: End of Life Preferences DNR/DNI Goals of Care considering hospice if QOL not improving. Disposition home when medically stable Resuscitation Status Resuscitation Status: DNR/DNI:Do Not Resuscitate/Intubate POLST Updates/Changes Previous POLST?: Yes Artificially Admin Nutrition: No Artifical Nutrition by Tube POLST Discussed with: Health Care Agent ([facility]) POLST Review Outcome: No Change . Symptom management: Dyspnea Total time 30 minutes; >50% face to face with patient and/or family, providing counselling regarding plans and recommendations, and in care coordination with his/her medical teams. I also spent an additional [ ] minutes counseling for advanced care planning with the patient/the patients family/the surrogate decision maker. copies to: Obdulio Resendez DO; Mary Florentino MD Palliative Brief Note Date of Service Aug 13, 2016 . Pt seen with her at bedside. She identifies poor sleep last night and unable to use Trilogy. Her was able to get it on her and fit this AM so she could rest. They both feel frustrated with the Trilogy. She had tolerated the CPAP fine but is struggling with the Trilogy--She tends to push it off or dislodge it enough shortly into sleep that it then awakens her. She acknowledges she urinated a lot in the past 24 hours. She is feeling better and weight down about 1+ Kg O: sats on mask 4L 89% run of VT-called by design technician pt without sx, engaged in conversation Mg 2.2 Diane Sabillon MD Aug 13, 2016 22:43
[2016-08-14 01:02] VITALS: BP 135/51; PULSE 91; RESP 20; O2SAT 96
[2016-08-14 05:30] VITALS: PULSE 78
[2016-08-14 05:55] VITALS: BP 137/41; PULSE 86; RESP 18; O2SAT 93
[2016-08-14] MEDS: Pantoprazole 40 mg ER24 Tablet PO SCH (06:04)
[2016-08-14 08:00] VITALS: PULSE 82; PULSE 94; RESP 20; O2SAT 89
[2016-08-14] MEDS: Ipratropium 0.02% 0.5 mg/2.5 mL Inhalation Solution NEB PRN (08:10)
[2016-08-14] MEDS: levoFLOXacin 750 mg Tablet PO SCH (09:25)
[2016-08-14] MEDS: MethylprednisoLONE Sodium Succinate 40 mg/mL Inj IVPUSH SCH (09:26)
[2016-08-14] MEDS: Sulfasalzine 500 mg Tablet PO SCH (09:26)
[2016-08-14] MEDS: Hydroxychloroqine 200 mg Tablet PO SCH (09:26)
[2016-08-14] MEDS: guaiFENesin 600 mg ER12 Tablet PO SCH (09:27)
[2016-08-14] MEDS: Tiotropium 18mcg/Cap 5 Capsule Inhaler Kit INHALATION SCH (09:27)
[2016-08-14] MEDS: Fluticasone-Salmererol 250-50 Inhaler INHALATION SCH (09:28)
--- NOTE | 2016-08-14 09:29 | PCM.PALLBR ---
Palliative Care Recommendation Summary of palliative recommendations: 08/14/16 Dyspnea - improved, needs to have Rx oxycodone for home use to control dyspnea/ pain. 08/13/16 Dyspnea-Severe lung ds now with addn of lung CA. Pt hopes she can get home in time to see Dr. Resendez OP next wednesday to decide if txmt possible. Pt and define this is not QOL and hope for some improvement. Left msg with Dr. Florentino re challenges with Trilogy. Pain-finds oxycodone quite helpful and lasts for some time. Will try lidoderm patch. Etiology of pain remains unclear. She does have significant kyphosis. -Symptom management (Pain/other) Dyspnea- multicomponent. On chronic home O2 and now on Tilogy at home. Adjustments by RT underway Pain- etiology unclear. Will try tid oxycodone and PRN Q3 Hr PRN CHF diastolic. Chronic anemia- gradually progressing. Consider transfusion if get worse Lung CA- await Dr. Resendez's input COPD and VERO- RT to manipulate it -DPOA/Advanced Directives/POLST--completed DNR/DNI last admit -Family/emotional support-very devoted and competent and help from their children Dr. Resendez's office notified of admit by Dr Sabillon on 08/12 Problems: End of Life Preferences DNR/DNI Goals of Care considering hospice if QOL not improving. Disposition home when medically stable Resuscitation Status Resuscitation Status: DNR/DNI:Do Not Resuscitate/Intubate POLST Updates/Changes Previous POLST?: Yes Artificially Admin Nutrition: No Artifical Nutrition by Tube POLST Discussed with: Health Care Agent ([facility]) POLST Review Outcome: No Change Total time 25 minutes; >50% face to face with patient and/or family, providing counselling regarding plans and recommendations, and in care coordination with his/her medical teams. Palliative Brief Note Date of Service Aug 14, 2016 . . Pt seen with her at bedside. She is alert, cheerful, reports good dyspnea control with oxycodone and pleased that it doesn't sedate her (as methadone did, and she didn't like that). Feels better and wants to go home. O: sats on 3L 89% No vtach since early yesterday a.m. pt without sx, engaged in conversation Kina Landers MD Aug 14, 2016 09:29
[2016-08-14] MEDS ORDERED: Lidocaine Topical 5% Patch TOPICAL SCH (10:42)
--- NOTE | 2016-08-14 11:48 | PCM.DIMED ---
Discharge Instructions Date of Service Aug 14, 2016 Dates of Hospitalization August 11, 2016 at 19:18 Discharge Diagnosis Discharge Diagnosis Progressive metastatic lung cancer, COPD/pneumonia, acute/chronic CHF, acute/ chronic respiratory failure Diet Discharge Diet: Low fat, Low Sodium, Other (low-sodium) Activity Discharge Activity: No restrictions Call your provider Call your provider for: Shortness of breath Patient Instructions Patient Instructions Finish the antibiotics and we will have the slowest taper of steroids it would be best to get off the steroids if possible but if breathing worsens without them than continuing steroids will be fine. Follow-up plan Dr. Resendez, oncology then palliative care and home health and primary care provider. Follow-up Provider: Meeta Leiva MD Follow-up with PCP in: Other (calling coordinate) Provider: Obdulio Resendez DO Follow-up in: Other (as previously scheduled 08/17) Dakota Choi MD Aug 14, 2016 11:48
[2016-08-14] MEDS ORDERED: ZIT250 PO (12:01)
[2016-08-14] MEDS ORDERED: LEVA1.253 IH (12:01)
[2016-08-14] MEDS ORDERED: FURO-128 PO (12:01)
[2016-08-14] MEDS ORDERED: LEVO750T9 PO (12:02)
[2016-08-14] MEDS ORDERED: LEVA1.2523 NEB ×2 (12:02→12:45)
[2016-08-14] MEDS ORDERED: PRE20 PO (12:02)
[2016-08-14] MEDS ORDERED: LIDO700A6 TOPICAL (12:02)
[2016-08-14] MEDS ORDERED: OXYC5TAB72 PO ×2 (12:02)
[2016-08-14] MEDS ORDERED: [UNRECOGNIZED DRUG - REMARK] XX (12:02)
[2016-08-14 12:24] VITALS: BP 137/41; PULSE 89; RESP 18; O2SAT 92
[2016-08-14 13:32] VITALS: PULSE 88; RESP 20; O2SAT 90
[2016-08-14] MEDS ORDERED: Levalbuterol 1.25 mg/0.5mL Inhalation Solution NEB PRN (14:00)
--- NOTE | 2016-08-14 16:20 | PCM.DC.MED ---
Discharge Summary Date of Service Aug 14, 2016 Dates of Hospitalization Date of Hospital Admission August 11, 2016 at 19:18 Date of Discharge: Aug 14, 2016 Providers: Admitting Physician: Anthony Koch MD Primary Care Physician: Meeta Leiva MD Attending Physician: Anthony Koch MD Diagnosis at Time of Discharge Diagnosis at Time of Discharge Progressive metastatic lung cancer, COPD/pneumonia, acute/chronic CHF, acute/ chronic respiratory failure Consultations Palliative care doctor's [place] Procedures XRay, CTs & MRIs . X-RAY CHEST ONE VIEW, PORTABLE IMPRESSION: With reference to prior plain film imaging from 07/27/16 there has been interval worsening of bibasilar pneumonia greater on the right than the left with an increased degree of subpulmonic right pleural effusion. However, this is unchanged from recent CT scanning. Dictated by: Abhay Milton M.D. on 08/11/2016 at 16:29 ECG 12 Lead EKG personally reviewed by al 08/11 on 08/13 Steph The QTc is read out as 500 this is grossly exaggerated by the computer read Sinus rhythm with a rate of 85, possible left atrial enlargement Comment nonspecific IVCD with LAD Anterolateral infarct age indeterminate Cardiac Echo Impression Echocardiogram Report: Roberto Haider on 06/28/2015 Left ventricular systolic function is normal without focal wall motion abnormalities with the ejection fraction estimated to be 65-70%. The left ventricle is normal in size and left ventricular wall thickness is at the upper limits of normal. The E/A ratio is reversed with an elevated E/E', suggesting impaired early relaxation of the left ventricle with possible increased filling pressures but there has been no significant change since the previous study. The right ventricle is normal in size and function and is unchanged compared to the previous study. The right ventricular systolic pressure is estimated at 48 mmHg assuming a right atrial pressure of 3 mm Hg, and is unchanged compared to the previous study. The left atrium is severely dilated and the right atrium is borderline dilated and has mildly increased in size since the prior echo exam. There is mild mitral regurgitation that is unchanged compared to the previous study. There is mild to moderate tricuspid regurgitation that is more prominent compared to the previous study. The prosthetic aortic valve is not well visualized but appears to be well- seated and grossly appears to open well. The gradients through the prosthetic aortic valve are within the normal range for this type of valve and are essentially unchanged compared to the previous study. There is mild-moderate to moderate aortic regurgitation with a possible perivalvular leak but appears unchanged compared to the previous study. Reading Physician:03:32 PM Brief History Mrs. 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 She has had 2 recent hospital admissions the first from 07/02/2016 to 07/10/2016 when she was admitted for SOB, fatigue and increasing exertional dypsnea. During this hospital stay she required nocturnal and daytime volume ventilation as BiPAP was insufficient. She was discharged with Trilogy. The second recent admission from to 07/22/2016 again for acute on chronic respiratory failure. She was found to be positive for human metapneumovirus which was deemed to be the cause of her chronic respiratory failure. During this time she had a productive cough which gradually decreased in severity after discharge and while she still reports a cough she states has not been productive 2 weeks. She presents to the ED 08/11 secondary to the shortness of breath 4 days. She states that at night she will use her Trilogy machine with good effect sleeping through the night without incidence, however upon waking she will become short of breath with increased exertional dyspnea, and generalized fatigue even while on supplemental O2 at home until about mid morning when her shortness of breath will mostly resolved. She states she has not had much of an appetite and has not been wanting to drink water over the last week. Of note over the last 2-3 days a home health nurse instructed her to significantly increase the amount of water she is been consuming which has coincided with her increased shortness of breath. She denies fevers, chest pain, productive cough but states she does have chronic back pain which has worsened over the last month. She was recently prescribed methadone but her who also is present during the time of interview states that she became "wacko" was slurring her words acting as if she was inebriated thus she discontinued this medication. She is able to tolerate oxycodone which seems to alleviate her back pain for the most part. A comprehensive review of systems was conducted with the patient and found to be negative except as above in the history of present illness. 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 She is found to be a poor candidate for chemotherapy and has not tolerated crizotinib at 250 mg daily which was a lesser dose of the last option line chemotherapy. This point in time there are no other options and palliative care should be the goal. 08/13 on admit this medically complex patient for the first time. I am going to try and optimize her from a cardiopulmonary standpoint as per Dr. Resendez's direction. To that end I am going to treat pneumonia/COPD exacerbation with Levaquin/Solu-Medrol and bronchodilators and continue to gently diurese her as CHF is a known side effect of the chemotherapeutic agent that she was started on. Goal is to try and optimize her overall condition and recommend palliative/ hospice care I have discussed that with Dr. Resendez on the phone today 08/13. If there is a significant enough pleural effusion to tap there is no contraindication to this. 08/14 patient looked clinically much better today better rested. We discussed the fact that she had not been tolerating crizotinib, she and her seemed already know this. We discussed switching the focus of care to more comfort and they can follow up with Dr. Resendez in the office Thursday 08/17 and determine whether there are any other treatment options. In the meantime keeping her aggressively diuresed and optimizing her lungs with antibiotics and steroids with goal being comfort and quality of life is the plan. # Acute on chronic hypoxic respiratory failure, in the setting of lung cancer, present on admission. Ongoing - Possible secondary to COPD exacerbation, pneumonia, CHF exacerbation - CXR shows worsening bibasilar pneumonia with increased degree of subpulmonic right pleural effusion, unchanged from recent CT scan - Utilize home Trilogy while at Hospital - Respiratory therapy following patient - Respiratory PCR negative - Pro calcitonin negative #COPD/pneumonia-- Starting Levaquin/Solu-Medrol/bronchodilators while she is awake. 08/13 -Mucinex and Acapella valve 08/13 - Continue supplemental O2 maintaining saturations 88-92% - Continue home Trilogy overnight - Continue nebulizer treatments when necessary - Continue home Azithro three times weekly # Chronic congestive heart failure, Diastolic dysfunction. Present on admission. Ongoing - Continue home furosemide - Monitor I's and O's # Elevated troponin. Present on admission. improving, continue to be 0.28 slightly positive range I am not going to continue to follow these given the overall clinical picture of end-of-life/comfort care. - EKG showed Normal sinus rhythm. - No chest pain - Patient and unsure if they would desire a cardiac catheterization if necessary - Telemetry - Consider Echo pending further clarification of goals of care # Rheumatoid arthritis. Chronic. Present on admission. Ongoing - Continue sulfasalazine - Continue hydroxychloroquine # Anemia. Chronic Present on admission. Ongoing - Required 2 units transfusion previous hospital admission - History of GI bleed secondary to AVM - Continue home ferrous gluconate - Repeat CBC # Elevated liver enzymes. Acute. Present on admission. Improved - Hold home Rosuvastatin - Continue to monitor # Chronic back pain - Continue oxycodone - IV Morphine prn # GERD. Present on admission. Ongoing - Continue home omeprazole # Depression. Present on admission. Ongoing - Continue home citalopram # Sleep apnea. Present on admission. 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 Resendez) in the past # Breast cancer, diagnosed 1983. Present admission. Stable -Status post bilateral mastectomy # Hyperlipidemia - Hold home rosuvastatin for now # Goals of care - Palliative care consulted. Will followup with recommendations Dispo: 1-2 days Exam Vital Signs (Last) Date Time Temp Pulse Resp B/P Pulse Ox O2 Delivery O2 Flow Rate FiO2 08/14/16 13:32 88 20 90 Nasal Cannula 3.00 08/14/16 12:24 36.4 137/41 Exam Gen.- A+ O 3 no apparent distress. Frail elderly female sitting up in bed he looks much more awake and comfortable this morning yesterday. Eyes- open conjunctiva clear, pupils equal nonicteric ENT- ears normal, nose normal Neck- supple/trach midline CVS- RRR no murmur or gallop Lungs CTA, not really moving much air GI- NABS/NT soft Musc- moving 4 no obvious deformity Neuro- cranial nerves II through XII intact to gross examination, nonfocal Skin- warm and dry, no rashes/lesions/wounds noted Psych- pleasant and appropriate, Test 08/11/16 15:40 08/11/16 15:43 08/11/16 21:39 08/12/16 06:00 Pro-B-Type Natriuretic Peptide 4308pg/mL (0-738) Hold Amaya Top Tube Received (Received) Urine Color Yellow (YELLOW) Urine Appearance Clear (CLEAR,HAZY) Urine pH 6.0 (5.0-8.0) Urine Specific [place]comb 1.010 (1.003-1.035) Urine Protein Negativemg/dL (NEG,TRACE) Urine Glucose (UA) Negativemg/dL (NEGATIVE) Urine Ketones Negativemg/dL (NEGATIVE) Urine Occult Blood Negative (NEGATIVE) Urine Nitrite Negative (NEGATIVE) Urine Bilirubin Negative (NEGATIVE) Urine Urobilinogen Normalmg/dL (NORMAL) Urine Leukocyte Esterase Negative (NEGATIVE) Urine RBC 0-2/hpf (0-2) Urine WBC 0-5/hpf (0-5) Urine Epithelial Cells Few/hpf (NONE-MOD) Urine Crystals None seen (NONE SEEN) Urine Bacteria Few/hpf (NONE-FEW) Urine Hyaline Casts None/lpf (NONE) Urine Granular Casts None seen (NONE SEEN) Urine Waxy Casts None seen (NONE SEEN) Urine Red Blood Cell Casts None seen (NONE SEEN) Urine White Blood Cell Casts None seen (NONE SEEN) Urine Mucus None seen (None Seen) Urine Trichomonas None seen (NONE SEEN) Urine Yeast None (NONE SEEN) Urinalysis Comment None Urine Culture Reflexed Not indicated Procalcitonin 0.08ng/mL (0.00-0.08) Magnesium Level 2.2mg/dL (1.6-2.6) Troponin T 0.028ug/L (0.0-0.011) Test 08/13/16 06:15 White Blood Count 6.8th/mm3 (3.8-10.1) Red Blood Count 2.78mil/mm3 (3.90-5.20) Hemoglobin 8.5g/dL (12.0-15.6) Hematocrit 29.7% (35.0-46.0) Mean Corpuscular Volume 106.8fL (81-100) Mean Corpuscular Hemoglobin 30.6pg (27.0-35.0) Mean Corpuscular Hemoglobin Concent 28.6% (32.0-37.0) Red Cell Distribution Width 14.9% (12.3-15.4) Platelet Count 216bil/L (150-400) Neutrophils (%) (Auto) 69.8% (40-74) Lymphocytes (%) (Auto) 9.9% (14-46) Monocytes (%) (Auto) 18.6% (4-12) Eosinophils (%) (Auto) 1.3% (0-5) Basophils (%) (Auto) 0.3% (0-3) Prothrombin Time 10.4sec (8.1-12.5) Prothromb Time International Ratio 0.97ratio Activated Partial Thromboplast Time 25.7sec (22.8-33.0) Sodium Level 143mEq/L (134-144) Potassium Level 4.0mEq/L (3.5-5.2) Chloride Level 96mEq/L (97-108) Carbon Dioxide Level 38mmol/L (18-29) Blood Urea Nitrogen 21mg/dL (8-27) Creatinine 0.72mg/dL (0.57-1.00) Estimat Glomerular Filtration Rate 111mL/min (>59) Glucose Level 91mg/dL (60-99) Calcium Level 9.0mg/dL (8.5-10.1) Total Bilirubin 0.2mg/dL (0.0-1.2) Aspartate Amino Transf (AST/SGOT) 37U/L (0-50) Alanine Aminotransferase (ALT/SGPT) 30U/L (0-32) Alkaline Phosphatase 77U/L (25-165) Total Protein 5.3g/dL (6.4-8.4) Albumin 3.1g/dL (3.4-5.0) Microbiology Results Nasopharyngeal PCR for viruses all negative from 08/11 Discharge Medications Discharge Medications ([Xnon-Formulary Med Or Device]) EA 1 XX Q24H Prescribed by: DAKOTA CHOI MD Ascorbic Acid (Vitamin C) 1,000 Mg Tab.chew 1,000 MG PO QAM (Reported) Aspirin (Aspirin) 81 Mg Tablet 81 MG PO QAM (Reported) Azithromycin (Zithromax) 250 Mg Tablet 250 MG PO THREE TIMES WEEKLY Prescribed by: DAKOTA CHOI MD Budesonide/Formoterol 160-4.5 mcg Inh (Symbicort 160-4.5 mcg Inh) 120 Puff Inhaler 1 PUFF INHALATION BID (Reported) Calcium Carbonate/Vitamin D3 (Calcium 500 + Vit D Caplet) 1 Each Tablet 1 EACH PO BIDWM (Reported) Citalopram (Citalopram) 20 Mg Tablet 20 MG PO QAM (Reported) Clobetasol Propionate (Clobetasol Propionate) 118 Ml Shampoo 1 APPLIC EXT 3xweekly (Reported) Ferrous Gluconate (Ferrous Gluconate) 324 Mg Tablet 324 MG PO BIDWM (Reported) Furosemide (Lasix) 40 Mg Tablet 20 MG PO BIDWM Prescribed by: DAKOTA CHOI MD Hydroxychloroquine Sulfate (Hydroxychloroquine Sulfate) 200 Mg Tablet 200 MG PO BID (Reported) Lactobacillus Combo No.11 (Probiotic) 1 Each Cap.sprink 1 EACH PO QAM (Reported ) Levofloxacin (Levaquin) 750 Mg Tablet 750 MG PO DAILYAC Prescribed by: DAKOTA CHOI MD Lidocaine (Lidoderm) 700 Mg Adh..patch 1 PATCH TOPICAL DAILY Prescribed by: DAKOTA CHOI MD Magnesium Oxide (Magnesium) 400 Mg Capsule 400 MG PO DAILY (Reported) Multivitamin (Multi Vitamin Daily) 1 Each Tablet 1 EACH PO DAILY (Reported) Omeprazole (Omeprazole) 40 Mg Capsule.dr 40 MG PO QAM (Reported) Prednisone (PredniSONE) 20 Mg Tablet 20 MG PO DAILY Prescribed by: DAKOTA CHOI MD Rosuvastatin Calcium (Rosuvastatin Calcium) 10 Mg Tablet 10 MG PO HS (Reported) Sulfasalazine (Sulfasalazine) 500 Mg Tablet 500 MG PO BID (Reported) Tiotropium [place] (Spiriva) 18 Mcg Cap.w.dev 18 MCG IH QAM (Reported) oxyCODONE (oxyCODONE) 5 Mg Tablet 5 MG PO Q8 Prescribed by: DAKOTA CHOI MD As needed Acetaminophen (Acetaminophen) 325 Mg Tablet 650 MG PO Q4H PRN PRN For Pain ( Reported) Guaifenesin (Guaifenesin ER) 600 Mg Tab.er.12h 1,200 MG PO Q12 PRN PRN For Congestion Prescribed by: AMY JONES DO Levalbuterol HCl (Xopenex) 1.25 Mg/3 Ml Vial.neb 1.25 MG IH q2 PRN PRN For Shortness of Breath Prescribed by: DAKOTA CHOI MD Levalbuterol HCl (Xopenex Concentrate) 1.25 Mg/0.5 Ml Vial.neb 1.25 MG NEB Q2H PRN PRN FOR SHORTNESS OF BREATH/WHEEZE Prescribed by: DAKOTA CHOI MD Loratadine (Claritin) 10 Mg Capsule 10 MG PO DAILY PRN PRN allergies (Reported) Menthol (Icy Hot) 1 Each Adh..patch 1 EACH TP DIRECTED PRN PRN For Pain ( Reported) Polyethylene Glycol 3350 (Miralax) 17 Gm Powd.pack 17 GM PO DAILY PRN PRN For Constipation (Reported) oxyCODONE (oxyCODONE) 5 Mg Tablet 5 MG PO Q3H PRN PRN For Moderate Pain Prescribed by: DAKOTA CHOI MD Followup Plan Disposition: Patient going home and resuming eating home health as previously, much to my surprise the Trilogy folks came out and we are giving it another try with another nasal-type attachment that maybe she will tolerate better. Follow-up plan Dr. Resendez, oncology then palliative care and home health and primary care provider. Discharge Diet: Low fat, Low Sodium, Other (low-sodium) Discharge Activity: No restrictions Patient Instructions Finish the antibiotics and we will have the slowest taper of steroids it would be best to get off the steroids if possible but if breathing worsens without them than continuing steroids will be fine. Follow-up Provider: Meeta Leiva MD Follow-up with PCP in: Other (calling coordinate) Provider: Obdulio Resendez DO Follow-up in: Other (as previously scheduled 08/17) Time spent Greater than 30 minutes Attending Statement Patient shifting more towards a comfort care path. To that end I prescribed for her a 5 day course of Levaquin 750 mg and a slow prednisone taper from 60 mg 5 days a piece down to none by 10 mg increments. She is optimized on the broncho dilator regimen. I would keep her on Mucinex ER and a flutter valve. Tapping the pleural effusion if it would be to her benefit is not contraindicated. I think there was some confusion regarding the biopsy as positive results would not change the treatment course as the patient is not tolerating even the oral chemotherapy regimen at half dose. copies to: Meeta Leiva MD, Andris E MD Aug 14, 2016 16:20 tolerating even the oral chemotherapy regimen at half dose. Dakota Choi MD Aug 14, 2016 16:20
[2016-08-14] MEDS ORDERED: Levalbuterol 1.25 mg/0.5mL Inhalation Solution NEB SCH (16:30)
== END 2016-08-14 15:18 | disposition home health service (06) | DRG 193 ==
LOC: EDBD 14:07 → SED 14:07 → MPC 19:18
PROVIDERS: ADMIT Hospitalist; ATTEND Hospitalist
DX: J18.9 Pneumonia, unspecified organism (principal); J96.21 Acute and chronic respiratory failure with hypoxia; C78.02 Secondary malignant neoplasm of left lung; C78.01 Secondary malignant neoplasm of right lung; J90 Pleural effusion, not elsewhere classified; J44.1 Chronic obstructive pulmonary disease with (acute) exacerbation; I50.32 Chronic diastolic (congestive) heart failure; M06.9 Rheumatoid arthritis, unspecified; D64.9 Anemia, unspecified; K21.9 Gastro-esophageal reflux disease without esophagitis; E78.5 Hyperlipidemia, unspecified; Z85.3 Personal history of malignant neoplasm of breast; Z87.891 Personal history of nicotine dependence; G89.29 Other chronic pain; Z66 Do not resuscitate; Z51.5 Encounter for palliative care

== ENCOUNTER 2016-09-16 15:33 | Emergency (ER) | payer MEDICARE, OTHER ==
[~2016-09-16] VITALS: Ht 160 cm; Wt 53.2 kg
[~2016-09-16 15:33] MED LIST changes: -AZIT500T PO; +CITA20TA11 PO; -CRIZ250C PO; +FERR324T5 PO; -IPRA0.2S51 IH; +LEVA1.2523 NEB; +LEVO750T9 PO; +LIDO700A6 TOPICAL; +OXYC5TAB72 PO; +PRE20 PO; +ZIT250 PO; +[UNRECOGNIZED DRUG - REMARK] XX
[2016-09-16 15:46] VITALS: BP 118/36; PULSE 98; RESP 15; O2SAT 92
--- NOTE | 2016-09-16 16:12 | ED.REPORT ---
HPI-Dyspnea / Wheezing Date of Service Sep 16, 2016 ED Provider: Edgar Brito MD The patient is an 80 year old female with history of COPD on 2L at home, chronic hypoxic respiratory failure, CHF, aortic stenosis s/p bioprosthetic valve, metastatic non-small cell lung cancer, breast cancer s/p bilateral mastectomy, anemia, and s/p pacemaker, who was brought to the emergency department by EMS. The patient has recently needed to increased her home oxygen from 2 L to 3-4 L due to her shortness of breath. Today she was getting ready to leave to have an outpatient CT for severe right lower back pain, when she suddenly became very short of breath. During this episode she also experienced nausea. The pain does not radiate anywhere else. The patient states she is mostly here for the back pain. She denies upper back pain, chest pain, dysuria, numbness, weakness, incontinence, hemoptysis, fevers or vomiting. Nursing Notes Stated Complaint: SOB Chief Complaint: Respiratory Complaints Nursing Notes Reviewed: Yes Allergies: Coded Allergies: atorvastatin calcium (Verified Allergy, Mild, 09/16/16) pravastatin (Verified Allergy, Mild, 09/16/16) simvastatin (Verified Allergy, Unknown, 09/16/16) albuterol (Verified Adverse Reaction, Severe, Restlessness, jittery, ) "off the wall" Uncoded Allergies: link (Allergy, Mild, 07/29/10) hayfever (Allergy, Mild, 07/29/10) perfume (Allergy, Mild, 07/29/10) sneezing with link perfume and hayfever. Scheduled ([Xnon-Formulary Med Or Device]) EA 1 XX Q24H Ascorbic Acid (Vitamin C) 1,000 Mg Tab.chew 1,000 MG PO QAM Aspirin (Aspirin) 81 Mg Tablet 81 MG PO QAM Azithromycin (Zithromax) 250 Mg Tablet 250 MG PO THREE TIMES WEEKLY Budesonide/Formoterol 160-4.5 mcg Inh (Symbicort 160-4.5 mcg Inh) 120 Puff Inhaler 1 PUFF INHALATION BID Calcium Carbonate/Vitamin D3 (Calcium 500 + Vit D Caplet) 1 Each Tablet 1 EACH PO BIDWM Citalopram (Citalopram) 20 Mg Tablet 20 MG PO QAM Clobetasol Propionate (Clobetasol Propionate) 118 Ml Shampoo 1 APPLIC EXT 3xweekly Ferrous Gluconate (Ferrous Gluconate) 324 Mg Tablet 324 MG PO BIDWM Furosemide (Lasix) 40 Mg Tablet 20 MG PO BIDWM Hydroxychloroquine Sulfate (Hydroxychloroquine Sulfate) 200 Mg Tablet 200 MG PO BID Lactobacillus Combo No.11 (Probiotic) 1 Each Cap.sprink 1 EACH PO QAM Levofloxacin (Levaquin) 750 Mg Tablet 750 MG PO DAILYAC Lidocaine (Lidoderm) 700 Mg Adh..patch 1 PATCH TOPICAL DAILY Magnesium Oxide (Magnesium) 400 Mg Capsule 400 MG PO DAILY Multivitamin (Multi Vitamin Daily) 1 Each Tablet 1 EACH PO DAILY Omeprazole (Omeprazole) 40 Mg Capsule.dr 40 MG PO QAM Prednisone (PredniSONE) 20 Mg Tablet 20 MG PO DAILY Rosuvastatin Calcium (Rosuvastatin Calcium) 10 Mg Tablet 10 MG PO HS Sulfasalazine (Sulfasalazine) 500 Mg Tablet 500 MG PO BID Tiotropium [place] (Spiriva) 18 Mcg Cap.w.dev 18 MCG IH QAM oxyCODONE (oxyCODONE) 5 Mg Tablet 5 MG PO Q8 Scheduled PRN Acetaminophen (Acetaminophen) 325 Mg Tablet 650 MG PO Q4H PRN PRN For Pain Guaifenesin (Guaifenesin ER) 600 Mg Tab.er.12h 1,200 MG PO Q12 PRN PRN For Congestion Levalbuterol HCl (Xopenex) 1.25 Mg/3 Ml Vial.neb 1.25 MG IH q2 PRN PRN For Shortness of Breath Levalbuterol HCl (Xopenex Concentrate) 1.25 Mg/0.5 Ml Vial.neb 1.25 MG NEB Q2H PRN PRN FOR SHORTNESS OF BREATH/WHEEZE Loratadine (Claritin) 10 Mg Capsule 10 MG PO DAILY PRN PRN allergies Menthol (Icy Hot) 1 Each Adh..patch 1 EACH TP DIRECTED PRN PRN For Pain Polyethylene Glycol 3350 (Miralax) 17 Gm Powd.pack 17 GM PO DAILY PRN PRN For Constipation oxyCODONE (oxyCODONE) 5 Mg Tablet 5 MG PO Q3H PRN PRN For Moderate Pain General Time Seen by MD: 15:43 Chief Complaint Shortness of breath, Other (back pain) Hx Obtained From: Patient, Spouse, EMS Arrived By: Ambulance Sudden in Onset?: Yes Onset Occurred: 1 - 4 hours ago Symptom Duration: Since onset Location: : Back Quality: Painful Severity: Current: Moderate Severity: Maximum: Severe Recent Healthcare: No recent hospitalization, Recent doctor visit Similar Sx Previous: Yes Past Medical History Past Medical History Notes: Oncology: Dr. Kvng Resendez PCP: Dr. Leiva Senior Business Analyst: Dr. Florentino Past Medical History COPD-2 LPM Cannula Aortic stenosis s/p bioprosthetic valve Osteoarthritis Metastatic non-small cell lung cancer Breast cancer s/p bilat mastectomy Metastatic lesions to Left lung- post radiation Metastatic lesions to Righ lung - treament attempts currenly with oral chemo and not being well tolerated Diverticulitis sp resection GERD Depression Sleep apnea - on C-PAP GI bleed Anemia, required 4 transfusions in July [address] April 2016 indicates likely metastatic lung disease Has pacemaker Reports: Hyperlipidemia Reports: Diverticulitis Past Surgical History aortic valve replacement double mastectomy bilateral cateract surgery colon resection rotator cuff surgery Knee Hernia surgery in November of 2014 Pacemaker August 2015 Lung needle biopsy Reports: Appendectomy, Hysterectomy, Tonsillectomy Family History Noncontributory Smoking History Never Smoker Social History Alcohol Use: "Social" Drug Use: Denies drug use Other Social History: Good social support, , Local resident Ambulatory Status Independent Review of Systems Constitutional: Denies: Chills, Fever Respiratory: Reports: Shortness of breath, Denies: Hemoptysis Cardiovascular: Denies: Chest pain Musculoskeletal: Reports: Back pain, Denies: Extremity pain Complete sys rev & neg: except as marked. GI: Reports: Nausea, Denies: Vomiting Female: Denies: Dysuria, Incontinence Neurologic: Denies: Bladder dysfunction, Bowel dysfunction, Numbness, Weakness Physical Exam Initial Vital Signs Vital Signs (First) Date Time Temp Pulse Resp B/P Pulse Ox O2 Delivery O2 Flow Rate FiO2 09/16/16 15:46 98 15 118/36 92 Nasal Cannula 4 09/16/16 18:20 36.6 Initial VS: Reviewed Head / Eyes: Atraumatic, Normocephalic, PERRL ENT: Mucous membranes moist, Conjunctiva normal, No scleral icterus Abdomen / GI: Soft, Non-tender, No guarding, No rebound, No distention Lymphatic: No lymphadenopathy Skin: Warm, Dry, No cyanosis Neurologic: Alert, Oriented, Nonfocal Psychiatric: Mood/affect normal, Behavior normal, Normal thought content General/Constitutional: Awake, Alert, Cooperative Neck: Atraumatic, Supple, No meningismus, Full range of motion, No swelling, Non-tender, No masses Respiratory / Chest: Breath sounds = bilat, No respiratory distress, No rhonchi , No wheezing, No stridor, No chest tenderness, No chest wall deformity Rales / Rhonchi: Positive: Rales bilateral bases (faint) Cardiovascular: Heart rate NL, Cap refill not delayed, Pulses = bilaterally Clicking aortic valve. Harsh holosystolic murmur. Back: No midline vertebral tend Right lower back tenderness. Interpretation & Diagnostics PROCEDURE: CT KUB IMPRESSION: 1. Large right pleural effusion with compression of the visualized portions of the right lung. This may be the etiology of the patient's flank pain. 2. No hydronephrosis, nephrolithiasis, hydroureter, or ureterolithiasis. Dictated by: Carola Guzmán M.D. on 09/16/2016 at 17:04 Lab Results Interpretation Result Diagram: 09/16/16 1555 09/16/16 1555 Test 09/16/16 15:55 09/16/16 18:13 White Blood Count 10.5th/mm3 (3.8-10.1) Red Blood Count 3.11mil/mm3 (3.90-5.20) Hemoglobin 9.1g/dL (12.0-15.6) Hematocrit 32.4% (35.0-46.0) Mean Corpuscular Volume 104.2fL (81-100) Mean Corpuscular Hemoglobin 29.3pg (27.0-35.0) Mean Corpuscular Hemoglobin Concent 28.1% (32.0-37.0) Red Cell Distribution Width 15.3% (12.3-15.4) Platelet Count 299bil/L (150-400) Neutrophils (%) (Auto) 82.5% (40-74) Lymphocytes (%) (Auto) 7.3% (14-46) Monocytes (%) (Auto) 9.4% (4-12) Eosinophils (%) (Auto) 0.5% (0-5) Basophils (%) (Auto) 0.1% (0-3) Prothrombin Time 9.7sec (8.1-12.5) Prothromb Time International Ratio 0.91ratio D-Dimer 7.82mg/L FEU (<0.50) Sodium Level 140mEq/L (134-144) Potassium Level 4.3mEq/L (3.5-5.2) Chloride Level 89mEq/L (97-108) Carbon Dioxide Level 36mmol/L (18-29) Blood Urea Nitrogen 29mg/dL (8-27) Creatinine 0.89mg/dL (0.57-1.00) Estimat Glomerular Filtration Rate 87mL/min (>59) Glucose Level 150mg/dL (60-99) Calcium Level 9.4mg/dL (8.5-10.1) Total Bilirubin 0.2mg/dL (0.0-1.2) Aspartate Amino Transf (AST/SGOT) 37U/L (0-50) Alanine Aminotransferase (ALT/SGPT) 18U/L (0-32) Alkaline Phosphatase 67U/L (25-165) Troponin T 0.034ug/L (0.0-0.011) Pro-B-Type Natriuretic Peptide 3397pg/mL (0-738) Total Protein 6.8g/dL (6.4-8.4) Albumin 3.7g/dL (3.4-5.0) Urine Color Yellow (YELLOW) Urine Appearance Clear (CLEAR,HAZY) Urine pH 5.5 (5.0-8.0) Urine Specific [place] 1.015 (1.003-1.035) Urine Protein Negativemg/dL (NEG,TRACE) Urine Glucose (UA) Negativemg/dL (NEGATIVE) Urine Ketones Negativemg/dL (NEGATIVE) Urine Occult Blood Negative (NEGATIVE) Urine Nitrite Negative (NEGATIVE) Urine Bilirubin Negative (NEGATIVE) Urine Urobilinogen Normalmg/dL (NORMAL) Urine Leukocyte Esterase Negative (NEGATIVE) Urine RBC 0-2/hpf (0-2) Urine WBC 0-5/hpf (0-5) Urine Epithelial Cells Few/hpf (NONE-MOD) Urine Crystals None seen (NONE SEEN) Urine Bacteria Few/hpf (NONE-FEW) Urine Hyaline Casts None/lpf (NONE) Urine Granular Casts None seen (NONE SEEN) Urine Waxy Casts None seen (NONE SEEN) Urine Red Blood Cell Casts None seen (NONE SEEN) Urine White Blood Cell Casts None seen (NONE SEEN) Urine Mucus Present (None Seen) Urine Trichomonas None seen (NONE SEEN) Urine Yeast None (NONE SEEN) Urinalysis Comment None Urine Culture Reflexed Not indicated Re-Eval/Medical Decision Med Decision/Clinical Course 80-year-old female history of non-small cell lung cancer on palliative care presenting with dyspnea and right lower back pain. Preliminary labs were ordered. Patient then reported she was on palliative care and did not want her shortness of breath worked up. She is following up with her podiatry professor tomorrow for possible thoracentesis for a right pleural effusion. However labs are been ordered which showed elevated troponins, elevated d-dimer, other lab abnormalities but patient was very clear that she did not want any of her shortness of breath or heart conditions or any of her other additions treated. The only condition she wanted treated was her right lower back pain. She had been on the way to get a CT scan of her right lower back for [address] showed right pleural effusion no other clear cause for her right flank pain. Her urine was negative for infection. This is possibly due to her right pleural effusion. She understands this. Much better after pain medications and will follow up with her podiatry professor tomorrow. She understands that she is on palliative care and requests this does not want any further interventions for her life threatening situation. Source of Hx: Old records, EMS, Family Summary of Info: OUTPATIENT CXR IMPRESSION: Increased size of large right pleural effusion with adjacent atelectasis since 08/11/16. Diffuse scarring. by: Marek Bond M.D. on 09/14/2016 at 13:50 Re-Evaluation/Progress #1: Time of Eval: 16:29 Re-Evaluation/Progress Note: Discussed options for workup and treatment with the patient and her . They would really only like the CT of her back. They do not want a big cardiac/dyspnea workup. They will followup with her doctors with the results. She has an appointment with Dr. Florentino tomorrow. Re-Evaluation/Progress #2: Re-Evaluation/Progress Note: Rechecked the patient. Discussed results, diagnosis, and plan for disposition. All questions were addressed. Counseled Regarding: Diagnosis, Lab results, Need for follow-up, When/why to return to ED Discharge & Departure Impression: Primary Impression: Lumbar pain Chronicity: acute Back pain laterality: right Sciatica presence: without sciatica Qualified Code: M54.5 - Low back pain Additional Impressions: Dyspnea Dyspnea type: shortness of breath Qualified Code: R06.02 - Shortness of breath Pleural effusion Disposition: Home Discharge Condition All VS Reviewed: Yes Condition: Stable Patient Instructions: Acute Low Back Pain (ED), Pleural Effusion (ED) Additional Instructions: Thank you for entrusting us with your care today. Your CT shows fluid in the right chest which may be the cause of your pain and shortness of breath. You have decided not to be admitted to the hospital or to further address the shortness of breath but prefer to followup with your podiatry professor tomorrow in clinic for a possible thoracentesis. Keep your followup appointment with Dr. Florentino tomorrow. We have sent her a copy of your visit notes today. Return to the emergency department for any new or concerning symptoms, or if you want any more emergent care. Referrals: Meeta Leiva MD (PCP) Obdulio Resendez Soumya MD Scribe Attestation Portions of this note were transcribed by Heide Goldberg. I, Dr. Brito personally performed the history, physical exam and medical decision-making; I reviewed and confirmed the accuracy of the information in the transcribed note. Signed by: Gregory Pierce, 09/16/2016 at 1800. copies to: Obdulio Resendez DO; Mary Florentino MD; Meeta Leiva MD, Ben M MD Sep 16, 2016 16:12 Heide Goldberg Sep 16, 2016 16:18
[2016-09-16 16:28] LABS: BASOPHILS % (AUTO) 0.1 % (0-3); EOSINOPHILS % (AUTO) 0.5 % (0-5); MONOCYTES % (AUTO) 9.4 % (4-12); Mean Corpuscular Hemoglobin 29.3 pg (27.0-35.0); Mean Corpuscular Volume 104.2 fL (81-100); NEUTROPHILS % (AUTO) 82.5 % (40-74); Platelet Count 299 bil/L (150-400)
[2016-09-16 16:36] LABS: INR 0.91 ratio
[2016-09-16 16:43] LABS: D-Dimer 7.82 mg/L FEU (<0.50)
[2016-09-16 16:44] LABS: TROPONIN T 0.034 ug/L (0.0-0.011)
--- NOTE | 2016-09-16 17:13 | DRSVH ---
PROCEDURE: CT KUB ([id number]) INDICATIONS: Right flank tenderness TECHNIQUE: Noncontrast 5 mm thick sections acquired from the diaphragms to the symphysis. 5 mm thick coronal an d sagittal reformats were then performed. For radiation dose reduction, the following was used: aut omated exposure control, adjustment of mA and/or kV according to patient size. COMPARISON: [facility], CT, CT CHEST WO CON, 08/05/2016, 15:28. [facility], CR, XR CHEST 2VW, 07/18/2016, 10:16. None. FINDINGS: Image quality: Excellent. Lung bases: There is a large low-density right pleural effusion and collapse of the visualized portio ns of the right lung. Mild patchy opacities are present at the left lung base. The heart is enlarged. Pacer wires and in aortic valve are visualized. Urinary system: Both kidneys are normal in size. No kidney stones. No hydronephrosis. There is mil d bilateral perinephric fat stranding. Both ureters appear non-dilated throughout their expected cour ses. Bladder wall thickness is normal; no calcified bladder stones. Other solid organs: Liver and spleen are normal in size. Gallbladder is unremarkable. Pancreas is normal in contours. No adrenal nodules. Peritoneum and bowel: Unenhanced bowel loops demonstrate normal wall thickness and caliber. No free fluid or air. Nodes and vessels: No retroperitoneal or mesenteric adenopathy by size criteria. Aorta and inferior vena cava are normal in caliber. There are scattered atheromatous calcifications throughout the aor ta and iliac arteries bilaterally. Abdominal wall: No ventral hernias. Pelvis: No free pelvic fluid. No inguinal hernias or adenopathy. Bones: No suspicious bony lesions. Severe degenerative changes are present throughout the thoracolum bar spine. No vertebral body compression fractures. IMPRESSION: 1. Large right pleural effusion with compression of the visualized portions of the right lung. This m ay be the etiology of the patient's flank pain. 2. No hydronephrosis, nephrolithiasis, hydroureter, or ureterolithiasis. Dictated by: Carola Guzmán M.D. on 09/16/2016 at 17:04 Approved by: Carola Guzmán M.D. on 09/16/2016 at 17:12
[2016-09-16 18:20] VITALS: PULSE 91; RESP 16; O2SAT 90
[2016-09-16 18:27] LABS: APPEARANCE,URINE CLEAR (CLEAR,HAZY); COLOR,URINE YELLOW (YELLOW); OCCULT BLOOD,URINE NEGATIVE (NEGATIVE); PH,URINE 5.5 (5.0-8.0); UROBILINOGEN,URINE NORMAL (NORMAL)
[2016-09-16 18:39] VITALS: BP 118/36; PULSE 91; RESP 16; O2SAT 90
== END 2016-09-16 18:42 | disposition home or self-care (01) ==
LOC: SED 15:33 → EDBD 15:33 → EDUNIT# 15:33 → SED 18:42
DX: M54.5 Low back pain (principal); J90 Pleural effusion, not elsewhere classified; R11.0 Nausea; K21.9 Gastro-esophageal reflux disease without esophagitis; E78.5 Hyperlipidemia, unspecified; J44.9 Chronic obstructive pulmonary disease, unspecified; Z88.8 Allergy status to other drugs, medicaments and biological substances; Z79.82 Long term (current) use of aspirin; Z95.0 Presence of cardiac pacemaker; Z99.81 Dependence on supplemental oxygen

== ENCOUNTER 2016-09-26 15:16 | Inpatient (IN) | payer MEDICARE, OTHER ==
[~2016-09-26] VITALS: Ht 160 cm; Wt 68.0 kg
[2016-09-26 15:25] VITALS: BP 123/41; PULSE 105; RESP 24; O2SAT 95
--- NOTE | 2016-09-26 15:45 | ED.REPORT ---
HPI-General Illness Date of Service Sep 26, 2016 ED Provider: Kareem Quiroz MD 80 y/o female with a hx of degenerative disc disease, bilateral lungs cancer and COPD (on 3L home O2) presents to the ED via EMS complaining of worsening non-radiating right lower back pain, onset a month ago. She describes it as a sharp pain and rates it 10/10 in severity.The pt has an appointment with her PCP coming up but she came to the ED because her pain was unbearable today. Her pain medications have not been helping. Associated sx include shortness of breath due to the pain. As per the , she is also experiencing fatigue, lack of appetite and weight loss. Nursing Notes Stated Complaint: SOB Chief Complaint: Back Pain or Injury Nursing Notes Reviewed: Yes Allergies: Coded Allergies: atorvastatin calcium (Verified Allergy, Mild, 09/26/16) pravastatin (Verified Allergy, Mild, 09/26/16) simvastatin (Verified Allergy, Unknown, 09/26/16) albuterol (Verified Adverse Reaction, Severe, Restlessness, jittery, ) "off the wall" Uncoded Allergies: link (Allergy, Mild, 07/29/10) hayfever (Allergy, Mild, 07/29/10) perfume (Allergy, Mild, 07/29/10) sneezing with link perfume and hayfever. Scheduled ([Xnon-Formulary Med Or Device]) EA 1 XX Q24H Ascorbic Acid (Vitamin C) 1,000 Mg Tab.chew 1,000 MG PO QAM Aspirin (Aspirin) 81 Mg Tablet 81 MG PO QAM Azithromycin (Zithromax) 250 Mg Tablet 250 MG PO THREE TIMES WEEKLY Budesonide/Formoterol 160-4.5 mcg Inh (Symbicort 160-4.5 mcg Inh) 120 Puff Inhaler 1 PUFF INHALATION BID Calcium Carbonate/Vitamin D3 (Calcium 500 + Vit D Caplet) 1 Each Tablet 1 EACH PO BIDWM Citalopram (Citalopram) 20 Mg Tablet 20 MG PO QAM Clobetasol Propionate (Clobetasol Propionate) 118 Ml Shampoo 1 APPLIC EXT 3xweekly Ferrous Gluconate (Ferrous Gluconate) 324 Mg Tablet 324 MG PO BIDWM Furosemide (Lasix) 40 Mg Tablet 20 MG PO BIDWM Hydroxychloroquine Sulfate (Hydroxychloroquine Sulfate) 200 Mg Tablet 200 MG PO BID Lactobacillus Combo No.11 (Probiotic) 1 Each Cap.sprink 1 EACH PO QAM Levofloxacin (Levaquin) 750 Mg Tablet 750 MG PO DAILYAC Lidocaine (Lidoderm) 700 Mg Adh..patch 1 PATCH TOPICAL DAILY Magnesium Oxide (Magnesium) 400 Mg Capsule 400 MG PO DAILY Multivitamin (Multi Vitamin Daily) 1 Each Tablet 1 EACH PO DAILY Omeprazole (Omeprazole) 40 Mg Capsule.dr 40 MG PO QAM Prednisone (PredniSONE) 20 Mg Tablet 20 MG PO DAILY Rosuvastatin Calcium (Rosuvastatin Calcium) 10 Mg Tablet 10 MG PO HS Sulfasalazine (Sulfasalazine) 500 Mg Tablet 500 MG PO BID Tiotropium [place] (Spiriva) 18 Mcg Cap.w.dev 18 MCG IH QAM oxyCODONE (oxyCODONE) 5 Mg Tablet 5 MG PO Q8 Scheduled PRN Acetaminophen (Acetaminophen) 325 Mg Tablet 650 MG PO Q4H PRN PRN For Pain Guaifenesin (Guaifenesin ER) 600 Mg Tab.er.12h 1,200 MG PO Q12 PRN PRN For Congestion Levalbuterol HCl (Xopenex) 1.25 Mg/3 Ml Vial.neb 1.25 MG IH q2 PRN PRN For Shortness of Breath Levalbuterol HCl (Xopenex Concentrate) 1.25 Mg/0.5 Ml Vial.neb 1.25 MG NEB Q2H PRN PRN FOR SHORTNESS OF BREATH/WHEEZE Loratadine (Claritin) 10 Mg Capsule 10 MG PO DAILY PRN PRN allergies Menthol (Icy Hot) 1 Each Adh..patch 1 EACH TP DIRECTED PRN PRN For Pain Polyethylene Glycol 3350 (Miralax) 17 Gm Powd.pack 17 GM PO DAILY PRN PRN For Constipation oxyCODONE (oxyCODONE) 5 Mg Tablet 5 MG PO Q3H PRN PRN For Moderate Pain General Time Seen by MD: 15:27 Chief Complaint Other (right lower back pain) Hx Obtained From: Patient Arrived By: Ambulance Sudden in Onset?: No Onset Occurred: More than a week ago... (2 months) Symptom Duration: Since onset Location: : Back Quality: Sharp Radiation: : Does not radiate Severity: Current: Pain level 10 out of 10 Severity: Maximum: Pain level 10 out of 10 Recent Healthcare: Recent doctor visit Similar Sx Previous: Yes Past Medical History Past Medical History Notes: Oncology: Dr. Kvng Resendez PCP: Dr. Leiva [employer] Supervisor: Dr. Florentino Past Medical History COPD-2 LPM Cannula Aortic stenosis s/p bioprosthetic valve Osteoarthritis Metastatic non-small cell lung cancer Breast cancer s/p bilat mastectomy Metastatic lesions to Left lung- post radiation Metastatic lesions to Righ lung - treament attempts currenly with oral chemo and not being well tolerated Diverticulitis sp resection GERD Depression Sleep apnea - on C-PAP GI bleed Anemia, required 4 transfusions in July [address] April 2016 indicates likely metastatic lung disease Has pacemaker Reports: Hyperlipidemia Reports: Diverticulitis Past Surgical History aortic valve replacement double mastectomy bilateral cateract surgery colon resection rotator cuff surgery Knee Hernia surgery in November of 2014 Pacemaker August 2015 Lung needle biopsy Reports: Appendectomy, Hysterectomy, Tonsillectomy Family History Noncontributory Smoking History Never Smoker Social History On palliative care Alcohol Use: "Social" Drug Use: Denies drug use Other Social History: Good social support, , Local resident Ambulatory Status Independent Review of Systems Reports: lack of appetite Reports: weightloss Full Review of Systems Constitutional: Reports: Fatigue Respiratory: Reports: Shortness of breath Musculoskeletal: Reports: Back pain Complete sys rev & neg: except as marked. Physical Exam Nursing note and vitals reviewed. Constitutional: Cachectic and ill appearing. Not diaphoretic. Head: Normocephalic and atraumatic. Mouth/Throat: Oropharynx is clear. Dry mucous membranes. No oropharyngeal exudate. Eyes: EOM are normal. Pupils are 4mm, equal, round, and reactive to light. Neck: Supple, no tracheal deviation. Cardiovascular: Tachycardic, regular rhythm. Equal and intact distal pulses throughout. Pulmonary/Chest: Effort normal. Shallow breath sounds. Abdominal: Soft. No distension. There is no tenderness, rebound, or guarding. Bowel sounds present. Musculoskeletal: Range of motion grossly intact, moving all extremities. No edema or tenderness appreciated. Neurological: AOx3. Grossly nonfocal exam. Strength and sensation intact and equal to bilateral upper and lower extremities. Skin: Warm and dry, no rashes or pallor appreciated. Psychiatric: Appropriate mood and affect. Behavior appears normal. Vital Signs Vital Signs Date Time Temp Pulse Resp B/P Pulse Ox O2 Delivery O2 Flow Rate FiO2 09/26/16 20:10 37.5 111 18 115/47 92 Simple Mask 4.5 09/26/16 15:25 105 24 123/41 95 Simple Mask 4 Interpretation & Diagnostics Lab Results Interpretation Result Diagram: 09/26/16 1540 09/26/16 1540 Test 09/26/16 15:40 09/26/16 18:15 White Blood Count 13.1th/mm3 (3.8-10.1) Red Blood Count 2.76mil/mm3 (3.90-5.20) Hemoglobin 8.0g/dL (12.0-15.6) Hematocrit 29.1% (35.0-46.0) Mean Corpuscular Volume 105.4fL (81-100) Mean Corpuscular Hemoglobin 29.0pg (27.0-35.0) Mean Corpuscular Hemoglobin Concent 27.5% (32.0-37.0) Red Cell Distribution Width 15.7% (12.3-15.4) Platelet Count 304bil/L (150-400) Neutrophils (%) (Auto) 79.4% (40-74) Lymphocytes (%) (Auto) 7.8% (14-46) Monocytes (%) (Auto) 11.6% (4-12) Eosinophils (%) (Auto) 0.7% (0-5) Basophils (%) (Auto) 0.2% (0-3) Prothrombin Time 9.6sec (8.1-12.5) Prothromb Time International Ratio 0.90ratio Sodium Level 140mEq/L (134-144) Potassium Level 4.5mEq/L (3.5-5.2) Chloride Level 90mEq/L (97-108) Carbon Dioxide Level 36mmol/L (18-29) Blood Urea Nitrogen 26mg/dL (8-27) Creatinine 0.75mg/dL (0.57-1.00) Estimat Glomerular Filtration Rate 106mL/min (>59) Glucose Level 114mg/dL (60-99) Calcium Level 9.4mg/dL (8.5-10.1) Magnesium Level 2.4mg/dL (1.6-2.6) Total Bilirubin 0.2mg/dL (0.0-1.2) Aspartate Amino Transf (AST/SGOT) 39U/L (0-50) Alanine Aminotransferase (ALT/SGPT) 25U/L (0-32) Alkaline Phosphatase 77U/L (25-165) Troponin T 0.043ug/L (0.0-0.011) Total Protein 6.5g/dL (6.4-8.4) Albumin 3.5g/dL (3.4-5.0) Lipase 19U/L (13-60) Procalcitonin 0.07ng/mL (0.00-0.08) Lactic Acid Level 0.8mmol/L (0.4-2.0) ECG Interpretation ECG Interpretation: Sinus tachycardia. Rate 104. Probable left atrial enlargement. RBBB and LAFB Left ventricular hypertrophy. Anterolateral infarct, age indeterminate. No significant change from previous ECG on 09/16/16 Time: 16:25 Interpreted by: ED physician X-Ray Chest Interpretation Chest Xray Interpretation: IMPRESSION: Decreasing aeration compared to film of 09/18/16. Probable large right effusion and developing left lower lobe pneumonia. Dictated by: Ezio Morales M.D. on 09/26/2016 at 18:12 Approved by: Ezio Morales M.D. on 09/26/2016 at 18:13 View: Portable, 1 view Interpretation / Wet Read by: Interpret - Radiologist Re-Eval/Medical Decision Med Decision/Clinical Course In summary, 80-year-old female presenting to the ED for evaluation of worsening pain in the setting of known cancer. Upon arrival to the ED, she is having severe pain and difficulty moving. Requiring IV narcotics. She is currently comfort care/palliative, however does not yet have full home hospice care. Her is concerned that he can no longer care for her pain at this time with oral medications. Her chest x-ray demonstrates a large pleural effusion and pneumonia. Patient was started on IV antibiotics here in the emergency department. Pulmonary embolus considered, however given the fact that she is not having shortness of breath independent of her pain, and we have an alternative etiology - her pain is the same as previous and the only reason she said she came in today. Laboratory studies reviewed, notable for a white blood cell count of 13.1 from 10.5 previously, hemoglobin of 8 from 9.1, and an elevated troponin of 0.043. She is not having any chest pain at this time. I suspect that this is a demand NSTEMI. Given the above, plan admission for further evaluation and management. Family and patient agree with the plan as stated, no further questions. Source of Hx: Old records Time of Eval: 18:02 Re-Evaluation/Progress Note: Discussed diagnosis and plan to admit with the pt and her . They understand and agree with the plan. All questions answered. Consultation : Referral / Consult Name: Lindy Santiago MD Call Returned at: 19:06 Senior Information Security Engineer: Will see patient, Agrees with eval, Agrees with plan, Accepts admit Counseled Regarding: Diagnosis, Lab results, Need for admission Discharge & Departure Primary Impression: NSTEMI (non-ST elevated myocardial infarction) Additional Impressions: Acute respiratory failure with hypoxia Pneumonia Pneumonia type: due to unspecified organism Laterality: bilateral Lung location: lower lobe of lung Qualified Code: J18.9 - Pneumonia, unspecified organism Disposition: ADMITTED TO HOSPITAL Discharge Condition All VS Reviewed: Yes Referrals: Meeta Leiva MD (PCP) Scribe Attestation Portions of this note were transcribed by Kervin Carrasco. I,, personally performed the history, physical exam and medical decision-making;I reviewed and confirmed the accuracy of the information in the transcribed note. Signed by Gregory Langley. 09/26/16 22:00 copies to: Meeta Leiva MD, William B MD Sep 26, 2016 15:45 Kervin Carrasco Sep 26, 2016 16:40
[2016-09-26] MEDS ORDERED: HYDROmorphone 1 mg/mL Inj IVPUSH PRN (16:30)
[2016-09-26 16:32] LABS: BASOPHILS % (AUTO) 0.2 % (0-3); EOSINOPHILS % (AUTO) 0.7 % (0-5); MONOCYTES % (AUTO) 11.6 % (4-12); Mean Corpuscular Volume 105.4 fL (81-100); NEUTROPHILS % (AUTO) 79.4 % (40-74); Platelet Count 304 bil/L (150-400)
[2016-09-26] MEDS ORDERED: Ondansetron 2 mg/mL 2 mL Inj IVPUSH PRN (16:35)
[2016-09-26 17:06] LABS: Magnesium 2.4 mg/dL (1.6-2.6)
[2016-09-26 17:07] LABS: TROPONIN T 0.043 ug/L (0.0-0.011)
[2016-09-26 17:25] LABS: INR 0.9 ratio
--- NOTE | 2016-09-26 18:16 | DRSVH ---
PROCEDURE: X-RAY CHEST ONE VIEW, PORTABLE ([id number]) INDICATIONS: pain TECHNIQUE: One view of the chest was acquired. COMPARISON: [facility], CR, XR CHEST 1VW, 09/18/2016, 15:24. FINDINGS: Surgical changes and devices: Newly pacemaker from the left. Aortic valve in place. Lungs and pleura: The loss of aeration in the right lung since previous x-ray this suggests increasin g fluid. Increased patchy density about to be present at the left base suggestive of pneumonia. Mediastinum: Mediastinal contours appear normal. Heart size is normal. Bones and chest wall: No suspicious bony lesions. Overlying soft tissues appear unremarkable. IMPRESSION: Decreasing aeration compared to film of 09/18/16. Probable large right effusion and develop ing left lower lobe pneumonia. Dictated by: Ezio Morales M.D. on 09/26/2016 at 18:12 Approved by: Ezio Morales M.D. on 09/26/2016 at 18:13
[2016-09-26] MEDS ORDERED: Vancomycin Dose per Pharmacist XX ONE (18:40)
[2016-09-26] MEDS ORDERED: levoFLOXacin Inj 750 MG in IV Premix 1 EACH IV ONE (18:40)
[2016-09-26] MEDS ORDERED: Cefepime Inj 2,000 MG in Dextrose 5% Minibag Plus 100 ML IV ONE (18:40)
[2016-09-26] MEDS ORDERED: Vancomycin Inj 1,000 MG in IV Premix 1 EACH IV ONE (19:00)
[2016-09-26] MEDS ORDERED: Polyethylene Glycol (PEG) 17 Gm Powder PO PRN (20:00)
[2016-09-26] MEDS ORDERED: Alum-Mag Hydrox-Simeth 30 mL Suspension PO PRN (20:00)
[2016-09-26 20:10] VITALS: BP 115/47; PULSE 111; RESP 18; O2SAT 92
[2016-09-26 20:25] VITALS: BP 104/41; PULSE 117; RESP 22; O2SAT 89
[2016-09-26] MEDS ORDERED: Levalbuterol 1.25 mg/0.5mL Inhalation Solution NEB PRN (20:55)
[2016-09-26] MEDS ORDERED: Ipratropium 0.02% 0.5 mg/2.5 mL Inhalation Solution NEB PRN (21:28)
[2016-09-26 21:33] VITALS: PULSE 126; RESP 22; O2SAT 92
[2016-09-26] MEDS: HYDROmorphone 0.5 mg/0.5 mL iSecure Syringe IVPUSH PRN (22:09)
[2016-09-26 22:34] VITALS: BP 105/55; PULSE 111; RESP 20; O2SAT 93
[2016-09-26 23:00] VITALS: RESP 20; O2SAT 93
--- NOTE | 2016-09-26 23:00 | NUR ---
Transfer to 2004 Pt was transferred to room 2004 in a bed and was then transferred from that bed into the CCU bed in the room using the transfer board. Pt came to the room on 6L oxymask and was then put onto the BiPAP with FiO2 50% and hooked up to a continuous pulse ox. Pt's breathing was labored and tachypneic with resp rate >24 BPM. Pt jerks and twitches at times and the pt's says that this is something that has been going on for only a few weeks now. Pt has 10/10 pain in her lower back. Pt has an open wound in the coccyx area and a mepilex was placed on the wound. Part of the pt's admit was done by the previous RN.
--- NOTE | 2016-09-26 23:09 | NUR ---
Admit note/Transfer: Pt admitted from the ER. Pt on 4.5L oxymask upon arrival to the floor, with total assist with moving bed to bed, sats were 83%. Oxygen increased to 6L 94%, then decreased to 5L on the CPOX maintaining sats at rest at 90-91%. Pt's breathing labored with pursed lip breathing. Pt sleepy, arousable to voice. Able to state name/birthday and that she is in the hospital. Questioning the pt for admission was minimal due to respiratory status. Spouse answered admission questions on paper, pt required transfer as written below, admission papers handed over to the PCC RN. to room shortly after arrival. ABGs ordered. As a result of the ABGs, pt required to be transferred to [facility] for the BiPap. Belongings sent with pt, Adolfo took the Trilogy machine to his car as it is no longer needed at this time.
[2016-09-27 00:45] VITALS: RESP 16; O2SAT 95
--- NOTE | 2016-09-27 01:26 | PCM.HPMED ---
Subjective Date of Service Sep 26, 2016 Primary Provider: Admitting Physician: Primary Care Physician: Meeta Leiva MD Attending Physician: Admit Status: From the Emergency Department Chief Complaint: Back pain and shortness of breath History of Present Illness: Mrs. Haider is a 80 year old woman with a history of degenerative disc disease , metastatic lung cancer, large R pleural effusion, CHF, COPD on 3L home oxygen , pacemaker insertion, aortic stenosis s/p bioprosthetic valve, anemia, and multiple admissions in the last few months for acute on chronic respiratory failure. She presented to the emergency department with the complaint of intractable back pain and shortness of breath for the last 1-2months. She describes the pain as severe (9/10) and sharp but states that it does not radiate. Patient is accompanied by her who is able to provide most of the history. He states that the patient is DNR/DNI and is followed by Dr. Sabillon with Palliative Care. He reports a meeting with Hospice later this week but due to increased work of breathing and intractable pain he brought her to the hospital. He states that he is not able to meet his 's needs by himself and no longer responding to her home dose of oxycodone. The patient states that she feels her breathing is at baseline and that her pain is her main concern. However, her feels her breathing is much worse and that she is quite confused. Of note, she uses a Trilogy machine at home at night with good effect. The patient's states that they recently went up on her home oxygen but this has not seemed to help much. He notes increased fatigue, poor appetite, weight loss and severe back pain that is refractory to home pain medication (oxycodone 5mg q3-8h). Patient reports decreased appetite, constipation and fatigue. Denies productive cough, fevers, chills, chest pain, nausea, vomiting, diaphoresis, neck or jaw pain. Per chart review, patient was seen by Palliative Care on 09/22/16 and recommendations at that time as follows: lidoderm patch for back pain, arrange for possible physical therapy or injections, consider additional imaging and start the mirtazapine 15 mg in the evening. In the emergency department vitals stable: temp 37.5, BP 123/41, pulse 105, RR 24, SpO2 on 4L oxymask 95%. Labs: WBC 13.1, Hb 8.0/Hct 29.1, plts 304, sodium 140, potassium 4.5, chloride 90, bicarb 36, BUN 26, creatinine 0.75, glucose 114 , lactic acid 0.8, troponin 0.043. ECG showed sinus tachycardia with rate of 104, probable left atrial enlargement, RBBB, LAFB, and left ventricular hypertrophy with no significant change from previous ECG. Chest xray showed probable large right effusion and developing left lower lobe pneumonia. Review of Systems: A comprehensive review of systems was conducted with the patient and found to be negative except as above in the History of Present Illness. Allergies Coded Allergies: atorvastatin calcium (Verified Allergy, Mild, 09/26/16) pravastatin (Verified Allergy, Mild, 09/26/16) simvastatin (Verified Allergy, Unknown, 09/26/16) albuterol (Verified Adverse Reaction, Severe, Restlessness, jittery, ) "off the wall" Uncoded Allergies: link (Allergy, Mild, 07/29/10) hayfever (Allergy, Mild, 07/29/10) perfume (Allergy, Mild, 07/29/10) sneezing with link perfume and hayfever. Home Medications Scheduled ([Xnon-Formulary Med Or Device]) EA 1 XX Q24H Ascorbic Acid (Vitamin C) 1,000 Mg Tab.chew 1,000 MG PO QAM Aspirin (Aspirin) 81 Mg Tablet 81 MG PO QAM Azithromycin (Zithromax) 250 Mg Tablet 250 MG PO THREE TIMES WEEKLY Budesonide/Formoterol 160-4.5 mcg Inh (Symbicort 160-4.5 mcg Inh) 120 Puff Inhaler 1 PUFF INHALATION BID Calcium Carbonate/Vitamin D3 (Calcium 500 + Vit D Caplet) 1 Each Tablet 1 EACH PO BIDWM Citalopram (Citalopram) 20 Mg Tablet 20 MG PO QAM Clobetasol Propionate (Clobetasol Propionate) 118 Ml Shampoo 1 APPLIC EXT 3xweekly Ferrous Gluconate (Ferrous Gluconate) 324 Mg Tablet 324 MG PO BIDWM Furosemide (Lasix) 40 Mg Tablet 20 MG PO BIDWM Hydroxychloroquine Sulfate (Hydroxychloroquine Sulfate) 200 Mg Tablet 200 MG PO BID Lactobacillus Combo No.11 (Probiotic) 1 Each Cap.sprink 1 EACH PO QAM Levofloxacin (Levaquin) 750 Mg Tablet 750 MG PO DAILYAC Lidocaine (Lidoderm) 700 Mg Adh..patch 1 PATCH TOPICAL DAILY Magnesium Oxide (Magnesium) 400 Mg Capsule 400 MG PO DAILY Multivitamin (Multi Vitamin Daily) 1 Each Tablet 1 EACH PO DAILY Omeprazole (Omeprazole) 40 Mg Capsule.dr 40 MG PO QAM Prednisone (PredniSONE) 20 Mg Tablet 20 MG PO DAILY Rosuvastatin Calcium (Rosuvastatin Calcium) 10 Mg Tablet 10 MG PO HS Sulfasalazine (Sulfasalazine) 500 Mg Tablet 500 MG PO BID Tiotropium [place] (Spiriva) 18 Mcg Cap.w.dev 18 MCG IH QAM oxyCODONE (oxyCODONE) 5 Mg Tablet 5 MG PO Q8 Acetaminophen (Acetaminophen) 325 Mg Tablet 650 MG PO Q4H PRN PRN For Pain Guaifenesin (Guaifenesin ER) 600 Mg Tab.er.12h 1,200 MG PO Q12 PRN PRN For Congestion Levalbuterol HCl (Xopenex) 1.25 Mg/3 Ml Vial.neb 1.25 MG IH q2 PRN PRN For Shortness of Breath Levalbuterol HCl (Xopenex Concentrate) 1.25 Mg/0.5 Ml Vial.neb 1.25 MG NEB Q2H PRN PRN FOR SHORTNESS OF BREATH/WHEEZE Loratadine (Claritin) 10 Mg Capsule 10 MG PO DAILY PRN PRN allergies Menthol (Icy Hot) 1 Each Adh..patch 1 EACH TP DIRECTED PRN PRN For Pain Polyethylene Glycol 3350 (Miralax) 17 Gm Powd.pack 17 GM PO DAILY PRN PRN For Constipation oxyCODONE (oxyCODONE) 5 Mg Tablet 5 MG PO Q3H PRN PRN For Moderate Pain PMH COPD on 3L home oxygen Aortic stenosis s/p bioprosthetic valve Osteoarthritis Breast cancer s/p bilateral mastectomy Metastatic lesions to Left lung- post radiation Metastatic lesions to Right lung - treatment attempts currently with oral chemo and not being well tolerated Diverticulitis s/p resection GERD Depression Sleep apnea - on C-PAP GI bleed Anemia, required 4 transfusions in July [address] April 2016 indicates likely metastatic lung disease Visited ED on 05/26/16, was not tolerating chemotherapy. Hyperlipidemia Surgical History Pacemaker placement August 2015 Aortic valve replacement Double mastectomy Bilateral cataract surgery Colon resection Rotator cuff surgery Knee replacement Hernia surgery Lung needle biopsy Appendectomy Hysterectomy Tonsillectomy . Family History Lung cancer and breast cancer in sister. Mother with history of cirrhosis and hepatitis. Social History Hx Alcohol Use: Yes (1/day) Hx Substance Use: No Hx Tobacco Use: Yes (25 pack year Hx, quit 20 years ago. ) Smoking Status: Former Smoker (25 pack year Hx, quit 20 years ago) Living Arrangement: with Family Additional Information Patient followed by Palliative Care. Exam Vital Signs Vital Sign - Last Date Time Temp Pulse Resp B/P Pulse Ox O2 Delivery O2 Flow Rate FiO2 09/26/16 15:25 105 24 123/41 95 Simple Mask 4 Exam General: Chronically ill appearing elderly female in moderate respiratory distress on 4L oxymask, appropriately interactive, speaking in full sentences. HEENT: Normocephalic, atraumatic. Pupils equal, round, and reactive to light and accommodation. Anicteric sclerae, pale/moist conjunctivae, and no lid lag. Moist mucosa. Neck: Supple with full range of motion. No jugular venous distension. Cardiovascular: Regular rate and rhythm with no murmurs, rubs, or gallops appreciated Pulmonary: Symmetric chest rise with shallow breathing through pursed lips, coarse lung sounds throughout and decreased at right lower lobe, expiratory wheezing. No use of accessory muscles. Abdomen: Bowel tones present. Soft, non-tender, non-distended. No masses appreciated. Extremities: No clubbing, cyanosis, or edema. Skin: Pale, warm and dry, no rashes or ulcerations. Sacral skin irritation noted , skin intact. Neurological: Cranial nerves grossly intact. Normal muscle strength, tone, and bulk. No known gait impairment. Psychiatric: Normal mood and affect. Alert and oriented to person, place, and time. Lab and Diagnostics Labs Laboratory Tests Test 09/26/16 15:40 09/26/16 18:15 White Blood Count 13.1th/mm3 (3.8-10.1) Red Blood Count 2.76mil/mm3 (3.90-5.20) Hemoglobin 8.0g/dL (12.0-15.6) Hematocrit 29.1% (35.0-46.0) Mean Corpuscular Volume 105.4fL (81-100) Mean Corpuscular Hemoglobin 29.0pg (27.0-35.0) Mean Corpuscular Hemoglobin Concent 27.5% (32.0-37.0) Red Cell Distribution Width 15.7% (12.3-15.4) Platelet Count 304bil/L (150-400) Neutrophils (%) (Auto) 79.4% (40-74) Lymphocytes (%) (Auto) 7.8% (14-46) Monocytes (%) (Auto) 11.6% (4-12) Eosinophils (%) (Auto) 0.7% (0-5) Basophils (%) (Auto) 0.2% (0-3) Prothrombin Time 9.6sec (8.1-12.5) Prothromb Time International Ratio 0.90ratio Sodium Level 140mEq/L (134-144) Potassium Level 4.5mEq/L (3.5-5.2) Chloride Level 90mEq/L (97-108) Carbon Dioxide Level 36mmol/L (18-29) Blood Urea Nitrogen 26mg/dL (8-27) Creatinine 0.75mg/dL (0.57-1.00) Estimat Glomerular Filtration Rate 106mL/min (>59) Glucose Level 114mg/dL (60-99) Calcium Level 9.4mg/dL (8.5-10.1) Magnesium Level 2.4mg/dL (1.6-2.6) Total Bilirubin 0.2mg/dL (0.0-1.2) Aspartate Amino Transf (AST/SGOT) 39U/L (0-50) Alanine Aminotransferase (ALT/SGPT) 25U/L (0-32) Alkaline Phosphatase 77U/L (25-165) Troponin T 0.043ug/L (0.0-0.011) Total Protein 6.5g/dL (6.4-8.4) Albumin 3.5g/dL (3.4-5.0) Lipase 19U/L (13-60) Lactic Acid Level 0.8mmol/L (0.4-2.0) Result Diagram: 09/26/16 1540 09/26/16 1540 X-Rays, CTs and MRIs (09/27/16) X-RAY CHEST ONE VIEW, PORTABLE IMPRESSION: Decreasing aeration compared to film of 09/18/16. Probable large right effusion and developing left lower lobe pneumonia. Dictated and approved by: Ezio Morales M.D. on 09/26/2016 at 18:12 Assessment & Plan 80 year old woman with degenerative disc disease, metastatic lung cancer, CHF, COPD, and a large right pleural effusion who presented to the emergency department with the complaint of worsening back pain and shortness of breath for the last 1-2 months. Admitted for acute on chronic respiratory failure and intractable back pain. Acute on chronic hypercapnic respiratory failure. Present on admission. Active -Likely secondary to lung cancer with large right pleural effusion and possible pneumonia, CHF or COPD exacerbation. Patient with multiple admissions in the last several months and treated for viral pneumonia (metapneumovirus) in July. -Chest xray showed a probable large right effusion and developing left lower lobe pneumonia. -ABG consistent with respiratory acidosis, pH 7.261, pCO2 97.3, pO2 63.9. Patient is DNR/DNI, will initiate bipap. -Received levofloxacin, cefepime and vancomycin in the emergency department -Procalcitonin negative, MRSA pending. -Sputum culture, urine antigens, respiratory viral PCR pending -Blood cultures ordered -Levalbuterol neb Q4h; Albuterol neb Q2h -Continue home dose prednisone -Continue empiric antibiotics to cover HCAP pending cultures/MRSA screen: cefepime, levofloxacin, vancomycin Possible NSTEMI. Present on admission. Active. -Patient asymptomatic without chest pain. Back pain is chronic and unlikely cardiac. -ECG without acute ischemic changes, similar to prior studies -Initial trop 0.043, likely secondary to demand. Will trend -Admit with telemetry and continue supplemental oxygen as above. -Continue home rosuvastatin, aspirin. -Hydromorphone 0.25-0.50mg Q4h prn, home oxycodone 5mg Q2h prn, for pain control Possible healthcare associated pneumonia. Present of admission. Active. -Patient with multiple admissions for acute on chronic respiratory failure in the last several months in the setting of recurrent lung cancer with metastatic disease and large right pleural effusion. Most recent admission in July patient positive for metapneumovirus. -WBC slightly elevated at 13.1 with minimal left shift. -Chest xray as above and patient received cefepime, vancomycin and levofloxacin in the ED. Blood cultures were not drawn. -Initial procalcitonin negative, lactic acid 0.8 -Respiratory viral panel, Sputum/Blood cultures ordered -MRSA screen, Strep pneumonia and legionella urine antigens pending -Repeat procalcitonin in the AM -Continue empiric antibiotic coverage for HCAP as above. COPD, chronic, present on admission. Active -ABG showing respiratory acidosis and patient started on bipap -Levalbuterol/ipratropium nebs Q4h -Held home Azithromycin three times weekly, day team to restart as unsure of last dose. -Continue home prednisone -Antibiotics as above -Supplemental O2 as above with goal sats of 88-92% -Continue home trilogy when patient off Bipap Congestive heart failure, chronic. Present on admission. Active -Patient clinically does not appear in acute exacerbation. -Diastolic dysfunction with EF on 65-70% on most recent echocardiogram in June of 2015 -Continue home furosemide -Monitor I's and O's, daily weights -Consider repeat echocardiogram Chronic back pain. Present on admission. Active. -History of degenerative disc disease, rheumatoid arthritis and metastatic disease. -Oxycodone 5mg Q4h prn, Hydromorphone 0.25-0.50mg Q4h -Continue sulfasalazine, hydroxychloroquine for rheumatoid arthritis Chronic anemia, likely secondary to chronic disease. Present on admission. Appears stable -Patient has required transfusion during prior admissions and has a history of GI bleeding. Hb and Hct on admit 8.0/29.1 -Continue home ferrous gluconate -Trend Hb/Hct -Repeat CBC in AM GERD, chronic. Present on admission. Presumed stable. -Continue home omeprazole Depression,chronic. Present on admission. Active. -Continue home citalopram Sleep apnea, chronic. Present on admission. Presumed stable. 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 Present on admission. Active. -Patient reportedly not a biopsy candidate per Dr. Resendez and has a history of not tolerating chemotherapy. -Per the patient's not undergoing or pursuing additional therapies. Day team to confirm with Oncology -Patient followed by outpatient Palliative Care and potentially Hospice. -Palliative Care consulted placed. Hyperlipidemia, chronic. Present on admission. Presumed stable. -Continue home rosuvastatin PRN: Acetaminophen-fever/headache/mild/moderate pain Antiemetics, as needed Bowel regimen, as needed. Disposition: Patient admitted under inpatient status with expected length of stay > 2 midnights for severity of present symptoms, complexities of treatment plan and risk for adverse event. Pain Evaluation: Adequate Pain Control VTE Prophylaxis: Sub-Q Enoxaparin Resuscitation Status: DNR/DNI:Do Not Resuscitate/Intubate Attending Statement Pt seen and examined by myself and agree with above plan. Jennifer Dc DO Sep 26, 2016 20:04 Lindy Santiago MD Sep 27, 2016 06:10
[2016-09-27] MEDS ORDERED: Ipratropium 0.02% 0.5 mg/2.5 mL Inhalation Solution NEB SCH (02:30)
[2016-09-27] MEDS: HYDROmorphone 0.5 mg/0.5 mL iSecure Syringe IVPUSH PRN ×2 (02:32→07:24)
[2016-09-27] MEDS ORDERED: guaiFENesin 600 mg ER12 Tablet PO PRN (02:40)
[2016-09-27 03:21] VITALS: BP 106/48; PULSE 95; RESP 20; O2SAT 94
[2016-09-27 04:56] VITALS: RESP 17; O2SAT 95
--- NOTE | 2016-09-27 05:44 | ABG ---
DateTimeAnalyzed 05:32:00 -_ pH ____7.257 - 7.350 7.450 pCO2 ___92.6__ -mmHg 35.0 45.0 pO2 ___86.2__ -mmHg 70.0 100 HCO3- ___39.8__ -mmol/L 22.0 26.0 ABE ___11.3__ -mmol/L -2.0 2.0 tHb ____8.0__ -g/dL 12.0 18.0 O2Hb ___93.5__ -% 95.0 COHb ____1.8__ -% 1.5 MetHb ____0.8__ -% 0.4 1.5 sO2 ___96.0__ -% FIO2 ___50.0__ -% PRVC 16 - CPAP ___14.0__ -cmH2O PEEP ____6.0__ -cmH2O Set_RR ___16.0__ -b/min Drawn By MM - Date/Time Notified____ 05:43:00 -_ Spontaneous_RR ___16.0__ -b/min Oxygen Device 1 ____BIPAP - Notified By MM - Notified Whom DR KUBISTY - B 763 -mmHg tO2 ___10.6__ -Vol% Kamar test N/A -
--- NOTE | 2016-09-27 05:48 | ABG ---
DateTimeAnalyzed 05:32:00 -_ pH ____7.257 - 7.350 7.450 pCO2 ___92.6__ -mmHg 35.0 45.0 pO2 ___86.2__ -mmHg 69.0 116 HCO3- ___39.8__ -mmol/L 22.0 26.0 ABE ___11.3__ -mmol/L tHb ____8.0__ -g/dL O2Hb ___93.5__ -% COHb ____1.8__ -% MetHb ____0.8__ -% sO2 ___96.0__ -% FIO2 ___50.0__ -% Drawn By MM - Date/Time Notified____ 05:43:00 -_ Notified By MM - Notified Whom DR KUBISTY - B 763 -mmHg tO2 ___10.6__ -Vol% Kamar test N/A -
[2016-09-27 05:56] VITALS: PULSE 95
--- NOTE | 2016-09-27 06:03 | NUR ---
Pain/Respiratory/HR/Skin Pt was able to get pain relief with 0.5mg Dilaudid IVP and able to sleep. Once pt was able to sleep it decreased the pt's effort to breath and the resp rate decreased and has been <24 BPM throughout the rest of the shift. Pt SpO2 on BiPAP at FiO2 50% has remained >92%. Pt's HR has come down from the 100s and pt is currently SR 90s. Pt's mepilex on open wound is still clean/dry/intact and there is no need for a dressing change. Pt needs to be Q2H turned but pt refused. Pressure Ulcer Protocol is to be put in place.
--- NOTE | 2016-09-27 07:10 | PCM.CONPHA ---
Subjective Date of Service: Sep 27, 2016 Requesting Provider: Jennifer Dc DO Back pain and shortness of breath Reason for Pharmacy Consult: Vancomycin Dosing Objective Vital Signs Date Time Temp Pulse Resp B/P Pulse Ox O2 Delivery O2 Flow Rate FiO2 09/27/16 05:56 95 09/27/16 04:56 95 17 95 50 09/27/16 03:21 36.7 95 20 106/48 94 BiPAP 09/27/16 00:45 100 16 95 50 09/26/16 23:00 113 20 93 50 09/26/16 23:00 Supplement Oxygen CPAP/BIPAP 09/26/16 22:34 36.5 111 20 105/55 93 BiPAP 09/26/16 21:37 4.00 09/26/16 21:33 126 22 92 OxyMask 5.00 09/26/16 21:00 Supplement Oxygen 09/26/16 20:25 36.9 117 22 104/41 89 OxyMask 6.00 09/26/16 20:10 37.5 111 18 115/47 92 Simple Mask 4.5 09/26/16 15:25 105 24 123/41 95 Simple Mask 4 Weight (Kilograms): 68.000 Height (Feet): 5 Height (Inches): 3.00 Test 09/26/16 15:40 09/26/16 18:15 09/27/16 00:55 09/27/16 02:15 White Blood Count 13.1th/mm3 (3.8-10.1) Red Blood Count 2.76mil/mm3 (3.90-5.20) Hemoglobin 8.0g/dL (12.0-15.6) Hematocrit 29.1% (35.0-46.0) Mean Corpuscular Volume 105.4fL (81-100) Mean Corpuscular Hemoglobin 29.0pg (27.0-35.0) Mean Corpuscular Hemoglobin Concent 27.5% (32.0-37.0) Red Cell Distribution Width 15.7% (12.3-15.4) Platelet Count 304bil/L (150-400) Neutrophils (%) (Auto) 79.4% (40-74) Lymphocytes (%) (Auto) 7.8% (14-46) Monocytes (%) (Auto) 11.6% (4-12) Eosinophils (%) (Auto) 0.7% (0-5) Basophils (%) (Auto) 0.2% (0-3) Prothrombin Time 9.6sec (8.1-12.5) Prothromb Time International Ratio 0.90ratio Sodium Level 140mEq/L (134-144) Potassium Level 4.5mEq/L (3.5-5.2) Chloride Level 90mEq/L (97-108) Carbon Dioxide Level 36mmol/L (18-29) Blood Urea Nitrogen 26mg/dL (8-27) Creatinine 0.75mg/dL (0.57-1.00) Estimat Glomerular Filtration Rate 106mL/min (>59) Glucose Level 114mg/dL (60-99) Calcium Level 9.4mg/dL (8.5-10.1) Magnesium Level 2.4mg/dL (1.6-2.6) Total Bilirubin 0.2mg/dL (0.0-1.2) Aspartate Amino Transf (AST/SGOT) 39U/L (0-50) Alanine Aminotransferase (ALT/SGPT) 25U/L (0-32) Alkaline Phosphatase 77U/L (25-165) Total Protein 6.5g/dL (6.4-8.4) Albumin 3.5g/dL (3.4-5.0) Lipase 19U/L (13-60) Lactic Acid Level 0.8mmol/L (0.4-2.0) Troponin T 0.224ug/L (0.0-0.011) Procalcitonin 0.11ng/mL (0.00-0.08) Hold Amaya Top Tube Received (Received) Assessment/Plan Assessment/Plan A: * Vancomycin dosing by pharmacy for 80 y/o woman with possible healthcare associated pneumonia * The patient received a 1000 mg IV vancomycin dose in the ED * She is also being started on cefepime and levofloxacin * Estimated CrCl for the patient is 54 mL/min (Cockcroft & Gault) * Estimated vancomycin half-life is 14 hours and estimated Vd is 48 liters P: * Starting vancomycin 1500 mg IV every 24 hours * First dose about 14 hours after the ED dose * Target a vancomycin trough range of 15 - 20 mcg/mL * Draw trough level prior to the fourth dose Thank you. Pharmacy will continue to follow this patient. Ashley De Guzman Sep 27, 2016 07:10
[2016-09-27 07:35] VITALS: RESP 22; O2SAT 93
[2016-09-27] MEDS ORDERED: Vancomycin Dose per Pharmacist XX SCH (08:30)
[2016-09-27] MEDS ORDERED: Lidocaine Topical 5% Patch TOPICAL SCH (08:30)
[2016-09-27] MEDS ORDERED: Sulfasalzine 500 mg Tablet PO SCH (08:30)
[2016-09-27] MEDS ORDERED: Hydroxychloroqine 200 mg Tablet PO SCH (08:30)
[2016-09-27] MEDS ORDERED: Cefepime Inj 2,000 MG in Dextrose 5% Minibag Plus 100 ML IV SCH (08:30)
[2016-09-27] MEDS ORDERED: predniSONE 20 mg Tablet PO SCH (08:30)
[2016-09-27] MEDS ORDERED: Pantoprazole 40 mg ER24 Tablet PO SCH (08:30)
[2016-09-27 08:47] VITALS: BP 111/62; PULSE 98; RESP 20; O2SAT 99
[2016-09-27] MEDS ORDERED: ASCO1500 PO (09:58)
--- NOTE | 2016-09-27 10:30 | NUR ---
Doctor notified nurse to get oxygen mask for patient as her Bipap was off in room and she refused to put it back on. Nurse went to find oxygen mask and when entering the room, the doctor was at bedside and said the patient had passed. Patient was unable to breathe and keep saturation up without Bipap. notified on phone by doctor. Reginald Ortez RN, notified.
--- NOTE | 2016-09-27 11:18 | PCM.DC.MED ---
Discharge Summary Date of Service Sep 27, 2016 Dates of Hospitalization Date of Hospital Admission Sep 26, 2016 at 20:13 Date of Discharge: Sep 27, 2016 Providers: Admitting Physician: Lindy Santiago MD Primary Care Physician: Meeta Leiva MD Attending Physician: Lo Melton MD Diagnosis at Time of Discharge Diagnosis at Time of Discharge Acute on chronic hypercapnic respiratory failure. Present on admission. Active. Possible NSTEMI. Present on admission. Active. Possible healthcare associated pneumonia. Present of admission. Active. COPD, chronic, present on admission. Active Congestive heart failure, chronic. Present on admission. Active Chronic back pain. Present on admission. Active. Chronic anemia, likely secondary to chronic disease. Present on admission. Appears stable GERD, chronic. Present on admission. Presumed stable. Depression,chronic. Present on admission. Active. Sleep apnea, chronic. Present on admission. Presumed stable. 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 Present on admission. Active. Hyperlipidemia, chronic. Present on admission. Presumed stable. Procedures XRay, CTs & MRIs (09/27/16) X-RAY CHEST ONE VIEW, PORTABLE IMPRESSION: Decreasing aeration compared to film of 09/18/16. Probable large right effusion and developing left lower lobe pneumonia. Dictated and approved by: Ezio Morales M.D. on 09/26/2016 at 18:12 Brief History Mrs. Haider is a 80 year old woman with a history of degenerative disc disease , metastatic lung cancer, large R pleural effusion, CHF, COPD on 3L home oxygen , pacemaker insertion, aortic stenosis s/p bioprosthetic valve, anemia, and multiple admissions in the last few months for acute on chronic respiratory failure. She presented to the emergency department with the complaint of intractable back pain and shortness of breath for the last 1-2months. She describes the pain as severe (9/10) and sharp but states that it does not radiate. Patient is accompanied by her who is able to provide most of the history. He states that the patient is DNR/DNI and is followed by Dr. Sabillon with Palliative Care. He reports a meeting with Hospice later this week but due to increased work of breathing and intractable pain he brought her to the hospital. He states that he is not able to meet his 's needs by himself and no longer responding to her home dose of oxycodone. The patient states that she feels her breathing is at baseline and that her pain is her main concern. However, her feels her breathing is much worse and that she is quite confused. Of note, she uses a Trilogy machine at home at night with good effect. The patient's states that they recently went up on her home oxygen but this has not seemed to help much. He notes increased fatigue, poor appetite, weight loss and severe back pain that is refractory to home pain medication (oxycodone 5mg q3-8h). Patient reports decreased appetite, constipation and fatigue. Denies productive cough, fevers, chills, chest pain, nausea, vomiting, diaphoresis, neck or jaw pain. Per chart review, patient was seen by Palliative Care on 09/22/16 and recommendations at that time as follows: lidoderm patch for back pain, arrange for possible physical therapy or injections, consider additional imaging and start the mirtazapine 15 mg in the evening. In the emergency department vitals stable: temp 37.5, BP 123/41, pulse 105, RR 24, SpO2 on 4L oxymask 95%. Labs: WBC 13.1, Hb 8.0/Hct 29.1, plts 304, sodium 140, potassium 4.5, chloride 90, bicarb 36, BUN 26, creatinine 0.75, glucose 114 , lactic acid 0.8, troponin 0.043. ECG showed sinus tachycardia with rate of 104, probable left atrial enlargement, RBBB, LAFB, and left ventricular hypertrophy with no significant change from previous ECG. Chest xray showed probable large right effusion and developing left lower lobe pneumonia. Hospital Course 80 year old woman with degenerative disc disease, metastatic lung cancer, CHF, COPD, and a large right pleural effusion who presented to the emergency department with the complaint of worsening back pain and shortness of breath for the last 1-2 months. Admitted for acute on chronic respiratory failure and intractable back pain. This morning, patient's expressed that both the patient and her family wanted comfort care for the patient and they were waiting for the Hospice appointment this week, but the pain was out of control and they could no longer manage it at home. We initially planned to switch the patient to comfort care. This morning, patient was seen with Dr. Melton and expressed the desire to "let me go." She denied any discomfort, but she wanted to have the BiPAP off and as soon as we took it off, she rapidly desaturated and at 1020am. Patient's was not in the room when she passed, but was contacted by phone. Pending arrangement for [facility]. Acute on chronic hypercapnic respiratory failure. Present on admission. Active -Likely secondary to lung cancer with large right pleural effusion and possible pneumonia, CHF or COPD exacerbation. Patient with multiple admissions in the last several months and treated for viral pneumonia (metapneumovirus) in July. -Chest xray showed a probable large right effusion and developing left lower lobe pneumonia. -ABG consistent with respiratory acidosis, pH 7.261, pCO2 97.3, pO2 63.9. Patient is DNR/DNI, will initiate bipap. -Received levofloxacin, cefepime and vancomycin in the emergency department -Procalcitonin negative, MRSA pending. -Sputum culture, urine antigens, respiratory viral PCR pending -Blood cultures ordered -Levalbuterol neb Q4h; Albuterol neb Q2h -Continue home dose prednisone -Continue empiric antibiotics to cover HCAP pending cultures/MRSA screen: cefepime, levofloxacin, vancomycin Possible NSTEMI. Present on admission. Active. -Patient asymptomatic without chest pain. Back pain is chronic and unlikely cardiac. -ECG without acute ischemic changes, similar to prior studies -Initial trop 0.043, likely secondary to demand. Will trend -Admit with telemetry and continue supplemental oxygen as above. -Continue home rosuvastatin, aspirin. -Hydromorphone 0.25-0.50mg Q4h prn, home oxycodone 5mg Q2h prn, for pain control Possible healthcare associated pneumonia. Present of admission. Active. -Patient with multiple admissions for acute on chronic respiratory failure in the last several months in the setting of recurrent lung cancer with metastatic disease and large right pleural effusion. Most recent admission in July patient positive for metapneumovirus. -WBC slightly elevated at 13.1 with minimal left shift. -Chest xray as above and patient received cefepime, vancomycin and levofloxacin in the ED. Blood cultures were not drawn. -Initial procalcitonin negative, lactic acid 0.8 -Respiratory viral panel, Sputum/Blood cultures ordered -MRSA screen, Strep pneumonia and legionella urine antigens pending -Repeat procalcitonin in the AM -Continue empiric antibiotic coverage for HCAP as above. COPD, chronic, present on admission. Active -ABG showing respiratory acidosis and patient started on bipap -Levalbuterol/ipratropium nebs Q4h -Held home Azithromycin three times weekly, day team to restart as unsure of last dose. -Continue home prednisone -Antibiotics as above -Supplemental O2 as above with goal sats of 88-92% -Continue home trilogy when patient off Bipap Congestive heart failure, chronic. Present on admission. Active -Patient clinically does not appear in acute exacerbation. -Diastolic dysfunction with EF on 65-70% on most recent echocardiogram in June of 2015 -Continue home furosemide -Monitor I's and O's, daily weights -Consider repeat echocardiogram Chronic back pain. Present on admission. Active. -History of degenerative disc disease, rheumatoid arthritis and metastatic disease. -Oxycodone 5mg Q4h prn, Hydromorphone 0.25-0.50mg Q4h -Continue sulfasalazine, hydroxychloroquine for rheumatoid arthritis Chronic anemia, likely secondary to chronic disease. Present on admission. Appears stable -Patient has required transfusion during prior admissions and has a history of GI bleeding. Hb and Hct on admit 8.0/29.1 -Continue home ferrous gluconate -Trend Hb/Hct -Repeat CBC in AM GERD, chronic. Present on admission. Presumed stable. -Continue home omeprazole Depression,chronic. Present on admission. Active. -Continue home citalopram Sleep apnea, chronic. Present on admission. Presumed stable. 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 Present on admission. Active. -Patient reportedly not a biopsy candidate per Dr. Resendez and has a history of not tolerating chemotherapy. -Per the patient's not undergoing or pursuing additional therapies. Day team to confirm with Oncology -Patient followed by outpatient Palliative Care and potentially Hospice. -Palliative Care consulted placed. Hyperlipidemia, chronic. Present on admission. Presumed stable. -Continue home rosuvastatin PRN: Acetaminophen-fever/headache/mild/moderate pain Antiemetics, as needed Bowel regimen, as needed. Disposition: Patient admitted under inpatient status with expected length of stay > 2 midnights for severity of present symptoms, complexities of treatment plan and risk for adverse event. Exam Vital Signs (Last) Date Time Temp Pulse Resp B/P Pulse Ox O2 Delivery O2 Flow Rate FiO2 09/27/16 08:47 36.6 98 20 111/62 99 BiPAP 09/27/16 07:35 50 09/26/16 21:37 4.00 Exam Patient Test 09/26/16 15:40 09/26/16 18:15 09/27/16 02:15 09/27/16 08:54 White Blood Count 13.1th/mm3 (3.8-10.1) Red Blood Count 2.76mil/mm3 (3.90-5.20) Hemoglobin 8.0g/dL (12.0-15.6) Hematocrit 29.1% (35.0-46.0) Mean Corpuscular Volume 105.4fL (81-100) Mean Corpuscular Hemoglobin 29.0pg (27.0-35.0) Mean Corpuscular Hemoglobin Concent 27.5% (32.0-37.0) Red Cell Distribution Width 15.7% (12.3-15.4) Platelet Count 304bil/L (150-400) Neutrophils (%) (Auto) 79.4% (40-74) Lymphocytes (%) (Auto) 7.8% (14-46) Monocytes (%) (Auto) 11.6% (4-12) Eosinophils (%) (Auto) 0.7% (0-5) Basophils (%) (Auto) 0.2% (0-3) Prothrombin Time 9.6sec (8.1-12.5) Prothromb Time International Ratio 0.90ratio Sodium Level 140mEq/L (134-144) Potassium Level 4.5mEq/L (3.5-5.2) Chloride Level 90mEq/L (97-108) Carbon Dioxide Level 36mmol/L (18-29) Blood Urea Nitrogen 26mg/dL (8-27) Creatinine 0.75mg/dL (0.57-1.00) Estimat Glomerular Filtration Rate 106mL/min (>59) Glucose Level 114mg/dL (60-99) Calcium Level 9.4mg/dL (8.5-10.1) Magnesium Level 2.4mg/dL (1.6-2.6) Total Bilirubin 0.2mg/dL (0.0-1.2) Aspartate Amino Transf (AST/SGOT) 39U/L (0-50) Alanine Aminotransferase (ALT/SGPT) 25U/L (0-32) Alkaline Phosphatase 77U/L (25-165) Total Protein 6.5g/dL (6.4-8.4) Albumin 3.5g/dL (3.4-5.0) Lipase 19U/L (13-60) Lactic Acid Level 0.8mmol/L (0.4-2.0) Procalcitonin 0.11ng/mL (0.00-0.08) Hold Amaya Top Tube Received (Received) Troponin T 0.561ug/L (0.0-0.011) Discharge Medications Discharge Medications Ascorbic Acid (Vitamin C) 1,500 Mg Tablet.er 1,000 MG PO DAILY (Reported) Aspirin (Aspirin) 81 Mg Tablet 81 MG PO QAM (Reported) Azithromycin (Zithromax) 250 Mg Tablet 250 MG PO THREE TIMES WEEKLY Prescribed by: CRIS SALES MD Budesonide/Formoterol 160-4.5 mcg Inh (Symbicort 160-4.5 mcg Inh) 120 Puff Inhaler 1 PUFF INHALATION BID (Reported) Calcium Carbonate/Vitamin D3 (Calcium 500 + Vit D Caplet) 1 Each Tablet 1 EACH PO BIDWM (Reported) Citalopram (Citalopram) 20 Mg Tablet 20 MG PO QAM (Reported) Ferrous Gluconate (Ferrous Gluconate) 324 Mg Tablet 324 MG PO BIDWM (Reported) Furosemide (Lasix) 40 Mg Tablet 20 MG PO BIDWM Prescribed by: CRIS SALES MD Hydroxychloroquine Sulfate (Hydroxychloroquine Sulfate) 200 Mg Tablet 200 MG PO BID (Reported) Lactobacillus Combo No.11 (Probiotic) 1 Each Cap.sprink 1 EACH PO QAM (Reported ) Lidocaine (Lidoderm) 700 Mg Adh..patch 1 PATCH TOPICAL DAILY Prescribed by: CRIS SALES MD Magnesium Oxide (Magnesium) 400 Mg Capsule 400 MG PO DAILY (Reported) Multivitamin (Multi Vitamin Daily) 1 Each Tablet 1 EACH PO DAILY (Reported) Omeprazole (Omeprazole) 40 Mg Capsule.dr 40 MG PO QAM (Reported) Prednisone (PredniSONE) 20 Mg Tablet 20 MG PO DAILY Prescribed by: CRIS SALES MD Rosuvastatin Calcium (Rosuvastatin Calcium) 10 Mg Tablet 10 MG PO HS (Reported) Sulfasalazine (Sulfasalazine) 500 Mg Tablet 500 MG PO BID (Reported) Tiotropium [place] (Spiriva) 18 Mcg Cap.w.dev 18 MCG IH QAM (Reported) As needed Acetaminophen (Acetaminophen) 325 Mg Tablet 650 MG PO Q4H PRN PRN For Pain ( Reported) Guaifenesin (Guaifenesin ER) 600 Mg Tab.er.12h 1,200 MG PO Q12 PRN PRN For Congestion Prescribed by: AMY JONES DO Levalbuterol HCl (Xopenex Concentrate) 1.25 Mg/0.5 Ml Vial.neb 1.25 MG NEB Q2H PRN PRN FOR SHORTNESS OF BREATH/WHEEZE Prescribed by: CRIS SALES MD Loratadine (Claritin) 10 Mg Capsule 10 MG PO DAILY PRN PRN allergies (Reported) Menthol (Icy Hot) 1 Each Adh..patch 1 EACH TP DIRECTED PRN PRN For Pain ( Reported) Polyethylene Glycol 3350 (Miralax) 17 Gm Powd.pack 17 GM PO DAILY PRN PRN For Constipation (Reported) oxyCODONE (oxyCODONE) 5 Mg Tablet 5 MG PO Q3H PRN PRN For Moderate Pain Prescribed by: CRIS SALES MD Followup Plan Disposition: Patient copies to: Meeta Leiva MD, Ngochanh H DO Sep 27, 2016 11:18 Calcium Carbonate/Vitamin D3 (Calcium 500 + Vit D Caplet) 1 Each Tablet 1 EACH PO BIDWM (Reported) Citalopram (Citalopram) 20 Mg Tablet 20 MG PO QAM (Reported) Ferrous Gluconate (Ferrous Gluconate) 324 Mg Tablet 324 MG PO BIDWM (Reported) Furosemide (Lasix) 40 Mg Tablet 20 MG PO BIDWM Prescribed by: CRIS SALES MD Hydroxychloroquine Sulfate (Hydroxychloroquine Sulfate) 200 Mg Tablet 200 MG PO BID (Reported) Lactobacillus Combo No.11 (Probiotic) 1 Each Cap.sprink 1 EACH PO QAM (Reported ) Lidocaine (Lidoderm) 700 Mg Adh..patch 1 PATCH TOPICAL DAILY Prescribed by: CRIS SALES MD Magnesium Oxide (Magnesium) 400 Mg Capsule 400 MG PO DAILY (Reported) Multivitamin (Multi Vitamin Daily) 1 Each Tablet 1 EACH PO DAILY (Reported) Omeprazole (Omeprazole) 40 Mg Capsule.dr 40 MG PO QAM (Reported) Prednisone (PredniSONE) 20 Mg Tablet 20 MG PO DAILY Prescribed by: CRIS SALES MD Rosuvastatin Calcium (Rosuvastatin Calcium) 10 Mg Tablet 10 MG PO HS (Reported) Sulfasalazine (Sulfasalazine) 500 Mg Tablet 500 MG PO BID (Reported) Tiotropium [place] (Spiriva) 18 Mcg Cap.w.dev 18 MCG IH QAM (Reported) As needed Acetaminophen (Acetaminophen) 325 Mg Tablet 650 MG PO Q4H PRN PRN For Pain ( Reported) Guaifenesin (Guaifenesin ER) 600 Mg Tab.er.12h 1,200 MG PO Q12 PRN PRN For Congestion Prescribed by: AMY JONES DO Levalbuterol HCl (Xopenex Concentrate) 1.25 Mg/0.5 Ml Vial.neb 1.25 MG NEB Q2H PRN PRN FOR SHORTNESS OF BREATH/WHEEZE Prescribed by: CRIS SALES MD Loratadine (Claritin) 10 Mg Capsule 10 MG PO DAILY PRN PRN allergies (Reported) Menthol (Icy Hot) 1 Each Adh..patch 1 EACH TP DIRECTED PRN PRN For Pain ( Reported) Polyethylene Glycol 3350 (Miralax) 17 Gm Powd.pack 17 GM PO DAILY PRN PRN For Constipation (Reported) oxyCODONE (oxyCODONE) 5 Mg Tablet 5 MG PO Q3H PRN PRN For Moderate Pain Prescribed by: MD Ashley RYAN Ngochanh H DO Sep 27, 2016 11:18
--- NOTE | 2016-09-27 14:39 | NUR ---
Social Work: Screen Pt is . REMEDIAL TEACHER consulted with MD in am rounds. No sw needs identified at this time. REMEDIAL TEACHER provided home information to patient's family. ROBSON De Souza
[2016-09-27] MEDS ORDERED: levoFLOXacin Inj 750 MG in IV Premix 1 EACH IV SCH (20:00)
--- NOTE | 2016-09-28 15:42 | NUR ---
Palliative care note D/A: Pt was admitted over weekend for eol care. She while here in acute care. Phone call to [facility] and left message for Jessica to indicate no further need for info visit. P: No further need for PC services. Machelle SHAH, CCM
[2016-09-29] MEDS ORDERED: Vancomycin Serum Trough XX ONE (09:30)
--- NOTE | 2016-09-30 12:23 | NUR ---
Palliative care note D/A: Mr. Haider called today to discuss his 's . He indicates it happened so quickly that he does not really know what happened. He had stepped out of the room to call the children and she . His kids were with him over the past few days. He is wondering who he might talk to in order to gain a better understanding. He also notes that he feels he is in a daze and may need to talk to someone. He has reached out to discuss with Dr. Leiva but cannot see her until 10/26/16. He may be interested in seeing a therapist. Phone call to Dr. Sabillon to discuss. She will review chart and call pt spouse. She is given contact numbers. Phone call to and left message for Mae in bereavement at [facility]. Calling to find out what services might be available as pt had not officially signed on to [facility]. Copied list of local therapists and mailing to pt spouse with a note to indicate he should call them to discuss and discern which might be a good fit. Also, that he may need to pay out of pocket as most therapist do not bill Medicare. P: Palliative care to follow. Machelle SHAH, [facility] Addendum: 09/30/16 at 1305 by URIEL HASTINGS PC note amendment Mae from bereavement at [facility] has returned call. She also had referral for Mr. Haider from Dr. Sabillon. She is available as soon as tomorrow to see him. Dr. Sabillon to coordinate a date and time for Mr. Haider with Mae. MAMTA, [employer], CCM
== END 2016-09-27 10:20 | disposition expired | DRG 189 ==
LOC: SED 15:16 → OBSVTOIN 20:13 → MPC 20:13 → PCC 22:39
PROVIDERS: ADMIT Specialist; ATTEND Specialist
PROC: 4A033R1 Measurement of Arterial Saturation, Peripheral, Percutaneous Approach (ICD-10-PCS; principal; 2016-09-27)
DX: J96.22 Acute and chronic respiratory failure with hypercapnia (principal); I21.4 Non-ST elevation (NSTEMI) myocardial infarction; J18.9 Pneumonia, unspecified organism; J44.0 Chronic obstructive pulmonary disease with (acute) lower respiratory infection; I50.32 Chronic diastolic (congestive) heart failure; C78.01 Secondary malignant neoplasm of right lung; E87.2 Acidosis; J44.9 Chronic obstructive pulmonary disease, unspecified; K21.9 Gastro-esophageal reflux disease without esophagitis; F32.9 Major depressive disorder, single episode, unspecified; E78.5 Hyperlipidemia, unspecified; Z85.3 Personal history of malignant neoplasm of breast; Z51.5 Encounter for palliative care; Z66 Do not resuscitate; Z87.891 Personal history of nicotine dependence; G89.29 Other chronic pain; D64.9 Anemia, unspecified; G47.30 Sleep apnea, unspecified; Z99.81 Dependence on supplemental oxygen